=== PATIENT | male | born 1950 | race Caucasian/White ===

== ENCOUNTER → 2019-03-02 | Outpatient (CLI) | payer MEDICARE ==
--- NOTE | 2019-03-03 09:24 | P.ARTDOP ---
Arterial Doppler LOWER EXTREMITY ARTERIAL DOPPLER: DATE OF SERVICE: 03/02/2019 Reason for study: Bilateral foot pain. Doppler waveforms: Multiphasic bilaterally throughout. Pulse volume recording: []. Pressure gradients: No significant gradients. Ankle-brachial indices: 0.97 on the right and 0.99 on the left. Toe pressures: [] on the right, [] on the left Impression: Normal study.
== END | disposition home or self-care (01) ==
LOC: RADUSWWP 12:45
PROVIDERS: ATTEND Family Medicine
DX: I70.213 Atherosclerosis of native arteries of extremities with intermittent claudication, bilateral legs (principal)
CPT/HCPCS: 93923

== ENCOUNTER 2019-07-26 10:15 | Observation (INO) | payer MEDICARE ==
[2019-07-26 11:12] LABS: Basophils % (A) 1 %; Eosinophils # (A) 0.1 k/uL (0-0.7); Eosinophils % (A) 4 %; HGB 12.1 gm/dL (13.0-17.5); Lymphocytes # (A) 0.6 k/uL (1.0-4.8); Lymphocytes % (A) 18 %; MCHC 31.8 g/dL (31.0-37.0); MCV 97.3 fL (80.0-100.0); Mean Platelet Volume 7.4; Monocytes # (A) 0.2 k/uL (0-1.0); Monocytes % (A) 7 %; Neutrophils # (A) 2.4 k/uL (1.3-7.7); Neutrophils % (A) 68 %; Platelet Count 151 k/uL (150-450); RDW 12.8 % (11.5-15.5); WBC 3.5 k/uL (3.8-10.6)
[2019-07-26 11:25] LABS: ALT 22 U/L (4-49); AST 29 U/L (17-59); African American GFR (CKD) >90 (>60 ml/min/1.73 sqM); Albumin 3.7 g/dL (3.5-5.0); Alkaline Phosphatase 91 U/L (38-126); Anion Gap 4 mmol/L; Blood Urea Nitrogen 25 mg/dL (9-20); Carbon Dioxide 28 mmol/L (22-30); Chloride 107 mmol/L (98-107); Glucose 108 mg/dL (74-99); Magnesium 1.9 mg/dL (1.6-2.3); Non-African American GFR(CKD) 81 (>60 ml/min/1.73 sqM); Partial Thromboplastin Time 24.7 sec (22.0-30.0); Potassium 4.2 mmol/L (3.5-5.1); Prothrombin Time 10.2 sec (9.0-12.0); Sodium 139 mmol/L (137-145); Total Bilirubin 0.5 mg/dL (0.2-1.3); Total Protein 6.1 g/dL (6.3-8.2)
[2019-07-26 11:35] LABS: Appearance,Urine Clear (Clear); Bilirubin,Urine Negative (Negative); Blood,Urine Negative (Negative); Color,Urine Yellow; Glucose,Urine (UA) Negative (Negative); Ketones,Urine Negative (Negative); Leukocyte Esterase,Urine Negative (Negative); Nitrite,Urine Negative (Negative); PH, Urine 5.5 (5.0-8.0); Protein,Urine Negative (Negative); Specific Gravity,Urine 1.019 (1.001-1.035); Urobilinogen,Urine <2.0 mg/dL (<2.0)
--- NOTE | 2019-07-26 11:36 | XR ---
EXAMINATION TYPE: XR chest 2V DATE OF EXAM: 07/26/2019 COMPARISON: 03/20/2016 HISTORY: Shortness of breath TECHNIQUE: Frontal and lateral views of the chest are obtained. FINDINGS: Scattered senescent parenchymal changes noted. No evidence for infiltrate. No evidence for atelectasis. Heart size is stable. Mediastinal structures are stable and grossly unremarkable. No evidence for hilar prominence. Degenerative changes dorsal spine. IMPRESSION: 1. No evidence for acute pulmonary disease.
--- NOTE | 2019-07-26 12:34 | ED ---
Chest Pain HPI - General Chief Complaint: Chest Pain Stated Complaint: Chest pain Time Seen by Provider: 07/26/19 10:15 Source: patient Mode of arrival: ambulatory Limitations: no limitations - History of Present Illness Initial Comments: The patient is a 69-year-old male with past history of hypertension who presents to emergency room with reported chest pain. States the symptoms started earlier this morning around 8:00. It is described as a right-sided chest pain which radiates to the left side of his chest. He describes it as a pressure sensation without radiation. No ripping or tearing sensation to his back. Denies any numbness and tingling in his upper extremity. Denies a previous cardiac history. No history of cardiac arrhythmia. Denies a history of DVT or PE. Denies any shortness of breath. No cough or hemoptysis. No back or flank pain. No recent upper respiratory infection. He did take Pepto which states it did help his symptoms. He did have associated nausea without vomiting. He went to a clinic prior to coming to the hospital. They performed an EKG and then transfer the patient to the hospital for further evaluation. Denies a previous history of stress testing. His pain is graded as a 4 out of 10. Did have improvement in his pain with Pepto. He denies any fevers or chills. No cough or hemoptysis. Denies abdominal pain. Ripping or tearing sensation to his back. Denies any back or flank pain. There are no other alleviating, precipitating or modifying factors - Related Data Home Medications Medication Instructions Recorded Confirmed Acetaminophen [Tylenol] 500 mg PO BID PRN 08/07/15 07/26/19 Aspirin EC [Ecotrin Low Dose] 81 mg PO DAILY 08/07/15 07/26/19 Atorvastatin [Lipitor] 20 mg PO DAILY 08/07/15 07/26/19 Benazepril HCl 20 mg PO DAILY 08/07/15 07/26/19 Cholecalciferol [Vitamin D3 (25 2,000 unit PO DAILY 08/07/15 07/26/19 Mcg = 1000 Iu)] Cyanocobalamin [Vitamin B-12] 500 mcg PO DAILY 08/07/15 07/26/19 Doxazosin [Cardura] 4 mg PO BID 08/07/15 07/26/19 Multivitamins, Thera [Multivitamin 1 tab PO DAILY 08/07/15 07/26/19 (formulary)] Omeprazole [PriLOSEC] 20 mg PO BID 08/07/15 07/26/19 Sertraline [Zoloft] 50 mg PO DAILY 08/07/15 07/26/19 Diltiazem Cd [Cardizem CD] 240 mg PO DAILY 03/08/16 07/26/19 Calcium Polycarbophil [Fibercon] 625 mg PO BID 07/26/19 07/26/19 Fluticasone Propionate [Flonase 2 spray EA NOSTRIL DAILY 07/26/19 07/26/19 Allergy Relief] Furosemide [Lasix] 20 mg PO BID@0900,1600 07/26/19 07/26/19 Allergies Allergy/AdvReac Type Severity Reaction Status Date / Time cyclobenzaprine HCl Allergy Unknown Unknown Verified 07/26/19 13:26 [From Flexeril] memantine HCl [From Namenda] Allergy Unknown Unknown Verified 07/26/19 13:26 promethazine HCl Allergy Unknown Unknown Verified 07/26/19 13:26 [From Phenergan] quetiapine fumarate Allergy Unknown Unknown Verified 07/26/19 13:26 [From Seroquel] alprazolam [From Xanax] Allergy Unknown Verified 07/26/19 13:26 Review of Systems ROS Statement: Those systems with pertinent positive or pertinent negative responses have been documented in the HPI. ROS Other: All systems not noted in ROS Statement are negative. EKG Findings - EKG Comments: EKG Findings:: EKG demonstrates a sinus rhythm with a first-degree AV block. Rate of 87. NV interval 236. QRS 102. QTC of 423. There is an incomplete right bundle-branch block. No acute ST segment elevations or depressions concerning for ischemic changes Past Medical History Past Medical History: Deep Vein Thrombosis (DVT), Hyperlipidemia, Hypertension Additional Past Medical History / Comment(s): ? SEIZURE 2015. using a cane History of Any Multi-Drug Resistant Organisms: None Reported Past Surgical History: Joint Replacement, Orthopedic Surgery Additional Past Surgical History / Comment(s): 03/19/16 total R knee arthroplasty. R FOOT SURGERY, R carpal tunnel repair Past Anesthesia/Blood Transfusion Reactions: No Reported Reaction Past Psychological History: No Psychological Hx Reported Smoking Status: Never smoker Past Alcohol Use History: None Reported Past Drug Use History: None Reported - Past Family History Father Family Medical History: Cancer Mother Family Medical History: Cancer General Exam Limitations: no limitations General appearance: alert, in no apparent distress Head exam: Present: atraumatic, normocephalic, normal inspection Eye exam: Present: normal appearance, PERRL, EOMI. Absent: scleral icterus, conjunctival injection, periorbital swelling ENT exam: Present: normal exam, mucous membranes moist Neck exam: Present: normal inspection. Absent: tenderness, meningismus, lymphadenopathy Respiratory exam: Present: normal lung sounds bilaterally. Absent: respiratory distress, wheezes, rales, rhonchi, stridor Cardiovascular Exam: Present: regular rate, normal rhythm, normal heart sounds. Absent: systolic murmur, diastolic murmur, rubs, gallop, clicks GI/Abdominal exam: Present: soft, normal bowel sounds. Absent: distended, tenderness, guarding, rebound, rigid Extremities exam: Present: full ROM, normal capillary refill, pedal edema. Absent: tenderness, joint swelling, calf tenderness Back exam: Present: normal inspection Neurological exam: Present: alert, oriented X3, CN II-XII intact Psychiatric exam: Present: normal affect, normal mood Skin exam: Present: warm, dry, intact, normal color. Absent: rash Course Vital Signs 07/26/19 07/26/19 07/26/19 10:16 11:30 12:00 Temperature 98.8 F Pulse Rate 95 80 Respiratory 18 14 Rate Blood Pressure 153/80 139/74 133/79 O2 Sat by Pulse 98 97 Oximetry 07/26/19 07/26/19 07/26/19 12:30 13:00 13:30 Temperature Pulse Rate 76 81 75 Respiratory 16 13 18 Rate Blood Pressure 140/76 145/79 135/73 O2 Sat by Pulse 98 98 98 Oximetry 07/26/19 14:00 Temperature Pulse Rate 69 Respiratory 17 Rate Blood Pressure 132/71 O2 Sat by Pulse 99 Oximetry Chest Pain MDM - MDM Upon arrival the patient placed into room 20. A thorough history and physical exam was performed. A 12-lead EKG was performed. Patient states that his pain is controlled at this time and so he is not accepting of any pain medications at this time. Peripheral IV was placed. Laboratory studies were conducted. White blood count is 3.5. D-dimer elevated at 1.48. Patient denies having a history of DVT or PE however this is listed in his history. He states that he is not ever remember being on a blood thinner. Troponin is negative. Urinalysis is also negative. Patient is sent for a chest x-ray which demonstrates no acute cardial primary process. Because of the elevated d-dimer the patient is then sent for a CT of his chest which demonstrates a suboptimal study but there is no acute evidence for acute pulmonary embolism. No suspicious acute focal infiltrate. I discussed the results with the patient. As he has not had any recent cardiac evaluation and does not remember ever having a stress test I did recommend hospital admission for which the patient did agree. Called and discussed the case with Dr. Sterling who accepted admission for the patient. Patient was transferred to floor in stable condition Disposition Clinical Impression: Chest pain Disposition: ADMITTED IP TO THIS HOSP Condition: Stable Is patient prescribed a controlled substance at d/c from ED?: No Decision to Admit Reason: Admit from EC Decision Date: 07/26/19 Decision Time: 13:28
[2019-07-26] MEDS ORDERED: NALOXONE 0.4 MG/ML 1 ML VIAL IV PRN (13:28)
--- NOTE | 2019-07-26 14:44 | CT ---
EXAMINATION TYPE: CT chest angio for PE DATE OF EXAM: 07/26/2019 COMPARISON: Chest x-ray earlier today. HISTORY: Elevated d dimer, chest pain CT DLP: 569.4 mGycm. Automated Exposure Control for Dose Reduction was Utilized. CONTRAST: CTA scan of the thorax is performed with IV Contrast, patient injected with 100 mL of Isovue 370, pul monary embolism protocol. MIP Images are created on CT scanner and reviewed. FINDINGS: There is respiratory motion artifact degradation making evaluation suboptimal particularly for subcentimeter nodules. LUNGS: Trace bilateral pleural effusions. No pneumothorax bilaterally. No suspicious focal groundglas s opacity or consolidation. No suspicious masses. MEDIASTINUM: Suboptimal study with near equal contrast in right and left heart systems but no CT evid ence for acute pulmonary embolism. There are no greater than 1 cm hilar or mediastinal lymph nodes. Prominent but subcentimeter AP window and paratracheal lymph nodes. Prominent calcified subcarinal l ymph nodes. No cardiomegaly or pericardial effusion is seen. OTHER: Bilateral subareolar gynecomastia. Few small calcifications scattered throughout the spleen. M oderate multilevel spurring and disc space narrowing in the thoracic spine. IMPRESSION: 1. Suboptimal study without CT evidence for acute pulmonary embolism. 2. No suspicious acute focal infiltrate.
[2019-07-26] MEDS ORDERED: ACETAMINOPHEN TAB 500 MG TAB PO PRN (17:27)
[2019-07-26] MEDS: DOXAZOSIN 4 MG TAB PO SCH (18:14)
[2019-07-26] MEDS: CALCIUM POLYCARBOPHIL 625 MG TAB PO SCH (21:40)
[2019-07-27] MEDS: PANTOPRAZOLE 40 MG TABLET PO SCH (06:27)
[2019-07-27] MEDS: LISINOPRIL 20 MG TAB PO SCH (08:12)
[2019-07-27] MEDS: FUROSEMIDE 20 MG TAB PO SCH ×2 (08:12→15:36)
[2019-07-27] MEDS: CHOLECALCIFEROL 1,000 UNIT TAB PO SCH (08:12)
[2019-07-27] MEDS: FLUTICASONE 50MCG/SPRAY NASAL 16GM EA NOSTRIL SCH (08:12)
[2019-07-27] MEDS: MULTIVITAMINS, THERA 1 EACH TAB PO SCH (08:12)
[2019-07-27] MEDS: ATORVASTATIN 20 MG TAB PO SCH (08:12)
[2019-07-27] MEDS: DOXAZOSIN 4 MG TAB PO SCH ×2 (08:12→20:51)
[2019-07-27] MEDS: DILTIAZEM CD 240 MG CAP.ER.24H PO SCH (08:12)
[2019-07-27] MEDS: CYANOCOBALAMIN 500 MCG TAB PO SCH (08:12)
[2019-07-27] MEDS: CALCIUM POLYCARBOPHIL 625 MG TAB PO SCH ×2 (08:12→20:51)
[2019-07-27] MEDS: ASPIRIN 81 MG PO SCH (08:12)
[2019-07-27] MEDS: SERTRALINE 50 MG TAB PO SCH (08:13)
[2019-07-27] MEDS: ENOXAPARIN 40 MG/0.4 ML SYRINGE SQ SCH (11:48)
--- NOTE | 2019-07-27 12:12 | P.CRDCN ---
History of Present Illness Consult date: 07/27/19 Requesting physician: Calvin Sterling Consult reason: chest pain Chief complaint: Chest pain History of present illness: This is a 69-year-old gentleman with documented history of hyperten rodrick, hyperlipidemia, prior DVT, questionable prior seizure in the past, he is a nonsmoker, nondiabetic, presents to the hospital on this occasion with symptoms of chest tightness and heaviness. Patient also states that he had a sharp chest discomfort. Symptoms started around 8:00 in the morning, he went to the local clinic, that was around 9:00 he states the pain was still there at that time al though much less severe, he was recommended to come to the hospital for further evaluation and treatment. On arrival here the patient states he was still experiencing chest pain. He had no associated symptoms of shortness of breath, no nausea, no diaphoresis. Chest x-ray did not have any evidence for acute pulmonary disease. EKG shows a normal sinus rhythm with first-degree AV block and incomplete right bundle branch block, no acute changes noted. CTA of the chest, suboptimal study but no evidence for pulmonary embolism. Blood pressure 136/60 with a heart rate in the 60s to 80s, 95% on room air. White blood cell count 3.5, hemoglobin 12.1, platelet count 151. D-dimer 1.48. Sodium 139, potassium 4.2, BUN 25, creatinine 0.9. Magnesium 1.9. Troponins negative 3. At the time of my examination this morning, patient is currently chest pain- free. Past Medical History Past Medical History: Deep Vein Thrombosis (DVT), Hyperlipidemia, Hypertension Additional Past Medical History / Comment(s): ? SEIZURE 2014. using a cane History of Any Multi-Drug Resistant Organisms: None Reported Past Surgical History: Joint Replacement, Orthopedic Surgery Additional Past Surgical History / Comment(s): 03/19/16 total R knee arthroplasty. R FOOT SURGERY, R carpal tunnel repair Past Anesthesia/Blood Transfusion Reactions: No Reported Reaction Past Psychological History: No Psychological Hx Reported Smoking Status: Never smoker Past Alcohol Use History: None Reported Past Drug Use History: None Reported - Past Family History Father Family Medical History: Cancer Mother Family Medical History: Cancer Medications and Allergies Home Medications Medication Instructions Recorded Confirmed Type Acetaminophen [Tylenol] 500 mg PO BID PRN 08/07/15 07/26/19 History Aspirin EC [Ecotrin] 81 mg PO DAILY 08/07/15 07/26/19 History Atorvastatin [Lipitor] 20 mg PO DAILY 08/07/15 07/26/19 History Benazepril HCl 20 mg PO DAILY 08/07/15 07/26/19 History Cholecalciferol [Vitamin D3] 2,000 unit PO DAILY 08/07/15 07/26/19 History Cyanocobalamin [Vitamin B-12] 500 mcg PO DAILY 08/07/15 07/26/19 History Doxazosin [Cardura] 4 mg PO BID 08/07/15 07/26/19 History Multivitamins, Thera [Multivitamin] 1 tab PO DAILY 08/07/15 07/26/19 History Omeprazole [PriLOSEC] 20 mg PO BID 08/07/15 07/26/19 History Sertraline [Zoloft] 50 mg PO DAILY 08/07/15 07/26/19 History Diltiazem Cd [Cardizem Cd] 240 mg PO DAILY 03/08/16 07/26/19 History Calcium Polycarbophil [Fibercon] 625 mg PO BID 07/26/19 07/26/19 History Fluticasone Propionate [Flonase 2 spray EA NOSTRIL DAILY 07/26/19 07/26/19 History Allergy Relief] Furosemide [Lasix] 20 mg PO BID@0900,1600 07/26/19 07/26/19 History Allergies Allergy/AdvReac Type Severity Reaction Status Date / Time cyclobenzaprine HCl Allergy Unknown Unknown Verified 07/26/19 13:26 [From Flexeril] memantine HCl [From Namenda] Allergy Unknown Unknown Verified 07/26/19 13:26 promethazine HCl Allergy Unknown Unknown Verified 07/26/19 13:26 [From Phenergan] quetiapine fumarate Allergy Unknown Unknown Verified 07/26/19 13:26 [From Seroquel] alprazolam [From Xanax] Allergy Unknown Verified 07/26/19 13:26 Physical Exam Vitals: Vital Signs Temp Pulse Pulse Resp BP BP Pulse Ox 07/27/19 08:00 97.8 F 59 L 21 137/67 95 07/27/19 04:00 98.2 F 80 20 157/79 97 07/27/19 00:00 98 F 75 18 135/72 97 07/26/19 20:00 98.2 F 76 18 149/71 99 07/26/19 16:45 84 16 07/26/19 15:05 98.5 F 72 18 131/73 97 07/26/19 14:00 69 17 132/71 99 07/26/19 13:30 75 18 135/73 98 07/26/19 13:00 81 13 145/79 98 07/26/19 12:30 76 16 140/76 98 Intake and Output 07/26/19 07/27/19 07/27/19 22:59 06:59 14:59 Intake Total 240 120 Balance 240 120 Intake: Oral 240 120 Other: Voiding Method Toilet # Voids 1 1 # Bowel Movements 1 Weight 109.769 kg 111 kg PHYSICAL EXAMINATION: GENERAL: 69-year-old gentleman in no acute distress at the time of my examination HEENT: Head is atraumatic, normocephalic. Pupils equal, round. Sclera anicteric. Conjunctiva are clear. Mucous membranes of the mouth are moist. Neck is supple. There is no elevated jugular venous pressure. No carotid bruit is heard. HEART EXAMINATION: Heart S1 and S2 systolic murmur is heard in the aortic area CHEST EXAMINATION: Lungs are clear to auscultation and precussion. No chest wall tenderness is noted on palpation or with deep breathing. ABDOMEN: Soft, nontender. Bowel sounds are heard. No organomegaly noted. EXTREMITIES: 2+ peripheral pulses with trace to 1+ evidence of peripheral edema and no calf tenderness noted. NEUROLOGIC patient is awake, alert and oriented 3 . . Results 07/26/19 10:38 07/26/19 10:38 Cardiac Enzymes 07/26/19 07/27/19 Range/Units 16:15 08:40 Troponin I <0.012 <0.012 (0.000-0.034) ng/mL Current Medications Generic Name Dose Route Start Last Admin Trade Name Freq PRN Reason Stop Dose Admin Acetaminophen 500 mg 07/26/19 17:27 Tylenol Tab PO BID PRN Pain Aspirin 81 mg 07/27/19 09:00 07/27/19 08:12 Aspirin PO 81 mg DAILY DISHA Administration Atorvastatin Calcium 20 mg 07/27/19 09:00 07/27/19 08:12 Lipitor PO 20 mg DAILY DISHA Administration Calcium Polycarbophil 625 mg 07/26/19 21:00 07/27/19 08:12 Fibercon PO 625 mg BID DISHA Administration Cholecalciferol 2,000 unit 07/27/19 09:00 07/27/19 08:12 Vitamin D3 (25 Mcg = 1000 Iu) PO 2,000 unit DAILY DISHA Administration Cyanocobalamin 500 mcg 07/27/19 09:00 07/27/19 08:12 Vitamin B-12 PO 500 mcg DAILY DISHA Administration Diltiazem HCl 240 mg 07/27/19 09:00 07/27/19 08:12 Cardizem Cd PO 240 mg DAILY DISHA Administration Doxazosin Mesylate 4 mg 07/26/19 21:00 07/27/19 08:12 Cardura PO 4 mg BID DISHA Administration Enoxaparin Sodium 40 mg 07/27/19 10:15 07/27/19 11:48 Lovenox SQ 40 mg DAILY DISHA Administration Fluticasone Propionate 2 spray 07/27/19 09:00 07/27/19 08:12 Flonase Nasal Renner EA NOSTRIL 2 spray DAILY DISHA Administration Furosemide 20 mg 07/27/19 09:00 07/27/19 08:12 Lasix PO 20 mg BID@0900,1600 DISHA Administration Lisinopril 20 mg 07/27/19 09:00 07/27/19 08:12 Zestril PO 20 mg DAILY DISHA Administration Multivitamins 1 each 07/27/19 09:00 07/27/19 08:12 Theragran PO 1 each DAILY DISHA Administration Naloxone HCl 0.2 mg 07/26/19 13:28 Narcan IV Q2M PRN Opioid Reversal Pantoprazole Sodium 40 mg 07/27/19 07:30 07/27/19 06:27 Protonix PO 40 mg [id number] DISHA Administration Sertraline HCl 50 mg 07/27/19 09:00 07/27/19 08:13 Zoloft PO 50 mg DAILY DISHA Administration Intake and Output 07/26/19 07/27/19 07/27/19 22:59 06:59 14:59 Intake Total 240 120 Balance 240 120 Intake: Oral 240 120 Other: Voiding Method Toilet # Voids 1 1 # Bowel Movements 1 Weight 109.769 kg 111 kg 07/26/19 10:38 07/26/19 10:38 EKG Interpretations (text) EKG shows normal sinus rhythm with first-degree AV block and incomplete right bundle branch block pattern with no acute changes noted. Assessment and Plan Plan: Assessment and plan #1 chest pain, with atypical features for acute coronary syndrome. Troponins negative 3. EKG shows a normal sinus rhythm with incomplete right bundle branch block pattern, no acute changes noted #2 hypertension #3 hyperlipidemia #4 history of prior DVT #5 questionable seizures in the past #6 d-dimer 1.4, CTA of the chest negative for pulmonary embolism. #7 systolic murmur suggestive of possible aortic stenosis Plan We will obtain an echocardiogram with Doppler study. Patient is also been advised to undergo stress testing today. Based on these findings further recommendations will be made. DNP note has been reviewed, I agree with a documented findings and plan of care. Patient was seen and examined.
[2019-07-27] MEDS ORDERED: DOBUTamine DRIP for NUC MED 500 MG in DEXTROSE/WATER 1 250ML.BAG IV ONE (12:19)
[2019-07-27] MEDS ORDERED: ATROPINE SULFATE 0.1 MG/ML 10ML SYRINGE ONE (13:20)
--- NOTE | 2019-07-28 00:32 | P.HPIM ---
History of Present Illness H&P Date: 07/27/19 Chief Complaint: Chest pressure Hospital course: Admitted with right lower extremity venous stasis ulcers and wound, elevated potassium and abnormal renal function. Also felt to have CHF exacerbation. Given IV Lasix. Creatinine did come down from 1.7 down to 1.2. Diuretics were held. A structural given.Patient has right leg weakness from polio. Had a baseline does use a cane. . Has chronic left hip arthritis. Acute renal failure was felt to be from Bactrim Feeling much improved. Tolerating a diet. Became warm. Breathing is stable. Cleared by cardiology. Discussed with the patient [employer]ET [employer] from cardiology. Discussion and discharge planning more than 35 minutes Consultation: Dr. valero from [facility] On examination: VITAL SIGNS: 97, 72, 16, 134/65, 96% room air GENERAL APPEARANCE: Sitting up comfortable HEENT: Normal external appearance of nose and ear. Oral cavity normal EYES: Pupils equal. Conjunctiva normal. NECK: JVD not raised. Mass not palpable. RESPIRATORY: Respiratory effort normal. Lungs decreased breath sound CARDIOVASCULAR: First and second sounds normal. Some edema. ABDOMEN: Soft. Liver and spleen not palpable. No tenderness. No mass palpable. PSYCHIATRY: Alert and oriented x3. Mood and affect normal. Right lower extremity venous stasis ulcer INVESTIGATIONS, reviewed in the clinical context: White count 7.5 hemoglobin 10.6 creatinine 1.27 Previous testing: Potassium 6.1 bun 41 crit 1.70 UA negative Troponin I 0.048 ProBNP 1860 2-D echo-EF 40-45% Venous Doppler-negative for DVT Assessment: -Acute on chronic congestive heart failure from systolic dysfunction EF 40-45% -Acute kidney injury possibly ATN secondary to Bactrim, improving -Acute blood lower extremity wound from ruptured blister from venous insufficiency -Diabetes mellitus type 2 -Essential hypertension -Hypothyroid -Polio affecting the right leg -Chronic gait dysfunction uses a cane -Primary osteoarthritis especially of the hips Past Medical History Past Medical History: Deep Vein Thrombosis (DVT), Hyperlipidemia, Hypertension Additional Past Medical History / Comment(s): ? SEIZURE 2015. using a cane History of Any Multi-Drug Resistant Organisms: None Reported Past Surgical History: Joint Replacement, Orthopedic Surgery Additional Past Surgical History / Comment(s): 03/19/16 total R knee a rthroplasty. R FOOT SURGERY, R carpal tunnel repair Past Anesthesia/Blood Transfusion Reactions: No Reported Reaction Past Psychological History: No Psychological Hx Reported Smoking Status: Never smoker Past Alcohol Use History: None Reported Past Drug Use History: None Reported - Past Family History Father Family Medical History: Cancer Mother Family Medical History: Cancer Medications and Allergies Home Medications Medication Instructions Recorded Confirmed Type Acetaminophen [Tylenol] 500 mg PO BID PRN 08/07/15 07/26/19 History Aspirin EC [Ecotrin] 81 mg PO DAILY 08/07/15 07/26/19 History Atorvastatin [Lipitor] 20 mg PO DAILY 08/07/15 07/26/19 History Benazepril HCl 20 mg PO DAILY 08/07/15 07/26/19 History Cholecalciferol [Vitamin D3] 2,000 unit PO DAILY 08/07/15 07/26/19 History Cyanocobalamin [Vitamin B-12] 500 mcg PO DAILY 08/07/15 07/26/19 History Doxazosin [Cardura] 4 mg PO BID 08/07/15 07/26/19 History Multivitamins, Thera [Multivitamin] 1 tab PO DAILY 08/07/15 07/26/19 History Omeprazole [PriLOSEC] 20 mg PO BID 08/07/15 07/26/19 History Sertraline [Zoloft] 50 mg PO DAILY 08/07/15 07/26/19 History Diltiazem Cd [Cardizem Cd] 240 mg PO DAILY 03/08/16 07/26/19 History Calcium Polycarbophil [Fibercon] 625 mg PO BID 07/26/19 07/26/19 History Fluticasone Propionate [Flonase 2 spray EA NOSTRIL DAILY 07/26/19 07/26/19 History Allergy Relief] Furosemide [Lasix] 20 mg PO BID@0900,1600 07/26/19 07/26/19 History Allergies Allergy/AdvReac Type Severity Reaction Status Date / Time cyclobenzaprine HCl Allergy Unknown Unknown Verified 07/26/19 13:26 [From Flexeril] memantine HCl [From Namenda] Allergy Unknown Unknown Verified 07/26/19 13:26 promethazine HCl Allergy Unknown Unknown Verified 07/26/19 13:26 [From Phenergan] quetiapine fumarate Allergy Unknown Unknown Verified 07/26/19 13:26 [From Seroquel] alprazolam [From Xanax] Allergy Unknown Verified 07/26/19 13:26 Physical Exam Vitals: Vital Signs Temp Pulse Pulse Resp BP BP Pulse Ox 07/27/19 08:00 97.8 F 59 L 21 137/67 95 07/27/19 04:00 98.2 F 80 20 157/79 97 07/27/19 00:00 98 F 75 18 135/72 97 07/26/19 20:00 98.2 F 76 18 149/71 99 07/26/19 16:45 84 16 07/26/19 15:05 98.5 F 72 18 131/73 97 07/26/19 14:00 69 17 132/71 99 07/26/19 13:30 75 18 135/73 98 07/26/19 13:00 81 13 145/79 98 07/26/19 12:30 76 16 140/76 98 07/26/19 12:00 80 14 133/79 97 07/26/19 11:30 139/74 07/26/19 10:16 98.8 F 95 18 153/80 98 Intake and Output 07/26/19 07/27/19 07/27/19 22:59 06:59 14:59 Intake Total 240 120 Balance 240 120 Intake: Oral 240 120 Other: Voiding Method Toilet # Voids 1 1 # Bowel Movements 1 Weight 109.769 kg 111 kg Results CBC & Chem 7: 07/26/19 10:38 07/26/19 10:38 Labs: Abnormal Lab Results - Last 24 Hours (Table) 07/26/19 07/26/19 07/26/19 Range/Units 10:30 10:38 10:38 WBC 3.5 L (3.8-10.6) k/uL RBC 3.90 L (4.30-5.90) m/uL Hgb 12.1 L (13.0-17.5) gm/dL Hct 38.0 L (39.0-53.0) % Lymphocytes # 0.6 L (1.0-4.8) k/uL D-Dimer 1.48 H (<0.60) mg/L FEU BUN 25 H (9-20) mg/dL Glucose 108 H (74-99) mg/dL Total Protein 6.1 L (6.3-8.2) g/dL Thrombosis Risk Factor Assmnt - Choose All That Apply Any of the Below Risk Factors Present?: Yes Each Factor Represents 1 point: Obesity (BMI >25), Swollen legs (current) Other Risk Factors: Yes Each Risk Factor Represents 2 Points: Age 61-74 years Thrombosis Risk Factor Assessment Total Risk Factor Score: 4 Thrombosis Risk Factor Assessment Level: Moderate Risk
[2019-07-28] MEDS: PANTOPRAZOLE 40 MG TABLET PO SCH (06:37)
[2019-07-28] MEDS: ATORVASTATIN 20 MG TAB PO SCH (10:20)
[2019-07-28] MEDS: ASPIRIN 81 MG PO SCH (10:20)
[2019-07-28] MEDS: CALCIUM POLYCARBOPHIL 625 MG TAB PO SCH (10:21)
[2019-07-28] MEDS: DILTIAZEM CD 240 MG CAP.ER.24H PO SCH (10:22)
[2019-07-28] MEDS: DOXAZOSIN 4 MG TAB PO SCH (10:22)
[2019-07-28] MEDS: CYANOCOBALAMIN 500 MCG TAB PO SCH (10:22)
[2019-07-28] MEDS: ENOXAPARIN 40 MG/0.4 ML SYRINGE SQ SCH (10:23)
[2019-07-28] MEDS: CHOLECALCIFEROL 1,000 UNIT TAB PO SCH (10:25)
[2019-07-28] MEDS: FLUTICASONE 50MCG/SPRAY NASAL 16GM EA NOSTRIL SCH (10:25)
[2019-07-28] MEDS: FUROSEMIDE 20 MG TAB PO SCH (10:26)
[2019-07-28] MEDS: LISINOPRIL 20 MG TAB PO SCH (10:27)
[2019-07-28] MEDS: MULTIVITAMINS, THERA 1 EACH TAB PO SCH (10:27)
[2019-07-28] MEDS: SERTRALINE 50 MG TAB PO SCH (10:27)
--- NOTE | 2019-07-28 11:00 | ECHOF ---
Referral Reason:chest pain MEASUREMENTS -------- HEIGHT: 167.6 cm WEIGHT: 110.7 kg BP: 141/48 IVSd: 1.1 cm (0.6 - 1.1) LVIDd: 4.8 cm (3.9 - 5.3) LVPWd: 1.1 cm (0.6 - 1.1) IVSs: 1.2 cm LVIDs: 2.7 cm LVPWs: 1.3 cm LAESV Index (A-L): 37.56 ml/m Ao Diam: 2.9 cm (2.0 - 3.7) AV Cusp: 2.1 cm (1.5 - 2.6) MV EXCURSION: 19.027 mm (> 18.000) MV EF SLOPE: 89 mm/s (70 - 150) EPSS: 0.5 cm MV E James: 1.06 m/s MV DecT: 246 ms MV A James: 1.36 m/s MV E/A Ratio: 0.78 AV maxP.71 mmHg AV meanP.33 mmHg AR PHT: 342 ms RAP: 5.00 mmHg RVSP: 43.09 mmHg FINDINGS -------- Sinus rhythm. This was a technically adequate study. The left ventricular size is normal. There is mild concentric left ventricular hypertrophy. Overa ll left ventricular systolic function is normal with, an EF between 55 - 60 %. The diastolic fillin g pattern is normal for the age of the patient 8.73. The RV was not well visualized. LA is moderately dilated 34-39 ml/m2 The right atrium was not well visualized. Interatrial and interventricular septum intact. The aortic valve was not well visualized. There is mild aortic regurgitation. There is mild aorti c stenosis present. Peak/mean gradient across the Aortic Valve is 34.71mmHg / 16.33mmHg. Mild mitral regurgitation is present. [id number] tricuspid regurgitation present. There is mild to moderate pulmonary hypertension. The right ventricular systolic pressure, as measured by Doppler, is 43.09mmHg. There is no pulmonic regurgitation present. The aortic root size is normal. IVC Not well visulized. There is no pericardial effusion. CONCLUSIONS -------- 1. Sinus rhythm. 2. This was a technically adequate study. 3. The left ventricular size is normal. 4. There is mild concentric left ventricular hypertrophy. 5. Overall left ventricular systolic function is normal with, an EF between 55 - 60 %. 6. The diastolic filling pattern is normal for the age of the patient 8.73 7. The RV was not well visualized. 8. LA is moderately dilated 34-39 ml/m2 9. The right atrium was not well visualized. 10. Interatrial and interventricular septum intact. 11. The aortic valve was not well visualized. 12. There is mild aortic regurgitation. 13. There is mild aortic stenosis present. 14. Peak/mean gradient across the Aortic Valve is 34.71mmHg / 16.33mmHg. 15. Mild mitral regurgitation is present. 16. Pudx-[id number] tricuspid regurgitation present. 17. There is mild to moderate pulmonary hypertension. 18. The right ventricular systolic pressure, as measured by Doppler, is 43.09mmHg. 19. There is no pulmonic regurgitation present. 20. The aortic root size is normal. 21. IVC Not well visulized. 22. There is no pericardial effusion. [employer]ARM[employer]: Marisela Lee RDCS
--- NOTE | 2019-07-28 12:26 | P.PN ---
Subjective Progress Note Date: 07/28/19 This is a 69-year-old gentleman with documented history of hypertension, hyperlipidemia, prior DVT, questionable prior seizure in the past, he is a nonsmoker, nondiabetic, presents to the hospital on this occasion with symptoms of chest tightness and heaviness. Patient also states that he had a sharp chest discomfort. Symptoms started around 8:00 in the morning, he went to the local clinic, that was around 9:00 he states the pain was still there at that time although much less severe, he was recommended to come to the hospital for further evaluation and treatment. On arrival here the patient states he was still experiencing chest pain. He had no associated symptoms of shortness of br eath, no nausea, no diaphoresis. Chest x-ray did not have any evidence for acute pulmonary disease. EKG shows a normal sinus rhythm with first-degree AV block and incomplete right bundle branch block, no acute changes noted. CTA of the chest, suboptimal study but no evidence for pulmonary embolism. Blood pressure 136/60 with a heart rate in the 60s to 80s, 95% on room air. White blood cell count 3.5, hemoglobin 12.1, platelet count 151. D-dimer 1.48. Sodium 139, potassium 4.2, BUN 25, creatinine 0.9. Magnesium 1.9. Troponins negative 3. At the time of my examination this morning, patient is currently chest pain-free. 07/28/2019 Patient seen and examined this morning, denies any further episodes of chest discomfort. He underwent a dobutamine echocardiographic study yesterday which was negative for any reversible ischemia. Echocardiogram with Doppler study revealed a normal left ventricular systolic function with mild to moderate tricuspid regurg and mild to moderate pulmonary hypertension. Blood pressure 126/60 with a heart rate in the 70s, 97% on room air. Objective - Vital Signs Vital signs: Vital Signs Temp 98.8 F 07/28/19 08:00 Pulse 71 07/28/19 08:00 Resp 16 07/28/19 08:00 BP 126/67 07/28/19 08:00 Pulse Ox 97 07/28/19 08:00 Intake & Output 07/27/19 07/28/19 07/28/19 18:59 06:59 18:59 Intake Total 480 240 240 Output Total 221 700 Balance 480 19 -460 Weight 111 kg 111.5 kg Intake: Oral 480 240 240 Output: Urine 221 700 Other: # Voids 2 1 # Bowel Movements 1 - Exam PHYSICAL EXAMINATION: GENERAL: 69-year-old gentleman in no acute distress at the time of my examination HEENT: Head is atraumatic, normocephalic. Pupils equal, round. Sclera anicteric. Conjunctiva are clear. Mucous membranes of the mouth are moist. Neck is supple. There is no elevated jugular venous pressure. No carotid bruit is heard. HEART EXAMINATION: Heart S1, S2 normal. No murmur or gallop heard. CHEST EXAMINATION: Lungs are clear to auscultation and precussion. No chest wall tenderness is noted on palpation or with deep breathing. ABDOMEN: Soft, nontender. Bowel sounds are heard. No organomegaly noted. EXTREMITIES: 2+ peripheral pulses with no evidence of peripheral edema and no calf tenderness noted. NEUROLOGIC patient is awake, alert and oriented 3 . . - Labs CBC & Chem 7: 07/26/19 10:38 07/26/19 10:38 Assessment and Plan Plan: Assessment and plan #1 chest pain, with atypical features for acute coronary syndrome. Troponins negative 3. EKG shows a normal sinus rhythm with incomplete right bundle branch block pattern, no acute changes noted #2 hypertension #3 hyperlipidemia #4 history of prior DVT #5 questionable seizures in the past #6 d-dimer 1.4, CTA of the chest negative for pulmonary embolism. #7 systolic murmur suggestive of possible aortic stenosis Plan Stress test performed yesterday did not reveal any evidence of reversible ischemia, echo revealed normal left ventricular systolic function. From cardiology's perspective, patient may be able to be discharged home today, we will make a follow-up appointment for him to see Dr. Felton in the office post discharge. DNP note has been reviewed, I agree with a documented findings and plan of care. Patient was seen and examined.
--- NOTE | 2019-07-28 12:43 | P.HPIM ---
History of Present Illness H&P Date: 07/27/19 Chief Complaint: Chest pressure History of presenting complaint: (History and physical was done on this patient yesterday that is 07/27/2019. The one that was dictated cannot be located. Hence a repeat one is being done.) This is a pleasant 69-year-old patient of . Chronic stable medical conditions include hypertension, hyperlipidemia, questionable seizure disorder and no prior history of DVT. Patient was sitting down when he developed pressure gradient across the chest. Last was about 2 hours. 2 separate in the morning time. The pain subsided on its own. There was no radiation no dizziness no lightheadedness no perspiration or shortness of breath. No prior cardiac history. Admitted for the same. Review of systems: GEN.: None EYES: None HEENT: None NECK: None RESPIRATORY: None CARDIOVASCULAR: As above GASTROINTESTINAL: None GENITOURINARY: None MUSCULOSKELETAL: None LYMPHATICS: None HEMATOLOGICAL: None PSYCHIATRY: None NEUROLOGICAL: None Past medical history to include: EGD, hypertension, hyperlipidemia, questionable seizure disorder Social history: Does not smoke or drink alcohol. Lives alone. Physical examination: VITAL SIGNS: 98.8, 95, 18, 153/80, 98% room air GENERAL: Average built, sitting up, comfortable. EYES: Pupils equal. Conjunctiva normal. HEENT: External appearance of nose and ears normal, oral cavity grossly normal. NECK: JVD not raised; masses not palpable. HEART: First and second heart sounds are normal; no edema. LUNGS: Respiratory rate normal; clear to auscultation. ABDOMEN: Soft, nontender, liver spleen not palpable, no masses palpable. PSYCH: Alert and oriented x3; mood and affect normal. NEUROLOGICAL: Cranial nerves grossly intact; no facial asymmetry, power and sensation grossly intact. LYMPHATICS: No lymph nodes palpable in the axilla and neck INVESTIGATIONS, reviewed in the clinical context: White count 3.5 hemoglobin 12.1 pressure 4.2 bun 25 creatinine 0.96 Troponin 3 negative EKG tracing personally reviewed by me-normal sinus rhythm, first-degree AV block Chest CTA-negative for PE Assessment: -Anterior chest wall pain rule out underlying cardiac disease run-essential hyp ertension -Hyperlipidemia -Essential hypertension -Obesity BMI 39.7 Plan: Serial cardiac enzymes negative. Cardiology was consulted. Dobutamine echocardiogram is being ordered. Home medications resumed. Past Medical History Past Medical History: Deep Vein Thrombosis (DVT), Hyperlipidemia, Hypertension Additional Past Medical History / Comment(s): ? SEIZURE 2015. using a cane History of Any Multi-Drug Resistant Organisms: None Reported Past Surgical History: Joint Replacement, Orthopedic Surgery Additional Past Surgical History / Comment(s): 03/19/16 total R knee arthroplasty. R FOOT SURGERY, R carpal tunnel repair Past Anesthesia/Blood Transfusion Reactions: No Reported Reaction Past Psychological History: No Psychological Hx Reported Smoking Status: Never smoker Past Alcohol Use History: None Reported Past Drug Use History: None Reported - Past Family History Father Family Medical History: Cancer Mother Family Medical History: Cancer Medications and Allergies Home Medications Medication Instructions Recorded Confirmed Type Acetaminophen [Tylenol] 500 mg PO BID PRN 08/07/15 07/26/19 History Aspirin EC [Ecotrin] 81 mg PO DAILY 08/07/15 07/26/19 History Atorvastatin [Lipitor] 20 mg PO DAILY 08/07/15 07/26/19 History Benazepril HCl 20 mg PO DAILY 08/07/15 07/26/19 History Cholecalciferol [Vitamin D3] 2,000 unit PO DAILY 08/07/15 07/26/19 History Cyanocobalamin [Vitamin B-12] 500 mcg PO DAILY 08/07/15 07/26/19 History Doxazosin [Cardura] 4 mg PO BID 08/07/15 07/26/19 History Multivitamins, Thera [Multivitamin] 1 tab PO DAILY 08/07/15 07/26/19 History Omeprazole [PriLOSEC] 20 mg PO BID 08/07/15 07/26/19 History Sertraline [Zoloft] 50 mg PO DAILY 08/07/15 07/26/19 History Diltiazem Cd [Cardizem Cd] 240 mg PO DAILY 03/08/16 07/26/19 History Calcium Polycarbophil [Fibercon] 625 mg PO BID 07/26/19 07/26/19 History Fluticasone Propionate [Flonase 2 spray EA NOSTRIL DAILY 07/26/19 07/26/19 History Allergy Relief] Furosemide [Lasix] 20 mg PO BID@0900,1600 07/26/19 07/26/19 History Allergies Allergy/AdvReac Type Severity Reaction Status Date / Time cyclobenzaprine HCl Allergy Unknown Unknown Verified 07/26/19 13:26 [From Flexeril] memantine HCl [From Namenda] Allergy Unknown Unknown Verified 07/26/19 13:26 promethazine HCl Allergy Unknown Unknown Verified 07/26/19 13:26 [From Phenergan] quetiapine fumarate Allergy Unknown Unknown Verified 07/26/19 13:26 [From Seroquel] alprazolam [From Xanax] Allergy Unknown Verified 07/26/19 13:26 Physical Exam Vitals: Vital Signs Temp Pulse Resp BP Pulse Ox 07/28/19 08:00 98.8 F 71 16 126/67 97 07/28/19 04:00 98.1 F 65 20 102/66 97 07/28/19 00:00 98.4 F 65 18 103/63 96 07/27/19 20:00 98.4 F 68 20 128/69 97 07/27/19 15:42 98.0 F 75 20 131/67 94 L Intake and Output 07/27/19 07/28/19 07/28/19 22:59 06:59 14:59 Intake Total 240 240 240 Output Total 221 700 Balance 240 19 -460 Intake: Oral 240 240 240 Output: Urine 221 700 Other: # Voids 2 1 Weight 111.5 kg Results CBC & Chem 7: 07/26/19 10:38 07/26/19 10:38 Thrombosis Risk Factor Assmnt - Choose All That Apply Any of the Below Risk Factors Present?: Yes Each Factor Represents 1 point: Obesity (BMI >25), Swollen legs (current) Other Risk Factors: Yes Each Risk Factor Represents 2 Points: Age 61-74 years Thrombosis Risk Factor Assessment Total Risk Factor Score: 4 Thrombosis Risk Factor Assessment Level: Moderate Risk
--- NOTE | 2019-07-28 13:34 | ECHOS ---
STRESS ECHOCARDIOGRAM INDICATIONS: Chest pain. MEDICATIONS: BASELINE HEART RATE: 68 BASELINE BLOOD PRESSURE: 141/48 MAXIMUM HEART RATE: 133 MAXIMUM BLOOD PRESSURE: 128/42 85% MPHR: 128 100% MPHR: 151 METS: MAXIMUM STAGE REACHED: TOTAL EXERCISE TIME: CLINICAL INFORMATION: Patient was given dobutamine infusion according to the standard protocol. Peak heart rate of 133 was achieved. Maximum blood pressure of 128/42 mmHg was noted. Resting EKG shows normal sinus rhythm with normal AL interval and QRS duration and normal ST-T waves. No ST-segment depression suggestive of ischemia was noted. Intermittent PVCs and occasional ventricular couplets were noted. The baseline echocardiographic images reveal normal left ventricular chamber size with normal left ventricular systolic function. At the peak dose of dobutamine infusion, normal increase in the wall thickness and contractility was noted. FINAL IMPRESSION: 1. This dobutamine stress echocardiographic study is not suggestive of ischemia. 2. Occasional PVCs were noted. MMODL / IJN: [id number] /
[2019-07-28 14:49] VITALS: BP 147/73; PULSE 81; RESP 19; TEMP 98
--- NOTE | 2019-07-30 18:07 | P.DS ---
Providers Date of admission: 07/26/19 13:28 Expected date of discharge: 07/28/19 Attending physician: Calvin Sterling Consults: 07/26/19 13:29 Consult Physician Urgent Consulting Provider: [facility] Consult Reason/Comments: acute chest pain Do you want consulting provider notified?: Yes Primary care physician: Adrian Cortez [facility] Course: Chief Complaint: Chest pressure Hospital course: (History and physical was done on this patient yesterday that is 07/27/2019. The one that was dictated cannot be located. Hence a repeat one is being done.) This is a pleasant 69-year-old patient of . Chronic stable medical conditions include hypertension, hyperlipidemia, questionable seizure disorder and prior history of DVT. Patient was sitting down when he developed pressure gradient across the chest. Lasted about 2 hours. in the morning time. The pain subsided on its own. There was no radiation no dizziness no lightheadedness no perspiration or shortness of breath. No prior cardiac history. Admitted for the same. Cardiac enzymes are negative. Dobutamine stress echocardiogram was negative. Troponins were negative. Consultation: Dr. Sohan Felton Physical examination: VITAL SIGNS: 98, 81, 19, [id number], para 7% on room air GENERAL: Average built, sitting up, comfortable. EYES: Pupils equal. Conjunctiva normal. HEENT: External appearance of nose and ears normal, oral cavity grossly normal. NECK: JVD not raised; masses not palpable. HEART: First and second heart sounds are normal; no edema. LUNGS: Respiratory rate normal; clear to auscultation. ABDOMEN: Soft, nontender, liver spleen not palpable, no masses palpable. PSYCH: Alert and oriented x3; mood and affect normal. NEUROLOGICAL: Cranial nerves grossly intact; no facial asymmetry, power and sensation grossly intact. LYMPHATICS: No lymph nodes palpable in the axilla and neck INVESTIGATIONS, reviewed in the clinical context: White count 3.5 hemoglobin 12.1 pressure 4.2 bun 25 creatinine 0.96 Troponin 3 negative EKG tracing personally reviewed by me-normal sinus rhythm, first-degree AV block Chest CTA-negative for PE 2-D echo-EF 60-55% Assessment: -Anterior chest wall pain , possibly musculoskeletal pain. -essential hypertension -Hyperlipidemia -Essential hypertension -Obesity BMI 39.7 Disposition: Home Plan - Discharge Summary Discharge Rx Participant: No New Discharge Prescriptions: Continue Sertraline [Zoloft] 50 mg PO DAILY Cholecalciferol [Vitamin D3 (25 Mcg = 1000 Iu)] 2,000 unit PO DAILY Aspirin EC [Ecotrin Low Dose] 81 mg PO DAILY Omeprazole [PriLOSEC] 20 mg PO BID Doxazosin [Cardura] 4 mg PO BID Benazepril HCl 20 mg PO DAILY Atorvastatin [Lipitor] 20 mg PO DAILY Multivitamins, Thera [Multivitamin (formulary)] 1 tab PO DAILY Acetaminophen [Tylenol] 500 mg PO BID PRN PRN Reason: Pain Cyanocobalamin [Vitamin B-12] 500 mcg PO DAILY Diltiazem Cd [Cardizem CD] 240 mg PO DAILY Fluticasone Propionate [Flonase Allergy Relief] 2 spray EA NOSTRIL DAILY Calcium Polycarbophil [Fibercon] 625 mg PO BID Furosemide [Lasix] 20 mg PO BID@0900,1600 Discharge Medication List Acetaminophen [Tylenol] 500 mg PO BID PRN 08/07/15 [History] Aspirin EC [Ecotrin Low Dose] 81 mg PO DAILY 08/07/15 [History] Atorvastatin [Lipitor] 20 mg PO DAILY 08/07/15 [History] Benazepril HCl 20 mg PO DAILY 08/07/15 [History] Cholecalciferol [Vitamin D3 (25 Mcg = 1000 Iu)] 2,000 unit PO DAILY 08/07/15 [History] Cyanocobalamin [Vitamin B-12] 500 mcg PO DAILY 08/07/15 [History] Doxazosin [Cardura] 4 mg PO BID 08/07/15 [History] Multivitamins, Thera [Multivitamin (formulary)] 1 tab PO DAILY 08/07/15 [Histor y] Omeprazole [PriLOSEC] 20 mg PO BID 08/07/15 [History] Sertraline [Zoloft] 50 mg PO DAILY 08/07/15 [History] Diltiazem Cd [Cardizem CD] 240 mg PO DAILY 03/08/16 [History] Calcium Polycarbophil [Fibercon] 625 mg PO BID 07/26/19 [History] Fluticasone Propionate [Flonase Allergy Relief] 2 spray EA NOSTRIL DAILY 07/26/19 [History] Furosemide [Lasix] 20 mg PO BID@0900,1600 07/26/19 [History] Follow up Appointment(s)/Referral(s): Bi Felton MD [STAFF PHYSICIAN] - 08/11/19 2:15 pm (Friday) Adrian Cortez MD [Primary Care Provider] - 07/30/19 11:15 am (Friday -previously scheduled appointment) Patient Instructions/Handouts: Chest Pain (DC) Discharge Disposition: HOME SELF-CARE
== END 2019-07-28 15:40 | disposition home or self-care (01) ==
LOC: EC 10:15 → 3SCARD 13:28
PROVIDERS: ADMIT Hospitalist; ATTEND Hospitalist
DX: R07.89 Other chest pain (principal); R11.0 Nausea; I10 Essential (primary) hypertension; I27.20 Pulmonary hypertension, unspecified; I45.10 Unspecified right bundle-branch block; I44.0 Atrioventricular block, first degree; I07.1 Rheumatic tricuspid insufficiency; R79.89 Other specified abnormal findings of blood chemistry; M79.89 Other specified soft tissue disorders; E78.5 Hyperlipidemia, unspecified; E66.9 Obesity, unspecified; Z68.39 Body mass index [BMI] 39.0-39.9, adult; Z86.718 Personal history of other venous thrombosis and embolism; Z79.82 Long term (current) use of aspirin; Z79.899 Other long term (current) drug therapy; Z88.8 Allergy status to other drugs, medicaments and biological substances; Z96.651 Presence of right artificial knee joint
CPT/HCPCS: 99285; 96372 ×2; 93005 ×2; 36415; 93351; 85379; 83880; 80053; 83690; 83735; 84484 ×2; 85025; 85610; 85730; 81003; 71046; 71275; G0378 ×3; J1250; J1650 ×2; J0461; Q9967; 93306

== ENCOUNTER → 2019-12-18 | Outpatient (CLI) | payer MEDICARE ==
--- NOTE | 2019-12-19 23:11 | MR ---
EXAMINATION TYPE: MR knee LT wo con DATE OF EXAM: 12/18/2019 COMPARISON: None available HISTORY: 69-year-old male Left knee pain TECHNIQUE: Multiplanar, multisequence imaging of the left knee is performed without IV contrast. FINDINGS: Exam limitations due to motion on all sequences. The technologist reports that the patient was in noa n and had trouble holding still. There is marked generalized soft tissue swelling throughout. ACL and PCL appear intact. There appears to be edema on either side of the intact MCL fibers. Increased signal at the femoral insertion of the LCL proper. Otherwise, LCL complex appears intact. There is edema along the peripheral lip of the medial tibial plateau with an oblique tear involving t he posterior horn and body of the medial meniscus. No definite tear of the lateral meniscus allowing for the motion. Assessment of articular cartilage is limited due to motion. Suspect at least mild superficial cartila ge irregularity throughout all 3 compartments. There is a moderate knee joint effusion. No sizable Christensen's cyst. There seems to be mild edematous change within the upper calf musculature. Extensor mechanism is intact. Mild generalized muscle atrophy. No suspicious bone marrow placement. IMPRESSION: 1. Motion limited exam. The technologist reports that the patient was in pain and had trouble holding still. 2. Marked generalized soft tissue swelling. Moderate knee joint effusion. 3. Oblique tear of the posterior horn and body of the medial meniscus with some reactive edema along the peripheral lip of the medial tibial plateau. 4. Grade 1 MCL sprain. Grade 1 sprain femoral attachment of the LCL proper. 5. Mild cartilage thinning throughout all 3 compartments of the knee.
== END | disposition home or self-care (01) ==
LOC: RADMRIMAIN 12:16
PROVIDERS: ATTEND Orthopaedic Surgery
DX: S83.242A Other tear of medial meniscus, current injury, left knee, initial encounter (principal)

== ENCOUNTER 2020-01-21 07:25 | Day surgery (SDC) | payer MEDICARE ==
[2020-01-19 11:42] VITALS: BMI 38.7
--- NOTE | 2020-01-20 10:18 | HP ---
HISTORY AND PHYSICAL CHIEF COMPLAINT: Left knee pain. HISTORY OF PRESENT ILLNESS: The patient is a 70-year-old retired gentleman who presents with progressive left knee pain for the past several months. He is having giving way, along with swelling and stiffness. He has been using a cane. It is bothering him at night. He has tried medications without much relief. PAST MEDICAL HISTORY: Significant for depression, reflux disease, hypercholesterolemia, hypertension, and arthritis. PAST SURGICAL HISTORY: Significant for right knee arthroscopy with subsequent right total knee arthroplasty. CURRENT MEDICATIONS: Lasix, aspirin, Lotensin, Prilosec, Cardura, Lipitor, diltiazem, atorvastatin. ALLERGIES: He denies drug allergies. FAMILY HISTORY: Significant for cancer. SOCIAL HISTORY: Negative for current tobacco or alcohol use. REVIEW OF SYSTEMS: Sixteen point review of systems otherwise reviewed and is noncontributory. PHYSICAL EXAMINATION: On examination, the patient is approximately 5 foot 6, 240 pounds, of endomorphic habitus. HEENT: Exam is nonfocal. NECK: Supple. EXTREMITIES: He has painless passive motion of the left hip. Straight leg raise is negative. Active motion of the left knee -10 to 100 degrees of flexion. He has a large effusion. He is tender about the medial joint line. Collaterals are stable, Demetris is negative, Huma's elicits medial pain. His distal neurovascular exam appears intact in the left lower extremity. IMAGING: MRI report 12/18/2019 shows a posterior medial meniscal tear. IMPRESSION: Left knee internal derangement with symptomatic medial meniscal tear. RECOMMENDATIONS: I talked to the patient at length regarding his condition, along with treatment options. At this point, he is quite symptomatic, having pain and mechanical symptoms that limit him. After thorough discussion, he opts to proceed with surgery. We will plan to proceed with arthroscopic evaluation of the left knee with probable partial medial meniscectomy. Risks and benefits were discussed at length in layman's terms. We will likely perform that as an outpatient procedure. MMODL / IJN: [id number] /
[~2020-01-21 07:25] MED LIST: DEXAMETHASONE SOD PHOSPHATE 10 MG/ML 1 ML VIAL IV ONE; LACTATED RINGERS 1,000 ML IV SCH; LIDOCAINE 1% (10MG/ML) FOR IV START INTRADERMA PRN; ONDANSETRON 4 MG/2 ML VIAL IVP ONE; ONDANSETRON 4 MG/2 ML VIAL IVP PRN
[2020-01-21 08:09] VITALS: RESP 16
[2020-01-21] MEDS ORDERED: ONDANSETRON 4 MG/2 ML VIAL ONE (08:10)
[2020-01-21] MEDS ORDERED: MIDAZOLAM 2 MG/2 ML VIAL ONE (08:27)
[2020-01-21] MEDS ORDERED: fentaNYL (PF) 50 MCG/ML 2 ML AMP ONE (08:27)
[2020-01-21] MEDS ORDERED: LIDOCAINE 1% INJ 10MG/ML (20 ML MDV) ONE (08:27)
[2020-01-21] MEDS ORDERED: PROPOFOL 10 MG/ML 20 ML VIAL IV ONE (08:27)
[2020-01-21] MEDS ORDERED: SUCCINYLCHOLINE CHLORIDE VIAL 200 MG/10 ML VIAL IV ONE (08:27)
[2020-01-21 08:41] LABS: Basophils % (A) 1 %; Eosinophils # (A) 0.4 k/uL (0-0.7); Eosinophils % (A) 8 %; HCT 37.9 % (39.0-53.0); HGB 12.3 gm/dL (13.0-17.5); Lymphocytes # (A) 0.8 k/uL (1.0-4.8); Lymphocytes % (A) 17 %; MCH 31.3 pg (25.0-35.0); MCHC 32.4 g/dL (31.0-37.0); MCV 96.7 fL (80.0-100.0); Mean Platelet Volume 7.3; Monocytes # (A) 0.4 k/uL (0-1.0); Monocytes % (A) 7 %; Neutrophils % (A) 65 %; Platelet Count 137 k/uL (150-450); RBC 3.92 m/uL (4.30-5.90); RDW 13.2 % (11.5-15.5); WBC 4.7 k/uL (3.8-10.6)
[2020-01-21] MEDS ORDERED: SODIUM CHLORIDE 0.9% 50 ML with ceFAZolin 2,000 MG IV ONE ×2 (08:45)
--- NOTE | 2020-01-21 09:39 | P.OP ---
Date of Procedure: 01/21/20 Preoperative Diagnosis: Left knee internal derangement Postoperative Diagnosis: Left knee posterior medial meniscal tear/grade 3 chondral injury distal medial femoral condyle Procedure(s) Performed: Left knee arthroscopic partial medial meniscectomy/medial femoral chondrectomy/microfracture medial femoral condyle Anesthesia: DINORA Surgeon: Haim Gibson Estimated Blood Loss (ml): 10 Pathology: none sent Condition: stable Disposition: PACU Indications for Procedure: The patient's a 70-year-old male who presents with progressive left knee pain and mechanical symptoms despite conservative measures. A discussion of the risks and benefits of operative intervention versus continued conservative measures was made with the patient. He opted to proceed with surgery. Operative risks to include infection, neurovascular injury, development of blood clots, possible incomplete resolution of symptoms, possible worsening symptoms and need for subsequent procedures was discussed. Informed consent was obtained. Operative Findings: As below Description of Procedure: The patient was brought to the operating room, and after induction of general anesthesia examined the left knee. Collaterals were stable, Demetris was nega tive, and posterior drawer was negative. The left lower extremity was prepped and draped in a normal fashion. A superior lateral portal was made through a 3 mm skin incision superior and lateral to the patella. This was used for outflow. A lateral portal was made through a 5 mm vertical skin incision lateral to the patella tendon above the joint line. Diagnostic arthroscopy was performed. On inspection of the medial compartment, a complex tear involving the posterior horn of the medial meniscus was noted in the white-red junction. This was debrided back to stable base with straight baskets and a motorized shaver. A grade 3 chondral injury was noted involving the central distal medial femoral condyle. There was a loose chondral fragment debrided back to stable base with a motorized shaver. Microfracture was performed with a power pik reaching the subchondral surface down to the bone marrow elements. On inspection of the notch, the anterior cruciate ligament appeared to be intact. On inspection of the lateral compartment, no significant meniscal or cartilage pathology was noted. On inspection of the patellofemoral articulation there was chondral fibrillation however no loose chondral fragments. The gutters were clear of debris. The knee was then thoroughly irrigated. The portals were closed with Steri-Strips. A sterile dressing was applied in addition to a compression stocking. The patient was awoken from general anesthesia and transferred to recovery room in good condition. Blood loss was estimated at 10 mL. No complications were incurred.
[2020-01-21 09:44] VITALS: TEMP 97.8
[2020-01-21] MEDS: HYDROmorphone 0.5 MG/0.5 ML SYRINGE IVP PRN ×2 (09:57→10:07)
[2020-01-21] MEDS ORDERED: LACTATED RINGERS 1,000 ML IV ONE (10:18)
[2020-01-21] MEDS ORDERED: HYDROcodone/APAP 7.5-325MG 1 EACH TAB ONE (10:43)
[2020-01-21] MEDS ORDERED: HYDROcodone/APAP 7.5-325MG 1 EACH TAB PO ONE (10:44)
[2020-01-21 11:18] VITALS: BP 159/79; PULSE 74
== END 2020-01-21 12:02 | disposition home or self-care (01) ==
LOC: OR 07:25
PROVIDERS: ATTEND Orthopaedic Surgery
DX: M23.222 Derangement of posterior horn of medial meniscus due to old tear or injury, left knee (principal); M23.8X2 Other internal derangements of left knee; I87.2 Venous insufficiency (chronic) (peripheral); R60.0 Localized edema; R53.83 Other fatigue; Z88.8 Allergy status to other drugs, medicaments and biological substances; Z79.82 Long term (current) use of aspirin; Z79.899 Other long term (current) drug therapy; G89.29 Other chronic pain; M54.2 Cervicalgia; G31.84 Mild cognitive impairment of uncertain or unknown etiology; I10 Essential (primary) hypertension; L91.8 Other hypertrophic disorders of the skin; K21.9 Gastro-esophageal reflux disease without esophagitis; M17.10 Unilateral primary osteoarthritis, unspecified knee; E55.9 Vitamin D deficiency, unspecified; F32.9 Major depressive disorder, single episode, unspecified; L30.9 Dermatitis, unspecified; E78.5 Hyperlipidemia, unspecified; I87.399 Chronic venous hypertension (idiopathic) with other complications of unspecified lower extremity; Z80.42 Family history of malignant neoplasm of prostate; Z98.890 Other specified postprocedural states; Z86.69 Personal history of other diseases of the nervous system and sense organs; Z86.718 Personal history of other venous thrombosis and embolism; Z97.4 Presence of external hearing-aid; E78.00 Pure hypercholesterolemia, unspecified; Z96.651 Presence of right artificial knee joint
CPT/HCPCS: 85025; 29881; 29879; 29999; J2250; J0330; J1100; J2405; J0690; J2001; J3010; J2704; J1170

== ENCOUNTER → 2020-05-24 | Outpatient (CLI) | payer MEDICARE ==
--- NOTE | 2020-05-24 12:41 | CONS ---
CONSULTATION DATE OF SERVICE: 05/24/2020 A 70-year-old gentleman who has been evaluated in the Sleep Center for possible obstructive sleep apnea-hypopnea syndrome. HISTORY OF PRESENT ILLNESS/SLEEP=WAKE EVALUATION: Patient sleep schedule from different time, he goes to bed at a different time around 11 until 7:30 a.m. No problems with falling asleep. No TV in bedroom. He usually sleeps on the back position. He sleeps by himself. He snores and grinds his teeth. No information about his breathing again because patient sleeps by himself. He wakes up from sleep 4 times with nocturia and episodes of dreaming. No history of hypnagogic hallucinations or sleep paralysis. In the morning, patient wakes up tired, has difficulties paying attention, falling asleep during the day, has problems with the memory concentration and anxiety. [place] Sleepiness Scale is 6. The patient may take 3 naps during the day, usually does not feel refreshed after naps, does not see dreams during naps. PAST MEDICAL HISTORY: Positive for hypertension, arthritis, acid reflux. PAST SURGICAL HISTORY: Right knee replacement, left knee surgery, surgery for bilateral carpal tunnel syndrome. MEDICATIONS: Doxazosin 4 mg twice a day, omeprazole 20 mg twice a day, and Triamterene 325/25 mg once a day, Atorvastatin 20 mg once a day, benazepril 20 mg once a day, diltiazem CD 120 mg once a day, sertraline 50 mg once a day, aspirin 81 mg once a day, fluticasone 15 mcg spray daily x2, vitamin D3, vitamin B12. SOCIAL HISTORY: Negative for smoking or using alcohol. REVIEW OF SYSTEMS: Multiple awakenings from sleep, significant sleepiness during the day. Takes up to 3 naps in the day. FAMILY HISTORY: Hypertension, diabetes, thyroid problems. During physical exam, gentleman without distress, BP 149/60, HR 78, RR 15, height 5 feet 5-1/2 inches, weight 237 pounds. Body mass index 38.8, temperature 98.6, oxygen saturation at room air 97%. OROPHARYNX: extremely low position of soft palate. Mallampati 4. Wide neck 18 inches in circumference. PHYSICAL EXAMINATION: GENERAL: A pleasant patient without any distress. VITAL SIGNS: BP@@ , HR@@ , RR@@, height @@ , weight @@ , BMI @@, temperature @@ , oxygen saturation at room air @@%. HEENT: PERRLA, EOMI, evaluation of oropharynx showed tongue protrudes midline. NECK: Supple, no JVD. Thyroid is not palpable. LUNGS: Clear to percussion and to auscultation. Good air exchange. No wheezing or rhonchi. HEART: S1, S2 regular. No murmurs, gallops, or rubs. ABDOMEN: Soft and nontender. Bowel sounds are present. No organomegaly appreciated. EXTREMITIES: No clubbing or cyanosis. COIL TIER: Awake, alert, and oriented X3. Cranial nerves 2 to 7 intact. There is no fasciculation or atrophy. noted. No focal deficits observed. HEENT: PERRLA, EOMI, evaluation of oropharynx showed tongue protrudes midline. NECK: Supple, no JVD. Thyroid is not palpable. LUNGS: Clear to percussion and to auscultation. Good air exchange. No wheezing or rhonchi. HEART: S1, S2 regular. No murmurs, gallops, or rubs. ABDOMEN: Soft and nontender. Bowel sounds are present. No organomegaly appreciated. EXTREMITIES: No clubbing or cyanosis. COIL TIER: Awake, alert, and oriented X3. Cranial nerves 2 to 7 intact. There is no fasciculation or atrophy. noted. No focal deficits observed. IMPRESSION: 1. Snoring, multiple awakenings from sleep 4 times with nocturia, extremely low position of soft palate, wide neck, sleepiness up to 3 naps a day. 2. Obstructive sleep apnea-hypopnea syndrome. BMI 38.83. 3. Hypertension for history of depression. 4. Arthritis. 5. Status post right knee replacement. 6. Status post left knee surgery. 7. BPH. 8. Status post bilateral carpal tunnel syndrome surgery. PLAN: 1. Polysomnography for evaluation of patient's breathing during sleep. 2. CPAP/BiPAP titration if sleep study confirms obstructive sleep apnea-hypopnea syndrome. 3. Preferable position during sleep on the side. 4. No driving if patient feels any sleepiness. 5. I will see patient for follow up visit to explain results of testing and following plan. Thank you very much for referring this patient for consultation. Sincerely, Emiliano Moraes MD, PhD, FAASM Diplomat of [place] Board of Medical Specialties [place] Board of Internal Medicine [facility] [place] MMODL / SANDRAN: [id number] /
== END | disposition home or self-care (01) ==
LOC: SLEEP 11:04
PROVIDERS: ATTEND Internal Medicine
DX: G47.33 Obstructive sleep apnea (adult) (pediatric) (principal); N40.0 Benign prostatic hyperplasia without lower urinary tract symptoms; M19.90 Unspecified osteoarthritis, unspecified site; I10 Essential (primary) hypertension; K21.9 Gastro-esophageal reflux disease without esophagitis; R35.1 Nocturia; Z86.79 Personal history of other diseases of the circulatory system; Z96.651 Presence of right artificial knee joint; Z98.890 Other specified postprocedural states; Z79.899 Other long term (current) drug therapy; Z79.82 Long term (current) use of aspirin; Z99.89 Dependence on other enabling machines and devices
CPT/HCPCS: 99211

== ENCOUNTER → 2020-09-28 | Outpatient (CLI) | payer MEDICARE ==
--- NOTE | 2020-09-28 12:42 | SFUN ---
SLEEP CENTER FOLLOW UP NOTE DATE OF SERVICE: 09/28/2020 This 70-year-old gentleman had been followed in Sleep Center for treatment of obstructive sleep apnea-hypopnea syndrome. Recently patient had diagnostic polysomnogram which showed severe sleep apnea and then he had CPAP titration. After that, patient received his CPAP unit. Today is his first visit after he started to use CPAP equipment. The patient is able to use CPAP equipment every night, sometimes feel a little bit discomfort with the mask related to some leak. He continues to feel sleepiness during the day. [place] Sleepiness Scale today is 17 and he still continued to take 3 naps during the day after he started to use CPAP unit and that is what he did before. I checked his CPAP unit. Range of the pressure 5-15, average pressure 14.2, usage 29 out of 30 nights and 18 out of 30 nights more than 4 hours. Leak is 42 L/minute, which is quite high. Apnea-hypopnea index is 6.6, which is very minimally above normal range. MEDICATIONS: Doxazosin 4 mg twice a day, omeprazole 20 mg twice a day, triamterene 325/25 mg once a day, atorvastatin 20 mg once a day, benazepril 20 mg once a day, diltiazem CD 120 mg once a day, sertraline 50 mg once a day, aspirin 81 mg once a day, fluticasone spray, vitamin D3, vitamin B12. PHYSICAL EXAMINATION: GENERAL: Patient in no distress. VITAL SIGNS: BP 143/74, HR 76, RR 16, weight 238 pounds, temperature 98.5, oxygen saturation at room air 96%. HEENT: PERRLA, EOMI. Oropharynx low position of soft palate. NECK: Supple, no JVD. Thyroid is not palpable. LUNGS: Clear to percussion and to auscultation. Good air exchange. No wheezing or rhonchi. HEART: S1, S2. ABDOMEN: Obese. EXTREMITIES: No clubbing or cyanosis. DISPLAY DIRECTOR: Awake, alert, and oriented X3. Cranial nerves 2 to 7 intact. There is no fasciculation or atrophy. noted. No focal deficits observed. IMPRESSION: 1. Severe obstructive sleep apnea-hypopnea syndrome. The patient demonstrated borderline compliance with treatment. Respiration improved on CPAP. 2. The patient continued to feel symptoms of excessive daytime sleepiness, takes naps several times during the day. [place] Sleepiness Scale of 17. Differential diagnosis includes possibility of additional diagnosis of hypersomnia and narcolepsy. 3. History of atrial fibrillation. 4. Some periodic limb movements have been observed during titration. 5. Hypertension. 6. Acid reflux. 7. Status post right knee replacement. 8. Benign prostatic hypertrophy. 9. Status post bilateral carpal tunnel syndrome surgery. PLAN: 1. CPAP if necessary BiPAP titration for full normalization of patient's respiration including REM sleep with following multiple sleep latency test for objective evaluation of patient's symptoms of excessive daytime sleepiness for possibility of additional diagnosis of narcolepsy. 2. Losing weight. 3. Patient should continue to use CPAP equipment every night for the whole night. 4. During titration, we will re-evaluate mask fitting to be sure that there is no significant leak. 5. No driving if feeling sleepiness. Thank you very much for allowing me to participate in management of your patient. Sincerely, Emiliano Moraes MD, PhD, FAASM Diplomat of [place] [employer] of Medical Specialties [place] Board of Internal Medicine Basketball Scout of [facility] [place] MMODL / SANDRAN: [id number] /
== END ==
LOC: SLEEP 11:25
PROVIDERS: ATTEND Internal Medicine
DX: G47.33 Obstructive sleep apnea (adult) (pediatric) (principal); Z99.89 Dependence on other enabling machines and devices; G47.10 Hypersomnia, unspecified; I10 Essential (primary) hypertension; K21.9 Gastro-esophageal reflux disease without esophagitis; Z96.651 Presence of right artificial knee joint; N40.1 Benign prostatic hyperplasia with lower urinary tract symptoms; Z98.890 Other specified postprocedural states; G47.61 Periodic limb movement disorder; I48.91 Unspecified atrial fibrillation

== ENCOUNTER → 2020-12-13 | Outpatient (CLI) | payer MEDICARE ==
--- NOTE | 2020-12-14 06:49 | SFUN ---
SLEEP CENTER FOLLOW UP NOTE DATE OF SERVICE: 12/13/2020 70 -year-old gentleman who has been followed in Sleep Center for treatment of obstructive sleep apnea-hypopnea syndrome and significant excessive daytime sleepiness. Recently the patient had night on CPAP, which showed normal latter-day on treatment with CPAP with total apnea-hypopnea index 3.0. On the following day, patient had multiple sleep latency test which indeed confirmed his sleepiness during the day. Mean sleep latency was short at 2.6 minutes. Today, patient came for follow-up visit to discuss results of the sleep study and following plan. He continued to use his CPAP equipment every night. [place] Sleepiness Scale today is an 11. I checked his CPAP unit. Pressure in the range of 5-15 with average pressure 7 cm of water. Totally amount of nights of usage of . The patient using it quite short time. Apnea-hypopnea index is 2.7, which is normal. Leak is 8 L/minute which is in normal range. MEDICATIONS: Doxazosin 4 mg twice a day, omeprazole 20 mg twice a day, Triamterene 325/25 mg once a day, atorvastatin 20 mg once a day, benazepril 20 mg once a day, diltiazem CD 120 mg once a day, sertraline 50 mg once a day. Aspirin 81 mg once a day. Fluticasone spray. Vitamin D3. Vitamin B12. PHYSICAL EXAMINATION: GENERAL: Patient in no distress. BP 123/58, HR 80, RR 15, height 5 feet 5 inches, weight 237, temperature 98.1. Oxygen saturation on room air 97%. HEENT: PERRLA, EOMI, evaluation of oropharynx showed tongue protrudes midline. NECK: Supple, no JVD. Thyroid is not palpable. LUNGS: Clear to percussion and to auscultation. Good air exchange. No wheezing or rhonchi. HEART: S1, S2 regular. No murmurs, gallops, or rubs. ABDOMEN: Obese. Soft and nontender. Bowel sounds are present. No organomegaly appreciated. EXTREMITIES: No clubbing or cyanosis. SOLAR PV INSTALLER: Awake, alert, and oriented X3. Cranial nerves 2 to 7 intact. There is no fasciculation or atrophy. noted. No focal deficits observed. IMPRESSION: 1. Severe obstructive sleep apnea-hypopnea syndrome on normal respiration on CPAP. Patient using CPAP but a short amount of hours. 2. Multiple sleep latency test confirmed excessive daytime sleepiness, short sleep latency. The differential diagnosis include hypersomnia and narcolepsy. 3. History of atrial fibrillation. 4. Mild periodic limb movements. 5. Hypertension. 6. Acid reflux. 7. Status post right knee replacement. 8. Benign prostatic hypertrophy. 9. Status post bilateral carpal tunnel syndrome surgery. PLAN: 1. I will start the patient on treatment with modafinil 200 mg once a day in the morning for symptoms of excessive daytime sleepiness. 2. Patient will continue to use PAP equipment every night for the whole night. 3. Sleep hygiene with regular time in bed for at least 7-1/2 to 8 hours. 4. Precautions related to driving. No driving if feeling sleepiness. 5. I will maintain all necessary prescription for PAP supplies including mask, tube, filters. 6. Watching weight. 7. Follow-up visit in 6 months or earlier if patient has any problems. Thank you very much for allowing me to participate in management of your patient. Sincerely, Emiliano Moraes MD, PhD, FAASM Diplomat of [place] [employer] of Medical Specialties [place] Board of Internal Medicine Drive In Waiter/Waitress of [facility] [place] MMODL / SANDRAN: [id number] /
== END | disposition home or self-care (01) ==
LOC: SLEEP 13:16
PROVIDERS: ATTEND Internal Medicine
DX: G47.33 Obstructive sleep apnea (adult) (pediatric) (principal); G47.10 Hypersomnia, unspecified; I10 Essential (primary) hypertension; I48.91 Unspecified atrial fibrillation; K21.9 Gastro-esophageal reflux disease without esophagitis; N40.0 Benign prostatic hyperplasia without lower urinary tract symptoms; G47.61 Periodic limb movement disorder; Z79.899 Other long term (current) drug therapy; Z96.651 Presence of right artificial knee joint; Z98.890 Other specified postprocedural states

== ENCOUNTER → 2021-02-01 | Outpatient (CLI) | payer MEDICARE | END | disposition home or self-care (01) | LOC: LABWHC1 11:06 | PROVIDERS: ATTEND Physician Assistant Medical | DX: R61 Generalized hyperhidrosis (principal) | CPT/HCPCS: 36415; 86480 ==

== ENCOUNTER → 2021-04-19 | Outpatient (CLI) | payer MEDICARE ==
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
== END | disposition home or self-care (01) ==
LOC: SLEEP 13:32
PROVIDERS: ATTEND Internal Medicine
DX: G47.33 Obstructive sleep apnea (adult) (pediatric) (principal); G47.10 Hypersomnia, unspecified; I10 Essential (primary) hypertension; K21.9 Gastro-esophageal reflux disease without esophagitis; N40.0 Benign prostatic hyperplasia without lower urinary tract symptoms; Z96.651 Presence of right artificial knee joint

== ENCOUNTER → 2021-10-18 | Outpatient (CLI) | payer MEDICARE ==
--- NOTE | 2021-10-18 19:03 | SFUN ---
SLEEP CENTER FOLLOW UP NOTE DATE OF SERVICE: 10/18/2021 This 71-year-old gentleman has been followed in Sleep Center for treatment of obstructive sleep apnea-hypopnea syndrome. The patient continues to use his CPAP equipment every night. No snoring with the machine. He is getting his supplies on time. The patient is complaining that the machine is noisy. Sometimes there are some sounds coming from the tube. Position of the machine, according to him, was at the level of his head. I checked his CPAP unit. Range of the pressure is 5 to 15, average pressure 9.5 cm of water. Usage is 29/30 nights, but only 3/30 nights for more than 4 hours, average usage 2.1 hours per night. Leak is 13 L/minute. Apnea-hypopnea index is normal at 1.6. [place] Sleepiness Scale is 8, which is normal. MEDICATIONS: 1. Doxazosin 2 mg once a day. 2. Omeprazole 20 mg once a day. 3. Triamterene/hydrochlorothiazide 325/25 mg once a day. 4. Modafinil 200 mg once a day. 5. Sertraline mg once a day. 6. Atorvastatin 20 mg once a day. 7. Aspirin 81 mg once a day. 8. Fluticasone spray. PHYSICAL EXAMINATION: GENERAL: Pleasant patient in no distress. VITAL SIGNS: BP 156/52, HR 89, RR 16, weight 158.0. The patient's weight increased by 23 pounds. Temperature 98.0, oxygen saturation at room air 95%. HEENT: PERRLA, EOMI, evaluation of oropharynx showed tongue protrudes midline. NECK: Supple, no JVD. Thyroid is not palpable. LUNGS: Clear to percussion and to auscultation. Good air exchange. No wheezing or rhonchi. HEART: S1, S2 regular. No murmurs, gallops, or rubs. ABDOMEN: Soft and nontender. Bowel sounds are present. No organomegaly appreciated. EXTREMITIES: No clubbing or cyanosis. CYBERATHLETE: Awake, alert, and oriented X3. Cranial nerves 2 to 7 intact. There is no fasciculation or atrophy. noted. No focal deficits observed. IMPRESSION: 1. Severe obstructive sleep apnea-hypopnea syndrome. Patient demonstrated borderline compliance. He is using equipment every night but for a short amount of hours. Sometimes there is noise from the tube, most probably related to condensation of water in the tube and wrong position of the machine. 2. Hypersomnia confirmed by multiple sleep latency test, on treatment with modafinil. 3. History of atrial fibrillation. 4. Hypertension. 5. Mild periodic limb movements. 6. Acid reflux. 7. Status post right knee replacement. 8. Benign prostatic hypertrophy. 9. Status post bilateral carpal tunnel syndrome surgery. PLAN: 1. I discussed with the patient the proper position of the CPAP unit. Machine should stay lower than his head; the tube has to go directly from the machine up to the mask. 2. I explained that adjustments of temperature in the humidifier may be slightly down and to increase temperature in the tube slightly up to prevent any condensation of water in the tube, thus preventing any additional sounds which the patient is hearing. 3. Patient will continue to use PAP equipment every night for the whole night. 4. Sleep hygiene with regular time in bed for at least 7-1/2 to 8 hours. 5. Precautions related to driving. No driving if feeling sleepiness. 6. I will maintain all necessary prescription for PAP supplies including mask, tube, filters. 7. Watching weight. 8. Follow-up visit in 6 months or earlier if patient has any problems. Thank you very much for allowing me to participate in the management of your patient. Sincerely, Emiliano Moraes MD, PhD, FAASM Diplomat of [place] [employer] Medical Specialties Sleep Medicine Board of [place] Board of Internal Medicine Game Master of [facility] [place] MMODL / SANDRAN: [id number] /
== END | disposition home or self-care (01) ==
LOC: SLEEP 14:35
PROVIDERS: ATTEND Internal Medicine
DX: G47.33 Obstructive sleep apnea (adult) (pediatric) (principal); G47.10 Hypersomnia, unspecified; I10 Essential (primary) hypertension; K21.9 Gastro-esophageal reflux disease without esophagitis; Z96.651 Presence of right artificial knee joint; N40.0 Benign prostatic hyperplasia without lower urinary tract symptoms; G56.03 Carpal tunnel syndrome, bilateral upper limbs

== ENCOUNTER 2022-05-01 11:11 | Observation (INO) | payer MEDICARE ==
[2022-05-01] MEDS ORDERED: ASPIRIN 81 MG PO STA (11:44)
[2022-05-01 11:49] LABS: Basophils % (A) 1 %; Eosinophils # (A) 0.3 k/uL (0-0.7); Eosinophils % (A) 5 %; HGB 12.7 gm/dL (13.0-17.5); Lymphocytes # (A) 0.8 k/uL (1.0-4.8); Lymphocytes % (A) 16 %; MCH 33.1 pg (25.0-35.0); MCHC 33.5 g/dL (31.0-37.0); Mean Platelet Volume 7.6; Monocytes # (A) 0.3 k/uL (0-1.0); Monocytes % (A) 6 %; Neutrophils # (A) 3.5 k/uL (1.3-7.7); Neutrophils % (A) 71 %; Platelet Count 137 k/uL (150-450); RBC 3.84 m/uL (4.30-5.90); RDW 12.8 % (11.5-15.5)
[2022-05-01 11:58] LABS: Calcium 8.7 mg/dL (8.4-10.2); Magnesium 2.1 mg/dL (1.6-2.3); Potassium 4.2 mmol/L (3.5-5.1); Total Bilirubin 0.6 mg/dL (0.2-1.3); Total Protein 6.2 g/dL (6.3-8.2)
--- NOTE | 2022-05-01 11:59 | XR ---
EXAMINATION TYPE: XR chest 2V DATE OF EXAM: 05/01/2022 COMPARISON: 07/26/2019 INDICATION: Chest pain, pressure TECHNIQUE: Frontal and lateral views of the chest are obtained. FINDINGS: The heart size is normal. The pulmonary vasculature is prominent. This appears increased centrally bilaterally in the perihilar regions. Correlate for early volume overload. No suspicious focal consolidation.. IMPRESSION: 1. Increased central lung markings in the perihilar regions, correlate for volume overload. Follow-up can be performed as clinically indicated.
[2022-05-01 12:07] LABS: INR 1.3 (<1.2); Partial Thromboplastin Time 33.8 sec (22.0-30.0); Prothrombin Time 13.3 sec (9.0-12.0)
[2022-05-01] MEDS ORDERED: NALOXONE 0.4 MG/ML 1 ML VIAL IV PRN (13:20)
--- NOTE | 2022-05-01 13:22 | ED ---
General Adult HPI - General Chief complaint: Chest Pain Stated complaint: chest tightness Time Seen by Provider: 05/01/22 11:34 Source: patient, RN notes reviewed, old records reviewed Mode of arrival: ambulatory Limitations: no limitations - History of Present Illness Initial comments: Patient is a 72-year-old male with past medical history remarkable for hypertension, recently diagnosed atrial flutter on Xeralto who presents emergency Department complaining of sudden onset of chest pain earlier today. Occurred approximately one hour ago. Patient was sitting in the chair. Denies any other associated symptoms. Describes the chest pain as substernal with radiation to bilateral sides. Discusses tightness sensation that radiated down both arms. Symptoms lasted until arrival but currently patient is asymptomatic on my evaluation. States he has had chest pain previously but was not this intense. Denies nausea or vomiting. Denies abdominal pain. No shortness of breath. Denies headaches. His no other acute complaints at this time. Pr esents for further evaluation at this time. - Related Data Home Medications Medication Instructions Recorded Confirmed Aspirin EC [Ecotrin Low Dose] 81 mg PO DAILY 08/07/15 05/01/22 Atorvastatin [Lipitor] 20 mg PO HS 08/07/15 05/01/22 Doxazosin [Cardura] 4 mg PO DAILY 08/07/15 05/01/22 Multivitamins, Thera [Multivitamin 1 tab PO DAILY 08/07/15 05/01/22 (formulary)] Omeprazole [PriLOSEC] 20 mg PO HS 08/07/15 05/01/22 Sertraline [Zoloft] 50 mg PO DAILY 08/07/15 05/01/22 Fluticasone Propionate [Flonase 2 spray EA NOSTRIL DAILY PRN 07/26/19 05/01/22 Allergy Relief] calcium polycarbophiL [Fibercon] 625 mg PO HS 01/19/20 05/01/22 Cholecalciferol [Vitamin D3 (25 50 mcg PO DAILY 05/01/22 05/01/22 Mcg = 1000 Iu)] Cyanocobalamin (Vitamin B-12) 1,000 mcg PO DAILY 05/01/22 05/01/22 [Vitamin B-12] Doxazosin [Cardura] 2 mg PO HS 05/01/22 05/01/22 Ferrous Sulfate [Feosol] 325 mg PO MOFR 05/01/22 05/01/22 Losartan Potassium [Cozaar] 25 mg PO DAILY 05/01/22 05/01/22 Metoprolol Succinate [Toprol XL] 50 mg PO DAILY 05/01/22 05/01/22 Rivaroxaban [Xarelto] 20 mg PO DAILY 05/01/22 05/01/22 Triamterene/Hydrochlorothiazid 1 cap PO DAILY 05/01/22 05/01/22 [Triamterene-Hctz 37.5-25 mg Cp] modafiniL [Provigil] 200 mg PO DAILY 05/01/22 05/01/22 Allergies Allergy/AdvReac Type Severity Reaction Status Date / Time alprazolam [From Xanax] Allergy Unknown Unknown Verified 05/01/22 12:50 cyclobenzaprine HCl Allergy Unknown Unknown Verified 05/01/22 12:50 [From Flexeril] memantine HCl [From Namenda] Allergy Unknown Unknown Verified 05/01/22 12:50 promethazine HCl Allergy Unknown Unknown Verified 05/01/22 12:50 [From Phenergan] quetiapine fumarate Allergy Unknown Unknown Verified 05/01/22 12:50 [From Seroquel] Review of Systems ROS Statement: Those systems with pertinent positive or pertinent negative responses have been documented in the HPI. Review of Systems: CONST: Denies fever EYES: Denies blurry vision ENT: Denies nasal congestion C/V: Denies Chest pain RESP: Denies shortness of breath GI: Denies abdominal pain : Denies dysuria SKIN: Denies rash. MSK: Denies joint pain. NEURO: Denies headache ROS Other: All systems not noted in ROS Statement are negative. Past Medical History Past Medical History: Deep Vein Thrombosis (DVT), GERD/Reflux, Hyperlipidemia, Hypertension, Osteoarthritis (OA) Additional Past Medical History / Comment(s): ? SEIZURE 2015. using a cane History of Any Multi-Drug Resistant Organisms: None Reported Past Surgical History: Joint Replacement, Orthopedic Surgery Additional Past Surgical History / Comment(s): total R knee arthroplasty. Rt FOOT SURGERY, Rt carpal tunnel repair Past Anesthesia/Blood Transfusion Reactions: No Reported Reaction Past Psychological History: No Psychological Hx Reported Smoking Status: Never smoker - Past Family History Father Family Medical History: Cancer Mother Family Medical History: Cancer, Deep Vein Thrombosis (DVT) Additional Family Medical History / Comment(s): bone General Exam - General Exam Comments Initial Comments: General: Appears in no acute distress. HEAD: Normal with no signs of head trauma. EYES: PERRLA, EOMI, conjunctiva normal, no discharge. ENT: Hearing grossly intact, normal oropharynx. RESPIRATORY: Clear breath sounds bilaterally. No wheezes, rales, or rhonchi. C/V: Regular rate and rhythm. S1 and S2 auscultated, no edema, peripheral pulses 2+ and intact throughout ABD: Abd is soft, nontender, nondistended EXT: Normal range of motion, no obvious deformity SKIN: No rashes or lesions observed on exposed skin. NEURO: Alert and oriented 4. No focal sensory strength deficits. Neurovascularly intact throughout. Limitations: no limitations Course Vital Signs 05/01/22 11:13 Temperature 98 F Pulse Rate 125 H Respiratory 16 Rate Blood Pressure 153/99 O2 Sat by Pulse 99 Oximetry Medical Decision Making - Medical Decision Making Based on the patient's presentation and physical exam, I am concerned for acute cardiopulmonary etiology for his current symptoms. We will obtain cardiac workup including EKG, chest x-ray. Patient is asymptomatic at this time. He will receive 324 mg of aspirin. Vital signs within acceptable limits. Initially patient's pulse was 125 bpm in triage but is currently 100 bpm at bedside. Patient was in agreement this plan. EKG showed no signs of acute ischemia. Chest x-ray reveals no acute cardiopulmonary process. I did discuss clinical correlation for possible mild CHF, however patient has no orthopnea, PND, worsening lower extremity edema. Lavatory studies are remarkable for an undetectable troponin. On reevaluation, patient remains asymptomatic. We discussed his workup. Patient's heart score is moderate at 4. He was in agreement with this plan for admission to observation telemetry. We'll check a troponin. Cardiology is consulted. I spoke with the admitting physician, Dr. Trujillo who accepted the admission. Patient was admitted in stable condition. - Lab Data Result diagrams: 05/01/22 11:37 05/01/22 11:37 Lab Results 05/01/22 05/01/22 05/01/22 Range/Units 11:37 11:37 11:37 WBC 5.0 (3.8-10.6) k/uL RBC 3.84 L (4.30-5.90) m/uL Hgb 12.7 L (13.0-17.5) gm/dL Hct 38.0 L (39.0-53.0) % MCV 99.0 (80.0-100.0) fL MCH 33.1 (25.0-35.0) pg MCHC 33.5 (31.0-37.0) g/dL RDW 12.8 (11.5-15.5) % Plt Count 137 L (150-450) k/uL MPV 7.6 Neutrophils % 71 % Lymphocytes % 16 % Monocytes % 6 % Eosinophils % 5 % Basophils % 1 % Neutrophils # 3.5 (1.3-7.7) k/uL Lymphocytes # 0.8 L (1.0-4.8) k/uL Monocytes # 0.3 (0-1.0) k/uL Eosinophils # 0.3 (0-0.7) k/uL Basophils # 0.0 (0-0.2) k/uL PT 13.3 H (9.0-12.0) sec INR 1.3 H (<1.2) APTT 33.8 H (22.0-30.0) sec Sodium 140 (137-145) mmol/L Potassium 4.2 (3.5-5.1) mmol/L Chloride 102 (98-107) mmol/L Carbon Dioxide 28 (22-30) mmol/L Anion Gap 10 mmol/L BUN 25 H (9-20) mg/dL Creatinine 1.11 (0.66-1.25) mg/dL Est GFR (CKD-EPI)AfAm 77 (>60 ml/min/1.73 sqM) Est GFR (CKD-EPI)NonAf 66 (>60 ml/min/1.73 sqM) Glucose 124 H (74-99) mg/dL Calcium 8.7 (8.4-10.2) mg/dL Magnesium 2.1 (1.6-2.3) mg/dL Total Bilirubin 0.6 (0.2-1.3) mg/dL AST 25 (17-59) U/L ALT 25 (4-49) U/L Alkaline Phosphatase 105 (38-126) U/L Troponin I (0.000-0.034) ng/mL Total Protein 6.2 L (6.3-8.2) g/dL Albumin 4.0 (3.5-5.0) g/dL 05/01/22 Range/Units 11:37 WBC (3.8-10.6) k/uL RBC (4.30-5.90) m/uL Hgb (13.0-17.5) gm/dL Hct (39.0-53.0) % MCV (80.0-100.0) fL MCH (25.0-35.0) pg MCHC (31.0-37.0) g/dL RDW (11.5-15.5) % Plt Count (150-450) k/uL MPV Neutrophils % % Lymphocytes % % Monocytes % % Eosinophils % % Basophils % % Neutrophils # (1.3-7.7) k/uL Lymphocytes # (1.0-4.8) k/uL Monocytes # (0-1.0) k/uL Eosinophils # (0-0.7) k/uL Basophils # (0-0.2) k/uL PT (9.0-12.0) sec INR (<1.2) APTT (22.0-30.0) sec Sodium (137-145) mmol/L Potassium (3.5-5.1) mmol/L Chloride (98-107) mmol/L Carbon Dioxide (22-30) mmol/L Anion Gap mmol/L BUN (9-20) mg/dL Creatinine (0.66-1.25) mg/dL Est GFR (CKD-EPI)AfAm (>60 ml/min/1.73 sqM) Est GFR (CKD-EPI)NonAf (>60 ml/min/1.73 sqM) Glucose (74-99) mg/dL Calcium (8.4-10.2) mg/dL Magnesium (1.6-2.3) mg/dL Total Bilirubin (0.2-1.3) mg/dL AST (17-59) U/L ALT (4-49) U/L Alkaline Phosphatase (38-126) U/L Troponin I <0.012 (0.000-0.034) ng/mL Total Protein (6.3-8.2) g/dL Albumin (3.5-5.0) g/dL - EKG Data -: EKG Interpreted by Me EKG Comments: 12-lead Electrocardiogram Interpretation Note EKG was reviewed and interpreted by myself. 12-lead ECG performed at 1119 is interpreted by me as revealing atrial flutter at a rate of 106 beats per minute. [place] is normal. QRS duration is 134 ms. A GC is 473 ms.. There were no ST or T wave abnormalities to suggest myocardial ischemia or injury. R wave progression across the precordium was satisfactory. By my interpretation this EKG is non-diagnostic for acute ischemia. Disposition Clinical Impression: Chest pain Disposition: ADMITTED IP TO THIS HOSP Condition: Stable Referrals: Tawnya Orlando MD [Primary Care Provider] - 1-2 days Time of Disposition: 13:00
[2022-05-01] MEDS ORDERED: FLUTICASONE 50MCG/SPRAY NASAL 16GM EA NOSTRIL PRN (14:34)
--- NOTE | 2022-05-01 14:38 | P.HPIM ---
History of Present Illness H&P Date: 05/01/22 Chief Complaint: chest pain Patient is a 72-year-old male with past medical history of atrial fibrillation on anticoagulation, dyslipidemia, hypertension presenting with chest pain. He claims that his chest pain started about 10 AM this morning, and resolved by the time he got to the hospital. Pain was substernal, pressure-like, radiated in a bandlike pattern down to both arms. He denied any palpitations, lightheadedness, nausea, vomiting, diarrhea, constipation, abdominal pain, urinary complaints. He denies any travel history, or sick contacts. He sees Dr. Felton for cardiology. He claims that he sometimes forgets to take his medication, twice a week. He claims that he had a recent echo this month. In the ED, he was tachycardic up to 125, rest of the vital signs were otherwise within normal limits. Troponin was negative. Rest of the laboratory workup was otherwise normal. Chest x-ray showed possible volume overload. EKG showed atri al flutter/fibrillation with RVR. Patient seen and examined at bedside. Pertinent positives and negatives as discussed in HPI, a complete review of systems was performed and all other systems are negative. Vital signs reviewed General: nontoxic, no distress, appears at stated age Derm: warm, dry Head: atraumatic, normocephalic, symmetric Eyes: EOMI, no lid lag, anicteric sclera, pupils equal round reactive to light ENT: Nose and ears atraumatic, no thrush, no pharyngeal erythema Neck: No thyromegaly, no cervical lymphadenopathy, trachea midline, supple Mouth: no lip lesion, mucus membranes moist Cardiovascular: S1S2 irreg, no murmur, positive posterior tibial pulse bilateral, no edema, capillary refill less than 2 seconds Lungs: clear to auscultation bilateral, no rhonchi, no rales, no wheeze, no accessory muscle use Abdominal: soft, nontender to palpation, no guarding, no appreciable organomegaly, normal bowel sounds Ext: no gross muscle atrophy, muscle strength muscle strength 5 out of 5 in all 4 extremities, no contractures Neuro: CN II-XII grossly intact, light touch intact all 4 extremities, finger to nose within normal limits, Psych: Alert, oriented, appropriate affect Assessment/Plan: Chest pain, rule out ACS -Chest pain resolved -First troponin negative, repeat pending -Telemetry -Cardiology consult -Patient had an echo this month as an outpatient Atrial flutter/fibrillation with RVR -Now rate controlled -Continue beta martha and anticoagulation Chronic medical problems: Hypertension Dyslipidemia BPH Depression -Continue home medications The patient is admitted with an anticipated less than 2 midnight stay for evaluation of chest pain. Surrogate decision-maker: [id number] CODE STATUS: Full code DVT prophylaxis: xarelto Anticipated discharge date: 05/[address]: Home A total of minutes was spent on the care of this complex patient more than 50% of the time was spent in counseling and care coordination. Past Medical History Past Medical History: Deep Vein Thrombosis (DVT), GERD/Reflux, Hyperlipidemia, Hypertension, Osteoarthritis (OA) Additional Past Medical History / Comment(s): ? SEIZURE 2014. using a cane History of Any Multi-Drug Resistant Organisms: None Reported Past Surgical History: Joint Replacement, Orthopedic Surgery Additional Past Surgical History / Comment(s): total R knee arthroplasty. Rt FOOT SURGERY, Rt carpal tunnel repair Past Anesthesia/Blood Transfusion Reactions: No Reported Reaction Past Psychological History: No Psychological Hx Reported Smoking Status: Never smoker - Past Family History Father Family Medical History: Cancer Mother Family Medical History: Cancer, Deep Vein Thrombosis (DVT) Additional Family Medical History / Comment(s): bone Medications and Allergies Home Medications Medication Instructions Recorded Confirmed Type Aspirin EC [Ecotrin Low Dose] 81 mg PO DAILY 08/07/15 05/01/22 History Atorvastatin [Lipitor] 20 mg PO HS 08/07/15 05/01/22 History Doxazosin [Cardura] 4 mg PO DAILY 08/07/15 05/01/22 History Multivitamins, Thera [Multivitamin 1 tab PO DAILY 08/07/15 05/01/22 History (formulary)] Omeprazole [PriLOSEC] 20 mg PO HS 08/07/15 05/01/22 History Sertraline [Zoloft] 50 mg PO DAILY 08/07/15 05/01/22 History Fluticasone Propionate [Flonase 2 spray EA NOSTRIL DAILY PRN 07/26/19 05/01/22 History Allergy Relief] calcium polycarbophiL [Fibercon] 625 mg PO HS 01/19/20 05/01/22 History Cholecalciferol [Vitamin D3 (25 50 mcg PO DAILY 05/01/22 05/01/22 History Mcg = 1000 Iu)] Cyanocobalamin (Vitamin B-12) 1,000 mcg PO DAILY 05/01/22 05/01/22 History [Vitamin B-12] Doxazosin [Cardura] 2 mg PO HS 05/01/22 05/01/22 History Ferrous Sulfate [Feosol] 325 mg PO MOFR 05/01/22 05/01/22 History Losartan Potassium [Cozaar] 25 mg PO DAILY 05/01/22 05/01/22 History Metoprolol Succinate [Toprol XL] 50 mg PO DAILY 05/01/22 05/01/22 History Rivaroxaban [Xarelto] 20 mg PO DAILY 05/01/22 05/01/22 History Triamterene/Hydrochlorothiazid 1 cap PO DAILY 05/01/22 05/01/22 History [Triamterene-Hctz 37.5-25 mg Cp] modafiniL [Provigil] 200 mg PO DAILY 05/01/22 05/01/22 History Allergies Allergy/AdvReac Type Severity Reaction Status Date / Time alprazolam [From Xanax] Allergy Unknown Unknown Verified 05/01/22 12:50 cyclobenzaprine HCl Allergy Unknown Unknown Verified 05/01/22 12:50 [From Flexeril] memantine HCl [From Namenda] Allergy Unknown Unknown Verified 05/01/22 12:50 promethazine HCl Allergy Unknown Unknown Verified 05/01/22 12:50 [From Phenergan] quetiapine fumarate Allergy Unknown Unknown Verified 05/01/22 12:50 [From Seroquel] Physical Exam Vitals: Vital Signs Temp Pulse Resp BP Pulse Ox 05/01/22 13:37 98 18 120/67 97 05/01/22 11:13 98 F 125 H 16 153/99 99 Intake and Output 04/30/22 05/01/22 05/01/22 22:59 06:59 14:59 Other: Weight 113.398 kg Results CBC & Chem 7: 05/01/22 11:37 05/01/22 11:37 Labs: Abnormal Lab Results - Last 24 Hours (Table) 05/01/22 05/01/22 05/01/22 Range/Units 11:37 11:37 11:37 RBC 3.84 L (4.30-5.90) m/uL Hgb 12.7 L (13.0-17.5) gm/dL Hct 38.0 L (39.0-53.0) % Plt Count 137 L (150-450) k/uL Lymphocytes # 0.8 L (1.0-4.8) k/uL PT 13.3 H (9.0-12.0) sec INR 1.3 H (<1.2) APTT 33.8 H (22.0-30.0) sec BUN 25 H (9-20) mg/dL Glucose 124 H (74-99) mg/dL Total Protein 6.2 L (6.3-8.2) g/dL
[2022-05-01] MEDS: ATORVASTATIN 20 MG TAB PO SCH (21:10)
[2022-05-01] MEDS: PANTOPRAZOLE 40 MG TABLET PO SCH (21:10)
[2022-05-01] MEDS: DOXAZOSIN 2 MG TAB PO SCH (23:17)
[2022-05-02] MEDS: MULTIVITAMINS, THERA 1 EACH TAB PO SCH (07:38)
[2022-05-02] MEDS: ASPIRIN 81 MG PO SCH (07:38)
[2022-05-02] MEDS: CYANOCOBALAMIN 500 MCG TAB PO SCH (07:38)
[2022-05-02] MEDS: SERTRALINE 50 MG TAB PO SCH (07:38)
[2022-05-02] MEDS: TRIAMTERENE-HCTZ 37.5-25MG 1 EACH CAP PO SCH (07:39)
[2022-05-02] MEDS: CHOLECALCIFEROL 25 MCG (1000 IU) TABLET PO SCH (07:39)
[2022-05-02 08:41] LABS: Basophils # (A) 0.06 X 10*3/uL (0.00-0.10); Basophils % (A) 1.2 %; Eosinophils # (A) 0.36 X 10*3/uL (0.04-0.35); Eosinophils % (A) 7.1 %; HCT 35.2 % (39.6-50.0); Immature Grans, Automated 0.2 %; Lymphocytes # (A) 1.12 X 10*3/uL (0.90-5.00); Lymphocytes % (A) 22.1 %; MCHC 31.3 g/dL (32.0-37.0); MCV 99.2 fL (80.0-97.0); Mean Platelet Volume 10.2 fL (9.5-12.2); Monocytes # (A) 0.57 X 10*3/uL (0.20-1.00); Monocytes % (A) 11.3 %; NRBC Per 100 WBC 0 /100 WBCS (0.0-0.0); Neutrophils # (A) 2.94 X 10*3/uL (1.80-7.70); Neutrophils % (A) 58.1 %; Platelet Count 147 X 10*3/uL (140-440); RBC 3.55 X 10*6/uL (4.40-5.60); RDW 13.5 % (11.5-14.5); WBC 5.06 X 10*3/uL (4.50-10.00)
[2022-05-02 08:47] LABS: African American GFR (CKD) 86.8 (60.0-200.0); Anion Gap 8.9 mmol/L (10.00-18.00); BUN/Creat Ratio 23.7 Ratio (12.00-20.00); Blood Urea Nitrogen 23.7 mg/dL (9.0-27.0); Calcium 8.9 mg/dL (8.7-10.3); Carbon Dioxide 27.1 mmol/L (20.0-27.5); Non-African American GFR(CKD) 74.9 (60.0-200.0); Potassium 4.2 mmol/L (3.5-5.5)
[2022-05-02] MEDS ORDERED: METOPROLOL SUCCINATE (ER) 50 MG TAB.ER.24H PO SCH (09:00)
[2022-05-02] MEDS ORDERED: DOXAZOSIN 4 MG TAB PO SCH ×2 (09:00)
[2022-05-02] MEDS ORDERED: LOSARTAN 25 MG TAB PO SCH (09:00)
[2022-05-02] MEDS: METOPROLOL SUCCINATE (ER) 50 MG TAB.ER.24H PO SCH (09:01)
[2022-05-02] MEDS: RIVAROXABAN 20 MG TAB PO SCH (09:02)
--- NOTE | 2022-05-02 10:06 | P.CRDCN ---
History of Present Illness History of present illness: HISTORY OF PRESENT ILLNESS: This is a 72-year-old male with a past medical history significant for persistent atrial flutter, hypertension, hyperlipidemia, previous DVT, and valvular heart disease. Patient follows in the office with Dr. Felton. We have been asked to see the patient in consultation for chest pain. Patient examined at the bedside. Patient states yesterday he was at home watching TV when he began to have chest pressure. He states that pain went down both of his arms. He denies feeling any palpitations. He came to the emergency room for further evaluation. Telemetry this morning reveals atrial flutter with RVR. Patient was seen in the office on 04/19/2022. He was started on Xarelto at that time. * EKG reveals atrial flutter with a heart rate of 106. * Chest xray increased central lung markings in the perihilar regions, correlate for volume overload. * Laboratory data: WBC 5.06. Hemoglobin 11.0. Platelet count 147. Sodium 142. Potassium 4.2. BUN 23. Creatinine 1.0. Troponin negative 3. * Current home cardiac medications include metoprolol succinate 50 mg daily, Lipitor 20 mg at night, losartan 25 mg daily, Cardura 4 mg in the morning and 2 mg at night, aspirin 81 mg daily, Triamterene/HCTZ 37.5-25mg daily, and Xarelto 20 mg daily * Most recent echocardiogram obtained in April 2022 revealed ejection fraction 50%, [id number] TR, mild LVH * Patient underwent Lexiscan stress test in September 2020 which was negative for ischemia REVIEW OF SYSTEMS: At the time of my exam: CONSTITUTIONAL: Denies fever or chills. HEENT: Denies blurred vision, vision changes, or eye pain. Denies hemoptysis CARDIOVASCULAR: Denies chest pain. Denies orthopnea. Denies PND. Denies palpitations RESPIRATORY: Denies shortness of breath. GASTROINTESTINAL: Denies abdominal pain. Denies nausea or vomiting. HEMATOLOGIC: Denies bleeding disorders. GENITOURINARY: Denies any blood in urine. SKIN: Denies pruitis. Denies rash. PHYSICAL EXAM: VITAL SIGNS: Reviewed. GENERAL: Well-developed in no acute distress. HEENT: Head is normocephalic. Pupils are equal, round. Sclerae anicteric. Mucous membranes of the mouth are moist. Neck supple. No JVD or thyromegaly LUNGS: Respirations even and unlabored. Lungs essentially clear to auscultation bilaterally. HEART: Tachycardic. Irregular rate and rhythm. S1 and S2 heard. Systolic murmur ABDOMEN: Soft. Nondistended. Nontender. EXTREMITIES: Normal range of motion. No clubbing or cyanosis. Peripheral pulses intact. No lower extremity edema NEUROLOGIC: Awake and alert. Oriented x 3. ASSESSMENT: Chest pain, troponins negative 3 Persistent typical atrial flutter with RVR Hypertension Hyperlipidemia History of DVT Valvular heart disease PLAN: Check TSH Discontinue losartan Change Cardura to 2 mg in the morning and 1 mg at night Increase metoprolol to 100 mg daily Continue telemetry monitoring Patient will require ablation in the future Further recommendations pending patient's course Nurse practitioner note has been reviewed by physician. Signing provider agrees with the documented findings, assessment, and plan of care. Past Medical History Past Medical History: Deep Vein Thrombosis (DVT), GERD/Reflux, Hyperlipidemia, Hypertension, Osteoarthritis (OA) Additional Past Medical History / Comment(s): ? SEIZURE 2014. using a cane History of Any Multi-Drug Resistant Organisms: None Reported Past Surgical History: Joint Replacement, Orthopedic Surgery Additional Past Surgical History / Comment(s): total R knee arthroplasty. Rt FOOT SURGERY, Rt carpal tunnel repair Past Anesthesia/Blood Transfusion Reactions: No Reported Reaction Past Psychological History: No Psychological Hx Reported Smoking Status: Never smoker Past Alcohol Use History: None Reported Past Drug Use History: None Reported - Past Family History Father Family Medical History: Cancer Mother Family Medical History: Cancer, Deep Vein Thrombosis (DVT) Additional Family Medical History / Comment(s): bone Medications and Allergies Home Medications Medication Instructions Recorded Confirmed Type Aspirin EC [Ecotrin Low Dose] 81 mg PO DAILY 08/07/15 05/01/22 History Atorvastatin [Lipitor] 20 mg PO HS 08/07/15 05/01/22 History Doxazosin [Cardura] 4 mg PO DAILY 08/07/15 05/01/22 History Multivitamins, Thera [Multivitamin 1 tab PO DAILY 08/07/15 05/01/22 History (formulary)] Omeprazole [PriLOSEC] 20 mg PO HS 08/07/15 05/01/22 History Sertraline [Zoloft] 50 mg PO DAILY 08/07/15 05/01/22 History Fluticasone Propionate [Flonase 2 spray EA NOSTRIL DAILY PRN 07/26/19 05/01/22 History Allergy Relief] calcium polycarbophiL [Fibercon] 625 mg PO HS 01/19/20 05/01/22 History Cholecalciferol [Vitamin D3 (25 50 mcg PO DAILY 05/01/22 05/01/22 History Mcg = 1000 Iu)] Cyanocobalamin (Vitamin B-12) 1,000 mcg PO DAILY 05/01/22 05/01/22 History [Vitamin B-12] Doxazosin [Cardura] 2 mg PO HS 05/01/22 05/01/22 History Ferrous Sulfate [Feosol] 325 mg PO MOFR 05/01/22 05/01/22 History Losartan Potassium [Cozaar] 25 mg PO DAILY 05/01/22 05/01/22 History Metoprolol Succinate [Toprol XL] 50 mg PO DAILY 05/01/22 05/01/22 History Rivaroxaban [Xarelto] 20 mg PO DAILY 05/01/22 05/01/22 History Triamterene/Hydrochlorothiazid 1 cap PO DAILY 05/01/22 05/01/22 History [Triamterene-Hctz 37.5-25 mg Cp] modafiniL [Provigil] 200 mg PO DAILY 05/01/22 05/01/22 History Allergies Allergy/AdvReac Type Severity Reaction Status Date / Time alprazolam [From Xanax] Allergy Unknown Unknown Verified 05/01/22 12:50 cyclobenzaprine HCl Allergy Unknown Unknown Verified 05/01/22 12:50 [From Flexeril] memantine HCl [From Namenda] Allergy Unknown Unknown Verified 05/01/22 12:50 promethazine HCl Allergy Unknown Unknown Verified 05/01/22 12:50 [From Phenergan] quetiapine fumarate Allergy Unknown Unknown Verified 05/01/22 12:50 [From Seroquel] Physical Exam Vitals: Vital Signs Temp Pulse Pulse Resp BP BP BP 05/02/22 08:00 107 H 16 05/02/22 07:00 98.4 F 107 H 16 134/75 05/02/22 03:03 97.9 F 72 19 145/80 05/02/22 02:00 75 05/01/22 22:00 98.6 F 64 16 05/01/22 21:27 05/01/22 20:48 90 16 125/66 05/01/22 17:48 76 20 133/77 05/01/22 13:37 98 18 120/67 05/01/22 11:13 98 F 125 H 16 153/99 Pulse Ox FiO2 05/02/22 08:00 05/02/22 07:00 98 05/02/22 03:03 96 05/02/22 02:00 05/01/22 22:00 98 05/01/22 21:27 97 21 05/01/22 20:48 05/01/22 17:48 98 05/01/22 13:37 97 05/01/22 11:13 99 Intake and Output 05/01/22 05/02/22 05/02/22 22:59 06:59 14:59 Other: # Voids 1 1 Weight 113.398 kg Results 05/02/22 05:06 05/02/22 05:06 Cardiac Enzymes 05/01/22 05/01/22 05/01/22 Range/Units 11:37 11:37 14:23 AST 25 (17-59) U/L Troponin I <0.012 <0.012 (0.000-0.034) ng/mL 05/01/22 Range/Units 17:53 AST (17-59) U/L Troponin I <0.012 (0.000-0.034) ng/mL Coagulation 05/01/22 Range/Units 11:37 PT 13.3 H (9.0-12.0) sec APTT 33.8 H (22.0-30.0) sec CBC 05/01/22 05/02/22 Range/Units 11:37 05:06 WBC 5.0 5.06 (3.8-10.6) k/uL RBC 3.84 L 3.55 L (4.30-5.90) m/uL Hgb 12.7 L 11.0 L (13.0-17.5) gm/dL Hct 38.0 L 35.2 L (39.0-53.0) % Plt Count 137 L 147 (150-450) k/uL Comprehensive Metabolic Panel 10/26/22 10/27/22 Range/Units 11:37 05:06 Sodium 140 142 (137-145) mmol/L Potassium 4.2 4.2 (3.5-5.1) mmol/L Chloride 102 106 (98-107) mmol/L Carbon Dioxide 28 27.1 (22-30) mmol/L BUN 25 H 23.7 (9-20) mg/dL Creatinine 1.11 1.0 (0.66-1.25) mg/dL Glucose 124 H 104 (74-99) mg/dL Calcium 8.7 8.9 (8.4-10.2) mg/dL AST 25 (17-59) U/L ALT 25 (4-49) U/L Alkaline Phosphatase 105 (38-126) U/L Total Protein 6.2 L (6.3-8.2) g/dL Albumin 4.0 (3.5-5.0) g/dL Current Medications Generic Name Dose Route Start Last Admin Trade Name Freq PRN Reason Stop Dose Admin Aspirin 81 mg 05/02/22 09:00 05/02/22 07:38 Aspirin 81 Mg PO 81 mg DAILY DISHA Administration Atorvastatin Calcium 20 mg 05/01/22 21:00 05/01/22 21:10 Atorvastatin 20 Mg Tab PO 20 mg HS DISHA Administration Calcium Polycarbophil 625 mg 05/01/22 21:00 05/01/22 23:18 Calcium Polycarbophil 625 Mg Tab PO 625 mg HS DISHA Administration Cholecalciferol 50 mcg 05/02/22 09:00 05/02/22 07:39 Cholecalciferol 25 Mcg (1000 Iu) Tablet PO 50 mcg DAILY DISHA Administration Cyanocobalamin 1,000 mcg 05/02/22 09:00 05/02/22 07:38 Cyanocobalamin 500 Mcg Tab PO 1,000 mcg DAILY DISHA Administration Doxazosin Mesylate 2 mg 05/02/22 21:00 Doxazosin 1 Mg Tab PO HS DISHA Ferrous Sulfate 325 mg 05/03/22 09:00 Ferrous Sulfate 325 Mg Tab PO MOFR DISHA Fluticasone Propionate 2 spray 05/01/22 14:34 Fluticasone 50mcg/[place] Nasal 16gm EA NOSTRIL DAILY PRN Allergy Symptoms Metoprolol Succinate 100 mg 05/02/22 09:00 05/02/22 09:01 Metoprolol Succinate (Er) 50 Mg Tab.Er.24h PO 100 mg DAILY DISHA Administration Modafinil 200 mg 05/02/22 09:00 05/02/22 09:01 Modafinil 200 Mg Tab PO 200 mg DAILY DISHA Administration Multivitamins 1 each 05/02/22 09:00 05/02/22 07:38 Multivitamins, Thera 1 Each Tab PO 1 each DAILY DISHA Administration Naloxone HCl 0.2 mg 05/01/22 13:20 Naloxone 0.4 Mg/Ml 1 Ml Vial IV Q2M PRN Opioid Reversal Pantoprazole Sodium 40 mg 05/01/22 21:00 05/01/22 21:10 Pantoprazole 40 Mg Tablet PO 40 mg HS DISHA Administration Rivaroxaban 20 mg 05/02/22 09:00 05/02/22 09:02 Rivaroxaban 20 Mg Tab PO 20 mg DAILY DISHA Administration Protocol Sertraline HCl 50 mg 05/02/22 09:00 05/02/22 07:38 Sertraline 50 Mg Tab PO 50 mg DAILY DISHA Administration Triamterene/Hydrochlorothiazide 1 each 05/02/22 09:00 05/02/22 07:39 Triamterene-Hctz 37.5-25mg 1 Each Cap PO 1 each DAILY DISHA Administration Intake and Output 05/01/22 05/02/22 05/02/22 22:59 06:59 14:59 Other: # Voids 1 1 Weight 113.398 kg 05/02/22 05:06 05/02/22 05:06
--- NOTE | 2022-05-02 12:59 | P.PN ---
Subjective Progress Note Date: 05/02/22 Principal diagnosis: chest pain Hospital Course: Patient is a 72-year-old male with past medical history of atrial fibrillation on anticoagulation, dyslipidemia, hypertension presenting with chest pain. Patient was found to be in A. fib with RVR. Chest pain resolved. Troponin negative. Cardiology consulted. Subjective: Patient seen and examined at bedside. No acute events overnight. He denies any further chest pain, palpitation, lightheadedness, abdominal pain, urinary or bowel complaints. Pertinent positives and negatives as discussed above, a complete review of systems was performed and all other systems are negative. Vitals Signs Reviewed. General: nontoxic, no distress, appears at stated age Derm: warm, dry Head: atraumatic, normocephalic, symmetric Eyes: EOMI, no lid lag, anicteric sclera Mouth: no lip lesion, mucus membranes moist Cardiovascular: S1S2 irregular, no murmur Lungs: CTA bilateral, no rhonchi, no rales , no accessory muscle use Abdominal: soft, nontender to palpation, no guarding, no appreciable organomegaly Ext: no gross muscle atrophy, trace edema, no contractures Neuro: CN II-XI grossly intact, no focal neuro deficits Psych: Alert, oriented, appropriate affect Assessment and Plan: Chest pain, unlikely to be ACS -Chest pain resolved -Troponin negative -Telemetry -Cardiology consult -Patient had an echo this month as an outpatient - LVEF 50%, mild to moderate TR, mild LVH -September 2020 Lexiscan stress test negative for ischemia Atrial flutter/fibrillation with RVR -Now rate controlled -Increase metoprolol -Continue anticoagulation -Patient will likely require ablation in the future Hypertension -Discontinued losartan per cardiology -Decreased doxazosin Chronic medical problems: Hypertension Dyslipidemia BPH Depression -Continue home medications DVT ppx: xarelto Code status: Full code Anticipated discharge place: Home Anticipated discharge time: 05/03 Objective - Vital Signs Vital signs: Vital Signs Temp 98.4 F 05/02/22 07:00 Pulse 107 H 05/02/22 08:00 Resp 16 05/02/22 08:00 BP 134/75 05/02/22 07:00 Pulse Ox 98 05/02/22 07:00 FiO2 21 05/01/22 21:27 Intake & Output 05/01/22 05/02/22 05/02/22 18:59 06:59 18:59 Weight 113.398 kg 113.398 kg Other: # Voids 1 - Labs CBC & Chem 7: 05/02/22 05:06 05/02/22 05:06 Labs: Abnormal Lab Results - Last 24 Hours (Table) 05/02/22 05/02/22 Range/Units 05:06 05:06 RBC 3.55 L (4.40-5.60) X 10*6/uL Hgb 11.0 L (13.0-17.0) g/dL Hct 35.2 L (39.6-50.0) % MCV 99.2 H (80.0-97.0) fL MCHC 31.3 L (32.0-37.0) g/dL Eosinophils # 0.36 H (0.04-0.35) X 10*3/uL Anion Gap 8.90 L (10.00-18.00) mmol/L BUN/Creatinine Ratio 23.70 H (12.00-20.00) Ratio
[2022-05-02] MEDS: PANTOPRAZOLE 40 MG TABLET PO SCH (20:40)
[2022-05-02] MEDS: DOXAZOSIN 2 MG TAB PO SCH (20:40)
[2022-05-02] MEDS: ATORVASTATIN 20 MG TAB PO SCH (20:41)
[2022-05-02] MEDS ORDERED: DOXAZOSIN 1 MG TAB PO SCH ×2 (21:00)
[2022-05-03 08:25] VITALS: BP 118/62; PULSE 61; RESP 16; TEMP 98.2
[2022-05-03] MEDS ORDERED: FERROUS SULFATE 325 MG TAB PO SCH (09:00)
[2022-05-03] MEDS: CYANOCOBALAMIN 500 MCG TAB PO SCH (09:15)
[2022-05-03] MEDS: CHOLECALCIFEROL 25 MCG (1000 IU) TABLET PO SCH (09:15)
[2022-05-03] MEDS: MULTIVITAMINS, THERA 1 EACH TAB PO SCH (09:15)
[2022-05-03] MEDS: ASPIRIN 81 MG PO SCH (09:15)
[2022-05-03] MEDS: METOPROLOL SUCCINATE (ER) 50 MG TAB.ER.24H PO SCH (09:15)
[2022-05-03] MEDS: SERTRALINE 50 MG TAB PO SCH (09:15)
[2022-05-03] MEDS: TRIAMTERENE-HCTZ 37.5-25MG 1 EACH CAP PO SCH (09:16)
[2022-05-03] MEDS: RIVAROXABAN 20 MG TAB PO SCH (10:05)
--- NOTE | 2022-05-03 10:12 | P.PN ---
Subjective Progress Note Date: 05/03/22 HISTORY OF PRESENT ILLNESS: This is a 72-year-old male with a past medical history significant for persistent atrial flutter, hypertension, hyperlipidemia, previous DVT, and valvular heart disease. Patient follows in the office with Dr. Felton. We have been asked to see the patient in consultation for chest pain. Patient examined at the bedside. Patient states yesterday he was at home watching TV when he began to have chest pressure. He states that pain went down both of his arms. He denies feeling any palpitations. He came to the emergency room for further evaluation. Telemetry this morning reveals atrial flutter with RVR. Patient was seen in the office on 04/19/2022. He was started on Xarelto at that time. * EKG reveals atrial flutter with a heart rate of 106. * Chest xray increased central lung markings in the perihilar regions, correlate for volume overload. * Laboratory data: WBC 5.06. Hemoglobin 11.0. Platelet count 147. Sodium 142. Potassium 4.2. BUN 23. Creatinine 1.0. Troponin negative 3. * Current home cardiac medications include metoprolol succinate 50 mg daily, Lipitor 20 mg at night, losartan 25 mg daily, Cardura 4 mg in the morning and 2 mg at night, aspirin 81 mg daily, Triamterene/HCTZ 37.5-25mg daily, and Xarelto 20 mg daily * Most recent echocardiogram obtained in April 2022 revealed ejection fraction 50%, [id number] TR, mild LVH * Patient underwent Lexiscan stress test in September 2020 which was negative for ischemia 05/03/2022 Patient examined this morning at the bedside. Patient denies chest pain or pressure. He reports mild shortness of breath. He remains in atrial flutter with a heart rate in the 90s. Blood pressure is stable PHYSICAL EXAM: VITAL SIGNS: Reviewed. GENERAL: Well-developed in no acute distress. HEENT: Head is normocephalic. Pupils are equal, round. Sclerae anicteric. Mucous membranes of the mouth are moist. Neck supple. No JVD or thyromegaly LUNGS: Respirations even and unlabored. Lungs essentially clear to auscultation bilaterally. HEART: Tachycardic. Irregular rate and rhythm. S1 and S2 heard. Systolic murmur ABDOMEN: Soft. Nondistended. Nontender. EXTREMITIES: Normal range of motion. No clubbing or cyanosis. Peripheral pulses intact. No lower extremity edema NEUROLOGIC: Awake and alert. Oriented x 3. ASSESSMENT: Chest pain, troponins negative 3 Persistent typical atrial flutter with RVR Hypertension Hyperlipidemia History of DVT Valvular heart disease PLAN: Continue current cardiac medications Add metoprolol succinate 50 mg at night in addition to his 100 mg dose in the morning Continue anticoagulation with Xarelto Patient will be scheduled for an outpatient ablation. In the meantime, continue rate control Patient may be discharged home today from a cardiac standpoint and follow up on an outpatient basis We will sign off. Please consult if needed. Nurse practitioner note has been reviewed by physician. Signing provider agrees with the documented findings, assessment, and plan of care. Objective - Vital Signs Vital signs: Vital Signs Temp 98.2 F 05/03/22 07:00 Pulse 61 05/03/22 07:00 Resp 16 05/03/22 07:00 BP 118/62 05/03/22 07:00 Pulse Ox 98 05/03/22 07:00 FiO2 21 05/01/22 21:27 Intake & Output 05/02/22 05/03/22 05/03/22 18:59 06:59 18:59 Intake Total 118 Balance 118 Intake: Oral 118 Other: Voiding Method Toilet # Voids 3 1 - Labs CBC & Chem 7: 05/02/22 05:06 05/02/22 05:06
--- NOTE | 2022-05-03 11:41 | P.DS ---
Providers Date of admission: 05/01/22 13:20 Expected date of discharge: 05/03/22 Attending physician: Sandee Trujillo MD [facility] [place] [facility] Course: Discharge Diagnosis: Chest pain Atrial flutter with RVR Hypertension BPH Hypertension Dyslipidemia Depression Hospital Course: Patient is a 72-year-old male with past medical history of atrial fibrillation on anticoagulation, dyslipidemia, hypertension presenting with chest pain. Patient was found to be in A. fib with RVR. Chest pain resolved. Troponin negative. Cardiology consulted. Patient had a recent echocardiogram in April 27 which revealed LVEF 50%, mild to moderate TR, mild LVH. He also had a Lexiscan stress test in September 24 which was negative for ischemia. Cardiology increased his metoprolol to a total of 150 mg daily. Doxazosin was decreased to 2 mg daily. Patient will follow-up outpatient cardiology for ablation. Patient seen and examined at bedside. Vital signs reviewed and stable. General: nontoxic, no distress, appears at stated age Derm: warm, dry Head: atraumatic, normocephalic, symmetric Eyes: EOMI, no lid lag, anicteric sclera Mouth: no lip lesion, mucus membranes moist Cardiovascular: S1S2 irregular, systolic murmur Lungs: CTA bilateral, no rhonchi, no rales , no accessory muscle use Abdominal: soft, nontender to palpation, no guarding, no appreciable organomegaly Ext: no gross muscle atrophy, no edema, no contractures Neuro: CN II-XI grossly intact, no focal neuro deficits Psych: Alert, oriented, appropriate affect A total of 37 minutes of time were spent preparing this complex discharge summary. Patient was discharged on 05/03/22 at 10:15. Patient Condition at Discharge: Stable Plan - Discharge Summary Discharge Rx Participant: Yes New Discharge Prescriptions: New Metoprolol Succinate (ER) [Toprol XL] 50 mg PO DAILY@2100 #90 tab Metoprolol Succinate (ER) [Toprol XL] 100 mg PO DAILY #90 tab Continue Sertraline [Zoloft] 50 mg PO DAILY Aspirin EC [Ecotrin Low Dose] 81 mg PO DAILY Omeprazole [PriLOSEC] 20 mg PO HS Atorvastatin [Lipitor] 20 mg PO HS Multivitamins, Thera [Multivitamin (formulary)] 1 tab PO DAILY Fluticasone Propionate [Flonase Allergy Relief] 2 spray EA NOSTRIL DAILY PRN PRN Reason: Allergy Symptoms calcium polycarbophiL [Fibercon] 625 mg PO HS Rivaroxaban [Xarelto] 20 mg PO DAILY Cholecalciferol [Vitamin D3 (25 Mcg = 1000 Iu)] 50 mcg PO DAILY Doxazosin [Cardura] 2 mg PO HS Triamterene/Hydrochlorothiazid [Triamterene-Hctz 37.5-25 mg Cp] 1 cap PO DAILY Ferrous Sulfate [Iron (65 MG Elemental)] 325 mg PO MOFR modafiniL [Provigil] 200 mg PO DAILY Cyanocobalamin (Vitamin B-12) [Vitamin B-12] 1,000 mcg PO DAILY Discontinued Doxazosin [Cardura] 4 mg PO DAILY Metoprolol Succinate [Toprol XL] 50 mg PO DAILY Losartan Potassium [Cozaar] 25 mg PO DAILY Discharge Medication List Aspirin EC [Ecotrin Low Dose] 81 mg PO DAILY 08/07/15 [History] Atorvastatin [Lipitor] 20 mg PO HS 08/07/15 [History] Multivitamins, Thera [Multivitamin (formulary)] 1 tab PO DAILY 08/07/15 [History] Omeprazole [PriLOSEC] 20 mg PO HS 08/07/15 [History] Sertraline [Zoloft] 50 mg PO DAILY 08/07/15 [History] Fluticasone Propionate [Flonase Allergy Relief] 2 spray EA NOSTRIL DAILY PRN 07/26/19 [History] calcium polycarbophiL [Fibercon] 625 mg PO HS 01/19/20 [History] Cholecalciferol [Vitamin D3 (25 Mcg = 1000 Iu)] 50 mcg PO DAILY 05/01/22 [His tory] Cyanocobalamin (Vitamin B-12) [Vitamin B-12] 1,000 mcg PO DAILY 05/01/22 [History] Doxazosin [Cardura] 2 mg PO HS 05/01/22 [History] Ferrous Sulfate [Iron (65 MG Elemental)] 325 mg PO MOFR 05/01/22 [History] Rivaroxaban [Xarelto] 20 mg PO DAILY 05/01/22 [History] Triamterene/Hydrochlorothiazid [Triamterene-Hctz 37.5-25 mg Cp] 1 cap PO DAILY 05/01/22 [History] modafiniL [Provigil] 200 mg PO DAILY 05/01/22 [History] Metoprolol Succinate (ER) [Toprol XL] 50 mg PO DAILY@2100 #90 tab 05/03/22 [Rx] Metoprolol Succinate (ER) [Toprol XL] 100 mg PO DAILY #90 tab 05/03/22 [Rx] Follow up Appointment(s)/Referral(s): Bi Felton MD [STAFF PHYSICIAN] - 05/14/22 9:45 am Tawnya Orlando MD [Primary Care Provider] - 1-2 days Patient Instructions/Handouts: A-fib (Atrial Fibrillation) (GEN) Activity/Diet/Wound Care/Special Instructions: please see your PCP in 1-2 days. Please see your tool keeper in 1 week. Discharge Disposition: HOME SELF-CARE
[2022-05-03] MEDS ORDERED: METOPROLOL SUCCINATE (ER) 50 MG TAB.ER.24H PO SCH (21:00)
== END 2022-05-03 11:20 | disposition home or self-care (01) ==
LOC: EC 11:11 → 6NMEDSUR 13:20
PROVIDERS: ADMIT Family Medicine; ATTEND Family Medicine
DX: R07.89 Other chest pain (principal); I10 Essential (primary) hypertension; K21.9 Gastro-esophageal reflux disease without esophagitis; E78.5 Hyperlipidemia, unspecified; N40.0 Benign prostatic hyperplasia without lower urinary tract symptoms; I48.3 Typical atrial flutter; F32.A Depression, unspecified; Z79.01 Long term (current) use of anticoagulants; Z79.82 Long term (current) use of aspirin; Z79.899 Other long term (current) drug therapy; Z88.8 Allergy status to other drugs, medicaments and biological substances; Z86.718 Personal history of other venous thrombosis and embolism; Z96.651 Presence of right artificial knee joint; Z80.8 Family history of malignant neoplasm of other organs or systems
CPT/HCPCS: 99285; 36415; 94760; 93005; 80053; 80048; 84443; 83735; 84484; 85025 ×2; 85610; 85730; 71046; G0378 ×3

== ENCOUNTER 2022-06-05 11:29 | Inpatient (IN) | payer MEDICARE ==
[2022-06-05] MEDS ORDERED: IPRATROPIUM-ALBUTEROL 3 ML NEB INHALATION STA (11:58)
[2022-06-05] MEDS ORDERED: ORPHENADRINE 30 MG/ML 2 ML VIAL IVP STA (12:29)
[2022-06-05] MEDS ORDERED: MORPHINE SULFATE 4 MG/ML SYRINGE IVP STA (12:42)
[2022-06-05 12:48] LABS: Basophils # (A) 0.1 k/uL (0-0.2); Basophils % (A) 2 %; Eosinophils # (A) 0.2 k/uL (0-0.7); Eosinophils % (A) 4 %; HCT 34.6 % (39.0-53.0); HGB 11.2 gm/dL (13.0-17.5); Hypochromasia Slight; Lymphocytes # (A) 0.8 k/uL (1.0-4.8); Lymphocytes % (A) 17 %; MCH 32.4 pg (25.0-35.0); MCHC 32.5 g/dL (31.0-37.0); MCV 99.9 fL (80.0-100.0); Monocytes # (A) 0.3 k/uL (0-1.0); Monocytes % (A) 7 %; Neutrophils % (A) 68 %; Platelet Count 130 k/uL (150-450); RBC 3.47 m/uL (4.30-5.90); RDW 13.1 % (11.5-15.5); WBC 4.4 k/uL (3.8-10.6)
--- NOTE | 2022-06-05 12:56 | ED ---
General Adult HPI - General Chief complaint: Shortness of Breath Stated complaint: cough, SOB Time Seen by Provider: 06/05/22 11:50 Source: patient, RN notes reviewed Mode of arrival: wheelchair Limitations: no limitations - History of Present Illness Initial comments: 72-year-old male presents emergency from for evaluation of chest pain shortness of breath leg swelling. Patient states he started having some arm discomfort though today but developed in the neck pain. Patient states that he now has chest tightness, tachycardia, shortness of breath extreme leg swelling. Patient did have hospitalization in April for atrial flutter new-onset. Patient is currently on Xarelto. Patient states never had a splenic this in the past states severe leg cramping, pain from this. Patient denies fevers or chills he has a slight cough. Patient states is not way himself daily he does not believe is having weight gain. Patient does not that is not followed his diet as he was instructed. - Related Data Home Medications Medication Instructions Recorded Confirmed Aspirin EC [Ecotrin Low Dose] 81 mg PO DAILY 08/07/15 05/01/22 Atorvastatin [Lipitor] 20 mg PO HS 08/07/15 05/01/22 Multivitamins, Thera [Multivitamin 1 tab PO DAILY 08/07/15 05/01/22 (formulary)] Omeprazole [PriLOSEC] 20 mg PO HS 08/07/15 05/01/22 Sertraline [Zoloft] 50 mg PO DAILY 08/07/15 05/01/22 Fluticasone Propionate [Flonase 2 spray EA NOSTRIL DAILY PRN 07/26/19 05/01/22 Allergy Relief] calcium polycarbophiL [Fibercon] 625 mg PO HS 01/19/20 05/01/22 Cholecalciferol [Vitamin D3 (25 50 mcg PO DAILY 05/01/22 05/01/22 Mcg = 1000 Iu)] Cyanocobalamin (Vitamin B-12) 1,000 mcg PO DAILY 05/01/22 05/01/22 [Vitamin B-12] Doxazosin [Cardura] 2 mg PO HS 05/01/22 05/01/22 Ferrous Sulfate [Iron (65 MG 325 mg PO MOFR 05/01/22 05/01/22 Elemental)] Rivaroxaban [Xarelto] 20 mg PO DAILY 05/01/22 05/01/22 Triamterene/Hydrochlorothiazid 1 cap PO DAILY 05/01/22 05/01/22 [Triamterene-Hctz 37.5-25 mg Cp] modafiniL [Provigil] 200 mg PO DAILY 05/01/22 05/01/22 Previous Rx's Medication Instructions Recorded Metoprolol Succinate (ER) [Toprol 50 mg PO DAILY@2100 #90 tab 05/03/22 XL] Metoprolol Succinate (ER) [Toprol 100 mg PO DAILY #90 tab 05/03/22 XL] Allergies Allergy/AdvReac Type Severity Reaction Status Date / Time alprazolam [From Xanax] Allergy Unknown Unknown Verified 06/05/22 11:49 cyclobenzaprine HCl Allergy Unknown Unknown Verified 06/05/22 11:49 [From Flexeril] memantine HCl [From Namenda] Allergy Unknown Unknown Verified 06/05/22 11:49 promethazine HCl Allergy Unknown Unknown Verified 06/05/22 11:49 [From Phenergan] quetiapine fumarate Allergy Unknown Unknown Verified 06/05/22 11:49 [From Seroquel] Review of Systems ROS Statement: Those systems with pertinent positive or pertinent negative responses have been documented in the HPI. ROS Other: All systems not noted in ROS Statement are negative. Past Medical History Past Medical History: Atrial Fibrillation, Atrial Flutter, Deep Vein Thrombosis (DVT), GERD/Reflux, Hyperlipidemia, Hypertension, Osteoarthritis (OA) Additional Past Medical History / Comment(s): ? SEIZURE 2014. using a cane History of Any Multi-Drug Resistant Organisms: None Reported Past Surgical History: Joint Replacement, Orthopedic Surgery Additional Past Surgical History / Comment(s): total R knee arthroplasty. Rt FOOT SURGERY, Rt carpal tunnel repair Past Anesthesia/Blood Transfusion Reactions: No Reported Reaction Past Psychological History: No Psychological Hx Reported Smoking Status: Never smoker Past Alcohol Use History: None Reported Past Drug Use History: None Reported - Past Family History Father Family Medical History: Cancer Mother Family Medical History: Cancer, Deep Vein Thrombosis (DVT) Additional Family Medical History / Comment(s): bone General Exam Limitations: no limitations General appearance: alert, in no apparent distress Head exam: Present: atraumatic, normocephalic, normal inspection Eye exam: Present: normal appearance, PERRL, EOMI. Absent: scleral icterus, conjunctival injection, periorbital swelling ENT exam: Present: normal exam, normal oropharynx, mucous membranes moist Neck exam: Present: normal inspection, full ROM. Absent: tenderness, meningismus, lymphadenopathy Respiratory exam: Present: respiratory distress, wheezes, decreased breath sounds. Absent: normal lung sounds bilaterally, rales, rhonchi, stridor Cardiovascular Exam: Present: tachycardia, irregular rhythm, normal heart sounds. Absent: regular rate, normal rhythm, systolic murmur, diastolic murmur, rubs, gallop, clicks GI/Abdominal exam: Present: soft, normal bowel sounds. Absent: distended, tenderness, guarding, rebound, rigid Extremities exam: Present: pedal edema Neurological exam: Present: alert Skin exam: Present: warm, dry, intact, normal color. Absent: rash Course Vital Signs 06/05/22 06/05/22 06/05/22 11:45 12:16 12:23 Temperature 98.2 F Pulse Rate 114 H 97 86 Respiratory 22 21 20 Rate Blood Pressure 136/79 O2 Sat by Pulse 97 Oximetry 06/05/22 12:32 Temperature Pulse Rate 86 Respiratory 21 Rate Blood Pressure O2 Sat by Pulse Oximetry Medical Decision Making - Medical Decision Making 32-year-old male presented from for shortness breath. Patient therefore concluded labs EKG and chest x-ray chest x-ray interpreted shows evidence of pulmonary congestion, pulmonary edema, BMP is mildly elevated at 2310, patient does have significant leg edema. Patient's was given Lasix, patient did have severe discomfort in his legs from swelling morphine was provided patient is improved this time dyspnea has improved. Patient will be admitted for diuresis, echocardiogram, cardiology evaluation. - Lab Data Result diagrams: 06/05/22 12:42 06/05/22 12:42 Lab Results 06/05/22 06/05/22 06/05/22 Range/Units 12:42 12:42 12:42 WBC 4.4 (3.8-10.6) k/uL RBC 3.47 L (4.30-5.90) m/uL Hgb 11.2 L (13.0-17.5) gm/dL Hct 34.6 L (39.0-53.0) % MCV 99.9 (80.0-100.0) fL MCH 32.4 (25.0-35.0) pg MCHC 32.5 (31.0-37.0) g/dL RDW 13.1 (11.5-15.5) % Plt Count 130 L (150-450) k/uL MPV 8.0 Neutrophils % 68 % Lymphocytes % 17 % Monocytes % 7 % Eosinophils % 4 % Basophils % 2 % Neutrophils # 3.0 (1.3-7.7) k/uL Lymphocytes # 0.8 L (1.0-4.8) k/uL Monocytes # 0.3 (0-1.0) k/uL Eosinophils # 0.2 (0-0.7) k/uL Basophils # 0.1 (0-0.2) k/uL Hypochromasia Slight PT 11.6 (9.0-12.0) sec INR 1.1 (<1.2) APTT 27.8 (22.0-30.0) sec Sodium 139 (137-145) mmol/L Potassium 4.1 (3.5-5.1) mmol/L Chloride 105 (98-107) mmol/L Carbon Dioxide 27 (22-30) mmol/L Anion Gap 7 mmol/L BUN 34 H (9-20) mg/dL Creatinine 0.98 (0.66-1.25) mg/dL Est GFR (CKD-EPI)AfAm 90 (>60 ml/min/1.73 sqM) Est GFR (CKD-EPI)NonAf 77 (>60 ml/min/1.73 sqM) Glucose 105 H (74-99) mg/dL Calcium 8.6 (8.4-10.2) mg/dL Magnesium 2.0 (1.6-2.3) mg/dL Total Bilirubin 0.8 (0.2-1.3) mg/dL AST 32 (17-59) U/L ALT 30 (4-49) U/L Alkaline Phosphatase 104 (38-126) U/L Troponin I (0.000-0.034) ng/mL NT-Pro-B Natriuret Pep pg/mL Total Protein 6.1 L (6.3-8.2) g/dL Albumin 3.9 (3.5-5.0) g/dL 06/05/22 06/05/22 Range/Units 12:42 12:42 WBC (3.8-10.6) k/uL RBC (4.30-5.90) m/uL Hgb (13.0-17.5) gm/dL Hct (39.0-53.0) % MCV (80.0-100.0) fL MCH (25.0-35.0) pg MCHC (31.0-37.0) g/dL RDW (11.5-15.5) % Plt Count (150-450) k/uL MPV Neutrophils % % Lymphocytes % % Monocytes % % Eosinophils % % Basophils % % Neutrophils # (1.3-7.7) k/uL Lymphocytes # (1.0-4.8) k/uL Monocytes # (0-1.0) k/uL Eosinophils # (0-0.7) k/uL Basophils # (0-0.2) k/uL Hypochromasia PT (9.0-12.0) sec INR (<1.2) APTT (22.0-30.0) sec Sodium (137-145) mmol/L Potassium (3.5-5.1) mmol/L Chloride (98-107) mmol/L Carbon Dioxide (22-30) mmol/L Anion Gap mmol/L BUN (9-20) mg/dL Creatinine (0.66-1.25) mg/dL Est GFR (CKD-EPI)AfAm (>60 ml/min/1.73 sqM) Est GFR (CKD-EPI)NonAf (>60 ml/min/1.73 sqM) Glucose (74-99) mg/dL Calcium (8.4-10.2) mg/dL Magnesium (1.6-2.3) mg/dL Total Bilirubin (0.2-1.3) mg/dL AST (17-59) U/L ALT (4-49) U/L Alkaline Phosphatase (38-126) U/L Troponin I <0.012 (0.000-0.034) ng/mL NT-Pro-B Natriuret Pep 2310 pg/mL Total Protein (6.3-8.2) g/dL Albumin (3.5-5.0) g/dL Disposition Clinical Impression: CHF exacerbation, Pulmonary edema, Chest pain Disposition: ADMITTED IP TO THIS HOSP Condition: Poor Referrals: Tawnya Orlando MD [Primary Care Provider] - 1-2 days Time of Disposition: 14:01
[2022-06-05 13:04] LABS: Albumin 3.9 g/dL (3.5-5.0); Calcium 8.6 mg/dL (8.4-10.2); Potassium 4.1 mmol/L (3.5-5.1); Total Bilirubin 0.8 mg/dL (0.2-1.3); Total Protein 6.1 g/dL (6.3-8.2)
[2022-06-05 13:13] LABS: INR 1.1 (<1.2); Partial Thromboplastin Time 27.8 sec (22.0-30.0); Prothrombin Time 11.6 sec (9.0-12.0)
[2022-06-05] MEDS ORDERED: FUROSEMIDE 10 MG/ML 4 ML VIAL IV STA (14:06)
--- NOTE | 2022-06-05 14:06 | XR ---
EXAMINATION TYPE: XR chest 2V DATE OF EXAM: 06/05/2022 COMPARISON: 05/01/2022 HISTORY: Shortness of breath TECHNIQUE: Frontal and lateral views of the chest are obtained. FINDINGS: Scattered senescent parenchymal changes noted. Hyperinflation compatible with COPD. No evidence for infiltrate. No evidence for atelectasis. There is pulmonary venous congestion cardiomegaly. Mild interstitial prominence. Correlate for mild i nterstitial edema. Mediastinal structures are stable and grossly unremarkable. No evidence for hilar prominence. Degenerative changes dorsal spine. IMPRESSION: 1. There is pulmonary venous congestion cardiomegaly. Mild interstitial prominence. Correlate for mil d interstitial edema.
[2022-06-05] MEDS ORDERED: FLUTICASONE 50MCG/SPRAY NASAL 16GM EA NOSTRIL PRN (14:15)
[2022-06-05] MEDS ORDERED: FUROSEMIDE 10 MG/ML 4 ML VIAL IV SCH (14:15)
--- NOTE | 2022-06-05 15:38 | P.HPIM ---
History of Present Illness H&P Date: 06/05/22 History of Presenting Illness: Patient is a very pleasant 72-year-old male with a past medical history of atrial fibrillation and atrial flutter on anticoagulation with Xarelto, chronic diastolic heart failure with previously known EF of 50%, hypertension, hyperlipidemia, DVT, GERD, BPH and obstructive sleep apnea CPAP dependent nightly. He presented to the emergency department with a chief complaint of chest pain/tightness, palpitations and shortness of breath. Patient reports this has been intermittently going on over the past 2-3 weeks and has pr ogressively worsened over the past 5 days. Patient reports in addition to the chest pain and shortness of breath has also experienced increased swelling in his legs. Patient was diagnosed with new onset atrial flutter on 05/01/22 and started on anticoagulation with Eliquis, Patient reports he is scheduled to undergo an outpatient cardiac ablation. Patient reports in addition his home CPAP machine was also broken and sent out for repairs which is likely contributing to his shortness of breath. He denies having any fevers, chills, diaphoresis, abdominal pain, nausea, vomiting, or experiencing any numbness/tingling/weakness in his extremities. Patient underwent full evaluation in the emergency department. Vital signs upon arrival were stable. Patient was afebrile with temp of 98.2F, he was slightly tachycardic and was found to be in A. flutter with RVR at 114 bpm, BP 136/79, respiratory rate 22, and SpO2 of 97% on room air. EKG was completed revealing atrial flutter at 95 bpm. Chest x-ray positive for pulmonary venous congestion, mild interstitial edema and cardiomegaly. CBC revealing stable normocytic anemia with hemoglobin at baseline and 11.2 as well as stable thrombocytopenia with platelet count of 130. Coags normal findings. BMP revealing mild prerenal azotemia with BUN of 34. Liver profile unremarkable. Troponin negative at less than 0.012 and proBNP elevated at 2310. Patient was given a dose of IV Lasix in the emergency department. He was also found to have a reported post void residual of greater than 800 mL and a Avelar catheter was placed. Patient admitted under our services with consultation to cardiology. Review of systems: Pertinent positives and negatives as discussed in HPI, a complete review of sys tems was performed and all other systems are negative. Physical exam: Vital signs reviewed and stable. General: Nontoxic, no distress and appears stated age. Obese male. Derm: Skin warm and dry, normal coloration for ethnicity. Head: Atraumatic, normocephalic and symmetric. Eyes: EOMs intact, no lid lag, and anicteric sclera Mouth: no lip lesions, mucus membranes moist Cardiovascular: Irregularly irregular with normal S1S2, no murmur, positive p osterior tibial pulses bilaterally, and cap refill < 2 seconds. 3+ pitting bilateral lower extremity edema. Lungs: Respirations even, regular, and unlabored on room air. Lungs diminished with diffuse expiratory wheezes bilaterally. No rhonchi, rales, or crackles and no accessory muscle usage. Abdominal: soft, nontender to palpation, no guarding, no appreciable organomegaly Ext: ROM intact. No gross muscle atrophy, no contractures Neuro: Speech clear, face symmetrical and CN II-XII grossly intact with no noted focal neuro deficits Psych: Alert and oriented to person, place, time, and situation. Appropriate and pleasant affect. Assessment and Plan of Care: Acute exacerbation of chronic diastolic heart failure Chest pain Persistent atrial flutter Hypertension Hyperlipidemia -Cardiology consult -Telemetry monitoring -Trend troponins -ProBNP 2310 -Daily weights -Close monitoring of I's and O's -Cardiac diet -Lasix 40 mg IVP twice daily -Continuation of cardiac medication regimen consisting of: Aspirin, atorvastatin, metoprolol and Xarelto. -Continued close monitoring of electrolytes while diuresing. -Provigil held at this time. Urinary retention History of BPH -Avelar catheter was placed. -Increased dose of doxazosin to 4 mg nightly and will attempt voiding trial tomorrow. History of DVT -Continue anticoagulation with Xarelto. GERD -Continue PPI with Protonix 40 mg nightly. Obstructive sleep apnea CPAP dependent nightly -Patient reports home CPAP has been sent out for repairs and he has since been having difficulty sleeping due to difficulties breathing. -CPAP ordered nightly The patient is admitted with an anticipated greater than 2 midnight stay for evaluation of congestive heart failure exacerbation. CODE STATUS: Full code DVT prophylaxis: Xarelto Discussed with: Patient and RN Anticipated discharge date: clinical course to determine Anticipated discharge place: home A total of 47 minutes was spent on the care of this complex patient more than 50% of the time was spent in counseling and care coordination. I reviewed the documentation as provided by the ARISTIDES above, who is the original author of this note. I agree with the documented assessment and plan, with the following changes: none Past Medical History Past Medical History: Atrial Fibrillation, Atrial Flutter, Deep Vein Thrombosis (DVT), GERD/Reflux, Hyperlipidemia, Hypertension, Osteoarthritis (OA) Additional Past Medical History / Comment(s): ? SEIZURE 2015. using a cane History of Any Multi-Drug Resistant Organisms: None Reported Past Surgical History: Joint Replacement, Orthopedic Surgery Additional Past Surgical History / Comment(s): total R knee arthroplasty. Rt FOOT SURGERY, Rt carpal tunnel repair Past Anesthesia/Blood Transfusion Reactions: No Reported Reaction Past Psychological History: No Psychological Hx Reported Smoking Status: Never smoker Past Alcohol Use History: None Reported Past Drug Use History: None Reported - Past Family History Father Family Medical History: Cancer Mother Family Medical History: Cancer, Deep Vein Thrombosis (DVT) Additional Family Medical History / Comment(s): bone Medications and Allergies Home Medications Medication Instructions Recorded Confirmed Type Aspirin EC [Ecotrin Low Dose] 81 mg PO DAILY 08/07/15 06/05/22 History Atorvastatin [Lipitor] 20 mg PO HS 08/07/15 06/05/22 History Multivitamins, Thera [Multivitamin 1 tab PO DAILY 08/07/15 06/05/22 History (formulary)] Omeprazole [PriLOSEC] 20 mg PO HS 08/07/15 06/05/22 History Sertraline [Zoloft] 50 mg PO DAILY 08/07/15 06/05/22 History Fluticasone Propionate [Flonase 2 spray EA NOSTRIL DAILY PRN 07/26/19 06/05/22 History Allergy Relief] calcium polycarbophiL [Fibercon] 625 mg PO HS 01/19/20 06/05/22 History Cholecalciferol [Vitamin D3 (25 50 mcg PO DAILY 05/01/22 06/05/22 History Mcg = 1000 Iu)] Cyanocobalamin (Vitamin B-12) 1,000 mcg PO DAILY 05/01/22 06/05/22 History [Vitamin B-12] Ferrous Sulfate [Iron (65 MG 325 mg PO MOFR 05/01/22 06/05/22 History Elemental)] Rivaroxaban [Xarelto] 20 mg PO DAILY 05/01/22 06/05/22 History Metoprolol Succinate (ER) [Toprol 50 mg PO DAILY@2100 #90 tab 05/03/22 06/05/22 Rx XL] Metoprolol Succinate (ER) [Toprol 100 mg PO DAILY #90 tab 05/03/22 06/05/22 Rx XL] Doxazosin [Cardura] 4 mg PO DAILY 06/05/22 06/05/22 History hydrOXYzine HCL [Atarax] 25 mg PO HS PRN 06/05/22 06/05/22 History Acetaminophen Tab [Tylenol] 650 mg PO Q6HR PRN tab 06/09/22 Rx Doxazosin [Cardura] 4 mg PO HS #0 06/09/22 06/05/22 Rx Furosemide [Lasix] 40 mg PO DAILY tab 06/09/22 Rx HYDROcodone/APAP 7.5-325MG [[place] 1 each PO Q4H PRN #18 tab 06/09/22 Rx 7.5-325] methocarbamoL [Robaxin] 1,000 mg PO TID PRN tab 06/09/22 Rx Allergies Allergy/AdvReac Type Severity Reaction Status Date / Time alprazolam [From Xanax] Allergy Unknown Unknown Verified 06/05/22 14:52 cyclobenzaprine HCl Allergy Unknown Unknown Verified 06/05/22 14:52 [From Flexeril] memantine HCl [From Namenda] Allergy Unknown Unknown Verified 06/05/22 14:52 promethazine HCl Allergy Unknown Unknown Verified 06/05/22 14:52 [From Phenergan] quetiapine fumarate Allergy Unknown Unknown Verified 06/05/22 14:52 [From Seroquel] Physical Exam Vitals: Vital Signs Temp Pulse Resp BP Pulse Ox 06/05/22 14:15 107 H 20 115/72 98 06/05/22 12:32 86 21 06/05/22 12:23 86 20 06/05/22 12:16 97 21 06/05/22 11:45 98.2 F 114 H 22 136/79 97 Intake and Output 06/05/22 06/05/22 06/05/22 06:59 14:59 22:59 Other: Weight 113.398 kg Results CBC & Chem 7: 06/06/22 06:17 06/09/22 13:27 Labs: Abnormal Lab Results - Last 24 Hours (Table) 06/05/22 06/05/22 Range/Units 12:42 12:42 RBC 3.47 L (4.30-5.90) m/uL Hgb 11.2 L (13.0-17.5) gm/dL Hct 34.6 L (39.0-53.0) % Plt Count 130 L (150-450) k/uL Lymphocytes # 0.8 L (1.0-4.8) k/uL BUN 34 H (9-20) mg/dL Glucose 105 H (74-99) mg/dL Total Protein 6.1 L (6.3-8.2) g/dL
[2022-06-05] MEDS ORDERED: ACETAMINOPHEN TAB 325 MG TAB PO PRN (16:39)
[2022-06-05] MEDS: METOPROLOL SUCCINATE (ER) 50 MG TAB.ER.24H PO SCH (20:35)
[2022-06-05] MEDS: DOXAZOSIN 4 MG TAB PO SCH (20:35)
[2022-06-05] MEDS: ATORVASTATIN 20 MG TAB PO SCH (20:35)
[2022-06-05] MEDS: PANTOPRAZOLE 40 MG TABLET PO SCH (20:35)
[2022-06-05] MEDS ORDERED: DOXAZOSIN 2 MG TAB PO SCH (21:00)
[2022-06-06] MEDS: FUROSEMIDE 10 MG/ML 4 ML VIAL IV SCH ×2 (03:39→18:17)
[2022-06-06 07:08] LABS: Calcium 8.5 mg/dL (8.4-10.2); Magnesium 1.9 mg/dL (1.6-2.3); Potassium 3.7 mmol/L (3.5-5.1)
[2022-06-06 07:25] LABS: Basophils % (A) 1 %; Eosinophils # (A) 0.3 k/uL (0-0.7); Eosinophils % (A) 6 %; HCT 36.8 % (39.0-53.0); HGB 11.5 gm/dL (13.0-17.5); Hypochromasia Slight; Lymphocytes % (A) 19 %; MCH 31.1 pg (25.0-35.0); MCHC 31.3 g/dL (31.0-37.0); MCV 99.3 fL (80.0-100.0); Mean Platelet Volume 8.2; Monocytes # (A) 0.4 k/uL (0-1.0); Monocytes % (A) 8 %; Neutrophils # (A) 3.2 k/uL (1.3-7.7); Neutrophils % (A) 64 %; Platelet Count 126 k/uL (150-450); RDW 13.4 % (11.5-15.5); WBC 5.1 k/uL (3.8-10.6)
[2022-06-06] MEDS ORDERED: NON FORMULARY DRUG (Aspirin Ec 81 MG Tablet.Dr) PO SCH (09:00)
[2022-06-06] MEDS: RIVAROXABAN 20 MG TAB PO SCH (09:11)
[2022-06-06] MEDS: CHOLECALCIFEROL 25 MCG (1000 IU) TABLET PO SCH (09:11)
[2022-06-06] MEDS: SERTRALINE 50 MG TAB PO SCH (09:12)
[2022-06-06] MEDS: ASPIRIN 325 MG TAB PO SCH (09:12)
[2022-06-06] MEDS: METOPROLOL SUCCINATE (ER) 100 MG TAB.ER.24H PO SCH (09:12)
--- NOTE | 2022-06-06 09:51 | CA ---
Transthoracic Echo Report Name: Preston Lima Age: 72 Gender: M : 1950 Exam Date: 06/06/2022 07:54 Exam Location: [facility] Ht (in): 65 Wt (lb): 250 Ordering Physician: Malik Broussard Attending/Referring Phys: [id number], Aarti Volunteer Manager Nasrin Davey, TORY Procedure CPT: Indications: Heart failure Cardiac Hx: Technical Quality: Technically difficult study Contrast 1: [place] Total Dose (mL): 4 Contrast 2: Total Dose (mL): MEASUREMENTS (Male / Female) Normal Values M-MODE Aortic Root Diameter MM 3.2 cm LA Systolic Diameter MM 3.4 cm LA Ao Ratio MM 1.1 MV E Point Septal Separation 1.1 cm AV Cusp Separation MM 1.7 cm DOPPLER AV Peak Velocity 199.9 cm/s AV Peak Gradient 16.0 mmHg MV Area PHT 4.6 cm??? Mitral E Point Velocity 78.8 cm/s Mitral A Point Velocity 47.3 cm/s Mitral E to A Ratio 1.7 MV Deceleration Time 165.7 ms TR Peak Velocity 248.1 cm/s TR Peak Gradient 24.6 mmHg Right Ventricular Systolic Press 29.6 mmHg FINDINGS Left Ventricle Left ventricular ejection fraction is estimated at 55 %. Left ventricular cavity size normal. Right Ventricle Normal right ventricular size and function. Right Atrium Normal right atrial size. Left Atrium Normal left atrial size. Mitral Valve Mitral valve not well visualized. Aortic Valve Aortic valve not well visualized. Tricuspid Valve Tricuspid valve not well visualized. Pulmonic Valve Pulmonic valve not well visualized. Pericardium Echo free space anterior to the right ventricle likely represents a fat pad. Aorta Normal size aortic root and proximal ascending aorta. CONCLUSIONS Normal LV size and systolic function. Poor visualization of valve structures. No clearcut pericardial effusion. Possible fat pad Previewed by: Dr. Juliet Pearson MD (Electronically Signed) Final Date: 06 June 2022 09:51
--- NOTE | 2022-06-06 13:08 | CONS ---
CONSULTATION CHIEF COMPLAINT: Shortness of breath, palpitations, and leg edema. HISTORY OF PRESENT ILLNESS: This is a 72-year-old gentleman with history of hypertension, newly diagnosed atrial flutter, dyslipidemia, leg edema, who presented to hospital with symptoms of shortness of breath for the last 2-3 weeks that has worsened over the last several days. He also has leg edema, which he has had chronically when this has become elevated. His BNP is elevated at 2310, and EKG on admission revealed atrial flutter with fairly controlled ventricular rate. At the time of my evaluation, he is feeling better. Cardiac enzymes have been negative. He has received IV Lasix with good urine output. PAST MEDICAL HISTORY: Significant for hypertension, new-onset atrial flutter, prostatic hypertrophy, and dyslipidemia. CURRENT MEDICATIONS: 1. Dyazide. 2. Zoloft. 3. Xarelto 20 mg daily. 4. Prilosec. 5. Toprol-XL. 6. Flonase. 7. Cardura. 8. Aspirin. 9. Atorvastatin. ALLERGIES: Multiple drug allergies, they are charted. FAMILY HISTORY: Negative for premature coronary artery disease. SOCIAL HISTORY: Negative for smoking, EtOH abuse or drug abuse. REVIEW OF SYSTEMS: HEENT: Unremarkable. CARDIAC: As described above. RESPIRATORY: Negative. GI: Negative. GENITOURINARY: Negative. ALLERGY/IMMUNOLOGY: Negative. SKIN: Negative. MUSCULOSKELETAL: Significant for arthritis. PSYCHOSOCIAL: Negative. DERM: Negative. CONSTITUTIONAL: Negative. ONCOLOGICAL: Negative. CHEMISTRY INTERN: Negative. PHYSICAL EXAMINATION: GENERAL: Comfortable at rest. VITAL SIGNS: Heart rate is between 80 and 100, blood pressure is 112/70, respiratory rate is 18, afebrile, and O2 saturation is 98% on room air. NECK: There is no jugular venous distention. Carotid upstroke is diminished. There is no bruit. CHEST: Reveals good air entry bilaterally. HEART: Reveals first and second heart sounds, irregular rhythm, and a systolic murmur at the left lower sternal border. ABDOMEN: Soft. EXTREMITIES: Reveal bilateral pitting edema. LABORATORY DATA: Labs showed hemoglobin of 11.5, platelet count is 126, potassium is 3.7, creatinine is 1. Trops are negative. BNP is elevated. ASSESSMENT: 1. Acute exacerbation of chronic congestive heart failure. 2. Atrial flutter with controlled ventricular rate. PLAN: Will treat the patient with intravenous Lasix. Continue the beta blockers and Xarelto that he is currently on. Obtain a 2D echo. Hopefully home over the next 48 hours. SUJATA / SANDRAN: [id number] /
[2022-06-06] MEDS: methocarbamoL 500 MG TAB PO PRN (13:44)
--- NOTE | 2022-06-06 14:37 | P.PN ---
Subjective Progress Note Date: 06/06/22 Hospital Course: Patient is a very pleasant 72-year-old male with a past medical history of atrial fibrillation and atrial flutter on anticoagulation with Xarelto, chronic diastolic heart failure with previously known EF of 50%, hypertension, hyperlipidemia, DVT, GERD, BPH and obstructive sleep apnea CPAP dependent nightly. He presented to the emergency department with a chief complaint of chest pain/tightness, palpitations and shortness of breath. Patient reports this has been intermittently going on over the past 2-3 weeks and has progressively worsened over the past 5 days. Patient reports in addition to the chest pain and shortness of breath has also experienced increased swelling in his legs. Patient was diagnosed with new onset atrial flutter on 05/01/22 and started on anticoagulation with Eliquis, Patient reports he is scheduled to undergo an outpatient cardiac ablation. Patient reports in addition his home CPAP machine was also broken and sent out for repairs which is likely contributing to his shortness of breath. He denies having any fevers, chills, diaphoresis, abdominal pain, nausea, vomiting, or experiencing any numbness/tingling/weakness in his extremities. Patient underwent full evaluation in the emergency department. Vital signs upon arrival were stable. Patient was afebrile with temp of 98.2F, he was slightly tachycardic and was found to be in A. flutter with RVR at 114 bpm, BP 136/79, respiratory rate 22, and SpO2 of 97% on room air. EKG was completed revealing atrial flutter at 95 bpm. Chest x-ray positive for pulmonary venous congestion, mild interstitial edema and cardiomegaly. CBC revealing stable normocytic anemia with hemoglobin at baseline and 11.2 as well as stable thrombocytopenia with platelet count of 130. Coags normal findings. BMP revealing mild prerenal azotemia with BUN of 34. Liver profile unremarkable. Troponin negative at less than 0.012 and proBNP elevated at 2310. Patient was given a dose of IV Lasix in the emergency department. He was also found to have a reported post void residual of greater than 800 mL and a Avelar catheter was placed. Patient admitted under our services with consultation to cardiology. Troponins trended overnight all negative at less than 0.0123 draws. Physical exam: Patient seen and fully evaluated at the bedside. He continues to have mild shortness of breath but reports improvement since arrival to our facility. Urinary output over the past 24 hours has been 3500 mL's. Patient denies having any headache, lightheadedness, dizziness, chest pain, palpitations, or experiencing any numbness/tingling/weakness. Patient does report having muscle spasms in his legs and requesting muscle relaxant at this time. Order to be placed for Robaxin 500 mg twice a day. Labs reviewed, no electrolyte ab normalities. Carbon dioxide was elevated at 32 however patient did not sleep with CPAP last night. Vital signs reviewed and stable. General: Nontoxic, no distress and appears stated age. Obese male. Derm: Skin warm and dry, normal coloration for ethnicity. Head: Atraumatic, normocephalic and symmetric. Eyes: EOMs intact, no lid lag, and anicteric sclera Mouth: no lip lesions, mucus membranes moist Cardiovascular: Irregularly irregular with normal S1S2, systolic murmur, positive posterior tibial pulses bilaterally, and cap refill < 2 seconds. 2+ pitting bilateral lower extremity edema. Lungs: Respirations even, regular, and unlabored on room air. Lungs diminished with diffuse expiratory wheezes bilaterally. No rhonchi, rales, or crackles and no accessory muscle usage. Abdominal: soft, nontender to palpation, no guarding, no appreciable organomegaly Ext: ROM intact. No gross muscle atrophy, no contractures Neuro: Speech clear, face symmetrical and CN II-XII grossly intact with no noted focal neuro deficits Psych: Alert and oriented to person, place, time, and situation. Appropriate and pleasant affect. Assessment and Plan of Care: Acute exacerbation of chronic diastolic heart failure Chest pain Persistent atrial flutter Hypertension Hyperlipidemia -Cardiology consult -Telemetry monitoring -Troponins negative -ProBNP 2310 -Daily weights -Close monitoring of I's and O's -Cardiac diet -Lasix 40 mg IVP twice daily -Continuation of cardiac medication regimen consisting of: Aspirin, atorvastatin, metoprolol and Xarelto. -Continued close monitoring of electrolytes while diuresing. -Provigil held at this time secondary to recently diagnosed atrial flutter and reports of chest pain. Recommend discontinuation of this medication. Urinary retention History of BPH -Avelar catheter was placed. -Increased dose of doxazosin to 4 mg nightly and will attempt voiding trial tomorrow. History of DVT -Continue anticoagulation with Xarelto. GERD -Continue PPI with Protonix 40 mg nightly. Obstructive sleep apnea CPAP dependent nightly -Patient reports home CPAP has been sent out for repairs and he has since been having difficulty sleeping due to difficulties breathing. -CPAP ordered nightly CODE STATUS: Full code DVT prophylaxis: Xarelto Discussed with: Patient and RN Anticipated discharge date: clinical course to determine, likely 2-[address]: home versus longterm facility, family requesting rehab upon discharge. discussed with case management. A total of 38 minutes was spent on the care of this complex patient more than 50% of the time was spent in counseling and care coordination. I reviewed the documentation as provided by the ARISTIDES above, who is the original author of this note. I agree with the documented assessment and plan, with the following changes: none Objective - Vital Signs Vital signs: Vital Signs Temp 98.2 F 06/05/22 11:45 Pulse 86 06/06/22 04:00 Resp 16 06/06/22 04:00 BP 112/71 06/06/22 04:00 Pulse Ox 95 06/06/22 04:00 FiO2 Intake & Output 06/05/22 06/06/22 06/06/22 18:59 06:59 18:59 Intake Total 500 Output Total 2000 1500 Balance -2000 -1000 Weight 113.398 kg Intake: Oral 500 Output: Urine 2000 1500 - Labs CBC & Chem 7: 06/06/22 06:17 06/09/22 13:27 Labs: Abnormal Lab Results - Last 24 Hours (Table) 06/05/22 06/05/22 06/06/22 Range/Units 12:42 12:42 06:17 RBC 3.47 L 3.70 L (4.30-5.90) m/uL Hgb 11.2 L 11.5 L (13.0-17.5) gm/dL Hct 34.6 L 36.8 L (39.0-53.0) % Plt Count 130 L 126 L (150-450) k/uL Lymphocytes # 0.8 L (1.0-4.8) k/uL Carbon Dioxide (22-30) mmol/L BUN 34 H (9-20) mg/dL Glucose 105 H (74-99) mg/dL Total Protein 6.1 L (6.3-8.2) g/dL 06/06/22 Range/Units 06:17 RBC (4.30-5.90) m/uL Hgb (13.0-17.5) gm/dL Hct (39.0-53.0) % Plt Count (150-450) k/uL Lymphocytes # (1.0-4.8) k/uL Carbon Dioxide 32 H (22-30) mmol/L BUN 32 H (9-20) mg/dL Glucose (74-99) mg/dL Total Protein (6.3-8.2) g/dL
[2022-06-06] MEDS: DOXAZOSIN 4 MG TAB PO SCH (20:27)
[2022-06-06] MEDS: ATORVASTATIN 20 MG TAB PO SCH (20:27)
[2022-06-06] MEDS: METOPROLOL SUCCINATE (ER) 50 MG TAB.ER.24H PO SCH (20:27)
[2022-06-06] MEDS: PANTOPRAZOLE 40 MG TABLET PO SCH (20:27)
[2022-06-07] MEDS: FUROSEMIDE 10 MG/ML 4 ML VIAL IV SCH ×2 (03:05→15:57)
[2022-06-07] MEDS: HYDROcodone/APAP 5-325MG 1 EACH TAB PO PRN ×2 (08:08→12:51)
--- NOTE | 2022-06-07 11:29 | P.PN ---
Subjective Progress Note Date: 06/07/22 Hospital Course: Patient is a very pleasant 72-year-old male with a past medical history of atrial fibrillation and atrial flutter on anticoagulation with Xarelto, chronic diastolic heart failure with previously known EF of 50%, hypertension, hyperlipidemia, DVT, GERD, BPH and obstructive sleep apnea CPAP dependent nightly. He presented to the emergency department with a chief complaint of chest pain/tightness, palpitations and shortness of breath. Patient reports this has been intermittently going on over the past 2-3 weeks and has progressively worsened over the past 5 days. Patient reports in addition to the chest pain and shortness of breath has also experienced increased swelling in his legs. Patient was diagnosed with new onset atrial flutter on 05/01/22 and started on anticoagulation with Eliquis, Patient reports he is scheduled to undergo an outpatient cardiac ablation. Patient reports in addition his home CPAP machine was also broken and sent out for repairs which is likely contributing to his shortness of breath. He denies having any fevers, chills, diaphoresis, abdominal pain, nausea, vomiting, or experiencing any numbness/tingling/weakness in his extremities. Patient underwent full evaluation in the emergency department. Vital signs upon arrival were stable. Patient was afebrile with temp of 98.2F, he was slightly tachycardic and was found to be in A. flutter with RVR at 114 bpm, BP 136/79, respiratory rate 22, and SpO2 of 97% on room air. EKG was completed revealing atrial flutter at 95 bpm. Chest x-ray positive for pulmonary venous congestion, mild interstitial edema and cardiomegaly. CBC revealing stable normocytic anemia with hemoglobin at baseline and 11.2 as well as stable thrombocytopenia with platelet count of 130. Coags normal findings. BMP revealing mild prerenal azotemia with BUN of 34. Liver profile unremarkable. Troponin negative at less than 0.012 and proBNP elevated at 2310. Patient was given a dose of IV Lasix in the emergency department. He was also found to have a reported post void residual of greater than 800 mL and a Avelar catheter was placed. Patient admitted under our services with consultation to cardiology. Troponins trended overnight all negative at less than 0.0123 draws. Echocardiogram completed revealing an EF of 55%. Physical exam: Patient seen and fully evaluated at the bedside. He reports continued improvement in previously felt shortness of breath. He remains on IV diuresis with Lasix 40 mg IVP every 12 hours and this appears to be successful as patient has had 3175 mL of urinary output over the past 24 hours and significant improvement in bilateral lower extremity edema. Awaiting morning labs to resu lt. Patient denies having any headache, lightheadedness, dizziness, chest pain, palpitations, or any other complaints at this time. He does report having "soreness" to his left ankle after working with physical therapy this morning. Vital signs reviewed and stable. General: Nontoxic, no distress and appears stated age. Obese male. Derm: Skin warm and dry, normal coloration for ethnicity. Head: Atraumatic, normocephalic and symmetric. Eyes: EOMs intact, no lid lag, and anicteric sclera Mouth: no lip lesions, mucus membranes moist Cardiovascular: Irregularly irregular with normal S1S2, systolic murmur, positive posterior tibial pulses bilaterally, and cap refill < 2 seconds. 2+ pitting bilateral lower extremity edema. Lungs: Respirations even, regular, and unlabored on room air. Lungs diminished with diffuse expiratory wheezes bilaterally. No rhonchi, rales, or crackles and no accessory muscle usage. Abdominal: soft, nontender to palpation, no guarding, no appreciable organo megaly Ext: ROM intact. No gross muscle atrophy, no contractures Neuro: Speech clear, face symmetrical and CN II-XII grossly intact with no noted focal neuro deficits Psych: Alert and oriented to person, place, time, and situation. Appropriate and pleasant affect. Assessment and Plan of Care: Acute exacerbation of chronic diastolic heart failure Chest pain Persistent atrial flutter Hypertension Hyperlipidemia -Cardiology consult -Telemetry monitoring -Troponins negative -ProBNP 2310 -Daily weights -Close monitoring of I's and O's -Cardiac diet -Lasix 40 mg IVP twice daily -Continuation of cardiac medication regimen consisting of: Aspirin, atorvastatin, metoprolol and Xarelto. -Continued close monitoring of electrolytes while diuresing. -Provigil held at this time secondary to recently diagnosed atrial flutter and reports of chest pain. Recommend discontinuation of this medication. Urinary retention History of BPH -Avelar catheter was placed. -Increased dose of doxazosin to 4 mg nightly and will attempt voiding trial tomorrow. History of DVT -Continue anticoagulation with Xarelto. GERD -Continue PPI with Protonix 40 mg nightly. Obstructive sleep apnea CPAP dependent nightly -Patient reports home CPAP has been sent out for repairs and he has since been having difficulty sleeping due to difficulties breathing. -CPAP ordered nightly CODE STATUS: Full code DVT prophylaxis: Xarelto Discussed with: Patient and RN Anticipated discharge date: clinical course to determine, likely 1-[address]: home versus nursing home facility, family requesting rehab upon discharge. discussed with case management. A total of 35 minutes was spent on the care of this complex patient more than 50% of the time was spent in counseling and care coordination. I reviewed the documentation as provided by the ARISTIDES above, who is the original author of this note. I agree with the documented assessment and plan, with the following changes: none Objective - Vital Signs Vital signs: Vital Signs Temp 98.5 F 06/07/22 03:12 Pulse 104 H 06/07/22 03:12 Resp 14 06/07/22 03:12 BP 127/71 06/07/22 03:12 Pulse Ox 92 L 06/07/22 03:12 FiO2 21 06/06/22 21:25 Intake & Output 06/06/22 06/07/22 06/07/22 18:59 06:59 18:59 Intake Total 1016 Output Total 475 2700 Balance 541 -2700 Weight 118 kg Intake: Oral 1016 Output: Urine 475 2700 Other: Voiding Method Indwelling Catheter Indwelling Catheter # Bowel Movements 1 - Labs CBC & Chem 7: 06/06/22 06:17 06/09/22 13:27
[2022-06-07] MEDS: CHOLECALCIFEROL 25 MCG (1000 IU) TABLET PO SCH (11:31)
[2022-06-07] MEDS: RIVAROXABAN 20 MG TAB PO SCH (11:31)
[2022-06-07] MEDS: METOPROLOL SUCCINATE (ER) 100 MG TAB.ER.24H PO SCH (11:31)
[2022-06-07] MEDS: ASPIRIN 325 MG TAB PO SCH (11:31)
[2022-06-07] MEDS: SERTRALINE 50 MG TAB PO SCH (11:31)
[2022-06-07] MEDS: FERROUS SULFATE 325 MG TAB PO SCH (11:31)
[2022-06-07] MEDS: methocarbamoL 500 MG TAB PO PRN (13:46)
[2022-06-07] MEDS ORDERED: MORPHINE SULFATE 4 MG/ML SYRINGE IV PRN (13:49)
[2022-06-07] MEDS: HYDROcodone/APAP 7.5-325MG 1 EACH TAB PO PRN (15:57)
[2022-06-07 16:14] LABS: Calcium 8.3 mg/dL (8.4-10.2); Magnesium 1.9 mg/dL (1.6-2.3); Potassium 3.3 mmol/L (3.5-5.1)
[2022-06-07] MEDS ORDERED: POTASSIUM CHLORIDE ER 20 MEQ TAB.ER PO STA (17:12)
[2022-06-07] MEDS: DOXAZOSIN 4 MG TAB PO SCH (19:58)
[2022-06-07] MEDS: ATORVASTATIN 20 MG TAB PO SCH (19:58)
[2022-06-07] MEDS: METOPROLOL SUCCINATE (ER) 50 MG TAB.ER.24H PO SCH (19:59)
[2022-06-07] MEDS: PANTOPRAZOLE 40 MG TABLET PO SCH (19:59)
--- NOTE | 2022-06-07 22:03 | PN ---
PROGRESS NOTE SUBJECTIVE: Mason is a 72-year-old gentleman who is admitted to hospital with acute exacerbation of chronic congestive heart failure and atrial flutter with controlled ventricular rate. This morning, his predominant symptom is in the form of left leg discomfort, shortness of breath has improved. Leg edema has improved. An echocardiogram shows normal LV systolic function. OBJECTIVE: VITAL SIGNS: The patient is afebrile. Heart rate is 90 to 100 beats per minute. Blood pressure is 127/72, respiratory rate is 18. NECK: There is no jugular venous distention. CHEST: Reveals good air entry bilaterally. HEART: Reveals first and second heart sounds, irregular rhythm. ABDOMEN: Soft. EXTREMITIES: Reveals bilateral 1+ edema. This has improved compared to where we were. ASSESSMENT: 1. Atrial flutter with poorly controlled ventricular rate. 2. Acute exacerbation of chronic diastolic heart failure. PLAN: I will switch the patient to p.o. Lasix and increase the dose of Toprol to 100 b.i.d. [id number] / IJN: [id number] /
[2022-06-08] MEDS: FUROSEMIDE 10 MG/ML 4 ML VIAL IV SCH (04:00)
[2022-06-08] MEDS: ASPIRIN 325 MG TAB PO SCH (09:17)
[2022-06-08] MEDS: RIVAROXABAN 20 MG TAB PO SCH (09:17)
[2022-06-08] MEDS: METOPROLOL SUCCINATE (ER) 100 MG TAB.ER.24H PO SCH (09:17)
[2022-06-08] MEDS: CHOLECALCIFEROL 25 MCG (1000 IU) TABLET PO SCH (09:17)
[2022-06-08] MEDS: SERTRALINE 50 MG TAB PO SCH (09:17)
[2022-06-08 11:25] LABS: Calcium 8.1 mg/dL (8.4-10.2); Magnesium 1.8 mg/dL (1.6-2.3); Potassium 3.3 mmol/L (3.5-5.1)
--- NOTE | 2022-06-08 13:43 | P.PN ---
Subjective Progress Note Date: 06/08/22 Patient is seen today resting comfortably in the bedside chair in no signs of acute distress. He denies chest pain or increased shortness of breath. Patient still hasn't noted lower extremity edema. Patient's sister is at the bedside. Patient's IV Lasix was to be transitioned to oral Lasix yesterday. He is still on IV Lasix. Will transition patient to Lasix by mouth 40 mg daily. Patient is awaiting discharge to rehab. His Sister is concerned about him being discharged today. Patient Denies complaints of increased shortness of breath and that is breathing has improved. Anticipated discharge in the next 24-48 hours Objective - Vital Signs Vital signs: Vital Signs Temp 98.5 F 06/08/22 12:00 Pulse 73 06/08/22 12:00 Resp 16 06/08/22 12:00 BP 107/57 06/08/22 12:00 Pulse Ox 92 L 06/08/22 08:00 FiO2 21 06/06/22 21:25 Intake & Output 06/07/22 06/08/22 06/08/22 18:59 06:59 18:59 Intake Total 354 118 Output Total 1425 1000 950 Balance -1071 -1000 -832 Weight 109 kg Intake: Oral 354 118 Output: Urine 1425 1000 950 Other: Voiding Method Indwelling Catheter Indwelling Catheter Indwelling Catheter # Bowel Movements 1 - Exam PHYSICAL EXAM: VITAL SIGNS: Reviewed. GENERAL: Well-developed in no acute distress. HEENT: Head is normocephalic. Pupils are equal, round. Sclerae anicteric. Mucous membranes of the mouth are moist. NECK: Supple. No JVD or thyromegaly RESPIRATORY: Respirations even and unlabored. Lungs diminished to auscultation bilaterally. CARDIO: Regular rate and rhythm. S1 and S2 heard. No murmur or gallops. EXTREMITIES: Normal range of motion. No clubbing or cyanosis. Peripheral pulses intact. Mild for bilateral lower extremity edema NEURO: Orientated to person, time, mood is appropriate - Labs CBC & Chem 7: 06/06/22 06:17 06/08/22 10:30 Labs: Abnormal Lab Results - Last 24 Hours (Table) 06/07/22 06/08/22 Range/Units 14:40 10:30 Sodium 134 L (137-145) mmol/L Potassium 3.3 L 3.3 L (3.5-5.1) mmol/L Chloride 96 L 97 L (98-107) mmol/L Carbon Dioxide 33 H 37 H (22-30) mmol/L BUN 31 H 28 H (9-20) mg/dL Glucose 144 H 136 H (74-99) mg/dL Calcium 8.3 L 8.1 L (8.4-10.2) mg/dL Assessment and Plan Assessment: Atrial flutter with a controlled ventricle rate Acute exacerbation of chronic diastolic heart failure Plan: Discontinue IV Lasix Start Lasix 40 mg by mouth daily Continue with all other current cardiac medications Further recommendations based on clinical course The above impression and plan of care have been discussed and directed by the signing physician. Ree Washington, nurse practitioner, acting as scribe for signing physician.
--- NOTE | 2022-06-08 14:05 | P.PN ---
Subjective Progress Note Date: 06/08/22 Hospital Course: Patient is a very pleasant 72-year-old male with a past medical history of atrial fibrillation and atrial flutter on anticoagulation with Xarelto, chronic diastolic heart failure with previously known EF of 50%, hypertension, hyperlipidemia, DVT, GERD, BPH and obstructive sleep apnea CPAP dependent nightly. He presented to the emergency department with a chief complaint of chest pain/tightness, palpitations and shortness of breath. Patient reports this has been intermittently going on over the past 2-3 weeks and has progressively worsened over the past 5 days. Patient reports in addition to the chest pain and shortness of breath has also experienced increased swelling in his legs. Patient was diagnosed with new onset atrial flutter on 05/01/22 and started on anticoagulation with Eliquis, Patient reports he is scheduled to undergo an outpatient cardiac ablation. Patient reports in addition his home CPAP machine was also broken and sent out for repairs which is likely contributing to his shortness of breath. He denies having any fevers, chills, diaphoresis, abdominal pain, nausea, vomiting, or experiencing any numbness/tingling/weakness in his extremities. Patient underwent full evaluation in the emergency department. Vital signs upon arrival were stable. Patient was afebrile with temp of 98.2F, he was slightly tachycardic and was found to be in A. flutter with RVR at 114 bpm, BP 136/79, respiratory rate 22, and SpO2 of 97% on room air. EKG was completed revealing atrial flutter at 95 bpm. Chest x-ray positive for pulmonary venous congestion, mild interstitial edema and cardiomegaly. CBC revealing stable normocytic anemia with hemoglobin at baseline and 11.2 as well as stable thrombocytopenia with platelet count of 130. Coags normal findings. BMP revealing mild prerenal azotemia with BUN of 34. Liver profile unremarkable. Troponin negative at less than 0.012 and proBNP elevated at 2310. Patient was given a dose of IV Lasix in the emergency department. He was also found to have a reported post void residual of greater than 800 mL and a Avelar catheter was placed. Patient admitted under our services with consultation to cardiology. Troponins trended overnight all negative at less than 0.0123 draws. Echocardiogram completed revealing an EF of 55%. Physical exam: Patient seen and fully evaluated at the bedside. He was sitting up in the chair and appeared to be doing well today. He has had 2425 mL of urinary output over the past 24 hours. Patient has a bed at [facility] and currently pending discharge while awaiting insurance authorization. Patient denies having any dizziness, lightheadedness, headache, chest pain, palpitations, shortness of breath, or any other complaints. Bilateral lower extremity edema has improved significantly. Patient still has slight discomfort in left ankle and left knee and reports he has been doing the exercises that physical therapy instructed him on. Patient is medically stable for discharge to alf facility. We will change IV Lasix over to oral Lasix and plan for discharge once insurance authorization has been obtained for alf facility. Avelar catheter being removed and bleeding challenged to be performed. Vital signs reviewed and stable. General: Nontoxic, no distress and appears stated age. Obese male. Derm: Skin warm and dry, normal coloration for ethnicity. Head: Atraumatic, normocephalic and symmetric. Eyes: EOMs intact, no lid lag, and anicteric sclera Mouth: no lip lesions, mucus membranes moist Cardiovascular: Irregularly irregular with normal S1S2, systolic murmur, positive posterior tibial pulses bilaterally, and cap refill < 2 seconds. 1+ pit ting bilateral lower extremity edema. Lungs: Respirations even, regular, and unlabored on room air. Lungs diminished. No wheezes, rhonchi, rales, or crackles and no accessory muscle usage. Patient speaking in full sentences without difficulties. Abdominal: soft, nontender to palpation, no guarding, no appreciable organomegaly Ext: ROM intact. No gross muscle atrophy, no contractures Neuro: Speech clear, face symmetrical and CN II-XII grossly intact with no noted focal neuro deficits Psych: Alert and oriented to person, place, time, and situation. Appropriate and pleasant affect. Assessment and Plan of Care: Acute exacerbation of chronic diastolic heart failure Chest pain Persistent atrial flutter Hypertension Hyperlipidemia -Cardiology consult -Telemetry monitoring -Troponins negative -ProBNP 2310 -Daily weights -Close monitoring of I's and O's -Cardiac diet -Lasix 40 mg IVP twice daily -Continuation of cardiac medication regimen consisting of: Aspirin, atorvastatin, metoprolol and Xarelto. -Continued close monitoring of electrolytes while diuresing. -Provigil held at this time secondary to recently diagnosed atrial flutter and reports of chest pain. Recommend discontinuation of this medication. Urinary retention History of BPH -Avelar catheter was placed. -Increased dose of doxazosin to 4 mg nightly and will attempt voiding trial today. Hypokalemia Hypomagnesemia -Replaced, History of DVT -Continue anticoagulation with Xarelto. GERD -Continue PPI with Protonix 40 mg nightly. Obstructive sleep apnea CPAP dependent nightly -Patient reports home CPAP has been sent out for repairs and he has since been having difficulty sleeping due to difficulties breathing. -CPAP ordered nightly CODE STATUS: Full code DVT prophylaxis: Xarelto Discussed with: Patient and RN Anticipated discharge date: Within the next [address]: [facility] A total of 33 minutes was spent on the care of this complex patient more than 50% of the time was spent in counseling and care coordination. I reviewed the documentation as provided by the ARISTIDES above, who is the original author of this note. I agree with the documented assessment and plan, with the following changes: none Objective - Vital Signs Vital signs: Vital Signs Temp 98.5 F 06/08/22 03:10 Pulse 99 06/08/22 03:10 Resp 20 06/08/22 03:10 BP 118/69 06/08/22 03:10 Pulse Ox 96 06/08/22 03:10 FiO2 21 06/06/22 21:25 Intake & Output 06/07/22 06/08/22 06/08/22 18:59 06:59 18:59 Intake Total 354 118 Output Total 1425 1000 950 Balance -1071 -1000 -832 Weight 109 kg Intake: Oral 354 118 Output: Urine 1425 1000 950 Other: Voiding Method Indwelling Catheter Indwelling Catheter # Bowel Movements 1 - Labs CBC & Chem 7: 06/06/22 06:17 06/09/22 13:27 Labs: Abnormal Lab Results - Last 24 Hours (Table) 06/07/22 Range/Units 14:40 Sodium 134 L (137-145) mmol/L Potassium 3.3 L (3.5-5.1) mmol/L Chloride 96 L (98-107) mmol/L Carbon Dioxide 33 H (22-30) mmol/L BUN 31 H (9-20) mg/dL Glucose 144 H (74-99) mg/dL Calcium 8.3 L (8.4-10.2) mg/dL
[2022-06-08] MEDS ORDERED: MAGNESIUM OXIDE 400 MG TAB PO STA (14:42)
[2022-06-08] MEDS ORDERED: POTASSIUM CHLORIDE ER 20 MEQ TAB.ER PO STA (14:42)
[2022-06-08] MEDS: DOXAZOSIN 4 MG TAB PO SCH (19:55)
[2022-06-08] MEDS: PANTOPRAZOLE 40 MG TABLET PO SCH (19:55)
[2022-06-08] MEDS: METOPROLOL SUCCINATE (ER) 50 MG TAB.ER.24H PO SCH (19:55)
[2022-06-08] MEDS: ATORVASTATIN 20 MG TAB PO SCH (19:55)
[2022-06-09] MEDS: HYDROcodone/APAP 7.5-325MG 1 EACH TAB PO PRN ×3 (02:55→14:11)
[2022-06-09] MEDS: SERTRALINE 50 MG TAB PO SCH (08:41)
[2022-06-09] MEDS: ASPIRIN 325 MG TAB PO SCH (08:41)
[2022-06-09] MEDS: RIVAROXABAN 20 MG TAB PO SCH (08:41)
[2022-06-09] MEDS: METOPROLOL SUCCINATE (ER) 100 MG TAB.ER.24H PO SCH (08:41)
[2022-06-09] MEDS: CHOLECALCIFEROL 25 MCG (1000 IU) TABLET PO SCH (08:41)
[2022-06-09] MEDS: FUROSEMIDE 40 MG TAB PO SCH (08:42)
[2022-06-09] MEDS: methocarbamoL 500 MG TAB PO PRN (10:30)
--- NOTE | 2022-06-09 12:36 | P.PN ---
Subjective Progress Note Date: 06/09/22 Patient is doing well today resting comfortably in bed. He continues to deny increased shortness of breath or chest pain. He is on no signs of acute distress. His lower extremity edema continues to improve. He is tolerating oral Lasix. Will continue with current dose. Patient is awaiting discharge to rehab. Anticipated discharge in the next 24 hours. Objective - Vital Signs Vital signs: Vital Signs Temp 98.5 F 06/09/22 08:50 Pulse 73 06/09/22 11:51 Resp 16 06/09/22 11:51 BP 155/97 06/09/22 11:51 Pulse Ox 95 06/09/22 11:51 FiO2 21 06/06/22 21:25 Intake & Output 06/08/22 06/09/22 06/09/22 18:59 06:59 18:59 Intake Total 354 358 Output Total 1250 300 250 Balance -896 -300 108 Weight 111.5 kg Intake: Oral 354 358 Output: Urine 1250 300 250 Uretheral (Avelar) 300 Other: Voiding Method Indwelling Catheter Indwelling Catheter Indwelling Catheter # Voids 1 # Bowel Movements 1 - Exam PHYSICAL EXAM: VITAL SIGNS: Reviewed. GENERAL: Well-developed in no acute distress. HEENT: Head is normocephalic. Pupils are equal, round. Sclerae anicteric. Mucous membranes of the mouth are moist. NECK: Supple. No JVD or thyromegaly RESPIRATORY: Respirations even and unlabored. Lungs diminished to auscultation bilaterally. CARDIO: Regular rate and rhythm. S1 and S2 heard. No murmur or gallops. EXTREMITIES: Normal range of motion. No clubbing or cyanosis. Peripheral pulses intact. Mild for bilateral lower extremity edema NEURO: Orientated to person, time, mood is appropriateheart - Labs CBC & Chem 7: 06/06/22 06:17 06/08/22 10:30 Assessment and Plan Assessment: Atrial flutter with a controlled ventricle rate Acute exacerbation of chronic diastolic heart failure Plan: Continue Lasix 40 mg by mouth daily Continue with all other current cardiac medications Anticipate discharge in the next 24 hours to rehab Further recommendations based on clinical course The above impression and plan of care have been discussed and directed by the signing physician. Ree Washington, nurse practitioner, acting as scribe for signing physician.
--- NOTE | 2022-06-09 12:59 | P.PN ---
Subjective Progress Note Date: 06/09/22 Hospital Course: Patient is a very pleasant 72-year-old male with a past medical history of atrial fibrillation and atrial flutter on anticoagulation with Xarelto, chronic diastolic heart failure with previously known EF of 50%, hypertension, hyperlipidemia, DVT, GERD, BPH and obstructive sleep apnea CPAP dependent nightly. He presented to the emergency department with a chief complaint of chest pain/tightness, palpitations and shortness of breath. Patient reports this has been intermittently going on over the past 2-3 weeks and has progressively worsened over the past 5 days. Patient reports in addition to the chest pain and shortness of breath has also experienced increased swelling in his legs. Patient was diagnosed with new onset atrial flutter on 05/01/22 and started on anticoagulation with Eliquis, Patient reports he is scheduled to undergo an outpatient cardiac ablation. Patient reports in addition his home CPAP machine was also broken and sent out for repairs which is likely contributing to his shortness of breath. He denies having any fevers, chills, diaphoresis, abdominal pain, nausea, vomiting, or experiencing any numbness/tingling/weakness in his extremities. Patient underwent full evaluation in the emergency department. Vital signs upon arrival were stable. Patient was afebrile with temp of 98.2F, he was slightly tachycardic and was found to be in A. flutter with RVR at 114 bpm, BP 136/79, respiratory rate 22, and SpO2 of 97% on room air. EKG was completed revealing atrial flutter at 95 bpm. Chest x-ray positive for pulmonary venous congestion, mild interstitial edema and cardiomegaly. CBC revealing stable normocytic anemia with hemoglobin at baseline and 11.2 as well as stable thrombocytopenia with platelet count of 130. Coags normal findings. BMP revealing mild prerenal azotemia with BUN of 34. Liver profile unremarkable. Troponin negative at less than 0.012 and proBNP elevated at 2310. Patient was given a dose of IV Lasix in the emergency department. He was also found to have a reported post void residual of greater than 800 mL and a Avelar catheter was placed. Patient admitted under our services with consultation to cardiology. Troponins trended overnight all negative at less than 0.0123 draws. Echocardiogram completed revealing an EF of 55%. Physical exam: Patient seen and fully evaluated at the bedside. He was sitting up in the chair and continues to appear to be doing well. He was switched to oral Lasix yesterday and continues to have good urinary output with a reported 1550 mL of urinary output over the past 24 hours. Patient has a bed at [facility] and currently pending discharge while awaiting insurance authorization, initial plan was for discharge to [facility] today, however detention reports that insurance authorization is not valid until 06/10/22. Patient medically stable for discharge at this time and currently denies having any questions, complaints, or concerns. He reports having mild lower back pain overnight, but currently controlled. Patient is medically stable for discharge to intermediate facility. We will plan for discharge to intermediate facility tomorrow morning. Vital signs reviewed and stable. General: Nontoxic, no distress and appears stated age. Obese male. Derm: Skin warm and dry, normal coloration for ethnicity. Head: Atraumatic, normocephalic and symmetric. Eyes: EOMs intact, no lid lag, and anicteric sclera Mouth: no lip lesions, mucus membranes moist Cardiovascular: Irregularly irregular with normal S1S2, systolic murmur, positive posterior tibial pulses bilaterally, and cap refill < 2 seconds. 1+ pitting bilateral lower extremity edema. Lungs: Respirations even, regular, and unlabored on room air. Lungs diminished. No wheezes, rhonchi, rales, or crackles and no accessory muscle usage. Patient speaking in full sentences without difficulties. Abdominal: soft, nontender to palpation, no guarding, no appreciable organomegaly Ext: ROM intact. No gross muscle atrophy, no contractures Neuro: Speech clear, face symmetrical and CN II-XII grossly intact with no noted focal neuro deficits Psych: Alert and oriented to person, place, time, and situation. Appropriate and pleasant affect. Assessment and Plan of Care: Acute exacerbation of chronic diastolic heart failure Chest pain Persistent atrial flutter Hypertension Hyperlipidemia -Cardiology consult -Telemetry monitoring -Troponins negative -ProBNP 2310 -Daily weights -Close monitoring of I's and O's -Cardiac diet -Lasix 40 mg by mouth daily -Continuation of cardiac medication regimen consisting of: Aspirin, atorvas tatin, metoprolol and Xarelto. -Continued close monitoring of electrolytes while diuresing. -Provigil discontinued at this time secondary to recently diagnosed atrial flutter and reports of chest pain. Urinary retention, resolved History of BPH -Avelar catheter was removed yesterday and patient has been urinating without any reported difficulties and RN denies patient having any significant postvoid residuals. -Continue doxazosin Hypokalemia Hypomagnesemia -Replaced, we will continue to monitor with repeat a.m. labs. History of DVT -Continue anticoagulation with Xarelto. GERD -Continue PPI with Protonix 40 mg nightly. Obstructive sleep apnea CPAP dependent nightly -Patient reports home CPAP has been sent out for repairs and he has since been having difficulty sleeping due to difficulties breathing. -CPAP ordered nightly CODE STATUS: Full code DVT prophylaxis: Xarelto Discussed with: Patient and RN Anticipated discharge date: Tomorrow morning Anticipated discharge place: [facility] A total of 33 minutes was spent on the care of this complex patient more than 50% of the time was spent in counseling and care coordination. I reviewed the documentation as provided by the ARISTIDES above, who is the original author of this note. I agree with the documented assessment and plan, with the following changes: none Objective - Vital Signs Vital signs: Vital Signs Temp 98.5 F 06/09/22 08:50 Pulse 73 06/09/22 11:51 Resp 16 06/09/22 11:51 BP 155/97 06/09/22 11:51 Pulse Ox 95 06/09/22 11:51 FiO2 21 06/06/22 21:25 Intake & Output 06/08/22 06/09/22 06/09/22 18:59 06:59 18:59 Intake Total 354 358 Output Total 1250 300 250 Balance -896 -300 108 Weight 111.5 kg Intake: Oral 354 358 Output: Urine 1250 300 250 Uretheral (Avelar) 300 Other: Voiding Method Indwelling Catheter Indwelling Catheter Indwelling Catheter # Voids 1 # Bowel Movements 1 - Labs CBC & Chem 7: 06/06/22 06:17 06/09/22 13:27
[2022-06-09] MEDS: LIDOCAINE 5% PATCH TOPICAL SCH (14:10)
[2022-06-09 14:14] LABS: Calcium 8.6 mg/dL (8.4-10.2); Magnesium 2.1 mg/dL (1.6-2.3); Potassium 3.8 mmol/L (3.5-5.1)
[2022-06-09] MEDS: PANTOPRAZOLE 40 MG TABLET PO SCH (20:31)
[2022-06-09] MEDS: METOPROLOL SUCCINATE (ER) 50 MG TAB.ER.24H PO SCH (20:31)
[2022-06-09] MEDS: ATORVASTATIN 20 MG TAB PO SCH (20:31)
[2022-06-09] MEDS: DOXAZOSIN 4 MG TAB PO SCH (20:31)
[2022-06-10] MEDS: HYDROcodone/APAP 7.5-325MG 1 EACH TAB PO PRN (06:11)
[2022-06-10] MEDS: ASPIRIN 325 MG TAB PO SCH (08:28)
[2022-06-10] MEDS: RIVAROXABAN 20 MG TAB PO SCH (08:28)
[2022-06-10] MEDS: LIDOCAINE 5% PATCH TOPICAL SCH (08:29)
[2022-06-10] MEDS: methocarbamoL 500 MG TAB PO PRN (08:29)
[2022-06-10] MEDS: SERTRALINE 50 MG TAB PO SCH (08:29)
[2022-06-10] MEDS: METOPROLOL SUCCINATE (ER) 100 MG TAB.ER.24H PO SCH (08:29)
[2022-06-10] MEDS: CHOLECALCIFEROL 25 MCG (1000 IU) TABLET PO SCH (08:29)
[2022-06-10] MEDS: FUROSEMIDE 40 MG TAB PO SCH (08:29)
[2022-06-10] MEDS: FERROUS SULFATE 325 MG TAB PO SCH (08:30)
--- NOTE | 2022-06-10 09:56 | P.DS ---
Providers Date of admission: 06/05/22 14:49 Expected date of discharge: 06/10/22 Attending physician: Maurilio Burden MD Consults: 06/05/22 14:14 Consult Physician Routine Consulting Provider: Bony Fragoso Consult Reason/Comments: CHF/afib Do you want consulting provider notified?: Yes Primary care physician: [facility] Course: Discharge Diagnosis: Acute exacerbation of chronic diastolic heart failure Chest pain Persistent atrial flutter Hypertension Hyperlipidemia Urinary retention, resolved after increasing doxazosin dose History of BPH. Continue doxazosin Hypokalemia, resolved Hypomagnesemia, resolved History of DVT. Continue anticoagulation with Xarelto. GERD. Continue PPI with Protonix 40 mg nightly. Obstructive sleep apnea CPAP dependent nightly. Continue use of home CPAP Nightly Hospital Course: Patient is a very pleasant 72-year-old male with a past medical history of atrial fibrillation and atrial flutter on anticoagulation with Xarelto, chronic diastolic heart failure with previously known EF of 50%, hypertension, hyperlipidemia, DVT, GERD, BPH and obstructive sleep apnea CPAP dependent nightly. He presented to the emergency department with a chief complaint of chest pain/tightness, palpitations and shortness of breath. Patient reports this has been intermittently going on over the past 2-3 weeks and has progressively worsened over the past 5 days. Patient reports in addition to the chest pain and shortness of breath has also experienced increased swelling in his legs. Patient was diagnosed with new onset atrial flutter on 05/01/22 and started on anticoagulation with Eliquis, Patient reports he is scheduled to und ergo an outpatient cardiac ablation. Patient reports in addition his home CPAP machine was also broken and sent out for repairs which is likely contributing to his shortness of breath. He denies having any fevers, chills, diaphoresis, abdominal pain, nausea, vomiting, or experiencing any numbness/tingling/weakness in his extremities. Patient underwent full evaluation in the emergency department. Vital signs upon arrival were stable. Patient was afebrile with temp of 98.2F, he was slightly tachycardic and was found to be in A. flutter with RVR at 114 bpm, BP 136/79, respiratory rate 22, and SpO2 of 97% on room air. EKG was completed revealing atrial flutter at 95 bpm. Chest x-ray positive for pulmonary venous congestion, mild interstitial edema and cardiomegaly. CBC revealing stable normocytic anemia with hemoglobin at baseline and 11.2 as well as stable thrombocytopenia with platelet count of 130. Coags normal findings. BMP revealing mild prerenal azotemia with BUN of 34. L iver profile unremarkable. Troponin negative at less than 0.012 and proBNP elevated at 2310. Patient was given a dose of IV Lasix in the emergency department. He was also found to have a reported post void residual of greater than 800 mL and a Avelar catheter was placed. Patient admitted under our services with consultation to cardiology. Troponins trended overnight all negative at less than 0.0123 draws. Echocardiogram completed revealing an EF of 55%. Patient underwent IV diuresis and close monitoring of renal function and electrolytes. Electrolyte abnormalities were replaced throughout hospitalization. Patient successfully diuresed and diuretic transferred to oral Lasix. Patient is medically stable at this time and being discharged to [facility] for rehab. Patient to follow up outpatient with PCP in 1-2 days and cardiology in 1 week. Physical exam: Vital signs reviewed and stable. General: Nontoxic, no distress and appears stated age. Obese male. Derm: Skin warm and dry, normal coloration for ethnicity. Head: Atraumatic, normocephalic and symmetric. Eyes: EOMs intact, no lid lag, and anicteric sclera Mouth: no lip lesions, mucus membranes moist Cardiovascular: Irregularly irregular with normal S1S2, systolic murmur, positive posterior tibial pulses bilaterally, and cap refill < 2 seconds. 1+ pitting bilateral lower extremity edema. Lungs: Respirations even, regular, and unlabored on room air. Lungs diminished. No wheezes, rhonchi, rales, or crackles and no accessory muscle usage. Patient speaking in full sentences without difficulties. Abdominal: soft, nontender to palpation, no guarding, no appreciable organomegaly Ext: ROM intact. No gross muscle atrophy, no contractures Neuro: Speech clear, face symmetrical and CN II-XII grossly intact with no noted focal neuro deficits Psych: Alert and oriented to person, place, time, and situation. Appropriate and pleasant affect. A total of 35 minutes of time were spent preparing this complex discharge summary. Pt was discharged on 06/10/22 at 9:51 AM Carlos Leann, SOUND ASSISTANT rendered care for this patient independently, reviewed the findings and plan as documented in the note above. I did not physically speak with or examine the patient on this date. Patient Condition at Discharge: Stable Plan - Discharge Summary Discharge Rx Participant: No New Discharge Prescriptions: New Furosemide [Lasix] 40 mg PO DAILY tab HYDROcodone/APAP 7.5-325MG [[place] 7.5-325] 1 each PO Q4H PRN #18 tab PRN Reason: Pain methocarbamoL [Robaxin] 1,000 mg PO TID PRN tab PRN Reason: Muscle Spasm Acetaminophen Tab [Tylenol] 650 mg PO Q6HR PRN tab PRN Reason: Mild Pain Or Fever > 100.5 Potassium Chloride [Potassium Chloride ER] 10 meq PO DAILY #30 tab modafiniL [Provigil] 200 mg PO DAILY 3 Days #3 tablet Lidocaine 5% Patch [Lidoderm 5% Patch] 1 patch TOPICAL Q24HR patch Continue Sertraline [Zoloft] 50 mg PO DAILY Aspirin EC [Ecotrin Low Dose] 81 mg PO DAILY Omeprazole [PriLOSEC] 20 mg PO HS Atorvastatin [Lipitor] 20 mg PO HS Multivitamins, Thera [Multivitamin (formulary)] 1 tab PO DAILY Fluticasone Propionate [Flonase Allergy Relief] 2 spray EA NOSTRIL DAILY PRN PRN Reason: Allergy Symptoms calcium polycarbophiL [Fibercon] 625 mg PO HS Rivaroxaban [Xarelto] 20 mg PO DAILY Cholecalciferol [Vitamin D3 (25 Mcg = 1000 Iu)] 50 mcg PO DAILY hydrOXYzine HCL [Atarax] 25 mg PO HS PRN PRN Reason: Itching Ferrous Sulfate [Iron (65 MG Elemental)] 325 mg PO MOFR Cyanocobalamin (Vitamin B-12) [Vitamin B-12] 1,000 mcg PO DAILY Doxazosin [Cardura] 4 mg PO DAILY Changed Doxazosin [Cardura] 4 mg PO HS #0 Discontinued Triamterene/Hydrochlorothiazid [Triamterene-Hctz 37.5-25 mg Cp] 1 cap PO DAILY modafiniL [Provigil] 200 mg PO DAILY Metoprolol Succinate (ER) [Toprol XL] 50 mg PO DAILY@2100 #90 tab Metoprolol Succinate (ER) [Toprol XL] 100 mg PO DAILY #90 tab Discharge Medication List Aspirin EC [Ecotrin Low Dose] 81 mg PO DAILY 08/07/15 [History] Atorvastatin [Lipitor] 20 mg PO HS 08/07/15 [History] Multivitamins, Thera [Multivitamin (formulary)] 1 tab PO DAILY 08/07/15 [History] Omeprazole [PriLOSEC] 20 mg PO HS 08/07/15 [History] Sertraline [Zoloft] 50 mg PO DAILY 08/07/15 [History] Fluticasone Propionate [Flonase Allergy Relief] 2 spray EA NOSTRIL DAILY PRN 07/26/19 [History] calcium polycarbophiL [Fibercon] 625 mg PO HS 01/19/20 [History] Cholecalciferol [Vitamin D3 (25 Mcg = 1000 Iu)] 50 mcg PO DAILY 05/01/22 [History] Cyanocobalamin (Vitamin B-12) [Vitamin B-12] 1,000 mcg PO DAILY 05/01/22 [History] Ferrous Sulfate [Iron (65 MG Elemental)] 325 mg PO MOFR 05/01/22 [History] Rivaroxaban [Xarelto] 20 mg PO DAILY 05/01/22 [History] Doxazosin [Cardura] 4 mg PO DAILY 06/05/22 [History] hydrOXYzine HCL [Atarax] 25 mg PO HS PRN 06/05/22 [History] Acetaminophen Tab [Tylenol] 650 mg PO Q6HR PRN tab 06/09/22 [Rx] Doxazosin [Cardura] 4 mg PO HS #0 06/09/22 [Rx] Furosemide [Lasix] 40 mg PO DAILY tab 06/09/22 [Rx] HYDROcodone/APAP 7.5-325MG [[place] 7.5-325] 1 each PO Q4H PRN #18 tab 06/09/22 [Rx] methocarbamoL [Robaxin] 1,000 mg PO TID PRN tab 06/09/22 [Rx] Lidocaine 5% Patch [Lidoderm 5% Patch] 1 patch TOPICAL Q24HR patch 06/12/22 [Rx] Potassium Chloride [Potassium Chloride ER] 10 meq PO DAILY #30 tab 06/12/22 [Rx] modafiniL [Provigil] 200 mg PO DAILY 3 Days #3 tablet 06/12/22 [Rx] Follow up Appointment(s)/Referral(s): Bi Felton MD [STAFF PHYSICIAN] - 1 Week Tawnya Orlando MD [Primary Care Provider] - 1-2 days Activity/Diet/Wound Care/Special Instructions: Post EP study - Ablation instructions 1. Keep access sites dry for 2 days. 2. No heavy lifting or straining for 2 days. 3. Avoid bending the hips repeatedly for 2 days. 4. You may go up and down stairs slowly Call if the following is noted 1. Bleeding, increasing swelling or pain at the access sites. 2. Increasing chest discomfort, especially upon taking a deep breath. 3. Increasing shortness of breath, at rest or with exertion. 4. Undue cough / phlegm 5. Difficulty or pain while swallowing. 6. Pain or change in color in the extremities. 7. Fever, chills, rigors. 8. Increasing headache or neurologic symptoms. 9. Dizziness, fainting, palpitations Stop metoprolol completely Continue Rivaroxaban Activity: as tolerated, fall precautions Diet: heart healthy Special Instructions: Strict I and O, daily weights BMP in 1 week DX: Hypokalemia Discharge Disposition: TRANSFER TO SNF/ECF
--- NOTE | 2022-06-10 10:56 | CDI ---
Documentation Clarification Form Date: 06/10/2022 10:44:00 AM From: Aundrea Mi CCS, CCDS Admit Date: 06/05/2022 02:49:00 PM Patient Name: Preston Lima Visit Number: [id number] Discharge Date: ATTENTION: The Clinical Documentation Specialists (CDI) and [facility] Coding Staff appreciate your assistance in clarifying documentation. Please respond to the clarification below the line at the bottom and electronically sign. The CDI & [facility] Coding staff will review the response and follow-up if needed. Please note: Queries are made part of the Legal Health Record. If you have any questions, please contact the author of this message via ITS. Dr. Sandee Trujillo: Normocytic Anemia with hemoglobin at baseline is documented in the attending notes beginning in the 06/05 History & Physical without further specificity. Additional specificity regarding the Type & Acuity of Anemia is requested. History/Risk Factors per the 06/05 H/P: Atrial Fibrillation and Atrial Flutter on Xarelto, Chronic Diastolic Heart Failure w/previously known EF 50%, Hypertension, Hyperlipidemia, DVT, GERD, BPH & JUDI CPAP dependent. Clinical indicators: Presented to the ED on 06/05 with SOB, Chest pain and leg swelling. Admit with CHF exacerbation, Pulmonary edema and Chest pain. Hemoglobin 06/05: 11.2. 06/06: 11.5. Hematocrit 06/05: 34.6. 06/06 36.8. Treatment 06/05: Telemetry, Fall precautions, CHF protocol, I&Os, Avelar catheter inserted, O2 2Lnc, INH Duoneb 6 mls x1, IV Norflex 30 mg x1, IV Morphine 4 mg x1, IV Lasix 40 mg x1. 06/07: po Feosol 325 mg (patient's home meds include Ferrous Sulfate 65 mg 325 mg) Please clarify the Type & Acuity of Anemia: [ ] Chronic blood loss anemia [ ] Iron deficiency anemia [ ] Hemolytic anemia [ ] Drug induced anemia [ ] Anemia of chronic disease [ ] Unable to determine [ ] Other, please specify (Template Last Revised: August 2020) Anemia of chronic disease MTDD
--- NOTE | 2022-06-10 11:19 | CDI ---
Documentation Clarification Form Date: 06/10/2022 10:57:40 AM From: Aundrea Mi CCS, CCDS Admit Date: 06/05/2022 02:49:00 PM Patient Name: Preston Lima Visit Number: [id number] Discharge Date: ATTENTION: The Clinical Documentation Specialists (CDI) and [facility] Coding Staff appreciate your assistance in clarifying documentation. Please respond to the clarification below the line at the bottom and electronically sign. The CDI & [facility] Coding staff will review the response and follow-up if needed. Please note: Queries are made part of the Legal Health Record. If you have any questions, please contact the author of this message via ITS. Dr. Ketan Ferrell: Atrial Fibrillation is documented throughout the record without further specificity. Additional clarification regarding the type of Atrial Fibrillation is requested. History/Risk factors per the 06/05 H/P: Atrial Fibrillation and Atrial Flutter on Xarelto, Chronic Systolic Heart Failure w/EF 50%, Hypertension, Hyperlipidemia, DVT, GERD, BPH & JUDI. Clinical Indicators: Presented to the ED on 06/05 with SOB, cough, chest pain and leg swelling, some discomfort and neck pain. Admit with CHF Exacerbation, Pulmonary Edema and Chest pain. Per the 06/05 H/P: the patient was diagnosed with new onset atrial flutter on 05/01/2022 and started on Eliquis, he is scheduled for an outpatient cardiac ablation. 06/11 IP EP Ablation: Typical Atrial Flutter 06/05 HR: 114, 97, 86, 107, 73, 89. 06/06: 113, 80, 108, 104. 06/07: 104, 98, 94, 98, 68, 93 06/05 EKG: R 95, Atrial flutter/tachycardia, Incomplete RBBB, Possible anterior [place] probably old. Treatment 06/05: Telemetry, CHF protocol, I&Os, Avelar catheter insertion, O2 2Lnc, INH Duoneb 6 ml x1, IV Norflex 30 mg x1, IV Morphine 4 mg x1, IV Lasix 40 mg x1, po: Lipitor, Cardura, Toprol 50 mg aily, Protonix. 06/06: po Aspirin 325 mg daily, Vit D3 daily, Toprol 100 mg Daily, Xarelto 20 mg Daily. Please clarify the type of Atrial Fibrillation, if known: Atrial Fibrillation: [ ] Chronic Atrial Fibrillation [ ] Paroxysmal Atrial Fibrillation [ x ] Persistent Atrial Fibrillation [ ] Permanent Atrial Fibrillation [ ] Atrial Fibrillation ruled out [ ] Other, please specify: [ ] Unable to determine (Template Last Revised: September 2020) MTDD
[2022-06-10 11:52] LABS: African American GFR (CKD) >90 (>60 ml/min/1.73 sqM); Anion Gap 4 mmol/L; Blood Urea Nitrogen 30 mg/dL (9-20); Calcium 8.2 mg/dL (8.4-10.2); Carbon Dioxide 33 mmol/L (22-30); Chloride 99 mmol/L (98-107); Glucose 134 mg/dL (74-99); Non-African American GFR(CKD) 86 (>60 ml/min/1.73 sqM); Potassium 3.5 mmol/L (3.5-5.1); Sodium 136 mmol/L (137-145)
[2022-06-10 12:04] LABS: HCT 32.9 % (39.0-53.0); HGB 10.5 gm/dL (13.0-17.5); Hypochromasia Slight; MCH 31.7 pg (25.0-35.0); MCHC 31.8 g/dL (31.0-37.0); MCV 99.6 fL (80.0-100.0); Mean Platelet Volume 8.6; Platelet Count 124 k/uL (150-450); RDW 13.1 % (11.5-15.5); WBC 5.3 k/uL (3.8-10.6)
[2022-06-10 13:59] VITALS: BMI 39.6
[2022-06-10] MEDS: DOXAZOSIN 4 MG TAB PO SCH (21:24)
[2022-06-10] MEDS: PANTOPRAZOLE 40 MG TABLET PO SCH (21:24)
[2022-06-10] MEDS: ATORVASTATIN 20 MG TAB PO SCH (21:24)
[2022-06-10] MEDS: METOPROLOL SUCCINATE (ER) 50 MG TAB.ER.24H PO SCH (21:24)
[2022-06-11] MEDS: HYDROcodone/APAP 7.5-325MG 1 EACH TAB PO PRN ×2 (00:10→09:40)
[2022-06-11] MEDS: SODIUM CHLORIDE 0.9% 1,000 ML IV SCH ×2 (06:36→16:10)
[2022-06-11] MEDS: FUROSEMIDE 40 MG TAB PO SCH (06:42)
[2022-06-11] MEDS: RIVAROXABAN 20 MG TAB PO SCH (06:42)
[2022-06-11] MEDS: ASPIRIN 325 MG TAB PO SCH (06:42)
[2022-06-11] MEDS: METOPROLOL SUCCINATE (ER) 100 MG TAB.ER.24H PO SCH (06:42)
[2022-06-11] MEDS: CHOLECALCIFEROL 25 MCG (1000 IU) TABLET PO SCH (06:42)
[2022-06-11] MEDS: SERTRALINE 50 MG TAB PO SCH (06:43)
[2022-06-11] MEDS: LIDOCAINE 5% PATCH TOPICAL SCH (06:45)
[2022-06-11] MEDS ORDERED: ISOPROTERENOL 250 MCG/1.25 ML SYR IV ONE ×2 (08:00→16:10)
[2022-06-11 08:19] LABS: HGB 10.8 gm/dL (13.0-17.5); MCH 32.2 pg (25.0-35.0); MCHC 32.6 g/dL (31.0-37.0); MCV 98.9 fL (80.0-100.0); Mean Platelet Volume 8.4; Platelet Count 133 k/uL (150-450); RBC 3.34 m/uL (4.30-5.90); RDW 13.2 % (11.5-15.5); WBC 4.3 k/uL (3.8-10.6)
[2022-06-11 08:33] LABS: African American GFR (CKD) >90 (>60 ml/min/1.73 sqM); Anion Gap 5 mmol/L; Blood Urea Nitrogen 23 mg/dL (9-20); Calcium 8.3 mg/dL (8.4-10.2); Carbon Dioxide 33 mmol/L (22-30); Chloride 99 mmol/L (98-107); Glucose 99 mg/dL (74-99); Non-African American GFR(CKD) 86 (>60 ml/min/1.73 sqM); Potassium 3.5 mmol/L (3.5-5.1); Sodium 137 mmol/L (137-145)
--- NOTE | 2022-06-11 14:52 | P.PN ---
Subjective Progress Note Date: 06/11/22 (delayed charting seen at 0915) Patient is a 72-year-old male with atrial fibrillation and atrial flutter on anticoagulation with Xarelto, chronic diastolic heart failure with previously known EF of 50%, hypertension, hyperlipidemia, DVT, GERD, BPH and obstructive sleep apnea CPAP dependent nightly who presented to the emergency department with a chief complaint of chest pain/tightness, palpitations and shortness of breath. In the emergency department he underwent an extensive evaluation. V ital signs upon arrival were stable. Patient was afebrile with temp of 98.2F, he was slightly tachycardic and was found to be in A. flutter with RVR at 114 bpm, BP 136/79, respiratory rate 22, and SpO2 of 97% on room air. Chest x-ray demonstrated pulmonary venous congestion, mild interstitial edema and cardiomegaly. CBC revealing stable normocytic anemia with hemoglobin at baseline and 11.2 as well as stable thrombocytopenia with platelet count of 130. Coags normal findings. BMP revealing mild prerenal azotemia with BUN of 34. Liver profile unremarkable. Troponin negative at less than 0.012 and proBNP elevated at 2310. Patient was given a dose of IV Lasix in the emergency department. He was also found to have a reported post void residual of greater than 800 mL and a Avelar catheter was placed. Patient was admitted for acute exacerbation of CHF and cardiology was consulted. Troponins remained negtative. Echocardiogram completed revealing an EF of 55%. Patient underwent IV diuresis and close monitoring of renal function and electrolytes. Patient successfully diuresed and diuretic transferred to oral Lasix. Patient is medically stable at this time and being discharged to [facility] for rehab once a fib ablation completed. Patient to follow up outpatient with PCP in 1-2 days and cardiology in 1 week. Patient seen and examined at bedside. He is feeling very tired today, no chest pain, no shortness of breath, no nausea, no vomiting. General: non toxic, no distress, appears at stated age Derm: warm, dry Head: atraumatic, normocephalic, symmetric Eyes: EOMI, no lid lag, anicteric sclera Mouth: no lip lesion, mucus membranes moist Cardiovascular: S1S2 irreg, no murmur, positive posterior tibial pulse bilateral, Lungs: CTA bilateral, no rhonchi, no rales , no accessory muscle use Abdominal: soft, nontender to palpation, no guarding, no appreciable organomegaly Ext: no gross muscle atrophy, no edema, no contractures Neuro: CN II-XI grossly intact, no focal neuro deficits Psych: Alert, oriented, appropriate affect Assessment/plan: Acute exacerbation of chronic diastolic heart failure Chest pain Persistent atrial flutter Hypertension Hyperlipidemia Urinary retention, resolved after increasing doxazosin dose History of BPH. Continue doxazosin Hypokalemia, resolved Hypomagnesemia, resolved History of DVT. Continue anticoagulation with Xarelto. GERD. Continue PPI with Protonix 40 mg nightly. Obstructive sleep apnea CPAP dependent nightly. Continue use of home CPAP Nightly -Plan is for cardiac ablation today. Will be discharged to [facility] tomorrow. Medications reviewed. Objective - Vital Signs Vital signs: Vital Signs Temp 98.3 F 06/11/22 08:00 Pulse 62 06/11/22 08:00 Resp 19 06/11/22 08:00 BP 124/72 06/11/22 08:00 Pulse Ox 98 06/11/22 08:00 FiO2 21 06/06/22 21:25 Intake & Output 06/10/22 06/11/22 06/11/22 18:59 06:59 18:59 Intake Total 1448 20 10 Output Total 650 300 200 Balance 798 -280 -190 Weight 111.5 kg 111.8 kg Intake: IV 10 20 10 Invasive Line 2 10 20 10 Oral 1438 Output: Urine 650 300 200 Other: Voiding Method Toilet Toilet Urinal Urinal # Bowel Movements 2 - Labs CBC & Chem 7: 06/11/22 07:47 06/11/22 07:47 Labs: Abnormal Lab Results - Last 24 Hours (Table) 06/11/22 06/11/22 Range/Units 07:47 07:47 RBC 3.34 L (4.30-5.90) m/uL Hgb 10.8 L (13.0-17.5) gm/dL Hct 33.0 L (39.0-53.0) % Plt Count 133 L (150-450) k/uL Carbon Dioxide 33 H (22-30) mmol/L BUN 23 H (9-20) mg/dL Calcium 8.3 L (8.4-10.2) mg/dL
[2022-06-11] MEDS ORDERED: HEPARIN SODIUM,PORCINE 10,000 UNIT/ML 1 ML VIAL ONE (16:10)
[2022-06-11] MEDS ORDERED: PROPOFOL 10 MG/ML 20 ML VIAL IV ONE (16:10)
[2022-06-11] MEDS ORDERED: SUCCINYLCHOLINE CHLORIDE 200 MG/10 ML VIAL IV ONE (16:10)
[2022-06-11] MEDS ORDERED: ROCURONIUM 10 MG/ML (5 ML VIAL) IV ONE (16:10)
[2022-06-11] MEDS ORDERED: fentaNYL (PF) 50 MCG/ML 2 ML AMP ONE (16:10)
[2022-06-11] MEDS ORDERED: SODIUM CHLORIDE 0.9% 100 ML BAG ONE (16:10)
[2022-06-11] MEDS ORDERED: NEOSTIGMINE 1 MG/ML 10 ML VIAL ONE (16:10)
[2022-06-11] MEDS ORDERED: ePHEDrine 50 MG/ML 1 ML VIAL ONE (16:10)
[2022-06-11] MEDS ORDERED: GLYCOPYRROLATE 0.2 MG/ML 2 ML VIAL ONE (16:10)
[2022-06-11] MEDS ORDERED: PHENYLEPHRINE-0.9% NACL SYG 1,000 MCG/10 ML SYRINGE ONE (16:10)
[2022-06-11] MEDS ORDERED: MIDAZOLAM 2 MG/2 ML VIAL ONE (16:10)
[2022-06-11] MEDS ORDERED: ceFAZolin 1,000 MG VIAL ONE (16:10)
[2022-06-11] MEDS ORDERED: LIDOCAINE 1% INJ 10MG/ML (30 ML VIAL-PF) SQ ONE (16:50)
[2022-06-11] MEDS ORDERED: HEPARIN SODIUM (1,000 UNIT/ML) 1,000 UNIT in SODIUM CHLORIDE 0.9% 1,000 ML IRRIGATION ONE (17:10)
[2022-06-11] MEDS ORDERED: ISOPROTERENOL 200 MCG/ML 5 ML AMP IV ONE (17:53)
[2022-06-11] MEDS ORDERED: ACETAMINOPHEN TAB 325 MG TAB PO PRN (18:17)
--- NOTE | 2022-06-11 18:28 | P.EPPROC ---
- EP Procedure Note Electrophysiology Procedure Note: Diagnosis Congestive heart failure, diastolic secondary to typical atrial flutter with RVR, persistent Patient admitted for management of atrial flutter and fluid overload secondary to her heart failure Treated with rate control and diuretics, now without any orthopnea Final diagnoses Typical atrial flutter ablation, successful with bidirectional block with differential pacing Prolonged DC interval Right bundle branch No left atrial appendage thrombus Plan Continue Rivaroxaban Continue sleep apnea management Stop metoprolol completely Details Patient was brought to the EP lab in a fasting state. Written informed consent was obtained prior to the procedure Procedures performed under general anesthesia Venous sheaths were placed in the right left femoral veins Diagnostic catheter placed in the high right atrium and His bundle area coronary sinus Intracardiac echo cath was placed Mapping and ablation catheter was placed LV and RV size and function were normal No left atrial appendage thrombus on intracardiac echo Cavo tricuspid isthmus shaped like a pouch Patient wasn't typical atrial flutter at the start of the study with a cycle length of about 250 ms Intermittent mapping was performed from the cavo tricuspid isthmus to confirm cavo tricuspid dependency 3-D electro-anatomic mapping was performed The cavo tricuspid isthmus is defined RF ablation was performed Atrial flutter was terminated In sinus rhythm with DC interval was prolonged to greater than 300 ms Later on this improved with Isuprel The RF line was completed anatomically Differential pacing was performed Bidirectional block was proven Sinus node recovery times at 600 and 500ms were 07/08/2000 and 1261 ms Corresponding carotid sinus recovery times are normal AV node Wenckebach block 510 ms Sinus cycle length 978 ms, DC interval 304 ms before Isuprel, QRS width 180 ms and QT interval 420 ms AV node Wenckebach block 510 ms No other arrhythmias induced with Isuprel high-dose Patient tolerated the procedure without acute complications
[2022-06-11] MEDS ORDERED: ACETAMINOPHEN IV (For NPO) 1,000 MG in EMPTY BAG 1 BAG IVPB ONE (18:30)
[2022-06-11] MEDS: DOXAZOSIN 4 MG TAB PO SCH (23:19)
[2022-06-11] MEDS: ATORVASTATIN 20 MG TAB PO SCH (23:19)
[2022-06-11] MEDS: PANTOPRAZOLE 40 MG TABLET PO SCH (23:19)
[2022-06-12 05:49] VITALS: TEMP 97.8
[2022-06-12] MEDS: SODIUM CHLORIDE 0.9% 1,000 ML IV SCH (07:00)
[2022-06-12] MEDS: LIDOCAINE 5% PATCH TOPICAL SCH (07:48)
[2022-06-12] MEDS: CHOLECALCIFEROL 25 MCG (1000 IU) TABLET PO SCH (07:48)
[2022-06-12] MEDS: SERTRALINE 50 MG TAB PO SCH (07:48)
[2022-06-12] MEDS: ASPIRIN 325 MG TAB PO SCH (07:48)
[2022-06-12] MEDS: FUROSEMIDE 40 MG TAB PO SCH (07:48)
[2022-06-12] MEDS: RIVAROXABAN 20 MG TAB PO SCH (07:49)
--- NOTE | 2022-06-12 11:11 | P.DS ---
Providers Date of admission: 06/05/22 14:49 Expected date of discharge: 06/12/22 Attending physician: Maurilio Burden MD Consults: 06/05/22 14:14 Consult Physician Routine Consulting Provider: Bony Fragoso Consult Reason/Comments: CHF/afib Do you want consulting provider notified?: Yes Primary care physician: [facility] Course: Discharge Diagnosis: Acute exacerbation of chronic diastolic heart failure Chest pain Persistent atrial flutter Hypertension Hyperlipidemia Urinary retention, resolved after increasing doxazosin dose History of BPH. Continue doxazosin Hypokalemia, resolved Hypomagnesemia, resolved History of DVT. Continue anticoagulation with Xarelto. GERD. Continue PPI with Protonix 40 mg nightly. Obstructive sleep apnea CPAP dependent nightly. Continue use of home CPAP Nightly Hospital Course: Patient is a 72-year-old male with atrial fibrillation and atrial flutter on ant icoagulation with Xarelto, chronic diastolic heart failure with previously known EF of 50%, hypertension, hyperlipidemia, DVT, GERD, BPH and obstructive sleep apnea CPAP dependent nightly who presented to the emergency department with a chief complaint of chest pain/tightness, palpitations and shortness of breath. In the emergency department he underwent an extensive evaluation. Vital signs upon arrival were stable. Patient was afebrile with temp of 98.2F, he was slightly tachycardic and was found to be in A. flutter with RVR at 114 bpm, BP 136/79, respiratory rate 22, and SpO2 of 97% on room air. Chest x-ray demonstrated pulmonary venous congestion, mild interstitial edema and cardiomegaly. CBC revealing stable normocytic anemia with hemoglobin at baseline and 11.2 as well as stable thrombocytopenia with platelet count of 130. Coags normal findings. BMP revealing mild prerenal azotemia with BUN of 34. Liver profile unremarkable. Troponin negative at less than 0.012 and proBNP elevated at 2310. Patient was given a dose of IV Lasix in the emergency department. He was also found to have a reported post void residual of greater than 800 mL and a Avelar catheter was placed. Patient was admitted for acute exacerbation of CHF and cardiology was consulted. Troponins remained negtative. Echocardiogram completed revealing an EF of 55%. Patient underwent IV diuresis and close monitoring of renal function and electrolytes. Patient successfully diuresed and diuretic transferred to oral Lasix. He underwent cardiac ablation on 05/12 without any immediate complications. He maintained normal sinus rhythm overnight. Patient is medically stable at this time and being discharged to [facility] facility. Follow-up: Dr. Felton in 1 week. Patient was started on Lasix, and potassium. He was taken off of metoprolol secondary to his successful A. fib ablation, he was taken off of triamterene hydrochlorothiazide Repeat BMP in 1 week Patient seen and examined at bedside. Feeling well after his ablation. No chest pain or shortness of breath. Lower extremity edema but has been improving daily. No other complaints currently. Wants to go to rehab to start working on getting stronger and get back home. Vital signs reviewed and stable. General: nontoxic, no distress, appears at stated age Derm: warm, dry Head: atraumatic, normocephalic, symmetric Eyes: EOMI, no lid lag, anicteric sclera Mouth: no lip lesion, mucus membranes moist Cardiovascular: S1S2 reg, no murmur, positive posterior tibial pulse bilateral, Lungs: CTA bilateral, no rhonchi, no rales , no accessory muscle use Abdominal: soft, nontender to palpation, no guarding, no appreciable organomegaly Ext: no gross muscle atrophy, 2+ edema, no contractures Neuro: CN II-XI grossly intact, no focal neuro deficits Psych: Alert, oriented, appropriate affect A total of 37 minutes of time were spent preparing this complex discharge summary. Patient was discharged on 06/12/22. Patient Condition at Discharge: Stable Plan - Discharge Summary Discharge Rx Participant: No New Discharge Prescriptions: New Furosemide [Lasix] 40 mg PO DAILY tab HYDROcodone/APAP 7.5-325MG [Dale 7.5-325] 1 each PO Q4H PRN #18 tab PRN Reason: Pain methocarbamoL [Robaxin] 1,000 mg PO TID PRN tab PRN Reason: Muscle Spasm Acetaminophen Tab [Tylenol] 650 mg PO Q6HR PRN tab PRN Reason: Mild Pain Or Fever > 100.5 Potassium Chloride [Potassium Chloride ER] 10 meq PO DAILY #30 tab modafiniL [Provigil] 200 mg PO DAILY 3 Days #3 tablet Lidocaine 5% Patch [Lidoderm 5% Patch] 1 patch TOPICAL Q24HR patch Continue Sertraline [Zoloft] 50 mg PO DAILY Aspirin EC [Ecotrin Low Dose] 81 mg PO DAILY Omeprazole [PriLOSEC] 20 mg PO HS Atorvastatin [Lipitor] 20 mg PO HS Multivitamins, Thera [Multivitamin (formulary)] 1 tab PO DAILY Fluticasone Propionate [Flonase Allergy Relief] 2 spray EA NOSTRIL DAILY PRN PRN Reason: Allergy Symptoms calcium polycarbophiL [Fibercon] 625 mg PO HS Rivaroxaban [Xarelto] 20 mg PO DAILY Cholecalciferol [Vitamin D3 (25 Mcg = 1000 Iu)] 50 mcg PO DAILY hydrOXYzine HCL [Atarax] 25 mg PO HS PRN PRN Reason: Itching Ferrous Sulfate [Iron (65 MG Elemental)] 325 mg PO MOFR Cyanocobalamin (Vitamin B-12) [Vitamin B-12] 1,000 mcg PO DAILY Doxazosin [Cardura] 4 mg PO DAILY Changed Doxazosin [Cardura] 4 mg PO HS #0 Discontinued Triamterene/Hydrochlorothiazid [Triamterene-Hctz 37.5-25 mg Cp] 1 cap PO DAILY modafiniL [Provigil] 200 mg PO DAILY Metoprolol Succinate (ER) [Toprol XL] 50 mg PO DAILY@2100 #90 tab Metoprolol Succinate (ER) [Toprol XL] 100 mg PO DAILY #90 tab Discharge Medication List Aspirin EC [Ecotrin Low Dose] 81 mg PO DAILY 08/07/15 [History] Atorvastatin [Lipitor] 20 mg PO HS 08/07/15 [History] Multivitamins, Thera [Multivitamin (formulary)] 1 tab PO DAILY 08/07/15 [History] Omeprazole [PriLOSEC] 20 mg PO HS 08/07/15 [History] Sertraline [Zoloft] 50 mg PO DAILY 08/07/15 [History] Fluticasone Propionate [Flonase Allergy Relief] 2 spray EA NOSTRIL DAILY PRN 07/26/19 [History] calcium polycarbophiL [Fibercon] 625 mg PO HS 01/19/20 [History] Cholecalciferol [Vitamin D3 (25 Mcg = 1000 Iu)] 50 mcg PO DAILY 05/01/22 [History] Cyanocobalamin (Vitamin B-12) [Vitamin B-12] 1,000 mcg PO DAILY 05/01/22 [History] Ferrous Sulfate [Iron (65 MG Elemental)] 325 mg PO MOFR 05/01/22 [History] Rivaroxaban [Xarelto] 20 mg PO DAILY 05/01/22 [History] Doxazosin [Cardura] 4 mg PO DAILY 06/05/22 [History] hydrOXYzine HCL [Atarax] 25 mg PO HS PRN 06/05/22 [History] Acetaminophen Tab [Tylenol] 650 mg PO Q6HR PRN tab 06/09/22 [Rx] Doxazosin [Cardura] 4 mg PO HS #0 06/09/22 [Rx] Furosemide [Lasix] 40 mg PO DAILY tab 06/09/22 [Rx] HYDROcodone/APAP 7.5-325MG [Dale 7.5-325] 1 each PO Q4H PRN #18 tab 06/09/22 [Rx] methocarbamoL [Robaxin] 1,000 mg PO TID PRN tab 06/09/22 [Rx] Lidocaine 5% Patch [Lidoderm 5% Patch] 1 patch TOPICAL Q24HR patch 06/12/22 [Rx] Potassium Chloride [Potassium Chloride ER] 10 meq PO DAILY #30 tab 06/12/22 [Rx] modafiniL [Provigil] 200 mg PO DAILY 3 Days #3 tablet 06/12/22 [Rx] Follow up Appointment(s)/Referral(s): Bi Felton MD [STAFF PHYSICIAN] - 1 Week Tawnya Orlando MD [Primary Care Provider] - 1-2 days Activity/Diet/Wound Care/Special Instructions: Post EP study - Ablation instructions 1. Keep access sites dry for 2 days. 2. No heavy lifting or straining for 2 days. 3. Avoid bending the hips repeatedly for 2 days. 4. You may go up and down stairs slowly Call if the following is noted 1. Bleeding, increasing swelling or pain at the access sites. 2. Increasing chest discomfort, especially upon taking a deep breath. 3. Increasing shortness of breath, at rest or with exertion. 4. Undue cough / phlegm 5. Difficulty or pain while swallowing. 6. Pain or change in color in the extremities. 7. Fever, chills, rigors. 8. Increasing headache or neurologic symptoms. 9. Dizziness, fainting, palpitations Stop metoprolol completely Continue Rivaroxaban Activity: as tolerated, fall precautions Diet: heart healthy Special Instructions: Strict I and O, daily weights BMP in 1 week DX: Hypokalemia Discharge Disposition: TRANSFER TO SNF/ECF
[2022-06-12 12:39] VITALS: BP 139/82; PULSE 77; RESP 15
--- NOTE | 2022-06-12 14:18 | P.PN ---
Progress Note - Text This is a 72-year-old male with a past medical history of persistent typical atrial flutter, hypertension, dyslipidemia, previous DVT, valvular heart disease, heart failure with preserved ejection fraction. He follows in the office with Dr. Felton. Patient underwent typical atrial flutter ablation with Dr. Felton on 06/11/2022. His beta martha has been discontinued. He is on anticoagulation with Xarelto. His vital signs are stable. Telemetry reviewed patient is in sinus rhythm with first-degree AV block. EKG this morning with sinus rhythm, first degree AV block, incomplete right bundle branch block, QTc 404 ms. This information was reviewed with Dr. Felton. He is to be discharged to rehab today and follow up with Dr. Felton in 1 week.
== END 2022-06-12 15:07 | DRG 273 ==
LOC: EC 11:29 → 3SCARD 14:49
PROVIDERS: ADMIT Internal Medicine; ATTEND Internal Medicine
PROC: 02583ZZ Destruction of Conduction Mechanism, Percutaneous Approach (ICD-10-PCS; principal; 2022-06-11 15:00)
PROC: 02K83ZZ Map Conduction Mechanism, Percutaneous Approach (ICD-10-PCS; 2022-06-11 15:00)
DX: I48.3 Typical atrial flutter (principal); I50.33 Acute on chronic diastolic (congestive) heart failure; I38 Endocarditis, valve unspecified; D69.6 Thrombocytopenia, unspecified; D63.8 Anemia in other chronic diseases classified elsewhere; I11.0 Hypertensive heart disease with heart failure; E66.9 Obesity, unspecified; Z68.39 Body mass index [BMI] 39.0-39.9, adult; E78.5 Hyperlipidemia, unspecified; G47.33 Obstructive sleep apnea (adult) (pediatric); N40.1 Benign prostatic hyperplasia with lower urinary tract symptoms; I48.19 Other persistent atrial fibrillation; K21.9 Gastro-esophageal reflux disease without esophagitis; R33.8 Other retention of urine; M79.89 Other specified soft tissue disorders; I44.0 Atrioventricular block, first degree; I45.10 Unspecified right bundle-branch block; E83.42 Hypomagnesemia; E87.6 Hypokalemia; Z96.651 Presence of right artificial knee joint; Z86.718 Personal history of other venous thrombosis and embolism; Z86.69 Personal history of other diseases of the nervous system and sense organs; Z79.82 Long term (current) use of aspirin; Z79.899 Other long term (current) drug therapy; Z79.01 Long term (current) use of anticoagulants; Z88.8 Allergy status to other drugs, medicaments and biological substances
CPT/HCPCS: 36415; 71046; 80048; 80053; 83735; 83880; 84484; 85025; 85027; 85610; 85730; 93005; 93306; 93623; 93653; 93662; 94640; 94660; 94760; 96374; 96375; 96376; 99285

== ENCOUNTER → 2022-06-26 | Outpatient (CLI) | payer MEDICARE ==
--- NOTE | 2022-06-26 12:06 | P.PN ---
Subjective DATE: 06/26/2022 FOLLOW UP VISIT. Patient with obstructive sleep apnea hypopnea syndrome and hypersomnia return to sleep center for follow-up visit. Information from previous visit have been reviewed. Patient did not use his CPAP equipment for several months, recently received fixed CPAP unit and wanted to be sure that all parameters in this machine are correct for him. Recently patient was discharged from the hospital, he was in the hospital for ablation procedure for atrial flutter. [place] sleepiness scale is 8, which is normal. Patient is on treatment with modafinil, which controls his alertness. I checked information from PAP unit. PAP unit pressure 5-16 cm H2O. I adjusted pressure to the previous limits 5-15 cm of water. Level of heated humidity was at 8, which is maximal. I teach patient and family how to adjust humidity and reduced level of humidity to level of 4. EPR was 0, I changed it to the level of 3 cm of water. I changed ramp time to automode. MEDICATIONS:1. Atorvastatin 20 mg once a day 2. Doxazosin 4 mg once a day 3. Fluticasone 4. Furosemide 40 mg once a day 5. Hydroxyzine 25 mg once a day 6. Methocarbamol 500 mg once a day 7. Sertraline 50 mg once a day 8. Xarelto 20 mg once a day During physical exam: GENERAL: A pleasant patient without any distress. VITAL SIGNS: BP 145/71, HR 94, RR 16, weight 244, body mass index 41.2, temperature 97.9, oxygen saturation at room air 100 % . HEENT: PERRLA, EOMI . NECK: Supple. No JVD. LUNGS: Clear to percussion and to auscultation. Good air exchange. No wheezing or rhonchi. HEART: S1, S2 regular. ABDOMEN: Soft and nontender.[] EXTREMITIES: No clubbing or cyanosis. TELECOMMUNICATION OPERATOR: Awake, alert, and oriented x3. No focal deficit. Impressions: 1. Obstructive sleep apnea-hypopnea syndrome. Patient received fixed CPAP unit yesterday. 2. History of atrial flutter. Status post recent ablation procedure 3. Hypersomnia, confirmed by multiple sleep latency test. 4. Hypertension. 5. History of mild periodic limb movements. 6. Acid reflux. 7. Status post right knee replacement. 8. BPH. 9. Status post surgical treatment for bilateral carpal tunnel syndrome. 10. Obesity body mass index 41.2 Plan: 1. To restart using PAP equipment every night for the whole night. 2. To change air filter at least 1-2 times per month. 3. PAP unit should stay lower then position of the head. 4. Advised patient to remove all remaining water from humidifier canister daily and make it dry after each usage. Refill canister with fresh distilled water before each usage. 5. Sleep hygiene with regular time in bed for at least 8 hours. 6. Precautions related to driving. No driving if feel any sleepiness. 7. I will maintain prescription for PAP supplies including mask, tube, filters. 8. Follow up visit in 4 months or earlier if patient has any problems. 9. Watching and losing weight. Thank you very much for allowing me to participate in the management of your patient. Emiliano Moraes MD, PhD, FAASM. Diplomat of [place] [employer], Sleep Medicine Board by [place] [employer] Early Childhood Specialist of [facility] [place]
== END ==
LOC: SLEEP 11:12
PROVIDERS: ATTEND Internal Medicine
DX: G47.33 Obstructive sleep apnea (adult) (pediatric) (principal); Z99.89 Dependence on other enabling machines and devices; I10 Essential (primary) hypertension; K21.9 Gastro-esophageal reflux disease without esophagitis; E66.9 Obesity, unspecified; Z68.41 Body mass index [BMI] 40.0-44.9, adult; Z98.890 Other specified postprocedural states; N40.0 Benign prostatic hyperplasia without lower urinary tract symptoms; Z96.651 Presence of right artificial knee joint; G47.61 Periodic limb movement disorder; Z86.79 Personal history of other diseases of the circulatory system
CPT/HCPCS: 99212

== ENCOUNTER 2022-07-27 22:02 | Observation (INO) | payer MEDICARE ==
[2022-07-27] MEDS ORDERED: MORPHINE SULFATE 2 MG/ML SYRINGE IVP STA (22:35)
[2022-07-27 22:50] LABS: Basophils % (A) 1 %; Eosinophils # (A) 0.2 k/uL (0-0.7); Eosinophils % (A) 5 %; HCT 34.3 % (39.0-53.0); HGB 11.4 gm/dL (13.0-17.5); Lymphocytes # (A) 0.8 k/uL (1.0-4.8); Lymphocytes % (A) 16 %; MCH 31.9 pg (25.0-35.0); MCHC 33.2 g/dL (31.0-37.0); MCV 96.1 fL (80.0-100.0); Mean Platelet Volume 7.4; Monocytes # (A) 0.4 k/uL (0-1.0); Monocytes % (A) 8 %; Neutrophils # (A) 3.3 k/uL (1.3-7.7); Neutrophils % (A) 67 %; Platelet Count 133 k/uL (150-450); RBC 3.57 m/uL (4.30-5.90); RDW 13.7 % (11.5-15.5)
--- NOTE | 2022-07-27 22:55 | ED ---
Altered Mental Status HPI - General Chief Complaint: Altered Mental Status Stated Complaint: Confusion Time Seen by Provider: 07/27/22 22:17 Source: patient, family, EMS, RN notes reviewed Mode of arrival: EMS Limitations: altered mental status - History of Present Illness Initial Comments: This is a 72-year-old male who presents to the emergency department for altered mental status. Over the last day, he has had visual hallucinations with seeing shadows around his house and his car. His does not believe anything like this has ever happened before, however she cannot be certain. The police department was called, who was concerned about the patient's safety. Additionally, approximately 2 hours prior to arrival, he suffered a fall. His states that he rolled out of bed and landed on his left side. Currently complaining of pain to the left ankle and hip. Denies any fevers, chills, sore throat, cough, dyspnea, chest pain, palpitations, abdominal pain, nausea, vomiting, diarrhea, back pain, or headaches. MD Complaint: altered mental status - Related Data Home Medications Medication Instructions Recorded Confirmed Aspirin EC [Ecotrin Low Dose] 81 mg PO DAILY 08/07/15 06/05/22 Atorvastatin [Lipitor] 20 mg PO HS 08/07/15 06/05/22 Multivitamins, Thera [Multivitamin 1 tab PO DAILY 08/07/15 06/05/22 (formulary)] Omeprazole [PriLOSEC] 20 mg PO HS 08/07/15 06/05/22 Sertraline [Zoloft] 50 mg PO DAILY 08/07/15 06/05/22 Fluticasone Propionate [Flonase 2 spray EA NOSTRIL DAILY PRN 07/26/19 06/05/22 Allergy Relief] calcium polycarbophiL [Fibercon] 625 mg PO HS 01/19/20 06/05/22 Cholecalciferol [Vitamin D3 (25 50 mcg PO DAILY 05/01/22 06/05/22 Mcg = 1000 Iu)] Cyanocobalamin (Vitamin B-12) 1,000 mcg PO DAILY 05/01/22 06/05/22 [Vitamin B-12] Ferrous Sulfate [Iron (65 MG 325 mg PO MOFR 05/01/22 06/05/22 Elemental)] Rivaroxaban [Xarelto] 20 mg PO DAILY 05/01/22 06/05/22 Doxazosin [Cardura] 4 mg PO DAILY 06/05/22 06/05/22 hydrOXYzine HCL [Atarax] 25 mg PO HS PRN 06/05/22 06/05/22 Previous Rx's Medication Instructions Recorded Acetaminophen Tab [Tylenol] 650 mg PO Q6HR PRN tab 06/09/22 Doxazosin [Cardura] 4 mg PO HS #0 06/09/22 Furosemide [Lasix] 40 mg PO DAILY tab 06/09/22 HYDROcodone/APAP 7.5-325MG [[place] 1 each PO Q4H PRN #18 tab 06/09/22 7.5-325] methocarbamoL [Robaxin] 1,000 mg PO TID PRN tab 06/09/22 Lidocaine 5% Patch [Lidoderm 5% 1 patch TOPICAL Q24HR patch 06/12/22 Patch] Potassium Chloride [Potassium 10 meq PO DAILY #30 tab 06/12/22 Chloride ER] modafiniL [Provigil] 200 mg PO DAILY 3 Days #3 tablet 06/12/22 Allergies Allergy/AdvReac Type Severity Reaction Status Date / Time alprazolam [From Xanax] Allergy Unknown Unknown Verified 06/05/22 14:52 cyclobenzaprine HCl Allergy Unknown Unknown Verified 06/05/22 14:52 [From Flexeril] memantine HCl [From Namenda] Allergy Unknown Unknown Verified 06/05/22 14:52 promethazine HCl Allergy Unknown Unknown Verified 06/05/22 14:52 [From Phenergan] quetiapine fumarate Allergy Unknown Unknown Verified 06/05/22 14:52 [From Seroquel] Review of Systems ROS Statement: Those systems with pertinent positive or pertinent negative responses have been documented in the HPI. ROS Other: All systems not noted in ROS Statement are negative. Past Medical History Past Medical History: Atrial Fibrillation, Atrial Flutter, Deep Vein Thrombosis (DVT), GERD/Reflux, Hyperlipidemia, Hypertension, Osteoarthritis (OA) Additional Past Medical History / Comment(s): ? SEIZURE 2014. using a cane History of Any Multi-Drug Resistant Organisms: None Reported Past Surgical History: Joint Replacement, Orthopedic Surgery Additional Past Surgical History / Comment(s): total R knee arthroplasty. Rt FOOT SURGERY, Rt carpal tunnel repair Past Anesthesia/Blood Transfusion Reactions: No Reported Reaction Past Psychological History: No Psychological Hx Reported Smoking Status: Never smoker Past Alcohol Use History: None Reported Past Drug Use History: None Reported - Past Family History Father Family Medical History: Cancer Mother Family Medical History: Cancer, Deep Vein Thrombosis (DVT) Additional Family Medical History / Comment(s): bone General Exam Limitations: altered mental status General appearance: alert, in distress Head exam: Present: atraumatic, normocephalic, normal inspection Respiratory exam: Present: normal lung sounds bilaterally. Absent: respiratory distress, wheezes, rales, rhonchi, stridor Cardiovascular Exam: Present: regular rate, normal rhythm, normal heart sounds. Absent: systolic murmur, diastolic murmur, rubs, gallop, clicks Extremities exam: Present: other (Tenderness to palpation over the left lateral and medial malleoli. Limited passive range of motion secondary to pain. 2+ derrick salis pedis and tibialis posterior pulses bilaterally.) Neurological exam: Present: alert, oriented X3, CN II-XII intact Psychiatric exam: Present: normal affect, normal mood Course Vital Signs 07/27/22 07/28/22 22:07 01:00 Temperature 98.6 F Pulse Rate 104 H 84 Respiratory 18 15 Rate Blood Pressure 145/103 137/88 O2 Sat by Pulse 99 97 Oximetry Medical Decision Making - Medical Decision Making This is a 72-year-old male who presents to the emergency department for a fall and altered mental status. Was pt. sent in by a medical professional or institution? @ -No Did you speak to anyone other than the patient for history? @ -His Did you review nursing and triage notes? @ -Yes, and I agree, it is accurate with regards to the patient's symptoms. Were old charts reviewed? @ -No Differential Diagnosis? @ -Differential Altered Mental Status: Hypoglycemia, DKA, hypercapnia, ETOH, overdose, CO poisoning, trauma, myxedema c shahana, HTN encephalopathy, infection, encephalitis, psychosis, intercranial hemorrhage, hepatic encephalopathy, meningitis, CVA, this is not meant to be an all-inclusive list X-rays interpreted by me (1pt min.)? @ -Chest x-ray obtained, my interpretation identifies no localized consolidations or infiltrates. X-ray of the left foot, ankle, and femur obtained. My interpretation identifies no acute fractures or dislocations. CT interpreted by me (1pt min.)? @ -Computed tomography scan of the brain obtained. My interpretation identifies no evidence of an acute intracranial hemorrhage or mass. What testing was considered but not performed? (CT, X-rays, U/S, labs)? Why? @ -None What meds were considered but not given? Why? @ -None Did you discuss the management of the patient with other professionals? @ -No Did you reconcile home meds? @ -No Was smoking cessation discussed for >3mins.? @ -No Was critical care preformed (if so, how long)? @ -No Were there social determinants of health that impacted care today? How? (Homelessness, low income, unemployed, alcoholism, drug addiction, transportation, low edu. Level, literacy, decrease access to med. care, [facility], rehab)? @ -No Was there de-escalation of care discussed even if they declined? (Discuss DNR or withdrawal of care, Hospice)? @ -No What co-morbidities impacted this encounter? (DM, HTN, Smoking, COPD, CAD, Cancer, CVA, Hep., AIDS, mental health diagnosis, sleep apnea, morbid obesity)? @ -HTN, HLD, morbid obesity, a-fib. Was patient admitted / discharged? @ -Lab work obtained and found to be nonactionable. When compared with prior values, there were no significant changes in any of the numbers. Urinalysis was negative for any signs of infection. CT scan of the brain identifies no evidence of ischemic changes or an acute intracranial hemorrhage. Imaging of the left lower extremity and chest was obtained, also revealing no acute findings. He did require multiple doses of pain medication to control the pain in his left ankle and hip, including morphine, Dilaudid, and Toradol. This was discussed with his family, who state that they're concerned about his safety with the acute onset hallucinations and they are not comfortable bringing him home. Additionally, because of the fall he is struggling to walk, making his family even more concerned about bringing him home. Patient will be admitted to medicine for acute onset hallucinations with neurology consult. Undiagnosed new problem with uncertain prognosis? @ -Hallucinations Drug Therapy requiring intensive monitoring for toxicity (Heparin, Nitro, Insulin, Cardizem)? @ -None Were any procedures done? @ -None Diagnosis/symptom? @ -Hallucinations Acute, or Chronic, or Acute on Chronic? @ -Acute Uncomplicated (without systemic symptoms) or Complicated (systemic symptoms)? @ -Complicated Side effects of treatment? @ -None Exacerbation, Progression, or Severe Exacerbation] @ -Not applicable Poses a threat to life or bodily function? @ -Yes This case was discussed in detail with the attending ED physician, Dr. Snyder. Presentation, findings, and treatment plan discussed in detail as well. - Lab Data Result diagrams: 07/27/22 22:40 07/27/22 22:40 Lab Results 07/27/22 07/27/22 07/27/22 Range/Units 22:40 22:40 22:40 WBC 5.0 (3.8-10.6) k/uL RBC 3.57 L (4.30-5.90) m/uL Hgb 11.4 L (13.0-17.5) gm/dL Hct 34.3 L (39.0-53.0) % MCV 96.1 (80.0-100.0) fL MCH 31.9 (25.0-35.0) pg MCHC 33.2 (31.0-37.0) g/dL RDW 13.7 (11.5-15.5) % Plt Count 133 L (150-450) k/uL MPV 7.4 Neutrophils % 67 % Lymphocytes % 16 % Monocytes % 8 % Eosinophils % 5 % Basophils % 1 % Neutrophils # 3.3 (1.3-7.7) k/uL Lymphocytes # 0.8 L (1.0-4.8) k/uL Monocytes # 0.4 (0-1.0) k/uL Eosinophils # 0.2 (0-0.7) k/uL Basophils # 0.0 (0-0.2) k/uL PT 11.6 (9.0-12.0) sec INR 1.1 (<1.2) APTT 27.2 (22.0-30.0) sec Sodium 140 (137-145) mmol/L Potassium 4.3 (3.5-5.1) mmol/L Chloride 107 (98-107) mmol/L Carbon Dioxide 32 H (22-30) mmol/L Anion Gap 1 mmol/L BUN 32 H (9-20) mg/dL Creatinine 0.90 (0.66-1.25) mg/dL Est GFR (CKD-EPI)AfAm >90 (>60 ml/min/1.73 sqM) Est GFR (CKD-EPI)NonAf 85 (>60 ml/min/1.73 sqM) Glucose 140 H (74-99) mg/dL Calcium 9.1 (8.4-10.2) mg/dL Total Bilirubin 0.7 (0.2-1.3) mg/dL AST 46 (17-59) U/L ALT 28 (4-49) U/L Alkaline Phosphatase 104 (38-126) U/L Troponin I (0.000-0.034) ng/mL Total Protein 6.2 L (6.3-8.2) g/dL Albumin 3.7 (3.5-5.0) g/dL Urine Color Urine Appearance (Clear) Urine pH (5.0-8.0) Ur Specific [place] (1.001-1.035) Urine Protein (Negative) Urine Glucose (UA) (Negative) Urine Ketones (Negative) Urine Blood (Negative) Urine Nitrite (Negative) Urine Bilirubin (Negative) Urine Urobilinogen (<2.0) mg/dL Ur Leukocyte Esterase (Negative) Urine RBC (0-5) /hpf Urine WBC (0-5) /hpf Hyaline Casts (0-2) /lpf Urine Mucus (None) /hpf Influenza Type A (PCR) (Not Detectd) Influenza Type B (PCR) (Not Detectd) RSV (PCR) (Not Detectd) SARS-CoV-2 (PCR) (Not Detectd) 07/27/22 07/27/22 07/28/22 Range/Units 22:40 22:43 00:38 WBC (3.8-10.6) k/uL RBC (4.30-5.90) m/uL Hgb (13.0-17.5) gm/dL Hct (39.0-53.0) % MCV (80.0-100.0) fL MCH (25.0-35.0) pg MCHC (31.0-37.0) g/dL RDW (11.5-15.5) % Plt Count (150-450) k/uL MPV Neutrophils % % Lymphocytes % % Monocytes % % Eosinophils % % Basophils % % Neutrophils # (1.3-7.7) k/uL Lymphocytes # (1.0-4.8) k/uL Monocytes # (0-1.0) k/uL Eosinophils # (0-0.7) k/uL Basophils # (0-0.2) k/uL PT (9.0-12.0) sec INR (<1.2) APTT (22.0-30.0) sec Sodium (137-145) mmol/L Potassium (3.5-5.1) mmol/L Chloride (98-107) mmol/L Carbon Dioxide (22-30) mmol/L Anion Gap mmol/L BUN (9-20) mg/dL Creatinine (0.66-1.25) mg/dL Est GFR (CKD-EPI)AfAm (>60 ml/min/1.73 sqM) Est GFR (CKD-EPI)NonAf (>60 ml/min/1.73 sqM) Glucose (74-99) mg/dL Calcium (8.4-10.2) mg/dL Total Bilirubin (0.2-1.3) mg/dL AST (17-59) U/L ALT (4-49) U/L Alkaline Phosphatase (38-126) U/L Troponin I <0.012 (0.000-0.034) ng/mL Total Protein (6.3-8.2) g/dL Albumin (3.5-5.0) g/dL Urine Color Yellow Urine Appearance Clear (Clear) Urine pH 6.5 (5.0-8.0) Ur Specific [place] 1.021 (1.001-1.035) Urine Protein Negative (Negative) Urine Glucose (UA) Negative (Negative) Urine Ketones Negative (Negative) Urine Blood Trace H (Negative) Urine Nitrite Negative (Negative) Urine Bilirubin Negative (Negative) Urine Urobilinogen <2.0 (<2.0) mg/dL Ur Leukocyte Esterase Negative (Negative) Urine RBC 7 H (0-5) /hpf Urine WBC 1 (0-5) /hpf Hyaline Casts 3 H (0-2) /lpf Urine Mucus Rare H (None) /hpf Influenza Type A (PCR) Not Detected (Not Detectd) Influenza Type B (PCR) Not Detected (Not Detectd) RSV (PCR) Not Detected (Not Detectd) SARS-CoV-2 (PCR) Not Detected (Not Detectd) - Radiology Data Radiology results: report reviewed, image reviewed Disposition Clinical Impression: Hallucinations, AMS (altered mental status) Disposition: ADMITTED IP TO THIS HOSP
[2022-07-27 22:56] LABS: ALT 28 U/L (4-49); AST 46 U/L (17-59); African American GFR (CKD) >90 (>60 ml/min/1.73 sqM); Albumin 3.7 g/dL (3.5-5.0); Alkaline Phosphatase 104 U/L (38-126); Anion Gap 1 mmol/L; Blood Urea Nitrogen 32 mg/dL (9-20); Calcium 9.1 mg/dL (8.4-10.2); Carbon Dioxide 32 mmol/L (22-30); Chloride 107 mmol/L (98-107); Glucose 140 mg/dL (74-99); Non-African American GFR(CKD) 85 (>60 ml/min/1.73 sqM); Sodium 140 mmol/L (137-145); Total Bilirubin 0.7 mg/dL (0.2-1.3); Total Protein 6.2 g/dL (6.3-8.2)
--- NOTE | 2022-07-27 23:03 | XR ---
EXAMINATION TYPE: XR foot limited LT DATE OF EXAM: 07/27/2022 COMPARISON: NONE HISTORY: Fall. Pain TECHNIQUE: 2 views FINDINGS: There is plantar calcaneal spurring. There is multiple hammertoe deformity no fracture seen . IMPRESSION: Hammertoe deformities. No fracture.
--- NOTE | 2022-07-27 23:06 | XR ---
EXAMINATION TYPE: XR ankle complete LT DATE OF EXAM: 07/27/2022 COMPARISON: NONE HISTORY: Fall. Pain TECHNIQUE: 3 views FINDINGS: Ankle mortise is anatomic. There is plantar and Achilles calcaneal spurring. No fracture se en. IMPRESSION: Mild soft tissue swelling around the ankle. No fracture seen.
[2022-07-27 23:07] LABS: INR 1.1 (<1.2); Partial Thromboplastin Time 27.2 sec (22.0-30.0); Prothrombin Time 11.6 sec (9.0-12.0)
--- NOTE | 2022-07-27 23:08 | XR ---
EXAMINATION TYPE: XR chest 1V DATE OF EXAM: 07/27/2022 COMPARISON: 06/05/2022 HISTORY: Short of breath TECHNIQUE: Single view FINDINGS: There is no heart failure nor confluent pneumonic infiltrate. Costophrenic angles are clear . There are chest leads. IMPRESSION: No active cardiopulmonary disease. No change.
[2022-07-27 23:10] LABS: Potassium 4.3 mmol/L (3.5-5.1)
--- NOTE | 2022-07-27 23:10 | XR ---
EXAMINATION TYPE: XR femur LT DATE OF EXAM: 07/27/2022 COMPARISON: NONE HISTORY: Fall. Altered mental status TECHNIQUE: 4 views FINDINGS: There is no evidence of fracture nor dislocation. Hip joint appears intact. There is some d epression of the medial tibial plateau at the knee joint. IMPRESSION: No evidence of femoral fracture. Deformity of the medial tibial plateau that could be due to depression fracture of uncertain age.
[2022-07-27] MEDS ORDERED: HYDROmorphone 0.5 MG/0.5 ML SYRINGE IVP STA (23:47)
[2022-07-27] MEDS ORDERED: KETOROLAC 15 MG/ML 1 ML VIAL IVP STA (23:47)
[2022-07-28 01:15] LABS: Appearance,Urine Clear (Clear); Bilirubin,Urine Negative (Negative); Blood,Urine Trace (Negative); Color,Urine Yellow; Glucose,Urine (UA) Negative (Negative); Hyaline Casts,Urine 3 /lpf (0-2); Ketones,Urine Negative (Negative); Leukocyte Esterase,Urine Negative (Negative); Mucus,Urine Rare /hpf; Nitrite,Urine Negative (Negative); PH, Urine 6.5 (5.0-8.0); Protein,Urine Negative (Negative); RBC,Urine 7 /hpf (0-5); Specific Gravity,Urine 1.021 (1.001-1.035); Urobilinogen,Urine <2.0 mg/dL (<2.0); WBC,Urine 1 /hpf (0-5)
[2022-07-28] MEDS ORDERED: HYDROmorphone 0.5 MG/0.5 ML SYRINGE IVP STA (02:16)
--- NOTE | 2022-07-28 02:16 | CT ---
EXAMINATION TYPE: CT brain wo con DATE OF EXAM: 07/28/2022 COMPARISON: None HISTORY: hallucinations CT DLP: 1232.2 mGycm Automated exposure control for dose reduction was used. There is mild enlargement of the ventricles. There is cerebral atrophy. There is no mass effect or mi dline shift. No sign of intracranial hemorrhage. Calvarium is intact. There is some left side occipit al scalp soft tissue swelling. IMPRESSION: Cerebral atrophy. Mild hydrocephalus. No acute intracranial abnormality. Small left occipital scalp s welling or hematoma.
[2022-07-28] MEDS ORDERED: ACETAMINOPHEN TAB 325 MG TAB PO PRN (02:26)
[2022-07-28] MEDS ORDERED: ONDANSETRON 4 MG/2 ML VIAL IVP PRN (02:26)
[2022-07-28] MEDS ORDERED: NALOXONE 0.4 MG/ML 1 ML VIAL IV PRN (02:26)
[2022-07-28] MEDS ORDERED: MORPHINE SULFATE 4 MG/ML SYRINGE IVP PRN (02:28)
[2022-07-28] MEDS ORDERED: MORPHINE SULFATE 2 MG/ML SYRINGE IVP PRN (02:28)
--- NOTE | 2022-07-28 04:03 | P.HPIM ---
History of Present Illness H&P Date: 07/28/22 Chief Complaint: DELERIUM 72 year old male with afib on xarelto , JUDI , hypertension , diastolic chf patient was brought in by family for confusion and hallucinations. it is reported that patient is seeing shadows and hearing voices around the house . patient is pleasant and cooperative at time of my interview , he seems to be alert and oriented, and answers questions appropriately . he claims that he has been having episodes of confusion for the past 2.5 weeks. usually short lived, denies any changes in his meds, denies any falls, except today when he lost his balance and fell to his side. denies passing out or head injury , denies any focal neuro deficits, denies any changes in vision or hearing . patient denies any illicit drugs, or heavy alcohol patient denies any fever, chills, URI symptoms , changes in urinary or bowel habits. denies any abd pain , or chest pain . patient was having discomfort over his knees and hip due to fall earlier today . imaging in the ED of his ankle, knee and femur no acute fractures CXR no acute pathology CT brain no acute pathology EKG no acute ST changes acute respiratory viral panel negative urinalysis no acute infection blood work, chronic anemia , and mild thrombocytopenia Review of Systems Pertinent positives as noted in HPI. All other systems were reviewed and are negative Past Medical History Past Medical History: Atrial Fibrillation, Atrial Flutter, Deep Vein Thrombosis (DVT), GERD/Reflux, Hyperlipidemia, Hypertension, Osteoarthritis (OA) Additional Past Medical History / Comment(s): ? SEIZURE 2015. using a walker History of Any Multi-Drug Resistant Organisms: None Reported Past Surgical History: Joint Replacement, Orthopedic Surgery Additional Past Surgical History / Comment(s): total R knee arthroplasty. Rt FOOT SURGERY, Rt carpal tunnel repair Past Anesthesia/Blood Transfusion Reactions: No Reported Reaction Past Psychological History: No Psychological Hx Reported Smoking Status: Never smoker Past Alcohol Use History: None Reported Past Drug Use History: None Reported - Past Family History Father Family Medical History: Cancer Mother Family Medical History: Cancer, Deep Vein Thrombosis (DVT) Additional Family Medical History / Comment(s): bone Medications and Allergies Home Medications Medication Instructions Recorded Confirmed Type Aspirin EC [Ecotrin Low Dose] 81 mg PO DAILY 08/07/15 06/05/22 History Atorvastatin [Lipitor] 20 mg PO HS 08/07/15 06/05/22 History Multivitamins, Thera [Multivitamin 1 tab PO DAILY 08/07/15 06/05/22 History (formulary)] Omeprazole [PriLOSEC] 20 mg PO HS 08/07/15 06/05/22 History Sertraline [Zoloft] 50 mg PO DAILY 08/07/15 06/05/22 History Fluticasone Propionate [Flonase 2 spray EA NOSTRIL DAILY PRN 07/26/19 06/05/22 History Allergy Relief] calcium polycarbophiL [Fibercon] 625 mg PO HS 01/19/20 06/05/22 History Cholecalciferol [Vitamin D3 (25 50 mcg PO DAILY 05/01/22 06/05/22 History Mcg = 1000 Iu)] Cyanocobalamin (Vitamin B-12) 1,000 mcg PO DAILY 05/01/22 06/05/22 History [Vitamin B-12] Ferrous Sulfate [Iron (65 MG 325 mg PO MOFR 05/01/22 06/05/22 History Elemental)] Rivaroxaban [Xarelto] 20 mg PO DAILY 05/01/22 06/05/22 History Doxazosin [Cardura] 4 mg PO DAILY 06/05/22 06/05/22 History hydrOXYzine HCL [Atarax] 25 mg PO HS PRN 06/05/22 06/05/22 History Acetaminophen Tab [Tylenol] 650 mg PO Q6HR PRN tab 06/09/22 Rx Doxazosin [Cardura] 4 mg PO HS #0 06/09/22 06/05/22 Rx Furosemide [Lasix] 40 mg PO DAILY tab 06/09/22 Rx HYDROcodone/APAP 7.5-325MG [[place] 1 each PO Q4H PRN #18 tab 06/09/22 Rx 7.5-325] methocarbamoL [Robaxin] 1,000 mg PO TID PRN tab 06/09/22 Rx Lidocaine 5% Patch [Lidoderm 5% 1 patch TOPICAL Q24HR patch 06/12/22 Rx Patch] Potassium Chloride [Potassium 10 meq PO DAILY #30 tab 06/12/22 Rx Chloride ER] modafiniL [Provigil] 200 mg PO DAILY 3 Days #3 tablet 06/12/22 Rx Allergies Allergy/AdvReac Type Severity Reaction Status Date / Time alprazolam [From Xanax] Allergy Unknown Unknown Verified 06/05/22 14:52 cyclobenzaprine HCl Allergy Unknown Unknown Verified 06/05/22 14:52 [From Flexeril] memantine HCl [From Namenda] Allergy Unknown Unknown Verified 06/05/22 14:52 promethazine HCl Allergy Unknown Unknown Verified 06/05/22 14:52 [From Phenergan] quetiapine fumarate Allergy Unknown Unknown Verified 06/05/22 14:52 [From Seroquel] Physical Exam Vitals: Vital Signs Temp Pulse Resp BP Pulse Ox 07/27/22 22:07 98.6 F 104 H 18 145/103 99 Intake and Output 07/27/22 07/27/22 07/28/22 14:59 22:59 06:59 Other: Weight 108.862 kg Constitutional: No acute distress, conversant, pleasant Eyes: Anicteric sclerae, moist conjunctiva, Pupils equal round reactive to light ENMT: NC/AT, no open wounds, cuts or bruising or swelling Oropharynx clear, no erythema, or exudates Neck: Supple, no masses, or JVD No carotid bruits No thyromegaly Lungs: Clear to auscultation Clear to percussion Normal respiratory effort, no accessory muscle use Cardiovascular: Heart regular in rate and rhythm, No murmurs, gallops, or rubs trace bilateral peripheral edema Abdominal: Soft Nontender, no guarding, rebound or rigidity Abdomen moving with respiration Normoactive bowel sounds No hepatomegaly, No splenomegaly No palpable mass No abdominal wall hernia noted Skin: chronic skin changes over bilateral lower extremities , otherwise Normal temperature, tone, texture, turgor Extremities: No digital cyanosis No clubbing post tibial pulses intact and symmetrical Radial pulses intact and symmetrical No calf tenderness Psychiatric: Alert and oriented to person, place and time Appropriate affect fair judgment Neuro Muscles Strength 5/5 in bilateral upper extremities , and 4/5 bilateral lower extremities Sensation to light touch grossly present throughout Cranial nerves II-XII grossly intact Lymphatics: no palpable cervical or supraclavicular lymph nodes Results CBC & Chem 7: 07/27/22 22:40 07/27/22 22:40 Labs: Abnormal Lab Results - Last 24 Hours (Table) 07/27/22 07/27/22 07/28/22 Range/Units 22:40 22:40 00:38 RBC 3.57 L (4.30-5.90) m/uL Hgb 11.4 L (13.0-17.5) gm/dL Hct 34.3 L (39.0-53.0) % Plt Count 133 L (150-450) k/uL Lymphocytes # 0.8 L (1.0-4.8) k/uL Carbon Dioxide 32 H (22-30) mmol/L BUN 32 H (9-20) mg/dL Glucose 140 H (74-99) mg/dL Total Protein 6.2 L (6.3-8.2) g/dL Urine Blood Trace H (Negative) Urine RBC 7 H (0-5) /hpf Hyaline Casts 3 H (0-2) /lpf Urine Mucus Rare H (None) /hpf Assessment and Plan Assessment: episodes of delerium and confusion , resolved now fall at home check ABG in AM, I suspect a component of chronic hypercapnic respiratory failure, follow by episodes of acute hypercapnia especially after sleeping neuro checks CT brain no acute intracranial pathology neuro consult UA , does not show acute infection elevated bicarb (CO2) on renal panel , otherwise no other electrolyte abnormalities fall precautions chronic conditions chronic mild anemia , stable , denies GI bleeding afib on xarelto , recent fall , and episodes of confusion , await neuro eval , await PT eval , resume xarelto at home if patient deemed to be safe hypertension , blood pressure controlled JUDI , encourage to use CPAP diastolic chf , compensated. full code DVT PPX on xarelto for afib
[2022-07-28 05:16] LABS: ABG Base Excess 5.4 mmol/L; ABG HCO3 30 mmol/L (21-25); ABG Oxygen Saturation 96.6 % (94-97); ABG PCO2 47 mmHg (35-45); ABG PH 7.42 (7.35-7.45); ABG PO2 79 mmHg (83-108); ABG TCO2 31 mmol/L (19-24); Allen Test Performed? Yes
[2022-07-28] MEDS: SODIUM CHLORIDE 0.9% 1,000 ML IV SCH ×2 (05:37→20:25)
[2022-07-28] MEDS ORDERED: PANTOPRAZOLE 40 MG/10 ML VIAL IV SCH (09:00)
--- NOTE | 2022-07-28 11:08 | P.CNNES ---
History of Present Illness Consult date: 07/28/22 Requesting physician: Farnaz Virgen Reason for Consult: acute onset hallucination History of Present Illness: This is a 72-year-old gentleman with questionable seizure in 2015 who presented emergency department because of confusion and hallucination. Some of the history is obtained from medical record. According to the patient for the last two and half weeks he's been seeing animals and he stated that he seeing a r accoon and sometimes urine voices. According to him and the voices sound to take care better with his health. It seems he's been having confusion for the last 2 and half weeks. Per the ED note he seeing shadows and hearing voices around the house. He feels he had an episode of loss of balance yesterday and felt his side. It seems he has restless legs recently as well. Denies any past episode or head injury. Patient denies of any fever recently, headache, focal weakness, visual changes. Denies change in his medication. Denies any heavy alcohol use any illicit drug use. Upon reviewing his medical record seems the patient had a questionable seizure in 2014. She could not tell me regarding the incidence but he stated it was questionable. He has history of atrial fibrillation as well as DVT and is on Xarelto and ASA. Some other workup during his hospital visit consisted of: So far the patient has been afebrile in during this hospital visit. White blood cell is 5.0 thousand which is within normal limits. Initial serum glucose is 140, AST ALT is within normal limits, sodium at the end calcium is within normal limits. SARS-CoV-2 PCR was not detected. RSV/fluency A/B PCR was not detected CT of the head is reported as cerebral atrophy. Mild hydrocephalus. No acute cranial abnormality. Small left occipital scalp swelling or hematoma. I personally reviewed that a CT of the head and I do not appreciate any acute subacute ischemia, no mass effect, no temporal hemorrhage. I feel he has generalized atrophy appropriate for his age. I do not appreciate any hydrocephalus in my opinion in perspective to his atrophy. Review of Systems Review of system: The 12 point system was reviewed and apparent positive and negative per HPI. Past Medical History Past Medical History: Atrial Fibrillation, Atrial Flutter, Deep Vein Thrombosis (DVT), GERD/Reflux, Hyperlipidemia, Hypertension, Osteoarthritis (OA) Additional Past Medical History / Comment(s): ? SEIZURE 2014. using a cane History of Any Multi-Drug Resistant Organisms: None Reported Past Surgical History: Joint Replacement, Orthopedic Surgery Additional Past Surgical History / Comment(s): total R knee arthroplasty. Rt FOOT SURGERY, Rt carpal tunnel repair Past Anesthesia/Blood Transfusion Reactions: No Reported Reaction Past Psychological History: No Psychological Hx Reported Smoking Status: Never smoker Past Alcohol Use History: None Reported Past Drug Use History: None Reported - Past Family History Father Family Medical History: Cancer Mother Family Medical History: Cancer, Deep Vein Thrombosis (DVT) Additional Family Medical History / Comment(s): bone Medications and Allergies Home Medications Medication Instructions Recorded Confirmed Type Aspirin EC [Ecotrin Low Dose] 81 mg PO DAILY 08/07/15 06/05/22 History Atorvastatin [Lipitor] 20 mg PO HS 08/07/15 06/05/22 History Multivitamins, Thera [Multivitamin 1 tab PO DAILY 08/07/15 06/05/22 History (formulary)] Omeprazole [PriLOSEC] 20 mg PO HS 08/07/15 06/05/22 History Sertraline [Zoloft] 50 mg PO DAILY 08/07/15 06/05/22 History Fluticasone Propionate [Flonase 2 spray EA NOSTRIL DAILY PRN 07/26/19 06/05/22 History Allergy Relief] calcium polycarbophiL [Fibercon] 625 mg PO HS 01/19/20 06/05/22 History Cholecalciferol [Vitamin D3 (25 50 mcg PO DAILY 05/01/22 06/05/22 History Mcg = 1000 Iu)] Cyanocobalamin (Vitamin B-12) 1,000 mcg PO DAILY 05/01/22 06/05/22 History [Vitamin B-12] Ferrous Sulfate [Iron (65 MG 325 mg PO MOFR 05/01/22 06/05/22 History Elemental)] Rivaroxaban [Xarelto] 20 mg PO DAILY 05/01/22 06/05/22 History Doxazosin [Cardura] 4 mg PO DAILY 06/05/22 06/05/22 History hydrOXYzine HCL [Atarax] 25 mg PO HS PRN 06/05/22 06/05/22 History Acetaminophen Tab [Tylenol] 650 mg PO Q6HR PRN tab 06/09/22 Rx Doxazosin [Cardura] 4 mg PO HS #0 06/09/22 06/05/22 Rx Furosemide [Lasix] 40 mg PO DAILY tab 06/09/22 Rx HYDROcodone/APAP 7.5-325MG [[place] 1 each PO Q4H PRN #18 tab 06/09/22 Rx 7.5-325] methocarbamoL [Robaxin] 1,000 mg PO TID PRN tab 06/09/22 Rx Lidocaine 5% Patch [Lidoderm 5% 1 patch TOPICAL Q24HR patch 06/12/22 Rx Patch] Potassium Chloride [Potassium 10 meq PO DAILY #30 tab 06/12/22 Rx Chloride ER] modafiniL [Provigil] 200 mg PO DAILY 3 Days #3 tablet 06/12/22 Rx Allergies Allergy/AdvReac Type Severity Reaction Status Date / Time alprazolam [From Xanax] Allergy Unknown Unknown Verified 06/05/22 14:52 cyclobenzaprine HCl Allergy Unknown Unknown Verified 06/05/22 14:52 [From Flexeril] memantine HCl [From Namenda] Allergy Unknown Unknown Verified 06/05/22 14:52 promethazine HCl Allergy Unknown Unknown Verified 06/05/22 14:52 [From Phenergan] quetiapine fumarate Allergy Unknown Unknown Verified 06/05/22 14:52 [From Seroquel] Physical Examination - Vital Signs Vital Signs: Vital Signs Temp Pulse Pulse Resp BP BP Pulse Ox 07/28/22 07:00 98.7 F 96 16 142/80 95 07/28/22 03:37 98.0 F 100 20 142/77 98 07/28/22 01:00 84 15 137/88 97 07/27/22 22:07 98.6 F 104 H 18 145/103 99 Intake and Output 07/27/22 07/28/22 07/28/22 22:59 06:59 14:59 Output Total 200 Balance -200 Output: Urine 200 Other: Voiding Method Urinal Urinal Weight 108.862 kg 108.862 kg GENERAL: The patient is lying in bed and is not in acute distress. CHEST: The heart rate is regular rate rhythm. No murmurs to auscultation. LUNG: Clear to auscultation bilaterally no wheezing noted throughout. Not labored breathing. ABDOMEN/GI: Bowel sounds present in all 4 quadrants. No tenderness to palpation throughout. NEUROLOGICAL: Higher mental function: The patient is mildly drowsy but is awakeable to voice, oriented to self, place and time. He correctly stated the current state is [place]. Patient is following simple commands. No aphasia and no neglect. Cranial nerves: The pupils are round, equal and reactive to light and accommodation. Visual miller are full to confrontation throughout. Extraocular movement is intact no nystagmus is noted. Facial sensation is normal to touch throughout. The facial strength is normal throughout. Hearing is normal bilaterally to hand rub. Tongue is midline and moved [id number] without any difficulty. No dysarthria is noted. Shoulder shrug is normal bilaterally. Motor: Gait is deferred. The strength is 5 over 5 throughout. Normal tone and bulk. Has brief body jerks, appears, left arm/shoulder, right leg that is extremely brief and patient is responding to questions during the episode Cerebellum: Normal finger to nose bilaterally. Sensation: Sensation is normal to touch throughout. Reflexes (right/left): 1+ throughout. Plantars are mute bilaterally. Results - Laboratory Findings CBC and BMP: 07/27/22 22:40 07/27/22 22:40 Abnormal Lab Findings: Abnormal Labs 07/27/22 07/27/22 07/28/22 22:40 22:40 00:38 RBC 3.57 L Hgb 11.4 L Hct 34.3 L Plt Count 133 L Lymphocytes # 0.8 L ABG pCO2 ABG pO2 ABG HCO3 ABG Total CO2 Carbon Dioxide 32 H BUN 32 H Glucose 140 H Total Protein 6.2 L Urine Blood Trace H Urine RBC 7 H Hyaline Casts 3 H Urine Mucus Rare H 07/28/22 05:12 RBC Hgb Hct Plt Count Lymphocytes # ABG pCO2 47 H ABG pO2 79 L ABG HCO3 30 H ABG Total CO2 31 H Carbon Dioxide BUN Glucose Total Protein Urine Blood Urine RBC Hyaline Casts Urine Mucus Assessment and Plan Assessment: Acute visual and auditory hallucination with repeated brief body jerks/myoclonic jerks: Rule out seizures. One episode of loss of balance and a fall due to above Questionable seizure in 2014 History of atrial fibrillation/flutter on Xarelto History of DVT Hypertension Hyperlipidemia Plan: I ordered MRI the brain with and without STAT to rule out any enhancement not seen on the CAT scan. I ordered Urgent EEG. I have placed patient on Keppra 500mg every 12 hours with loading of 1000mg once because of concern of seizure. If work-up is negative for seizure and clinically it is felt no seizure down the line, recommend weaning him off antiepileptic drugs. I ordered TSH, vitamin B-12, folate, ammonia level Continue neuro checks On fall precaution Placed on seizure precaution and pads. Physical therapy is consulted We'll defer the rest of the medical management to the primary team The plan is discussed with patient, primary team and his nurse. Thank you for the consultation Dr. Lucas will start neurology service tomorrow a.m. Time with Patient: Greater than 30
[2022-07-28] MEDS ORDERED: levETIRAcetam IV 1,000 MG in SALINE 1 100ML.BAG IVPB STA (11:16)
[2022-07-28] MEDS: HYDROcodone/APAP 5-325MG 1 EACH TAB PO PRN ×2 (11:40→18:27)
--- NOTE | 2022-07-28 13:31 | P.PN ---
Progress Note - Text Progress Note Date: 07/28/22 Hospitalist Interval Note Patient seen and examined at bedside. Vital signs reviewed General: non toxic, no distress, appears at stated age Derm: warm, dry, chronic venous stasis dermatitis lower extremities Head: atraumatic, normocephalic, symmetric Eyes: EOMI, no lid lag, anicteric sclera Mouth: no lip lesion, mucus membranes moist Cardiovascular: S1S2 reg, no murmur, positive posterior tibial pulse bilateral, Lungs: CTA bilateral, no rhonchi, no rales , no accessory muscle use Abdominal: soft, nontender to palpation, no guarding, no appreciable organomegaly Ext: no gross muscle atrophy, no edema, no contractures Neuro: CN II-XI grossly intact, no focal neuro deficits Psych: Alert, oriented, appropriate affect Assessment/Plan: Acute metabolic encephalopathy Acute delirium Chronic hypercapnic respiratory failure Metabolic alkalosis - Neurology consulted - Possible seizure-like activity - MRI and EEG pending This is an update note for patient. There is no charge associated with this note.
[2022-07-28] MEDS ORDERED: hydrOXYzine HCL 25 MG TAB PO PRN (14:30)
[2022-07-28] MEDS: FUROSEMIDE 20 MG TAB PO SCH (14:44)
[2022-07-28] MEDS: ASPIRIN 81 MG PO SCH (14:44)
[2022-07-28] MEDS: METOPROLOL SUCCINATE (ER) 25 MG TAB.ER.24H PO SCH (14:44)
[2022-07-28] MEDS: RIVAROXABAN 20 MG TAB PO SCH (20:25)
[2022-07-28] MEDS: DOXAZOSIN 2 MG TAB PO SCH (20:25)
[2022-07-28] MEDS: ATORVASTATIN 20 MG TAB PO SCH (20:25)
[2022-07-28] MEDS: levETIRAcetam 500 MG TAB PO SCH (20:25)
[2022-07-28] MEDS: SERTRALINE 25 MG TAB PO SCH (20:25)
[2022-07-28] MEDS: PANTOPRAZOLE 40 MG TABLET PO SCH (20:25)
[2022-07-29] MEDS: MULTIVITAMINS, THERA 1 EACH TAB PO SCH (11:12)
[2022-07-29] MEDS: POTASSIUM CHLORIDE ER 10 MEQ TAB.ER.PRT PO SCH (11:12)
[2022-07-29] MEDS: ASPIRIN 81 MG PO SCH (11:12)
[2022-07-29] MEDS: FUROSEMIDE 40 MG TAB PO SCH (11:12)
[2022-07-29] MEDS: METOPROLOL SUCCINATE (ER) 25 MG TAB.ER.24H PO SCH (11:12)
[2022-07-29] MEDS: levETIRAcetam 500 MG TAB PO SCH ×2 (11:12→21:33)
--- NOTE | 2022-07-29 11:16 | MR ---
EXAMINATION TYPE: MR brain wo/w con DATE OF EXAM: 07/29/2022 COMPARISON: CT brain 1 day earlier HISTORY: Confusion, seizure protocol TECHNIQUE: Multiplanar, multisequence images of the brain and brainstem is performed without and with IV contras t, utilizing 11 mL intravenous Gadavist . Seizure protocol. FINDINGS: Exam suboptimal as there is motion artifact degradation. Diffusion weighted images demonstr ate no evidence of a recent infarct or other diffusion abnormality. There is mild to moderate ventric ular and sulcal prominence redemonstrated. Degree of ventricular dilatation appears slightly out of p roportion to degree of sulcal effacement. A underlying normal pressure hydrocephalus is not entirely excluded. Correlation with old outside CT and/or MRI would be beneficial. Scattered foci and areas of T2 hyperintensity in the deep and periventricular white matter are noted. T2 Star weighted images sh ow no definitive intraparenchymal blood product. T2 coronal weighted images significantly degraded by motion artifact. Midline structures demonstrate normal morphology. The craniocervical junction appears within normal limits. Post contrast images demonstrate no abnormal enhancement. The dural venous sinuses appear pa tent. The visualized sinuses are clear and the globes are intact. Patchy fluid signal bilateral masto id air cells favors retained secretions. IMPRESSION: There is mild to moderate diffuse cerebral atrophy and nonspecific white matter changes f avor chronic small vessel ischemic change in patient of this age. No abnormal enhancement is seen. No recent infarct. Suboptimal study with motion artifact degradation is noted.
--- NOTE | 2022-07-29 12:26 | EEG ---
ELECTROENCEPHALOGRAM REPORT PREAMBLE: This is a 72-year-old male with myoclonic jerks with confusion. This study is performed to evaluate for any epileptiform activity. CURRENT MEDICATIONS: 1. Lipitor. 2. Lasix. 3. Lynn. 4. Keppra. 5. Toprol. 6. Zofran. 7. Protonix. 8. Zoloft. EEG FINDINGS: This is a 21-channel digital EEG recorded with video component, utilizing 10/20 international system with referential and bipolar montages. Background consists of well developed, well regulated, mixed frequencies of 8 to 9 hertz alpha, with some theta activity seen in bihemispheric region. Background is posterior dominant and seems to be reactive to eye opening and closing. Photic driving response was not clearly seen. Drowsiness and stage 2 sleep was seen with presence of sleep spindles. No focal or generalized epileptiform activity was seen. IMPRESSION: This is a borderline abnormal EEG due to minimal background slowing. This is suggestive of generalized cerebral dysfunction, nonspecific etiology, may be related to mild encephalopathy. No epileptiform activity was seen. MMODL / IJN: [id number] /
--- NOTE | 2022-07-29 14:50 | P.PN ---
Subjective Progress Note Date: 07/29/[address] Patient initially seen by Dr[address] Lior Bajwa. Please refer to his note for details. Came to see patient at 9:15 AM, but he was down for EEG and MRI. Patient is a 72-year-old male with history of questionable seizure in 2014 who came because of visual/auditory hallucinations with myoclonic jerks. Patient w as started on Keppra 500 mg twice a day. Patient denies headache. Patient states that he has been falling at home. He called the police to see what was going on. Patient states that the police keny wed up early and he got up too fast. Patient's [id number] was present, who provided the history as well. He was hospitalized for atrial flutter on 07/12/2022. He was discharged to [facility]. He has been calling police thinking that someone is breaking into his car. He called the police twice. The second time police called the EMS. Prior to arrival of the police, he has fallen by the door. He was found to have atrial fibrillation. Patient's chinfp-[id number] admits to patient having dementia. She mentions that patients slip out of the edge of the bed and slipped on the floor. He has tremors for years, off-and-on, but has got worse. Patient denies any hallucinations at this time. He states once in a while he has a twitch in his leg/foot area. No history of alcoholism or tobacco use. Patient never been , no children. Initial serum glucose is 140, AST ALT is within normal limits, sodium at the end calcium is within normal limits. SARS-CoV-2 PCR was not detected. RSV/fluency A/B PCR was not detected CT of the head is reported as cerebral atrophy. Mild hydrocephalus. No acute cranial abnormality. Small left occipital scalp swelling or hematoma. I personally reviewed that a CT of the head and I do not appreciate any acute subacute ischemia, no mass effect, no temporal hemorrhage. I feel he has generalized atrophy appropriate for his age. I do not appreciate any hydrocephalus in my opinion in perspective to his atrophy. Objective - Vital Signs Vital signs: Vital Signs Temp 98.1 F 07/29/22 07:00 Pulse 85 07/29/22 07:00 Resp 16 07/29/22 07:00 BP 169/79 07/29/22 07:00 Pulse Ox 95 07/29/22 07:00 FiO2 Intake & Output 07/28/22 07/29/22 07/29/22 18:59 06:59 18:59 Intake Total 236 Output Total 950 700 Balance -714 -700 Intake: Oral 236 Output: Urine 950 700 Other: Voiding Method Urinal Urinal Diaper # Voids 4 - Exam Patient is an elderly male, in no acute distress. Patient is alert awake oriented to time place and person. Patient knows it is July and the year is . He says it is in [facility] in [facility]. He knows name of the current president Mr. Petty. He knows his name and date of , and his age. Speech and language functions are normal. Patient can name and repeat very well. No aphasia or dysarthria. Attention, concentration and fund of knowledge is adequate. Detailed testing deferred. On cranial nerve examination, pupils are equal, round and reacting to light, visual miller are full on confrontation, with no neglect on double simultaneous stimulation. Extraocular muscles are intact with no nystagmus. Face is symmetric, tongue protrudes to the midline. Palatal elevation and sensation normal, hearing is slightly decreased and shoulder shrug normal, facial sensation normal. On muscle strength testing, there is no pronator drift and the strength is normal in arms and legs distally and proximally. Sensory to touch is equal with no neglect on double simultaneous stimulation. Cerebellar function showed no ataxia for [id number] testing. No dysdiadochokinesia. Tone and bulk of muscles normal. Gait deferred.. On general examination, there is no carotid bruit or murmur, S1-S2 audible. Chest is clear on consultation. Abdomen is soft nontender. No organomegaly, bowel sounds present. Patient has positive peripheral edema. Some rash on the left. No definitive cellulitis. - Labs CBC & Chem 7: 07/27/22 22:40 07/27/22 22:40 Assessment and Plan Assessment: Acute visual and auditory hallucination with repeated brief body jerks/myoclonic jerks: Doubt seizures. Possible encephalopathy. One episode of loss of balance and a fall due to above Questionable seizure in 2014 History of atrial fibrillation/flutter on Xarelto History of DVT Hypertension Hyperlipidemia Plan: * MRI the brain with and without contrast revealed age-related atrophy and small vessel ischemic disease. No acute process. There is some prominence of the ventricles. Degree of ventricular dilation somewhat out of proportion to the amount of sulcal atrophy. Component of normal pressure hydrocephalus cannot be ruled out. I personally reviewed MRI, agree with the findings. * I will discuss with patient's sister about consideration for ventriculoperitoneal shunt. * EEG revealed mild background slowing suggestive of encephalopathy. No epileptiform activity was seen. * Patient has no definitive evidence of seizures. All workup negative as above. We will wean him off Keppra. * TSH 2.37, vitamin B-12 516, folate 25.8, ammonia level <9, all normal * Continue neuro checks * On fall precaution * Placed on seizure precaution and pads. * Physical therapy and occupational therapy. * We'll defer the rest of the medical management to the primary team
--- NOTE | 2022-07-29 15:42 | P.PN ---
Subjective Progress Note Date: 07/29/22 Hospital course: Patient is a very pleasant 72-year-old male with a past medical history of atrial fibrillation on anticoagulation with Xarelto, hypertension, hyperlipidemia, and possible seizure in 2015. He was brought into the emergency department by his family on 07/28/22 with a chief complaint of confusion and hallucinations. Patient had reportedly been seeing shadows and hearing voices in his home. Patient also reported pain/discomfort to bilateral knees and hip due to previous fall. He underwent full evaluation in the emergency department. CBC showing normocytic anemia with hemoglobin of 11.4. BMP revealing hypercarbia with CO2 of 32 and prerenal azotemia with BUN of 32. Urinalysis negative for infection. Influenza A, influenza B, RSV, and Covid PCR negative. Vitamin B12, folate, and TSH all normal findings. Ammonia negative at less than 9. X-ray left foot showing hammertoe deformity negative for any fracture or acute abnormality. X-ray left ankle showing mild tissue swelling around the ankle negative for acute fracture or abnormality. Chest x-ray negative for acute cardiopulmonary process. Femur fracture negative for femoral fracture revealing deformity of the medial tibial plateau that could be due to depression fracture of uncertain age. CT head negative for acute intercranial process. Patient admitted under our services with consultation to neurology, physical therapy, and occupational therapy. Physical exam: Patient seen and fully evaluated at bedside. Patient currently denies having any pain or complaints. He reports that he continues to have difficulties with ambulation and does not feel steady on his feet. Vital signs reviewed and stable. General: Nontoxic, no distress and appears stated age. Derm: Skin warm and dry, normal coloration for ethnicity. Head: Atraumatic, normocephalic and symmetric. Abrasion/scratch mid forehead. Eyes: EOMs intact, no lid lag, and anicteric sclera Mouth: no lip lesions, mucus membranes moist Cardiovascular: regular rate and rhythm with normal S1S2, no murmur, positive posterior tibial pulses bilaterally, and cap refill < 2 seconds. Lungs: Respirations even, regular, and unlabored on room air. Lungs CTA bilaterally, no rhonchi, no rales, no wheezing, and no accessory muscle usage. Abdominal: soft, nontender to palpation, no guarding, no appreciable organomegaly Ext: ROM intact. No gross muscle atrophy, no edema, no contractures Neuro: Speech clear, face symmetrical and CN II-XII grossly intact with no noted focal neuro deficits Psych: Alert and oriented to person, place, time, and situation. Appropriate and pleasant affect. Assessment and Plan of Care: Acute metabolic encephalopathy Acute delirium Chronic hypercapnic respiratory failure Metabolic alkalosis -Neurology consulted -Neuro checks -Fall precautions and seizure precautions -Possible seizure-like activity -MRI and EEG pending completion -PT/OT consult Left ankle pain/swelling, and difficulties with ambulation. Reports of fall at home prior to arrival -X-ray left foot showing hammertoe deformity negative for any fracture or acute abnormality. -X-ray left ankle showing mild tissue swelling around the ankle negative for acute fracture or abnormality. -Chest x-ray negative for acute cardiopulmonary process. -Femur fracture negative for femoral fracture revealing deformity of the medial tibial plateau that could be due to depression fracture of uncertain age. -PT/OT consulted -Orthopedic surgery consulted -Fall precautions CODE STATUS: Full code DVT prophylaxis: Xarelto Discussed with: Pt and RN Anticipated discharge date:: 1-[address]: Home A total of 38 minutes was spent on the care of this complex patient more than 50% of the time was spent in counseling and care coordination. Carlos Noriega NP rendered care for this patient independently, reviewed the findings and plan as documented in the note above. I did not physically speak with or examine the patient on this date. Objective - Vital Signs Vital signs: Vital Signs Temp 98.1 F 07/29/22 07:00 Pulse 85 07/29/22 07:00 Resp 16 07/29/22 07:00 BP 169/79 07/29/22 07:00 Pulse Ox 95 07/29/22 07:00 FiO2 Intake & Output 07/28/22 07/29/22 07/29/22 18:59 06:59 18:59 Intake Total 236 Output Total 950 700 Balance -714 700 Intake: Oral 236 Output: Urine 950 700 Other: Voiding Method Urinal Urinal Diaper # Voids 4 - Labs CBC & Chem 7: 07/27/22 22:40 07/27/22 22:40
[2022-07-29] MEDS ORDERED: bisacodyL 10 MG SUPP RECTAL STA (16:31)
[2022-07-29] MEDS: SODIUM CHLORIDE 0.9% 1,000 ML IV SCH (20:40)
[2022-07-29] MEDS: DOXAZOSIN 2 MG TAB PO SCH (21:33)
[2022-07-29] MEDS: ATORVASTATIN 20 MG TAB PO SCH (21:33)
[2022-07-29] MEDS: PANTOPRAZOLE 40 MG TABLET PO SCH (21:33)
[2022-07-29] MEDS: SERTRALINE 25 MG TAB PO SCH (21:34)
[2022-07-29] MEDS: polyethylene glycoL 3350 17 GM POWD.PACK PO SCH (21:34)
[2022-07-29] MEDS: RIVAROXABAN 20 MG TAB PO SCH (21:34)
[2022-07-29] MEDS: NYSTATIN 100,000 UNIT/GM POWD 15 GM TOPICAL SCH (21:34)
[2022-07-30] MEDS: NYSTATIN 100,000 UNIT/GM POWD 15 GM TOPICAL SCH ×2 (08:44→20:45)
[2022-07-30] MEDS: ASPIRIN 81 MG PO SCH (08:44)
[2022-07-30] MEDS: levETIRAcetam 500 MG TAB PO SCH (08:44)
[2022-07-30] MEDS: METOPROLOL SUCCINATE (ER) 25 MG TAB.ER.24H PO SCH (08:44)
[2022-07-30] MEDS: MULTIVITAMINS, THERA 1 EACH TAB PO SCH (08:44)
[2022-07-30] MEDS: POTASSIUM CHLORIDE ER 10 MEQ TAB.ER.PRT PO SCH (08:44)
[2022-07-30] MEDS: FUROSEMIDE 20 MG TAB PO SCH (08:44)
--- NOTE | 2022-07-30 08:53 | XR ---
EXAMINATION TYPE: XR knee complete LT DATE OF EXAM: 07/30/2022 COMPARISON: None HISTORY: 72-year-old male with pain, possible fracture TECHNIQUE: 3 views FINDINGS: Generalized soft tissue swelling. There is moderate degenerative change in the medial compartment wit h marginal spurring and joint space narrowing. A 1.0 cm subchondral geode noted in the medial tibial plateau. Minimal degenerative spurring in the patellofemoral compartment. There is a small knee joint effusion. Extensor mechanism appears intact. No displaced fracture seen. IMPRESSION: Moderate medial compartmental OA. There is some lucency in the medial tibial plateau that seems to co rrespond to a 1.0 cm subchondral geode relating to the degenerative change. A small knee joint effusi on may be reactive. If persistent concern for occult osseous injury, MRI can be considered.
--- NOTE | 2022-07-30 09:10 | P.CNOR ---
History of Present Illness - [facility] Consult date: 07/30/22 Requesting physician: Carlos Noriega Consult reason: other (xray revealing deformity of the medial tibial plateau, left ankle pain) History of present illness: patient is a 72-year-old male who presented the emergency department [facility] on 07/27/2022 for altered mental status. Orthopedics has been consulted for left ankle pain/deformity of the left medial tibial plateau. Patient says he is currently having some pain behind the left knee that does radiate down the left leg into the foot. patient says he normally does take Advil at home for pain. Patient cannot recall having any falls/traumas recently. Patient says normally he ambulates at home using a walker. Patient Patient says he did have a previous right total knee arthroplasty but cannot recall how long ago it was. Patient did have left knee arthroscopy performed in 01/[address] Gibson. Patient does seem to be somewhat confused and lethargic during encounter. Patient fell asleep multiple times during encounter. patient denies chest pain, fever, shortness of breath, nausea, vomiting, change in vision, loss of bowel/bladder control. Past Medical History Past Medical History: Atrial Fibrillation, Atrial Flutter, Deep Vein Thrombosis (DVT), GERD/Reflux, Hyperlipidemia, Hypertension, Osteoarthritis (OA) Additional Past Medical History / Comment(s): ? SEIZURE 2014. using a cane History of Any Multi-Drug Resistant Organisms: None Reported Past Surgical History: Joint Replacement, Orthopedic Surgery Additional Past Surgical History / Comment(s): total R knee arthroplasty. Rt FOOT SURGERY, Rt carpal tunnel repair Past Anesthesia/Blood Transfusion Reactions: No Reported Reaction Past Psychological History: No Psychological Hx Reported Smoking Status: Never smoker Past Alcohol Use History: None Reported Past Drug Use History: None Reported - Past Family History Father Family Medical History: Cancer Mother Family Medical History: Cancer, Deep Vein Thrombosis (DVT) Additional Family Medical History / Comment(s): bone Medications and Allergies Home Medications Medication Instructions Recorded Confirmed Type Aspirin EC [Ecotrin Low Dose] 81 mg PO DAILY 08/07/15 07/28/22 History Atorvastatin [Lipitor] 20 mg PO HS 08/07/15 07/28/22 History Multivitamins, Thera [Multivitamin 1 tab PO DAILY 08/07/15 07/28/22 History (formulary)] Omeprazole [PriLOSEC] 20 mg PO HS 08/07/15 07/28/22 History Rivaroxaban [Xarelto] 20 mg PO HS 05/01/22 07/28/22 History Doxazosin [Cardura] 2 mg PO HS 06/05/22 07/28/22 History hydrOXYzine HCL [Atarax] 25 mg PO HS PRN 06/05/22 07/28/22 History Potassium Chloride [Potassium 10 meq PO DAILY #30 tab 06/12/22 07/28/22 Rx Chloride ER] Furosemide [Lasix] 20 mg PO Q2D 07/28/22 07/28/22 History Furosemide [Lasix] 40 mg PO Q2D 07/28/22 07/28/22 History Metoprolol Succinate [Metoprolol 25 mg PO DAILY 07/28/22 07/28/22 History Succinate ER] Nystatin 100,000 Unit/gm Powd 1 applic TOPICAL BID 07/28/22 07/28/22 History [Mycostatin Powder] Sertraline [Zoloft] 25 mg PO HS 07/28/22 07/28/22 History Allergies Allergy/AdvReac Type Severity Reaction Status Date / Time alprazolam [From Xanax] Allergy Unknown Unknown Verified 07/28/22 14:06 cyclobenzaprine HCl Allergy Unknown Unknown Verified 07/28/22 14:06 [From Flexeril] memantine HCl [From Namenda] Allergy Unknown Unknown Verified 07/28/22 14:06 promethazine HCl Allergy Unknown Unknown Verified 07/28/22 14:06 [From Phenergan] quetiapine fumarate Allergy Unknown Unknown Verified 07/28/22 14:06 [From Seroquel] Physical Examination inspection: Negative for any fractures, significant ecchymosis/erythema/ulcers. very minimal knee effusion left knee Sensation: Sensation is equal, symmetric, bilaterally intact throughout the upper and lower extremities. Palpation: There is some mild tenderness to palpation over the left knee medial joint line and medial femoral epicondyle. There is also some TTP on posterior knee. NTTP throughout rest of exam. Minimal knee effusion ROM: Patient lacks 15 degrees full extension left knee. 105 degrees flexion left knee. patient does have some limited range of motion in the left ankle and dorsi/plantar flexion due to pain. Patient has limited range of motion in the left hip in flexion/extension due to weakness. patient has full range of motion in right upper extremity and right lower extremity on exam. There is some limited range of motion in the left shoulder and forward elevation due to pain. Patient has full range of motion in left elbow and left wrist in flexion/extension motor: 4/5 in resisted left hip flexion/extension, left knee flexion/extension, left ankle dorsi/plantar flexion. 5/5 in all other major motor groups Neurovascular status: Radial pulses intact, 2+ bilaterally. Cap refill under 3 seconds in digits upper extremities. Special tests: Negative Homans bilaterally. Results - Labs Labs: H & H 07/27/22 Range/Units 22:40 Hgb 11.4 L (13.0-17.5) gm/dL Hct 34.3 L (39.0-53.0) % Coagulation 07/27/22 Range/Units 22:40 INR 1.1 (<1.2) Result Diagrams: 07/27/22 22:40 07/27/22 22:40 - Diagnostic results Knee x-ray: report reviewed, image reviewed (x-rays of left knee demonstrate medial compartment osteoarthritis likely contributing to symptoms. Small lucency in medial tibial plateau likely related to degenerative changes.) Assessment and Plan Assessment: 1. Left knee pain 2. Left knee medial compartment OA Plan: 1. Left knee pain; Left knee medial compartment OA - x-rays of left knee demonstrate medial compartment osteoarthritis likely contributing to symptoms. Small lucency in medial tibial plateau likely related to degenerative changes. At this time we're not recommending any emergent/urgent orthopedic surgical intervention. Patient may benefit from anti-inflammatory medications and Tylenol for pain control. Patient may weight-bear as tolerated with walker and assistance. We recommend patient to follow-up in the outpatient setting with Dr. Gibson for further evaluation. Patient is stable from an orthopedic standpoint. We'll continue to be available as needed. 2. Appreciate medical management 3. Pain management - norco; tylenol 4. DVT prophylaxis - xarelto; aspirin 5. GI ppx - protonix; miralax 6. PT/OT - WBAT w/walker and assistance 7. Appreciate consult Time with Patient: Less than 30
--- NOTE | 2022-07-30 12:48 | P.PN ---
Subjective Progress Note Date: 07/30/22 07/30/2022: Patient was seen for a follow-up. Patient is laying comfortably in the bed. He denies any headache, any numbness or tingling, any chest pain or abdominal pain. I spoke to patient's sister on the phone in detail. She states that patient has history of mental health crisis, anxiety and he does not deal well with changes or stress. He does not comply with CPAP or lift chair. He has terrible imbalance partly related to his Charcot feet. He has fallen 3 times recently. He can't put shoes by himself. With the help comes, he does not want to do anything. She is questioning if he can live alone anymore. He is also scheduled for cardiac ablation surgery for arrhythmia on 08/12/2022. Patient is currently on Xarelto and aspirin for atrial fibrillation. He follows up with drum attendant. Patient's sister also mentioned that when he was really young, he had some brain surgery. Their mother would not disclose any more information even at the time she was in her deathbed. Patient's sister states that he has had recent progressive decline. He is terrible with driving. She mentions that patient has never been , has no children. 07/29/2022: Patient initially seen by Dr. Lior Bajwa. Please refer to his note for details. Came to see patient at 9:15 AM, but he was down for EEG and MRI. Patient is a 72-year-old male with history of questionable seizure in 2015 who came because of visual/auditory hallucinations with myoclonic jerks. Patient was started on Keppra 500 mg twice a day. Patient denies headache. Patient states that he has been falling at home. He called the police to see what was going on. Patient states that the police s howed up early and he got up too fast. Patient's xxloph-ex-ngy was present, who provided the history as well. He was hospitalized for atrial flutter on 07/12/2022. He was discharged to [facility]. He has been calling police thinking that someone is breaking into his car. He called the police twice. The second time police called the EMS. Prior to arrival of the police, he has fallen by the door. He was found to have atrial fibrillation. Patient's [id number]-zn-gli admits to patient having dementia. She mentions that patients slip out of the edge of the bed and slipped on the floor. He has tremors for years, off-and-on, but has got worse. Patient denies any hallucinations at this time. He states once in a while he has a twitch in his leg/foot area. No history of alcoholism or tobacco use. Patient never been , no children. Initial serum glucose is 140, AST ALT is within normal limits, sodium at the end calcium is within normal limits. SARS-CoV-2 PCR was not detected. RSV/fluency A/B PCR was not detected CT of the head is reported as cerebral atrophy. Mild hydrocephalus. No acute cranial abnormality. Small left occipital scalp swelling or hematoma. I personally reviewed that a CT of the head and I do not appreciate any acute subacute ischemia, no mass effect, no temporal hemorrhage. I feel he has generalized atrophy appropriate for his age. I do not appreciate any hydrocephalus in my opinion in perspective to his atrophy. Objective - Vital Signs Vital signs: Vital Signs Temp 98.9 F 07/30/22 07:00 Pulse 89 07/30/22 07:00 Resp 18 07/30/22 07:00 BP 151/70 07/30/22 07:00 Pulse Ox 97 07/30/22 07:00 FiO2 Intake & Output 07/29/22 07/30/22 07/30/22 18:59 06:59 18:59 Intake Total 118 236 Output Total 620 770 220 Balance -502 -770 16 Intake: Oral 118 236 Output: Urine 620 770 220 Other: Voiding Method Urinal Diaper # Bowel Movements 1 - Exam Patient is an elderly male, in no acute distress. Patient is alert awake oriented to time place and person. Patient knows it is July and the year is . He says it is in [facility] in [facility]. He knows name of the current president Mr. Petty. He knows his name and date of , and his age. Speech and language functions are normal. Patient can name and repeat very well. No aphasia or dysarthria. Attention, concentration and fund of knowledge is adequate. Detailed testing deferred. On cranial nerve examination, pupils are equal, round and reacting to light, visual miller are full on confrontation, with no neglect on double simultaneous stimulation. Extraocular muscles are intact with no nystagmus. Face is symmetric, tongue protrudes to the midline. Palatal elevation and sensation normal, hearing is slightly decreased and shoulder shrug normal, facial sensation normal. On muscle strength testing, there is no pronator drift and the strength is normal in arms and legs distally and proximally. Sensory to touch is equal with no neglect on double simultaneous stimulation. Cerebellar function showed no ataxia for [id number]-xi-hjbc testing. No dysdiadochokinesia. Tone and bulk of muscles normal. Gait deferred.. On general examination, there is no carotid bruit or murmur, S1-S2 audible. Chest is clear on consultation. Abdomen is soft nontender. No organomegaly, bowel sounds present. Patient has positive peripheral edema. Some rash on the left. No definitive cellulitis. - Labs CBC & Chem 7: 07/27/22 22:40 07/27/22 22:40 Assessment and Plan Assessment: Acute visual and auditory hallucination with repeated brief body jerks/myoclonic jerks: Doubt seizures. Possible encephalopathy. Possible normal pressure hydrocephalus Recurrent falls Questionable seizure in 2014 History of atrial fibrillation/flutter on Xarelto History of DVT Hypertension Hyperlipidemia Noncompliant with treatment. Plan: * MRI the brain with and without contrast revealed age-related atrophy and small vessel ischemic disease. No acute process. There is some prominence of the ventricles. Degree of ventricular dilation somewhat out of proportion to the amount of sulcal atrophy. Component of normal pressure hydrocephalus cannot be ruled out. I personally reviewed MRI, agree with the findings. * I discussed with patient's sister Jesus on the phone in detail. Informed her about the results of MRI of the brain and possibility of normal pressure hydrocephalus. Patient does have memory disturbance, gait impairment and bladder issues. Patient's sister declined neurosurgical consultation or ventriculoperitoneal shunting because of his previous psych issues, and patient has been noncompliant, he would not follow up with postop care. The stress of surgery/procedure would be too much on him. Also because of atrial flutter fibrillation, the anticoagulation has to be so stopped and would pose risk for CVA. Therefore due to all these reasons, she just wants him to be comfortable, and perhaps transfer to long-term care where he will be happy. * EEG revealed mild background slowing suggestive of encephalopathy. No epi leptiform activity was seen. * Patient has no definitive evidence of seizures. All workup negative as above. We will wean stop Keppra, as it can make behavioral problems worse. * TSH 2.37, vitamin B-12 516, folate 25.8, ammonia level <9, all normal * On fall precaution * Physical therapy and occupational therapy. * Continue his Xarelto, aspirin and statins. * Neurologically cleared for transfer to long-term care. Discussed with patient's sister on phone in detail.
[2022-07-30] MEDS: SODIUM CHLORIDE 0.9% 1,000 ML IV SCH (15:31)
--- NOTE | 2022-07-30 17:02 | P.PN ---
Subjective Progress Note Date: 07/30/22 Hospital course: Patient is a very pleasant 72-year-old male with a past medical history of atrial fibrillation on anticoagulation with Xarelto, hypertension, hyperlipidemia, and possible seizure in 2014. He was brought into the emergency department by his family on 07/28/22 with a chief complaint of confusion and hallucinations. Patient had reportedly been seeing shadows and hearing voices in his home. Patient also reported pain/discomfort to bilateral knees and hip due to previous fall. He underwent full evaluation in the emergency department. CBC showing normocytic anemia with hemoglobin of 11.4. BMP revealing hypercarbia with CO2 of 32 and prerenal azotemia with BUN of 32. Urinalysis negative for infection. Influenza A, influenza B, RSV, and Covid PCR negative. Vitamin B12, folate, and TSH all normal findings. Ammonia negative at less than 9. X-ray left foot showing hammertoe deformity negative for any fracture or acute abnormality. X-ray left ankle showing mild tissue swelling around the ankle negative for acute fracture or abnormality. Chest x-ray negative for acute cardiopulmonary process. Femur fracture negative for femoral fracture revealing deformity of the medial tibial plateau that could be due to depression fracture of uncertain age. CT head negative for acute intercranial process. Patient admitted under our services with consultation to neurology, physical therapy, and occupational therapy. Physical exam: Patient seen and fully evaluated at bedside. Patient currently denies having any pain or complaints. He reports that he continues to have difficulties with ambulation and does not feel steady on his feet. Vital signs reviewed and stable. General: Nontoxic, no distress and appears stated age. Derm: Skin warm and dry, normal coloration for ethnicity. Head: Atraumatic, normocephalic and symmetric. Abrasion/scratch mid forehead. Eyes: EOMs intact, no lid lag, and anicteric sclera Mouth: no lip lesions, mucus membranes moist Cardiovascular: regular rate and rhythm with normal S1S2, no murmur, positive posterior tibial pulses bilaterally, and cap refill < 2 seconds. Lungs: Respirations even, regular, and unlabored on room air. Lungs CTA bilaterally, no rhonchi, no rales, no wheezing, and no accessory muscle usage. Abdominal: soft, nontender to palpation, no guarding, no appreciable organomegaly Ext: ROM intact. No gross muscle atrophy, no edema, no contractures Neuro: Speech clear, face symmetrical and CN II-XII grossly intact with no noted focal neuro deficits Psych: Alert and oriented to person, place, time, and situation. Appropriate and pleasant affect. Assessment and Plan of Care: Acute metabolic encephalopathy Acute delirium Chronic hypercapnic respiratory failure Metabolic alkalosis -Neurology following, clearing patient from neurological standpoint for discharge to [facility] facility. -Neuro checks -Fall precautions and seizure precautions -Possible seizure-like activity -MRI completed, revealing mild to moderate diffuse cerebral atrophy and nonspecific white matter changes favoring chronic small vessel ischemic changes. Neurologist partially reviewed MRI states concerning of possible normal pressure hydrocephalus and spoke with patient and his sister about these concerns and recommending evaluation by neurosurgeon and patient and d his sister declined neurosurg consultation at this time. -EEG reported to be suggestive of generalized cerebral dysfunction -PT/OT consulted, recommended SNF placement Left ankle pain/swelling, and difficulties with ambulation. Reports of fall at home prior to arrival -X-ray left foot showing hammertoe deformity negative for any fracture or acute abnormality. -X-ray left ankle showing mild tissue swelling around the ankle negative for acute fracture or abnormality. -Chest x-ray negative for acute cardiopulmonary process. -Femur fracture negative for femoral fracture revealing deformity of the medial tibial plateau that could be due to depression fracture of uncertain age. -PT/OT consulted -Orthopedic surgery consulted to evaluate for possible brace states patient may weight-bear as needed. -Fall precautions CODE STATUS: Full code DVT prophylaxis: Xarelto Discussed with: Pt and RN Anticipated discharge date:: Patient is medically stable for discharge, awaiting insurance authorization for [facility] facility placement. Anticipated discharge place: [facility] A total of 35 minutes was spent on the care of this complex patient more than 50% of the time was spent in counseling and care coordination. I reviewed the documentation as provided by the ARISTIDES above, who is the original author of this note. I agree with the documented assessment and plan, with the following changes: none Objective - Vital Signs Vital signs: Vital Signs Temp 98.9 F 07/30/22 07:00 Pulse 89 07/30/22 07:00 Resp 18 07/30/22 07:00 BP 151/70 07/30/22 07:00 Pulse Ox 97 07/30/22 07:00 FiO2 Intake & Output 07/29/22 07/30/22 07/30/22 18:59 06:59 18:59 Intake Total 118 Output Total 620 770 Balance -502 770 Intake: Oral 118 Output: Urine 620 770 Other: Voiding Method Urinal Diaper # Bowel Movements 1 - Labs CBC & Chem 7: 07/27/22 22:40 07/27/22 22:40
[2022-07-30] MEDS: SERTRALINE 25 MG TAB PO SCH (20:16)
[2022-07-30] MEDS: PANTOPRAZOLE 40 MG TABLET PO SCH (20:16)
[2022-07-30] MEDS: RIVAROXABAN 20 MG TAB PO SCH (20:16)
[2022-07-30] MEDS: DOXAZOSIN 2 MG TAB PO SCH (20:16)
[2022-07-30] MEDS: polyethylene glycoL 3350 17 GM POWD.PACK PO SCH (20:16)
[2022-07-30] MEDS: ATORVASTATIN 20 MG TAB PO SCH (20:16)
[2022-07-30] MEDS: HYDROcodone/APAP 5-325MG 1 EACH TAB PO PRN (21:52)
[2022-07-31] MEDS: HYDROcodone/APAP 5-325MG 1 EACH TAB PO PRN ×3 (02:09→21:45)
[2022-07-31 03:30] VITALS: RESP 18
[2022-07-31] MEDS: FUROSEMIDE 40 MG TAB PO SCH (08:43)
[2022-07-31] MEDS: METOPROLOL SUCCINATE (ER) 25 MG TAB.ER.24H PO SCH (08:43)
[2022-07-31] MEDS: MULTIVITAMINS, THERA 1 EACH TAB PO SCH (08:43)
[2022-07-31] MEDS: ASPIRIN 81 MG PO SCH (08:43)
[2022-07-31] MEDS: POTASSIUM CHLORIDE ER 10 MEQ TAB.ER.PRT PO SCH (08:44)
[2022-07-31] MEDS: NYSTATIN 100,000 UNIT/GM POWD 15 GM TOPICAL SCH ×2 (08:44→21:45)
--- NOTE | 2022-07-31 10:01 | P.PN ---
Subjective Progress Note Date: 07/31/22 Principal diagnosis: Left knee pain; left knee osteoarthritis Patient was seen at bedside this morning eating breakfast in the semirecumbent position. Patient says his knee is doing much better today. Patient says he was able to take a few steps yesterday with physical therapy. Patient denies any new changes. Patient denies chest pain, fever, shortness breath, nausea, vomiting, change in vision, loss of bowel/bladder control. Objective - Vital Signs Vital signs: Vital Signs Temp 98.6 F 07/31/22 07:00 Pulse 81 07/31/22 07:00 Resp 18 07/31/22 07:00 BP 134/75 07/31/22 07:00 Pulse Ox 95 07/31/22 07:00 FiO2 Intake & Output 07/30/22 07/31/22 07/31/22 18:59 06:59 18:59 Intake Total 354 240 Output Total 2420 800 Balance -2066 -800 240 Intake: Oral 354 240 Output: Urine 2420 800 Other: Voiding Method Urinal Diaper - Exam inspection: Negative for any fractures, significant ecchymosis/erythema/ulcers. very minimal knee effusion left knee Sensation: Sensation is equal, symmetric, bilaterally intact throughout the upper and lower extremities. Palpation: There is some mild tenderness to palpation over the left knee medial joint line and medial femoral epicondyle. There is also some TTP on posterior knee. NTTP throughout rest of exam. Minimal knee effusion ROM: Patient lacks 15 degrees full extension left knee. 105 degrees flexion left knee. patient does have some limited range of motion in the left ankle and dorsi/plantar flexion due to pain. Patient has limited range of motion in the left hip in flexion/extension due to weakness. patient has full range of motion in right upper extremity and right lower extremity on exam. There is some limited range of motion in the left shoulder and forward elevation due to pain. Patient has full range of motion in left elbow and left wrist in flexion/extension motor: 4/5 in resisted left hip flexion/extension, left knee flexion/extension, left ankle dorsi/plantar flexion. 5/5 in all other major motor groups Neurovascular status: Radial pulses intact, 2+ bilaterally. Cap refill under 3 seconds in digits upper extremities. Special tests: Negative Homans bilaterally. - Labs CBC & Chem 7: 07/27/22 22:40 07/27/22 22:40 Assessment and Plan Assessment: 1. Left knee pain 2. Left knee medial compartment OA Plan: 1. Left knee pain; Left knee medial compartment OA - x-rays of left knee demonstrate medial compartment osteoarthritis likely contributing to symptoms. Small lucency in medial tibial plateau likely related to degenerative changes. At this time we're not recommending any emergent/urgent orthopedic surgical intervention. Patient may benefit from anti-inflammatory medications and Tylenol for pain control. Patient may weight-bear as tolerated with walker and assistance. We recommend patient to follow-up in the outpatient setting with Dr. Gibson for further evaluation. Patient is stable from an orthopedic standpoint for discharge home. At this time orthopedics is signing off. Please do not hesitate to contact us for any further questions. 2. Appreciate medical management 3. Pain management - norco; tylenol 4. DVT prophylaxis - xarelto; aspirin 5. GI ppx - protonix; miralax 6. PT/OT - WBAT w/walker and assistance 7. Appreciate consult Time with Patient: Less than 30
--- NOTE | 2022-07-31 13:11 | P.DS ---
Providers Date of admission: 07/28/22 02:28 Expected date of discharge: 07/31/22 Attending physician: Karuna Parsons MD Consults: 07/28/22 02:26 Consult Physician Urgent Consulting Provider: Lior Bajwa Consult Reason/Comments: acute onset hallucinations Do you want consulting provider notified?: Yes 07/29/22 15:36 Consult Physician Routine Consulting Provider: Kenneth Stanley Consult Reason/Comments: xray revealing deformity of the medial tibial plateau, left ankle pain Do you want consulting provider notified?: Yes Primary care physician: Tawn[facility] Course: Discharge Diagnosis: Acute metabolic encephalopathy with acute delirium. CT head negative for acute intercranial process. EEG reported to be suggestive of generalized cerebral dysfunction MRI completed, revealing mild to moderate diffuse cerebral atrophy and nonspecific white matter changes favoring chronic small vessel ischemic changes. Neurologist then personallly reviewed MRI and stating was concerning of possible normal pressure hydrocephalus and spoke with patient and his sister about these concerns and recommendations for evaluation by a neurosurgeon. Patient and his sister reportedly declined neurosurgery consultation at this time. Chronic hypercapnic respiratory failure Metabolic alkalosis. Left ankle pain/swelling, and difficulties with ambulation. Left knee pain and swelling, X-ray left knee demonstrating a medial compartment osteoarthritis with a small lucency in medial tibial plateau. Patient was evaluated by orthopedic surgery team and they are recommending symptomatic care and pain management with Tylenol and/or Motrin as needed for pain and weight- bear as tolerated to left leg with use of walker and assistance. Patient was evaluated by orthopedic surgery team and they are recommending symptomatic care and pain management with Tylenol and/or Motrin as needed for pain and weight- bear as tolerated to left leg with use of walker and assistance. Reports of fall at home prior to arrival. Hospital Course: Patient is a very pleasant 72-year-old male with a past medical history of atrial fibrillation on anticoagulation with Xarelto, hypertension, hyperlipidemia, and possible seizure in 2015. He was brought into the emergency department by his family on 07/28/22 with a chief complaint of confusion and hallucinations. Patient had reportedly been seeing shadows and hearing voices in his home. Patient also reported pain/discomfort to bilateral knees and hip due to previous fall. He underwent full evaluation in the emergency department. CBC showing normocytic anemia with hemoglobin of 11.4. BMP revealing hypercarbia with CO2 of 32 and prerenal azotemia with BUN of 32. Urinalysis negative for infection. Influenza A, influenza B, RSV, and Covid PCR negative. Vitamin B12, folate, and TSH all normal findings. Ammonia negative at less than 9. X-ray left foot showing hammertoe deformity negative for any fracture or acute abnormality. X-ray left ankle showing mild tissue swelling around the ankle negative for acute fracture or abnormality. Chest x-ray negative for acute cardiopulmonary process. Femur fracture negative for femoral fracture revealing deformity of the medial tibial plateau that could be due to depression fracture of uncertain age. CT head negative for acute intercranial process. Patient admitted under our services with consultation to neurology, orthopedic surgery, physical therapy, and occupational therapy. X-ray left knee demonstrating a medial compartment osteoarthritis with a small lucency in medial tibial plateau. EEG reported to be suggestive of generalized cerebral dysfunction MRI completed, revealing mild to moderate diffuse cerebral atrophy and nonspecific white matter changes favoring chronic small vessel ischemic changes. Neurologist then personallly reviewed MRI and stating was concerning of possible normal pressure hydrocephalus and spoke with patient and his sister about these concerns and recommendations for evaluation by a neurosurgeon. Patient and his sister reportedly declined neurosurgery consultation at this time. Patient was evaluated by orthopedic surgery team and they are recommending symptomatic care and pain management with Tylenol and/or Motrin as needed for pain and weight-bear as tolerated to left leg with use of walker and assistance. Medically, patient stable for transfer to rehab. No medication changes made this admission. Physical exam: Patient seen and fully evaluated at bedside. He was sitting up in the chair at bedside. Denies having any complaints with the exception of left knee pain in which he reports being unchanged. States he is just a little more sore right now because he got up with physical therapy. Vital signs reviewed and stable. General: Nontoxic, no distress and appears stated age. Derm: Skin warm and dry, normal coloration for ethnicity. Head: Atraumatic, normocephalic and symmetric. Abrasion/scratch mid forehead. Eyes: EOMs intact, no lid lag, and anicteric sclera Mouth: no lip lesions, mucus membranes moist Cardiovascular: regular rate and rhythm with normal S1S2, no murmur, positive posterior tibial pulses bilaterally, and cap refill < 2 seconds. Lungs: Respirations even, regular, and unlabored on room air. Lungs CTA bilaterally, no rhonchi, no rales, no wheezing, and no accessory muscle usage. Abdominal: soft, nontender to palpation, no guarding, no appreciable organomegaly Ext: ROM intact. No gross muscle atrophy, no edema, no contractures Neuro: Speech clear, face symmetrical and CN II-XII grossly intact with no noted focal neuro deficits Psych: Alert and oriented to person, place, time, and situation. Appropriate and pleasant affect. A total of 37 minutes of time were spent preparing this complex discharge summary. Pt was discharged on 07/31/22 at 11:52 AM I reviewed the documentation as provided by the ARISTIDES above, who is the original author of this note. I agree with the documented assessment and plan, with the following changes: none Patient Condition at Discharge: Stable Plan - Discharge Summary New Discharge Prescriptions: New Acetaminophen Tab [Tylenol] 650 mg PO Q6HR PRN tab PRN Reason: Mild Pain Or Fever > 100.5 Continue Aspirin EC [Ecotrin Low Dose] 81 mg PO DAILY Omeprazole [PriLOSEC] 20 mg PO HS Atorvastatin [Lipitor] 20 mg PO HS Multivitamins, Thera [Multivitamin (formulary)] 1 tab PO DAILY Rivaroxaban [Xarelto] 20 mg PO HS hydrOXYzine HCL [Atarax] 25 mg PO HS PRN PRN Reason: Itching Potassium Chloride [Potassium Chloride ER] 10 meq PO DAILY #30 tab Sertraline [Zoloft] 25 mg PO HS Nystatin 100,000 Unit/gm Powd [Mycostatin Powder] 1 applic TOPICAL BID Doxazosin [Cardura] 2 mg PO HS Metoprolol Succinate [Metoprolol Succinate ER] 25 mg PO DAILY Furosemide [Lasix] 40 mg PO Q2D Furosemide [Lasix] 20 mg PO Q2D Discharge Medication List Aspirin EC [Ecotrin Low Dose] 81 mg PO DAILY 08/07/15 [History] Atorvastatin [Lipitor] 20 mg PO HS 08/07/15 [History] Multivitamins, Thera [Multivitamin (formulary)] 1 tab PO DAILY 08/07/15 [History] Omeprazole [PriLOSEC] 20 mg PO HS 08/07/15 [History] Rivaroxaban [Xarelto] 20 mg PO HS 05/01/22 [History] Doxazosin [Cardura] 2 mg PO HS 06/05/22 [History] hydrOXYzine HCL [Atarax] 25 mg PO HS PRN 06/05/22 [History] Potassium Chloride [Potassium Chloride ER] 10 meq PO DAILY #30 tab 06/12/22 [Rx] Furosemide [Lasix] 20 mg PO Q2D 07/28/22 [History] Furosemide [Lasix] 40 mg PO Q2D 07/28/22 [History] Metoprolol Succinate [Metoprolol Succinate ER] 25 mg PO DAILY 07/28/22 [History] Nystatin 100,000 Unit/gm Powd [Mycostatin Powder] 1 applic TOPICAL BID 07/28/22 [History] Sertraline [Zoloft] 25 mg PO HS 07/28/22 [History] Acetaminophen Tab [Tylenol] 650 mg PO Q6HR PRN tab 07/31/22 [Rx] Follow up Appointment(s)/Referral(s): Tawnya Orlando MD [Primary Care Provider] - 1 Week Logan Zapata MD [Medical Doctor] - 1 Week Haim Gibson MD [STAFF PHYSICIAN] - 6 Weeks Activity/Diet/Wound Care/Special Instructions: Activity: Fall precautions. Weight-bear as tolerated left leg with use of walker and assistance. Diet: Heart healthy and carb consistent diet. Avoid salts, or foods with hidden salts such as canned or boxed foods and frozen dinners. Extra salt makes your heart work harder and traps the fluid in your body for longer. Special Instructions: Take all of your medications as directed and remember to keep all of your doctor's appointments and follow-up as needed. Thank you for allowing us to participate in your care, it was truly a pleasure having you for our patient!!! Discharge Disposition: TRANSFER TO SNF/ECF
[2022-07-31] MEDS: SODIUM CHLORIDE 0.9% 1,000 ML IV SCH (15:50)
[2022-07-31] MEDS: RIVAROXABAN 20 MG TAB PO SCH (21:44)
[2022-07-31] MEDS: DOXAZOSIN 2 MG TAB PO SCH (21:44)
[2022-07-31] MEDS: PANTOPRAZOLE 40 MG TABLET PO SCH (21:44)
[2022-07-31] MEDS: SERTRALINE 25 MG TAB PO SCH (21:44)
[2022-07-31] MEDS: ATORVASTATIN 20 MG TAB PO SCH (21:44)
[2022-07-31] MEDS: polyethylene glycoL 3350 17 GM POWD.PACK PO SCH (21:45)
[2022-07-31 22:45] VITALS: TEMP 98.2
[2022-08-01] MEDS: HYDROcodone/APAP 5-325MG 1 EACH TAB PO PRN (05:20)
[2022-08-01 07:55] VITALS: BP 113/57; PULSE 74
--- NOTE | 2022-08-01 08:01 | P.PN ---
Subjective Progress Note Date: 07/31/22 07/31/2022: Patient was seen for a follow-up. Patient laying comfortably in the bed. Patient denies any headache. Denies any numbness or tingling. Denies dizziness. 07/30/2022: Patient was seen for a follow-up. Patient is laying comfortably in the bed. He denies any headache, any numbness or tingling, any chest pain or abdominal pain. I spoke to patient's sister on the phone in detail. She states that patient has history of mental health crisis, anxiety and he does not deal well with changes or stress. He does not comply with CPAP or lift chair. He has terrible im balance partly related to his Charcot feet. He has fallen 3 times recently. He can't put shoes by himself. With the help comes, he does not want to do anything. She is questioning if he can live alone anymore. He is also scheduled for cardiac ablation surgery for arrhythmia on 08/12/2022. Patient is currently on Xarelto and aspirin for atrial fibrillation. He follows up with director presales. Patient's sister also mentioned that when he was really young, he had some brain surgery. Their mother would not disclose any more information even at the time she was in her deathbed. Patient's sister states that he has had recent progressive decline. He is terrible with driving. She mentions that patient has never been , has no children. 07/29/2022: Patient initially seen by Dr. Lior Bajwa. Please refer to his note for details. Came to see patient at 9:15 AM, but he was down for EEG and MRI. Patient is a 72-year-old male with history of questionable seizure in 2015 who came because of visual/auditory hallucinations with myoclonic jerks. Patient was started on Keppra 500 mg twice a day. Patient denies headache. Patient states that he has been falling at home. He called the police to see what was going on. Patient states that the police showed up early and he got up too fast. Patient's [id number] was present, who provided the history as well. He was hospitalized for atrial flutter on 07/12/2022. He was discharged to [facility]. He has been calling police thinking that someone is breaking into his car. He called the police twice. The second time police called the EMS. Prior to arrival of the police, he has fallen by the door. He was found to have atrial fibrillation. Patient's [id number] admits to patient having dementia. She mentions that patients slip out of the edge of the bed and slipped on the floor. He has tremors for years, off-and-on, but has got worse. Patient denies any hallucinations at this time. He states once in a while he has a twitch in his leg/foot area. No history of alcoholism or tobacco use. Patient never been , no children. Initial serum glucose is 140, AST ALT is within normal limits, sodium at the end calcium is within normal limits. SARS-CoV-2 PCR was not detected. RSV/fluency A/B PCR was not detected CT of the head is reported as cerebral atrophy. Mild hydrocephalus. No acute cranial abnormality. Small left occipital scalp swelling or hematoma. I personally reviewed that a CT of the head and I do not appreciate any acute subacute ischemia, no mass effect, no temporal hemorrhage. I feel he has generalized atrophy appropriate for his age. I do not appreciate any hydrocephalus in my opinion in perspective to his atrophy. Objective - Vital Signs Vital signs: Vital Signs Temp 98.2 F 08/01/22 07:00 Pulse 74 08/01/22 07:00 Resp 18 08/01/22 07:00 BP 113/57 08/01/22 07:00 Pulse Ox 100 08/01/22 07:00 FiO2 Intake & Output 07/31/22 08/01/22 08/01/22 18:59 06:59 18:59 Intake Total 480 Output Total 1100 Balance -620 Intake: Oral 480 Output: Urine 1100 Other: Voiding Method Diaper Diaper External Catheter External Catheter # Voids 1 # Bowel Movements 1 - Exam Patient is an elderly male, in no acute distress. Patient is alert awake oriented to time place and person. Patient knows it is July and the year is . He says it is in [facility]. He knows name of the current president Mr. Petty. He knows his name and date of , and his age. Speech and language functions are normal. Patient can name and repeat very well. No aphasia or dysarthria. Attention, concentration and fund of knowledge is adequate. Detailed testing deferred. On cranial nerve examination, pupils are equal, round and reacting to light, visual miller are full on confrontation, with no neglect on double simultaneous stimulation. Extraocular muscles are intact with no nystagmus. Face is symmetric, tongue protrudes to the midline. Palatal elevation and sensation normal, hearing is slightly decreased and shoulder shrug normal, facial sensation normal. On muscle strength testing, there is no pronator drift and the strength is normal in arms and legs distally and proximally. Sensory to touch is equal with no neglect on double simultaneous stimulation. Cerebellar function showed no ataxia for [id number] testing. No dysdiadochokinesia. Tone and bulk of muscles normal. Gait deferred.. On general examination, there is no carotid bruit or murmur, S1-S2 audible. Chest is clear on consultation. Abdomen is soft nontender. No organomegaly, bowel sounds present. Patient has positive peripheral edema. Some rash on the left. No definitive cellulitis. - Labs CBC & Chem 7: 07/27/22 22:40 07/27/22 22:40 Assessment and Plan Assessment: Acute visual and auditory hallucination with repeated brief body jerks/myoclonic jerks: Doubt seizures. Possible encephalopathy. Possible normal pressure hydrocephalus Recurrent falls Questionable seizure in 2014 History of atrial fibrillation/flutter on Xarelto History of DVT Hypertension Hyperlipidemia Noncompliant with treatment. Plan: * MRI the brain with and without contrast revealed age-related atrophy and small vessel ischemic disease. No acute process. There is some prominence of the ventricles. Degree of ventricular dilation somewhat out of proportion to the amount of sulcal atrophy. Component of normal pressure hydrocephalus cannot be ruled out. I personally reviewed MRI, agree with the findings. * I discussed with patient's sister Jesus on the phone in detail yesterday. Informed her about the results of MRI of the brain and possibility of normal pressure hydrocephalus. Patient does have memory disturbance, gait impairment and bladder issues. Patient's sister declined neurosurgical consultation or ventriculoperitoneal shunting because of his previous psych issues, and patient has been noncompliant, he would not follow up with postop care. The stress of surgery/procedure would be too much on him. Also because of atrial flutter fibrillation, the anticoagulation has to be so stopped and would pose risk for CVA. Therefore due to all these reasons, she just wants him to be comfortable, and perhaps transfer to long-term care where he will be happy. * EEG revealed mild background slowing suggestive of encephalopathy. No epileptiform activity was seen. * Patient has no definitive evidence of seizures. All workup negative as above. Patient is off Keppra. * TSH 2.37, vitamin B-12 516, folate 25.8, ammonia level <9, all normal * On fall precaution * Physical therapy and occupational therapy. * Continue his Xarelto, aspirin and statins. * Neurologically cleared for transfer to long-term care. Perhaps transfer in the morning.
[2022-08-01] MEDS: MULTIVITAMINS, THERA 1 EACH TAB PO SCH (08:52)
[2022-08-01] MEDS: POTASSIUM CHLORIDE ER 10 MEQ TAB.ER.PRT PO SCH (08:52)
[2022-08-01] MEDS: ASPIRIN 81 MG PO SCH (08:52)
[2022-08-01] MEDS: FUROSEMIDE 20 MG TAB PO SCH (08:52)
--- NOTE | 2022-08-01 10:42 | P.DS ---
Providers Date of admission: 07/28/22 02:28 Expected date of discharge: 08/01/22 Attending physician: Karuna Parsons MD Consults: 07/28/22 02:26 Consult Physician Urgent Consulting Provider: Lior Bajwa Consult Reason/Comments: acute onset hallucinations Do you want consulting provider notified?: Yes 07/29/22 15:36 Consult Physician Routine Consulting Provider: Kenneth Stanley Consult Reason/Comments: xray revealing deformity of the medial tibial plateau, left ankle pain Do you want consulting provider notified?: Yes Primary care physician: Tawnya [facility] Course: Discharge Diagnosis: Acute metabolic encephalopathy with acute delirium. CT head negative for acute intercranial process. EEG reported to be suggestive of generalized cerebral dysfunction MRI completed, revealing mild to moderate diffuse cerebral atrophy and nonspecific white matter changes favoring chronic small vessel ischemic changes. Neurologist then personallly reviewed MRI and stating was concerning of possible normal pressure hydrocephalus and spoke with patient and his sister about these concerns and recommendations for evaluation by a neurosurgeon. Patient and his sister reportedly declined neurosurgery consultation at this time. Chronic hypercapnic respiratory failure Metabolic alkalosis. Left ankle pain/swelling, and difficulties with ambulation. Left knee pain and swelling, X-ray left knee demonstrating a medial compartment osteoarthritis with a small lucency in medial tibial plateau. Patient was evaluated by orthopedic surgery team and they are recommending symptomatic care and pain management with Tylenol and/or Motrin as needed for pain and weight- bear as tolerated to left leg with use of walker and assistance. Patient was evaluated by orthopedic surgery team and they are recommending symptomatic care and pain management with Tylenol and/or Motrin as needed for pain and weight- bear as tolerated to left leg with use of walker and assistance. Reports of fall at home prior to arrival. Hospital Course: Patient is a very pleasant 72-year-old male with a past medical history of atrial fibrillation on anticoagulation with Xarelto, hypertension, hyperlipidemia, and possible seizure in 2015. He was brought into the emergency department by his family on 07/28/22 with a chief complaint of confusion and hallucinations. Patient had reportedly been seeing shadows and hearing voices in his home. Patient also reported pain/discomfort to bilateral knees and hip due to previous fall. He underwent full evaluation in the emergency department. CBC showing normocytic anemia with hemoglobin of 11.4. BMP revealing hypercarbia with CO2 of 32 and prerenal azotemia with BUN of 32. Urinalysis negative for infection. Influenza A, influenza B, RSV, and Covid PCR negative. Vitamin B12, folate, and TSH all normal findings. Ammonia negative at less than 9. X-ray left foot showing hammertoe deformity negative for any fracture or acute abnormality. X-ray left ankle showing mild tissue swelling around the ankle negative for acute fracture or abnormality. Chest x-ray negative for acute cardiopulmonary process. Femur fracture negative for femoral fracture revealing deformity of the medial tibial plateau that could be due to depression fracture of uncertain age. CT head negative for acute intercranial process. Patient admitted under our services with consultation to neurology, orthopedic surgery, physical therapy, and occupational therapy. X-ray left knee demonstrating a medial compartment osteoarthritis with a small lucency in medial tibial plateau. EEG reported to be suggestive of generalized cerebral dysfunction MRI completed, revealing mild to moderate diffuse cerebral atrophy and nonspecific white matter changes favoring chronic small vessel ischemic changes. Neurologist then personallly reviewed MRI and stating was concerning of possible normal pressure hydrocephalus and spoke with patient and his sister about these concerns and recommendations for evaluation by a neurosurgeon. Patient and his sister reportedly declined neurosurgery consultation at this time. Patient was evaluated by orthopedic surgery team and they are recommending symptomatic care and pain management with Tylenol and/or Motrin as needed for pain and weight-bear as tolerated to left leg with use of walker and assistance. Medically, patient stable for transfer to rehab. No medication changes made this admission. Physical exam: Patient seen and fully evaluated at bedside. He was sitting up in the chair at bedside and reports being ready to go. Patient denies any complaints at this time. He reports he is still shaky when he gets up and has a difficult time with ambulation. Patient was reassured that this is why he is being discharged to rehab to work on building strength and endurance and balance. Patient verbalized understanding. Patient reports that he feels good about going to rehab before going home because he feels that is what he needs. He denies having any further questions, needs or complaints at this time. Vital signs are unremarkable with blood pressure 113/57, heart rate 74, respiratory rate 18, and SpO2 of 100% on room air. Patient is medically stable for discharge to rehab at this time. viewed and stable. General: Nontoxic, no distress and appears stated age. Derm: Skin warm and dry, normal coloration for ethnicity. Head: Atraumatic, normocephalic and symmetric. Abrasion/scratch mid forehead. Eyes: EOMs intact, no lid lag, and anicteric sclera Mouth: no lip lesions, mucus membranes moist Cardiovascular: regular rate and rhythm with normal S1S2, no murmur, positive posterior tibial pulses bilaterally, and cap refill < 2 seconds. Lungs: Respirations even, regular, and unlabored on room air. Lungs CTA janneth aterally, no rhonchi, no rales, no wheezing, and no accessory muscle usage. Abdominal: soft, nontender to palpation, no guarding, no appreciable organomegaly Ext: ROM intact. No gross muscle atrophy, no edema, no contractures Neuro: Speech clear, face symmetrical and CN II-XII grossly intact with no noted focal neuro deficits Psych: Alert and oriented to person, place, time, and situation. Appropriate and pleasant affect. A total of 33 minutes of time were spent preparing this complex discharge summary. Pt was discharged on 08/01/22 at 10:41 AM I reviewed the documentation as provided by the ARISTIDES above, who is the original author of this note. I agree with the documented assessment and plan, with the following changes: none Patient Condition at Discharge: Stable Plan - Discharge Summary New Discharge Prescriptions: New Acetaminophen Tab [Tylenol] 650 mg PO Q6HR PRN tab PRN Reason: Mild Pain Or Fever > 100.5 HYDROcodone/APAP 5-325MG [[place] 5-325] 1 each PO Q4H PRN #18 tab PRN Reason: Pain Continue Aspirin EC [Ecotrin Low Dose] 81 mg PO DAILY Omeprazole [PriLOSEC] 20 mg PO HS Atorvastatin [Lipitor] 20 mg PO HS Multivitamins, Thera [Multivitamin (formulary)] 1 tab PO DAILY Rivaroxaban [Xarelto] 20 mg PO HS hydrOXYzine HCL [Atarax] 25 mg PO HS PRN PRN Reason: Itching Potassium Chloride [Potassium Chloride ER] 10 meq PO DAILY #30 tab Sertraline [Zoloft] 25 mg PO HS Nystatin 100,000 Unit/gm Powd [Mycostatin Powder] 1 applic TOPICAL BID Doxazosin [Cardura] 2 mg PO HS Metoprolol Succinate [Metoprolol Succinate ER] 25 mg PO DAILY Furosemide [Lasix] 40 mg PO Q2D Furosemide [Lasix] 20 mg PO Q2D Discharge Medication List Aspirin EC [Ecotrin Low Dose] 81 mg PO DAILY 08/07/15 [History] Atorvastatin [Lipitor] 20 mg PO HS 08/07/15 [History] Multivitamins, Thera [Multivitamin (formulary)] 1 tab PO DAILY 08/07/15 [History] Omeprazole [PriLOSEC] 20 mg PO HS 08/07/15 [History] Rivaroxaban [Xarelto] 20 mg PO HS 05/01/22 [History] Doxazosin [Cardura] 2 mg PO HS 06/05/22 [History] hydrOXYzine HCL [Atarax] 25 mg PO HS PRN 06/05/22 [History] Potassium Chloride [Potassium Chloride ER] 10 meq PO DAILY #30 tab 06/12/22 [Rx] Furosemide [Lasix] 20 mg PO Q2D 07/28/22 [History] Furosemide [Lasix] 40 mg PO Q2D 07/28/22 [History] Metoprolol Succinate [Metoprolol Succinate ER] 25 mg PO DAILY 07/28/22 [History] Nystatin 100,000 Unit/gm Powd [Mycostatin Powder] 1 applic TOPICAL BID 07/28/22 [History] Sertraline [Zoloft] 25 mg PO HS 07/28/22 [History] Acetaminophen Tab [Tylenol] 650 mg PO Q6HR PRN tab 07/31/22 [Rx] HYDROcodone/APAP 5-325MG [D[place] 5-325] 1 each PO Q4H PRN #18 tab 08/01/22 [Rx] Follow up Appointment(s)/Referral(s): Tawnya Orlando MD [Primary Care Provider] - 1 Week Logan Zapata MD [Medical Doctor] - 1 Week Haim Gibson MD [STAFF PHYSICIAN] - 6 Weeks Activity/Diet/Wound Care/Special Instructions: Activity: Fall precautions. Weight-bear as tolerated left leg with use of walker and assistance. Diet: Heart healthy and carb consistent diet. Avoid salts, or foods with hidden salts such as canned or boxed foods and frozen dinners. Extra salt makes your heart work harder and traps the fluid in your body for longer. Special Instructions: Take all of your medications as directed and remember to keep all of your doctor's appointments and follow-up as needed. Thank you for allowing us to participate in your care, it was truly a pleasure having you for our patient!!! Discharge Disposition: TRANSFER TO SNF/ECF
== END 2022-08-01 10:52 ==
LOC: EC 22:02 → 6NMEDSUR 07-28 02:28
PROVIDERS: ADMIT Internal Medicine; ATTEND Internal Medicine
DX: G93.41 Metabolic encephalopathy (principal); R41.0 Disorientation, unspecified; E87.3 Alkalosis; D64.9 Anemia, unspecified; D69.6 Thrombocytopenia, unspecified; G31.9 Degenerative disease of nervous system, unspecified; G47.33 Obstructive sleep apnea (adult) (pediatric); I11.0 Hypertensive heart disease with heart failure; I50.30 Unspecified diastolic (congestive) heart failure; J96.12 Chronic respiratory failure with hypercapnia; I48.91 Unspecified atrial fibrillation; Z20.822 Contact with and (suspected) exposure to COVID-19; E78.5 Hyperlipidemia, unspecified; M17.12 Unilateral primary osteoarthritis, left knee; M25.562 Pain in left knee; M25.561 Pain in right knee; M25.552 Pain in left hip; M25.551 Pain in right hip; W19.XXXA Unspecified fall, initial encounter; M25.472 Effusion, left ankle; R56.9 Unspecified convulsions; Z96.651 Presence of right artificial knee joint; Z98.890 Other specified postprocedural states; Z82.49 Family history of ischemic heart disease and other diseases of the circulatory system; Z80.8 Family history of malignant neoplasm of other organs or systems; Z79.01 Long term (current) use of anticoagulants; Z79.82 Long term (current) use of aspirin; Z79.899 Other long term (current) drug therapy; Z88.8 Allergy status to other drugs, medicaments and biological substances
CPT/HCPCS: 96376; 96365; 96375 ×2; 99285; 36415; 36600; 95816; 93005; 97110; 97530 ×2; 97162; 97166; 80053; 84443; 82607; 82140; 82746; 82805; 84484; 85025; 85610; 85730; 81001; 87636; 73552; 73562; 73610; 73620; 71045; 70450; 70553; G0378 ×5; J2270; J1885; J1953; C9113; J1170 ×2; A9585

== ENCOUNTER 2024-04-10 06:17 | Inpatient (IN) | payer MEDICARE, OTHER ==
[2024-04-10 06:29] LABS: Glucose,Whole Blood 158 mg/dL (70-110)
--- NOTE | 2024-04-10 06:44 | ED ---
Altered Mental Status HPI - General Chief Complaint: Altered Mental Status Stated Complaint: AMS Time Seen by Provider: 04/10/24 06:23 Source: patient, family, EMS, RN notes reviewed, Caregiver Mode of arrival: EMS Limitations: altered mental status - History of Present Illness Initial Comments: 74-year-old male presents emergency department via EMS from [facility] for evaluation of altered mental status. Patient fully woke up this morning sh aking, febrile, vomiting. Patient is acting his usual self patient had no complaints yesterday he does have some underlying dementia but normally converses easily with caregivers. EMS reports strong odor of urine but no recent UTI they reportedly did a chest x-ray yesterday which was negative per staff. Patient unable to provide any other significant information patient found to be hypoxic per EMS at [id number] and was placed on 4 L of oxygen. - Related Data Home Medications Medication Instructions Recorded Confirmed Aspirin EC [Ecotrin Low Dose] 81 mg PO DAILY 08/07/15 09/13/22 Atorvastatin [Lipitor] 20 mg PO HS 08/07/15 09/13/22 Multivitamins, Thera [Multivitamin 1 tab PO DAILY 08/07/15 09/13/22 (formulary)] Omeprazole [PriLOSEC] 20 mg PO HS 08/07/15 09/13/22 Rivaroxaban [Xarelto] 20 mg PO HS 05/01/22 09/13/22 Doxazosin [Cardura] 2 mg PO HS 06/05/22 09/13/22 hydrOXYzine HCL [Atarax] 25 mg PO HS PRN 06/05/22 09/13/22 Furosemide [Lasix] 40 mg PO Q2D 07/28/22 09/13/22 Furosemide [Lasix] 60 mg PO Q2D 07/28/22 09/13/22 Metoprolol Succinate [Metoprolol 25 mg PO DAILY 07/28/22 09/13/22 Succinate ER] Nystatin 100,000 Unit/gm Powd 1 applic TOPICAL BID 07/28/22 09/13/22 [Mycostatin Powder] Sertraline [Zoloft] 25 mg PO HS 07/28/22 09/13/22 Previous Rx's Medication Instructions Recorded Potassium Chloride [Klor-Con M10] 10 meq PO DAILY #30 tab 06/12/22 Acetaminophen Tab [Tylenol] 650 mg PO Q6HR PRN tab 07/31/22 HYDROcodone/APAP 5-325MG [[place] 1 each PO Q4H PRN #18 tab 08/01/22 5-325] Allergies Allergy/AdvReac Type Severity Reaction Status Date / Time alprazolam [From Xanax] Allergy Unknown Unknown Verified 09/13/22 08:57 cyclobenzaprine HCl Allergy Unknown Unknown Verified 09/13/22 08:57 [From Flexeril] memantine HCl [From Namenda] Allergy Unknown Unknown Verified 09/13/22 08:57 promethazine HCl Allergy Unknown Unknown Verified 09/13/22 08:57 [From Phenergan] quetiapine fumarate Allergy Unknown Unknown Verified 09/13/22 08:57 [From Seroquel] Review of Systems ROS Statement: Those systems with pertinent positive or pertinent negative responses have been documented in the HPI. ROS Other: All systems not noted in ROS Statement are negative. Past Medical History Past Medical History: Heart Failure, Dementia, Hyperlipidemia Additional Past Medical History / Comment(s): ? SEIZURE 2015. using a cane History of Any Multi-Drug Resistant Organisms: None Reported Past Surgical History: Joint Replacement, Orthopedic Surgery Additional Past Surgical History / Comment(s): total R knee arthroplasty. Rt FOOT SURGERY, Rt carpal tunnel repair Past Anesthesia/Blood Transfusion Reactions: No Reported Reaction Past Psychological History: No Psychological Hx Reported Smoking Status: Never smoker Past Alcohol Use History: None Reported Past Drug Use History: None Reported - Past Family History Father Family Medical History: Cancer Mother Family Medical History: Cancer, Deep Vein Thrombosis (DVT) Additional Family Medical History / Comment(s): bone General Exam Limitations: altered mental status General appearance: alert, in no apparent distress Head exam: Present: atraumatic, normocephalic, normal inspection Eye exam: Present: normal appearance, PERRL, EOMI. Absent: scleral icterus, conjunctival injection, periorbital swelling ENT exam: Present: normal exam, normal oropharynx, mucous membranes moist Neck exam: Present: normal inspection, full ROM. Absent: tenderness, meningismus, lymphadenopathy Respiratory exam: Present: normal lung sounds bilaterally. Absent: respiratory distress, wheezes, rales, rhonchi, stridor Cardiovascular Exam: Present: regular rate, normal rhythm, normal heart sounds. Absent: systolic murmur, diastolic murmur, rubs, gallop, clicks GI/Abdominal exam: Present: soft, tenderness, normal bowel sounds. Absent: distended, guarding, rebound, rigid Neurological exam: Present: alert. Absent: oriented X3 Skin exam: Present: warm, dry, intact, normal color. Absent: rash Course Vital Signs 04/10/24 04/10/24 04/10/24 06:21 09:03 10:12 Temperature 99.4 F Pulse Rate 79 83 52 L Respiratory 18 18 15 Rate Blood Pressure 156/77 146/58 O2 Sat by Pulse 95 97 95 Oximetry Medical Decision Making - Medical Decision Making Was pt. sent in by a medical professional or institution (, PA, A AUXILIARY, urgent care, hospital, or fdc...) When possible be specific @ -No Did you speak to anyone other than the patient for history (EMS, parent, family, police, friend...)? What history was obtained from this source @ -*e/power of attorney lawyer for providing past medical history and current complaint Did you review nursing and triage notes (agree or disagree)? Why? @ -I reviewed and agree with nursing and triage notes Were old charts reviewed (outside hosp., previous admission, EMS record, old EKG, old radiological studies, urgent care reports/EKG's, fdc records)? Report findings @ -No old charts were reviewed Differential Diagnosis (chest pain, altered mental status, abdominal pain women, abdominal pain men, vaginal bleeding, weakness, fever, dyspnea, syncope, headache, dizziness, GI bleed, back pain, seizure, CVA, palpatations, mental health, musculoskeletal)? @ -Differential Altered Mental Status: Hypoglycemia, DKA, hypercapnia, ETOH, overdose, CO poisoning, trauma, myxedema coma, HTN encephalopathy, infection, encephalitis, psychosis, intercranial hemorrhage, hepatic encephalopathy, meningitis, CVA, this is not meant to be an all-inclusive list EKG interpreted by me (3pts min.). @ -As above X-rays interpreted by me (1pt min.). @ -Chest x-ray shows no acute cardiopulmonary process CT interpreted by me (1pt min.). @ -CT brain shows no intracranial hemorrhage, mass effect or midline shift U/S interpreted by me (1pt. min.). @ -None done What testing was considered but not performed or refused? (CT, X-rays, U/S, labs)? Why? @ -None What meds were considered but not given or refused? Why? @ -None Did you discuss the management of the patient with other professionals (professionals i.e. , PA, A AUXILIARY, lab, RT, psych nurse, transition social worker, attorney lawyer, teacher, gift officer, comp field case manager)? Give summary @ -EMH for admission Was smoking cessation discussed for >3mins.? @ -No Was critical care preformed (if so, how long)? @ -No Were there social determinants of health that impacted care today? How? (Homelessness, low income, unemployed, alcoholism, drug addiction, transportation, low edu. Level, literacy, decrease access to med. care, residential, rehab)? @ -No Was there de-escalation of care discussed even if they declined (Discuss DNR or withdrawal of care, Hospice)? DNR status @ -No What co-morbidities impacted this encounter? (DM, HTN, Smoking, COPD, CAD, Cancer, CVA, ARF, Chemo, Hep., AIDS, mental health diagnosis, sleep apnea, morbid obesity)? @ -Dementia Was patient admitted / discharged? Hospital course, mention meds given and route, prescriptions, significant lab abnormalities, going to OR and other pertinent info. @ -Admitted patient presented for increasing cough congestion fever nausea and vomiting with altered mental status this morning. Patient will be admitted as he persists has Alterman status without clear source there is some concern about possible factious cause blood cultures were drawn, antibiotics were given patient will have neurology evaluation family is requesting psych eval. Undiagnosed new problem with uncertain prognosis? @ -Yes Drug Therapy requiring intensive monitoring for toxicity (Heparin, Nitro, Insulin, Cardizem)? @ -No Were any procedures done? @ -No Diagnosis/symptom? @Altered mental status, nausea vomiting, cough Acute, or Chronic, or Acute on Chronic? @ -Acute Uncomplicated (without systemic symptoms) or Complicated (systemic symptoms)? @ -Complicated Side effects of treatment? @ -No Exacerbation, Progression, or Severe Exacerbation? @ -No Poses a threat to life or bodily function? How? (Chest pain, [place], [place], pneumonia, PE, COPD, DKA, ARF, appy, cholecystitis, CVA, Diverticulitis, Homicidal, Suicidal, threat to staff... and all critical care pts) @ -No - Lab Data Result diagrams: 04/10/24 06:46 04/10/24 06:46 Lab Results 04/10/24 04/10/24 04/10/24 Range/Units 06:27 06:46 06:46 WBC 12.0 H (3.8-10.6) k/uL RBC 4.03 L (4.30-5.90) m/uL Hgb 13.5 (13.0-17.5) gm/dL Hct 39.9 (39.0-53.0) % MCV 99.0 (80.0-100.0) fL MCH 33.6 (25.0-35.0) pg MCHC 33.9 (31.0-37.0) g/dL RDW 13.5 (11.5-15.5) % Plt Count 144 L (150-450) k/uL MPV 8.3 Neutrophils % 75 % Lymphocytes % 16 % Monocytes % 5 % Eosinophils % 3 % Basophils % 0 % Neutrophils # 9.0 H (1.3-7.7) k/uL Lymphocytes # 1.9 (1.0-4.8) k/uL Monocytes # 0.6 (0-1.0) k/uL Eosinophils # 0.3 (0-0.7) k/uL Basophils # 0.0 (0-0.2) k/uL PT 13.2 H (10.0-12.5) sec INR 1.2 H (<1.2) APTT 29.1 (22.0-30.0) sec Sodium (137-145) mmol/L Potassium (3.5-5.1) mmol/L Chloride (98-107) mmol/L Carbon Dioxide (22-30) mmol/L Anion Gap mmol/L BUN (9-20) mg/dL Creatinine (0.66-1.25) mg/dL Est GFR (CKD-EPI)AfAm (>60 ml/min/1.73 sqM) Est GFR (CKD-EPI)NonAf (>60 ml/min/1.73 sqM) Glucose (74-99) mg/dL POC Glucose (mg/dL) 158 H (70-110) mg/dL POC Glu Tier And Detonator ID Joel Sherman Calcium (8.4-10.2) mg/dL Total Bilirubin (0.2-1.3) mg/dL AST (17-59) U/L ALT (4-49) U/L Alkaline Phosphatase (38-126) U/L Ammonia (<30) umol/L Troponin I (0.000-0.034) ng/mL Total Protein (6.3-8.2) g/dL Albumin (3.5-5.0) g/dL Urine Color Urine Appearance (Clear) Urine pH (5.0-8.0) Ur Specific Koppel (1.001-1.035) Urine Protein (Negative) Urine Glucose (UA) (Negative) Urine Ketones (Negative) Urine Blood (Negative) Urine Nitrite (Negative) Urine Bilirubin (Negative) Urine Urobilinogen (<2.0) mg/dL Ur Leukocyte Esterase (Negative) Urine RBC (0-5) /hpf Urine WBC (0-5) /hpf Ur Squamous Epith Cells (0-4) /hpf Calcium Oxalate Crystal (None) /hpf Urine Mucus (None) /hpf Urine Opiates Screen (NotDetected) Ur Oxycodone Screen (NotDetected) Urine Methadone Screen (NotDetected) Ur Barbiturates Screen (NotDetected) U Tricyclic Antidepress (NotDetected) Ur Phencyclidine Scrn (NotDetected) Ur Amphetamines Screen (NotDetected) U Methamphetamines Scrn (NotDetected) U Benzodiazepines Scrn (NotDetected) Urine Cocaine Screen (NotDetected) U Marijuana (THC) Screen (NotDetected) Influenza Type A (PCR) (Not Detectd) Influenza Type B (PCR) (Not Detectd) RSV (PCR) (Not Detectd) SARS-CoV-2 (PCR) (Not Detectd) 04/10/24 04/10/24 04/10/24 Range/Units 06:46 06:46 06:46 WBC (3.8-10.6) k/uL RBC (4.30-5.90) m/uL Hgb (13.0-17.5) gm/dL Hct (39.0-53.0) % MCV (80.0-100.0) fL MCH (25.0-35.0) pg MCHC (31.0-37.0) g/dL RDW (11.5-15.5) % Plt Count (150-450) k/uL MPV Neutrophils % % Lymphocytes % % Monocytes % % Eosinophils % % Basophils % % Neutrophils # (1.3-7.7) k/uL Lymphocytes # (1.0-4.8) k/uL Monocytes # (0-1.0) k/uL Eosinophils # (0-0.7) k/uL Basophils # (0-0.2) k/uL PT (10.0-12.5) sec INR (<1.2) APTT (22.0-30.0) sec Sodium 140 (137-145) mmol/L Potassium 3.2 L (3.5-5.1) mmol/L Chloride 107 (98-107) mmol/L Carbon Dioxide 26 (22-30) mmol/L Anion Gap 7 mmol/L BUN 24 H (9-20) mg/dL Creatinine 0.81 (0.66-1.25) mg/dL Est GFR (CKD-EPI)AfAm >90 (>60 ml/min/1.73 sqM) Est GFR (CKD-EPI)NonAf 88 (>60 ml/min/1.73 sqM) Glucose 177 H (74-99) mg/dL POC Glucose (mg/dL) (70-110) mg/dL POC Glu Tier And Detonator ID Calcium 8.8 (8.4-10.2) mg/dL Total Bilirubin 1.3 (0.2-1.3) mg/dL AST 26 (17-59) U/L ALT 16 (4-49) U/L Alkaline Phosphatase 123 (38-126) U/L Ammonia <9 (<30) umol/L Troponin I <0.012 (0.000-0.034) ng/mL Total Protein 6.1 L (6.3-8.2) g/dL Albumin 3.6 (3.5-5.0) g/dL Urine Color Urine Appearance (Clear) Urine pH (5.0-8.0) Ur Specific Koppel (1.001-1.035) Urine Protein (Negative) Urine Glucose (UA) (Negative) Urine Ketones (Negative) Urine Blood (Negative) Urine Nitrite (Negative) Urine Bilirubin (Negative) Urine Urobilinogen (<2.0) mg/dL Ur Leukocyte Esterase (Negative) Urine RBC (0-5) /hpf Urine WBC (0-5) /hpf Ur Squamous Epith Cells (0-4) /hpf Calcium Oxalate Crystal (None) /hpf Urine Mucus (None) /hpf Urine Opiates Screen (NotDetected) Ur Oxycodone Screen (NotDetected) Urine Methadone Screen (NotDetected) Ur Barbiturates Screen (NotDetected) U Tricyclic Antidepress (NotDetected) Ur Phencyclidine Scrn (NotDetected) Ur Amphetamines Screen (NotDetected) U Methamphetamines Scrn (NotDetected) U Benzodiazepines Scrn (NotDetected) Urine Cocaine Screen (NotDetected) U Marijuana (THC) Screen (NotDetected) Influenza Type A (PCR) (Not Detectd) Influenza Type B (PCR) (Not Detectd) RSV (PCR) (Not Detectd) SARS-CoV-2 (PCR) (Not Detectd) 04/10/24 04/10/24 Range/Units 06:59 09:01 WBC (3.8-10.6) k/uL RBC (4.30-5.90) m/uL Hgb (13.0-17.5) gm/dL Hct (39.0-53.0) % MCV (80.0-100.0) fL MCH (25.0-35.0) pg MCHC (31.0-37.0) g/dL RDW (11.5-15.5) % Plt Count (150-450) k/uL MPV Neutrophils % % Lymphocytes % % Monocytes % % Eosinophils % % Basophils % % Neutrophils # (1.3-7.7) k/uL Lymphocytes # (1.0-4.8) k/uL Monocytes # (0-1.0) k/uL Eosinophils # (0-0.7) k/uL Basophils # (0-0.2) k/uL PT (10.0-12.5) sec INR (<1.2) APTT (22.0-30.0) sec Sodium (137-145) mmol/L Potassium (3.5-5.1) mmol/L Chloride (98-107) mmol/L Carbon Dioxide (22-30) mmol/L Anion Gap mmol/L BUN (9-20) mg/dL Creatinine (0.66-1.25) mg/dL Est GFR (CKD-EPI)AfAm (>60 ml/min/1.73 sqM) Est GFR (CKD-EPI)NonAf (>60 ml/min/1.73 sqM) Glucose (74-99) mg/dL POC Glucose (mg/dL) (70-110) mg/dL POC Glu Tier And Detonator ID Calcium (8.4-10.2) mg/dL Total Bilirubin (0.2-1.3) mg/dL AST (17-59) U/L ALT (4-49) U/L Alkaline Phosphatase (38-126) U/L Ammonia (<30) umol/L Troponin I (0.000-0.034) ng/mL Total Protein (6.3-8.2) g/dL Albumin (3.5-5.0) g/dL Urine Color Yellow Urine Appearance Clear (Clear) Urine pH 6.0 (5.0-8.0) Ur Specific Koppel 1.024 (1.001-1.035) Urine Protein 2+ H (Negative) Urine Glucose (UA) Negative (Negative) Urine Ketones 1+ H (Negative) Urine Blood Large H (Negative) Urine Nitrite Negative (Negative) Urine Bilirubin Negative (Negative) Urine Urobilinogen <2.0 (<2.0) mg/dL Ur Leukocyte Esterase Negative (Negative) Urine RBC 106 H (0-5) /hpf Urine WBC 6 H (0-5) /hpf Ur Squamous Epith Cells <1 (0-4) /hpf Calcium Oxalate Crystal Rare H (None) /hpf Urine Mucus Many H (None) /hpf Urine Opiates Screen Not Detected (NotDetected) Ur Oxycodone Screen Not Detected (NotDetected) Urine Methadone Screen Not Detected (NotDetected) Ur Barbiturates Screen Not Detected (NotDetected) U Tricyclic Antidepress Not Detected (NotDetected) Ur Phencyclidine Scrn Not Detected (NotDetected) Ur Amphetamines Screen Not Detected (NotDetected) U Methamphetamines Scrn Not Detected (NotDetected) U Benzodiazepines Scrn Not Detected (NotDetected) Urine Cocaine Screen Not Detected (NotDetected) U Marijuana (THC) Screen Not Detected (NotDetected) Influenza Type A (PCR) Not Detected (Not Detectd) Influenza Type B (PCR) Not Detected (Not Detectd) RSV (PCR) Not Detected (Not Detectd) SARS-CoV-2 (PCR) Not Detected (Not Detectd) - EKG Data -: EKG Interpreted by Me EKG Comments: EKG performed at 6: 18 sinus rhythm with first-degree AV block rate of 86 [place] 07/09/2005 QRS 112 QT/QTc 304/348 Disposition Clinical Impression: AMS (altered mental status), Cough, Nausea & vomiting Disposition: ADMITTED IP TO THIS HOSP Condition: Fair Referrals: Tawnya Orlando MD [STAFF PHYSICIAN] - 1-2 days Time of Disposition: 10:53
[2024-04-10] MEDS: SODIUM CHLORIDE 0.9% 500 ML 500 ML IV ONE (06:49)
[2024-04-10] MEDS: ONDANSETRON 4 MG/2 ML VIAL IVP STA (06:54)
[2024-04-10 07:31] LABS: ALT 16 U/L (4-49); AST 26 U/L (17-59); African American GFR (CKD) >90 (>60 ml/min/1.73 sqM); Albumin 3.6 g/dL (3.5-5.0); Alkaline Phosphatase 123 U/L (38-126); Anion Gap 7 mmol/L; Basophils % (A) 0 %; Blood Urea Nitrogen 24 mg/dL (9-20); Calcium 8.8 mg/dL (8.4-10.2); Carbon Dioxide 26 mmol/L (22-30); Chloride 107 mmol/L (98-107); Eosinophils # (A) 0.3 k/uL (0-0.7); Eosinophils % (A) 3 %; Glucose 177 mg/dL (74-99); HCT 39.9 % (39.0-53.0); HGB 13.5 gm/dL (13.0-17.5); Lymphocytes # (A) 1.9 k/uL (1.0-4.8); Lymphocytes % (A) 16 %; MCH 33.6 pg (25.0-35.0); MCHC 33.9 g/dL (31.0-37.0); Mean Platelet Volume 8.3; Monocytes # (A) 0.6 k/uL (0-1.0); Monocytes % (A) 5 %; Neutrophils % (A) 75 %; Non-African American GFR(CKD) 88 (>60 ml/min/1.73 sqM); Platelet Count 144 k/uL (150-450); Potassium 3.2 mmol/L (3.5-5.1); RBC 4.03 m/uL (4.30-5.90); RDW 13.5 % (11.5-15.5); Sodium 140 mmol/L (137-145); Total Bilirubin 1.3 mg/dL (0.2-1.3); Total Protein 6.1 g/dL (6.3-8.2)
[2024-04-10 07:33] LABS: INR 1.2 (<1.2); Partial Thromboplastin Time 29.1 sec (22.0-30.0); Prothrombin Time 13.2 sec (10.0-12.5)
--- NOTE | 2024-04-10 07:51 | XR ---
EXAMINATION TYPE: XR chest 1V portable DATE OF EXAM: 04/10/2024 COMPARISON: 07/27/2022 INDICATION: Altered mental status TECHNIQUE: Single frontal view of the chest is obtained. FINDINGS: The heart size is enlarged. The pulmonary vasculature is somewhat prominent. No suspicious focal infiltrate evident. IMPRESSION: 1. Cardiomegaly. 2. Some early volume overload could be considered. [facility], Workstation: [facility], 04/10/2024 7:49 AM
[2024-04-10 09:19] LABS: Appearance,Urine Clear (Clear); Bilirubin,Urine Negative (Negative); Blood,Urine Large (Negative); Calcium Oxalate Crystals,Urine Rare /hpf; Color,Urine Yellow; Glucose,Urine (UA) Negative (Negative); Ketones,Urine 1+ (Negative); Leukocyte Esterase,Urine Negative (Negative); Mucus,Urine Many /hpf; Nitrite,Urine Negative (Negative); Protein,Urine 2+ (Negative); RBC,Urine 106 /hpf (0-5); Specific Gravity,Urine 1.024 (1.001-1.035); Squamous Epithelial Cell,Urine <1 /hpf (0-4); Urobilinogen,Urine <2.0 mg/dL (<2.0); WBC,Urine 6 /hpf (0-5)
[2024-04-10 09:20] LABS: Amphetamine Screen,Urine Not Detected (NotDetected); Barbiturate Screen,Urine Not Detected (NotDetected); Benzodiazepines Screen,Urine Not Detected (NotDetected); Cocaine Screen,Urine Not Detected (NotDetected); Methadone Screen, Urine Not Detected (NotDetected); Opiate Screen,Urine Not Detected (NotDetected); Oxycodone Screen, Urine Not Detected (NotDetected); Phencyclidine Screen,Urine Not Detected (NotDetected); Tricyclic Antidepressant,Urine Not Detected (NotDetected); Urn Cannabinoid Scrn Not Detected (NotDetected)
--- NOTE | 2024-04-10 10:13 | CT ---
EXAMINATION TYPE: CT brain wo con DATE OF EXAM: 04/10/2024 COMPARISON: 07/28/2022 INDICATION: AMS DLP: 1201.4 mGycm, Automated exposure control for dose reduction was used. CONTRAST: None CT of the brain is performed utilizing 3 mm thick sections through the posterior fossa and 3 mm thick sections through the remaining calvarium. Study is performed within 24 hours of arrival to the hosp ital. No abnormal hyperdensity is present to suggest an acute intracranial hemorrhage. No mass lesion is evident. No acute infarcts are evident. Ventricles and sulci are appropriate for the patient age. Paranasal sinuses and mastoid air cells within the [id number] are clear. IMPRESSION: 1. No acute intracranial process. Follow up MRI can be performed as clinically indicated. [facility], Workstation: [facility], 04/10/2024 10:11 AM
[2024-04-10] MEDS ORDERED: NALOXONE 0.4 MG/ML 1 ML VIAL IV PRN (10:53)
[2024-04-10] MEDS ORDERED: ACETAMINOPHEN TAB 325 MG TAB PO PRN (11:00)
[2024-04-10] MEDS ORDERED: ONDANSETRON 4 MG/2 ML VIAL IVP PRN (11:00)
[2024-04-10] MEDS: SODIUM CHLORIDE 0.9% 1,000 ML IV SCH (11:25)
[2024-04-10] MEDS ORDERED: DEXTROSE 50% SYRINGE 50 ML IVP PRN ×2 (12:25)
--- NOTE | 2024-04-10 12:52 | HP ---
HISTORY AND PHYSICAL CHIEF COMPLAINT: Change in mental status. HISTORY OF PRESENT ILLNESS: This is a 74-year-old gentleman with a past medical history of multiple medical problems including Lewy body dementia, being followed in the [facility], was admitted with change in mental status. The patient had fever and cough and vomiting also. The patient had mucopurulent sputum. There is no history of any fever, rigors, or chills at this time. PAST MEDICAL HISTORY: Lewy body dementia. The rest of the history and rest of the chart is also reviewed. History of CHF. HOME MEDICATIONS: Reviewed include Xarelto. The dose and rest of medications noted. ALLERGIES: Xanax, rest of allergies noted. FAMILY HISTORY: Could not be taken because of change in mental status. SOCIAL HISTORY: Could not be taken because of change in mental status. REVIEW OF SYSTEMS: Could not be taken because of change in mental status PHYSICAL EXAMINATION: VITAL SIGNS: Pulse is 74, blood pressure 156/82, respirations 20. HEENT: Conjunctivae normal. CARDIOVASCULAR: S1, S2. RESPIRATIONS: Breath sounds diminished at the bases. A few scattered rhonchi and crackles.. ABDOMEN: Soft, nontender. LEGS: No edema. NERVOUS SYSTEM: Diffusely weak. LABORATORY DATA: Reviewed. ASSESSMENT: 1. Change in mental status, possibly metabolic encephalopathy. 2. Fever, vomiting, possible acute bronchitis. 3. Lewy body dementia. RECOMMENDATIONS: Recommend to continue current medications, continue symptomatic treatment. Otherwise, antibiotic. COVID is negative. Monitor fluid electrolyte balance closely. ProCal cultures, bronchodilators. Resume the home medications once they are confirmed. Prognosis guarded. Further recommendations to follow. MMODL / IJN: [id number] /
[2024-04-10] MEDS: FUROSEMIDE 10 MG/ML 4 ML VIAL IV SCH (12:56)
[2024-04-10 12:58] LABS: Glucose,Whole Blood 137 mg/dL (70-110)
[2024-04-10] MEDS: methylPREDNISolone SOD SUCCI 40 MG/ML 1 ML VIAL IV SCH (13:11)
[2024-04-10] MEDS: INSULIN ASPART (NovoLOG) 100 UNIT/ML VIAL SQ SCH (13:15)
[2024-04-10] MEDS: PANTOPRAZOLE 40 MG/10 ML VIAL IVP SCH (13:27)
--- NOTE | 2024-04-10 13:43 | XR ---
EXAMINATION TYPE: XR chest 1V portable DATE OF EXAM: 04/10/2024 COMPARISON: 04/10/2024 INDICATION: Respiratory distress TECHNIQUE: Single frontal view of the chest is obtained. FINDINGS: The heart size is normal. The pulmonary vasculature is normal. The lungs are clear. IMPRESSION: 1. No acute pulmonary process. [facility], Workstation: [facility], 04/10/2024 1:40 PM
--- NOTE | 2024-04-10 14:31 | P.CNPUL ---
History of Present Illness Consult date: 04/10/24 Requesting physician: Ratna Gomez Reason for consult: dyspnea, hypoxemia, abnormal CXR/CT Chief complaint: Altered mental status, cough and congestion History of present illness: This is a pleasant 74-year-old male patient with a known history of Lewy body dementia, congestive heart failure, hyperlipidemia essential tremors, resides at [facility] on the [facility] for the past 2 years. He was brought in from there early this morning to the emergency department with altered mental status. He was also having fever, shaking and vomiting. CT scan of the brain revealed no acute intracranial process. Chest x-ray showed cardiomegaly and some early volume overload. Count 12.0. Hemoglobin 13.5. Platelets 144. Sodium 140. Potassium 3.2. Bicarb 26. BUN 24. Creatinine 0.81. Glucose 177. Viral screen was negative. Today after lunch she developed a coughing episode and worsening shortness of breath and hypoxemia. We are consulted for the same. Follow-up chest x-ray reveals no acute process. The patient does have some scattered rhonchi and wheezing over the right lung. He is maintaining O2 saturations in the 90s on 4 L/min per nasal cannula. Review of Systems REVIEW OF SYSTEMS: CONSTITUTIONAL: Altered mental status. Denies any recent significant weight loss or weight gain. EYES: Denies change in vision. EARS, NOSE, MOUTH, THROAT: Denies headaches, denies sore throat. CARDIOVASCULAR: Denies chest pain, palpitations or syncopal episodes. RESPIRATORY: Positive for shortness of breath, cough, congestion no hemoptysis. GASTROINTESTINAL: Denies change in appetite, denies abdominal pain GENITOURINARY: Denies hematuria, denies infections. MUSKULOSKELETAL: Denies pain, denies swelling. INTEGUMENTARY: Denies rash, denies eczema. NEUROLOGICAL: Denies recent memory loss, no recent seizure activity. PSYCHIATRIC: Denies anxiety, denies depression. HEMATOLOGIC/LYMPHATIC: Denies anemia, denies enlarged lymph nodes. Past Medical History Past Medical History: Heart Failure, Dementia, Hyperlipidemia Additional Past Medical History / Comment(s): ? SEIZURE 2015. using a cane History of Any Multi-Drug Resistant Organisms: None Reported Past Surgical History: Joint Replacement, Orthopedic Surgery Additional Past Surgical History / Comment(s): total R knee arthroplasty. Rt FOOT SURGERY, Rt carpal tunnel repair Past Anesthesia/Blood Transfusion Reactions: No Reported Reaction Past Psychological History: No Psychological Hx Reported Smoking Status: Never smoker Past Alcohol Use History: None Reported Past Drug Use History: None Reported - Past Family History Father Family Medical History: Cancer Mother Family Medical History: Cancer, Deep Vein Thrombosis (DVT) Additional Family Medical History / Comment(s): bone Medications and Allergies Home Medications Medication Instructions Recorded Confirmed Type Aspirin EC [Ecotrin Low Dose] 81 mg PO DAILY 08/07/15 04/10/24 History Atorvastatin [Lipitor] 20 mg PO HS 08/07/15 04/10/24 History Multivitamins, Thera [Multivitamin 1 tab PO DAILY 08/07/15 04/10/24 History (formulary)] Omeprazole [PriLOSEC] 20 mg PO HS 08/07/15 04/10/24 History Rivaroxaban [Xarelto] 20 mg PO HS 05/01/22 04/10/24 History Potassium Chloride [Klor-Con M10] 10 meq PO DAILY #30 tab 06/12/22 04/10/24 Rx Furosemide [Lasix] 40 mg PO Q2D 07/28/22 04/10/24 History Furosemide [Lasix] 60 mg PO Q2D 07/28/22 04/10/24 History Metoprolol Succinate [Metoprolol 12.5 mg PO DAILY 07/28/22 04/10/24 History Succinate ER] Cholecalciferol [Vitamin D3 (25 50 mcg PO DAILY 04/10/24 04/10/24 History Mcg = 1000 Iu)] Donepezil 23 mg PO HS 04/10/24 04/10/24 History Doxazosin [Cardura] 2 mg PO HS 04/10/24 04/10/24 History Sertraline [Zoloft] 50 mg PO HS 04/10/24 04/10/24 History Allergies Allergy/AdvReac Type Severity Reaction Status Date / Time alprazolam [From Xanax] Allergy Unknown Unknown Verified 04/10/24 11:37 cyclobenzaprine HCl Allergy Unknown Unknown Verified 04/10/24 11:37 [From Flexeril] memantine HCl [From Namenda] Allergy Unknown Unknown Verified 04/10/24 11:37 promethazine HCl Allergy Unknown Unknown Verified 04/10/24 11:37 [From Phenergan] quetiapine fumarate Allergy Unknown Unknown Verified 04/10/24 11:37 [From Seroquel] Physical Exam Vitals: Vital Signs Temp Pulse Pulse Resp BP BP Pulse Ox 04/10/24 12:37 98.7 F 102 H 19 172/52 97 04/10/24 11:29 98.9 F 74 20 157/80 98 04/10/24 10:12 52 L 15 146/58 95 04/10/24 09:03 83 18 156/77 97 04/10/24 06:21 99.4 F 79 18 95 Intake and Output 04/09/24 04/10/24 04/10/24 22:59 06:59 14:59 Output Total 600 Balance -600 Output: Urine 600 Other: Weight 104.78 kg GENERAL EXAM: Alert, cooperative 74-year-old male, on 4 L nasal cannula, tremorous, fairly comfortable in no apparent distress. HEAD: Normocephalic. EYES: Normal reaction of pupils, equal size. NOSE: Clear with pink turbinates. THROAT: No erythema or exudates. NECK: No masses, no JVD. CHEST: No chest wall deformity. LUNGS: Equal air entry with few scattered rhonchi, wheeze over the right lung. CVS: S1 and S2 normal with no audible murmur, regular rhythm. ABDOMEN: No hepatosplenomegaly, normal bowel sounds, no guarding or rigidity. SPINE: No scoliosis or deformity SKIN: No rashes CENTRAL NERVOUS SYSTEM: No focal deficits, tone is normal in all 4 extremities. EXTREMITIES: There is no peripheral edema. No clubbing, no cyanosis. Peripheral pulses are intact. Results - Laboratory Findings CBC and BMP: 04/10/24 06:46 04/10/24 06:46 PT/INR, D-dimer PT 13.2 sec (10.0-12.5) H 04/10/24 06:46 INR 1.2 (<1.2) H 04/10/24 06:46 Abnormal lab findings: Abnormal Labs 04/10/24 04/10/24 04/10/24 06:27 06:46 06:46 WBC 12.0 H RBC 4.03 L Plt Count 144 L Neutrophils # 9.0 H PT 13.2 H INR 1.2 H Potassium BUN Glucose POC Glucose (mg/dL) 158 H Total Protein Urine Protein Urine Ketones Urine Blood Urine RBC Urine WBC Calcium Oxalate Crystal Urine Mucus 10/05/24 10/05/24 10/05/24 06:46 09:01 12:47 WBC RBC Plt Count Neutrophils # PT INR Potassium 3.2 L BUN 24 H Glucose 177 H POC Glucose (mg/dL) 137 H Total Protein 6.1 L Urine Protein 2+ H Urine Ketones 1+ H Urine Blood Large H Urine RBC 106 H Urine WBC 6 H Calcium Oxalate Crystal Rare H Urine Mucus Many H - Diagnostic Findings Chest x-ray: image reviewed Assessment and Plan Assessment: Acute hypoxemic respiratory failure secondary to suspected aspiration pneumonia and some mild fluid volume overload Altered mental status of unclear etiology, recovered Lewy body dementia History of congestive heart failure Hypertension Hyperlipidemia Gastroesophageal reflux disease Plan: The patient was seen and evaluated Chest x-rays, labs and medications reviewed Suspect possible aspiration Suspect some mild fluid volume overload Discontinue ceftriaxone Initiate Zosyn Check a procalcitonin Add DuoNeb inhalations, Pulmicort and Perforomist inhalations Continue IV Solu-Medrol Continue diuretics Anticoagulated with Xarelto Speech therapy consult for swallow evaluation Titrate the FiO2 as tolerated We will continue to follow and make further recommendations based on his clinical status I have personally seen and examined the patient, performed the documentation and the assessment and plan as written. Number of minutes spent on the visit: 20.
[2024-04-10] MEDS: IPRATROPIUM-ALBUTEROL 3 ML NEB INHALATION STA (15:16)
[2024-04-10] MEDS: FORMOTEROL FUMARATE 20 MCG/2 ML NEBU INHALATION SCH (15:17)
[2024-04-10] MEDS: BUDESONIDE 1 MG/2 ML NEBU INHALATION SCH (15:17)
[2024-04-10] MEDS: IPRATROPIUM-ALBUTEROL 3 ML NEB INHALATION SCH (15:17)
[2024-04-10] MEDS: PIPERACILLIN-TAZOBACTAM 3.375 GM in SODIUM CHLORIDE 0.9% 100 ML IVPB SCH (16:15)
[2024-04-10 17:09] LABS: Glucose,Whole Blood 144 mg/dL (70-110)
[2024-04-10] MEDS ORDERED: SYMBICORT 160-4.5 MCG INHALER INHALATION SCH (20:00)
[2024-04-10 20:15] LABS: Glucose,Whole Blood 151 mg/dL (70-110)
[2024-04-10] MEDS: ATORVASTATIN 20 MG TAB PO SCH (20:37)
[2024-04-10] MEDS: DONEPEZIL 10 MG TAB PO SCH (20:37)
[2024-04-10] MEDS: SERTRALINE 50 MG TAB PO SCH (20:37)
[2024-04-10] MEDS: RIVAROXABAN 20 MG TAB PO SCH (20:37)
[2024-04-10] MEDS: DOXAZOSIN 2 MG TAB PO SCH (20:37)
[2024-04-11 07:23] LABS: Glucose,Whole Blood 153 mg/dL (70-110)
[2024-04-11] MEDS: MULTIVITAMINS, THERA 1 EACH TAB PO SCH (08:59)
[2024-04-11] MEDS: METOPROLOL SUCCINATE (ER) 25 MG TAB.ER.24H PO SCH (09:00)
[2024-04-11] MEDS: FUROSEMIDE 40 MG TAB PO SCH (09:00)
[2024-04-11] MEDS: ASPIRIN 81 MG PO SCH (09:01)
[2024-04-11] MEDS: CHOLECALCIFEROL 25 MCG (1000 IU) TABLET PO SCH (09:01)
[2024-04-11] MEDS: POTASSIUM CHLORIDE ER 10 MEQ TAB.ER.PRT PO SCH (09:01)
[2024-04-11 09:16] LABS: Basophils # (A) 0.02 X 10*3/uL (0.00-0.10); Basophils % (A) 0.3 %; Eosinophils # (A) 0 X 10*3/uL (0.04-0.35); Eosinophils % (A) 0 %; HCT 36.9 % (39.6-50.0); HGB 11.9 g/dL (13.0-17.0); Lymphocytes # (A) 0.43 X 10*3/uL (0.90-5.00); Lymphocytes % (A) 5.7 %; MCH 32.5 pg (27.0-32.0); MCHC 32.2 g/dL (32.0-37.0); MCV 100.8 FL (80.0-97.0); Mean Platelet Volume 10.6 FL (9.5-12.2); Monocytes # (A) 0.09 X 10*3/uL (0.20-1.00); Monocytes % (A) 1.2 %; NRBC Per 100 WBC 0 X 10*3/uL (0.00-0.01); Neutrophils # (A) 6.95 X 10*3/uL (1.80-7.70); Neutrophils % (A) 92.5 %; Platelet Count 129 X 10*3/uL (140-440); RBC 3.66 X 10*6/uL (4.40-5.60); RDW 13.3 % (11.5-14.5); WBC 7.51 X 10*3/uL (4.50-10.00)
[2024-04-11 10:16] LABS: ALT 14 U/L (10-49); AST 19 U/L (14-35); Albumin 3.6 g/dL (3.8-4.9); Albumin/Globulin Ratio 1.71 Ratio (1.60-3.17); Alkaline Phosphatase 109 U/L (41-126); BUN/Creat Ratio 25.18 Ratio (12.00-20.00); Blood Urea Nitrogen 27.7 mg/dL (9.0-27.0); Calcium 8.5 mg/dL (8.7-10.3); Carbon Dioxide 27.2 mmol/L (21.6-31.8); Chloride 106 mmol/L (96-109); Globulin 2.1 g/dL (1.6-3.3); Glucose 171 mg/dL (70-110); Potassium 3.5 mmol/L (3.5-5.5); Sodium 143 mmol/L (135-145); Total Bilirubin 0.6 mg/dL (0.3-1.2); Total Protein 5.7 g/dL (6.2-8.2)
[2024-04-11 12:26] LABS: Glucose,Whole Blood 181 mg/dL (70-110)
--- NOTE | 2024-04-11 13:00 | P.PN ---
Subjective Progress Note Date: 04/11/24 This is a pleasant 74-year-old male patient with a known history of Lewy body dementia, congestive heart failure, hyperlipidemia essential tremors, resides at [facility] on the [facility] for the past 2 years. He was brought in from there early this morning to the emergency department with altered mental status. He was also having fever, shaking and vomiting. CT scan of the brain revealed no acute intracranial process. Chest x-ray showed cardiomegaly and some early volume overload. Count 12.0. Hemoglobin 13.5. Platelets 144. Sodium 140. Potassium 3.2. Bicarb 26. BUN 24. Creatinine 0.81. Glucose 177. Viral screen was negative. Today after lunch she developed a coughing episode and worsening shortness of breath and hypoxemia. We are consulted for the same. Follow-up chest x-ray reveals no acute process. The patient does have some scattered rhonchi and wheezing over the right lung. He is maintaining O2 saturations in the 90s on 4 L/min per nasal cannula. The patient is seen today April 11, 2024 in follow-up on the regular medical floor. He is currently awake and alert in no acute distress. Sitting up in bed. Maintaining good O2 saturations in the 90s on 2 L/min per nasal cannula. White count 7.5. Hemoglobin 11.9. Platelets 129. Sodium 143. Potassium 3.5. Bicarb 27. BUN 28. Creatinine 1.1. Glucose 171. He is continued on bronchodilators, steroids. Remains on antibiotics in the form of Zosyn. Anticoagulated with Xarelto. Continued on oral diuretics. Lung sounds much improved today compared to yesterday. Objective - Vital Signs Vital signs: Vital Signs Temp 98.2 F 04/11/24 07:56 Pulse 80 04/11/24 11:23 Resp 17 04/11/24 07:56 BP 141/67 04/11/24 07:56 Pulse Ox 97 04/11/24 07:56 FiO2 Intake & Output 04/10/24 04/11/24 04/11/24 18:59 06:59 18:59 Intake Total 600 Output Total 1400 350 Balance -1400 250 Weight 104.78 kg Intake: Intake, IV Titration 600 Amount Piperacillin-Tazobactam 3 100 .375 gm In Sodium Chloride 0.9% 100 ml @ 25 mls/hr IVPB Q8HR [facility] Rx# :[id number] Sodium Chloride 0.9% 1, 500 000 ml @ 75 mls/hr IV . [id number] [facility] Rx#:[id number] Output: Urine 1400 350 Other: Voiding Method External Catheter - Exam GENERAL EXAM: Alert, pleasant 74-year-old male, on 2 L nasal cannula, sitting up in bed, comfortable in no apparent distress. HEAD: Normocephalic. EYES: Normal reaction of pupils, equal size. NOSE: Clear with pink turbinates. THROAT: No erythema or exudates. NECK: No masses, no JVD. CHEST: No chest wall deformity. LUNGS: Equal air entry with few scattered rhonchi. CVS: S1 and S2 normal with no audible murmur, regular rhythm. ABDOMEN: No hepatosplenomegaly, normal bowel sounds, no guarding or rigidity. SPINE: No scoliosis or deformity SKIN: No rashes CENTRAL NERVOUS SYSTEM: No focal deficits, tone is normal in all 4 extremities. EXTREMITIES: There is no peripheral edema. No clubbing, no cyanosis. Peripheral pulses are intact. - Labs CBC & Chem 7: 04/11/24 04:14 04/11/24 04:14 Labs: Abnormal Lab Results - Last 24 Hours (Table) 04/10/24 04/10/24 04/10/24 Range/Units 12:47 17:07 20:13 RBC (4.40-5.60) X 10*6/uL Hgb (13.0-17.0) g/dL Hct (39.6-50.0) % MCV (80.0-97.0) FL MCH (27.0-32.0) pg Plt Count (140-440) X 10*3/uL Lymphocytes # (0.90-5.00) X 10*3/uL Monocytes # (0.20-1.00) X 10*3/uL Eosinophils # (0.04-0.35) X 10*3/uL BUN (9.0-27.0) mg/dL BUN/Creatinine Ratio (12.00-20.00) Ratio Glucose (70-110) mg/dL POC Glucose (mg/dL) 137 H 144 H 151 H (70-110) mg/dL Hemoglobin A1c (<=6.0) % Calcium (8.7-10.3) mg/dL Total Protein (6.2-8.2) g/dL Albumin (3.8-4.9) g/dL 04/11/24 04/11/24 04/11/24 Range/Units 04:14 04:14 04:14 RBC 3.66 L (4.40-5.60) X 10*6/uL Hgb 11.9 L (13.0-17.0) g/dL Hct 36.9 L (39.6-50.0) % MCV 100.8 H (80.0-97.0) FL MCH 32.5 H (27.0-32.0) pg Plt Count 129 L (140-440) X 10*3/uL Lymphocytes # 0.43 L (0.90-5.00) X 10*3/uL Monocytes # 0.09 L (0.20-1.00) X 10*3/uL Eosinophils # 0 L (0.04-0.35) X 10*3/uL BUN 27.7 H (9.0-27.0) mg/dL BUN/Creatinine Ratio 25.18 H (12.00-20.00) Ratio Glucose 171 H (70-110) mg/dL POC Glucose (mg/dL) (70-110) mg/dL Hemoglobin A1c 6.1 H (<=6.0) % Calcium 8.5 L (8.7-10.3) mg/dL Total Protein 5.7 L (6.2-8.2) g/dL Albumin 3.6 L (3.8-4.9) g/dL 04/11/24 04/11/24 Range/Units 07:20 12:20 RBC (4.40-5.60) X 10*6/uL Hgb (13.0-17.0) g/dL Hct (39.6-50.0) % MCV (80.0-97.0) FL MCH (27.0-32.0) pg Plt Count (140-440) X 10*3/uL Lymphocytes # (0.90-5.00) X 10*3/uL Monocytes # (0.20-1.00) X 10*3/uL Eosinophils # (0.04-0.35) X 10*3/uL BUN (9.0-27.0) mg/dL BUN/Creatinine Ratio (12.00-20.00) Ratio Glucose (70-110) mg/dL POC Glucose (mg/dL) 153 H 181 H (70-110) mg/dL Hemoglobin A1c (<=6.0) % Calcium (8.7-10.3) mg/dL Total Protein (6.2-8.2) g/dL Albumin (3.8-4.9) g/dL Assessment and Plan Assessment: Acute hypoxemic respiratory failure secondary to suspected aspiration pneumonia and some mild fluid volume overload. Remains on antibiotics and diuretics Altered mental status of unclear etiology, recovered Lewy body dementia History of congestive heart failure Hypertension Hyperlipidemia Gastroesophageal reflux disease Plan: The patient was seen and evaluated Labs and medications reviewed Continue Zosyn Check a procalcitonin Continue bronchodilators, steroids Continue diuretics Speech therapy consult for swallow evaluation Titrate the FiO2 as tolerated We will continue to follow I have personally seen and examined the patient, performed the documentation and the assessment and plan as written. Number of minutes spent on the visit: 10.
[2024-04-11 17:11] LABS: Glucose,Whole Blood 149 mg/dL (70-110)
[2024-04-11 20:20] LABS: Glucose,Whole Blood 154 mg/dL (70-110)
--- NOTE | 2024-04-12 00:11 | P.CNNES ---
History of Present Illness Consult date: 04/11/24 Requesting physician: Malik Broussard Reason for Consult: AMS History of Present Illness: Patient is a 74-year-old right-handed male came to the hospital by ambulance yesterday at 6:17 AM for altered mental status. Patient says that he has been having coughing and vomiting, could not tell her how long although says "2 months, I guess". He is good otherwise. Denies any memory issues. Denies any numbness or tingling any headache, dizziness or fall. As per EMS flowsheet, when they arrived, patient was found to be pale, diaphoretic and hot to touch. Staff has noticed that patient has developed a cough yesterday and tested negative for influenza and COVID. Chest x-ray was negative. During transfer to the stretcher, patient began to tremor with erratic breathing and brief episode of unresponsiveness. Patient was taken and loaded into ambulance. Patient had an episode of vomiting. Patient's blood glucose was 160. Blood pressure was 207/92, pulse rate 100 respiration 24 saturation 90%, temperature 101.2 axillary. Vital signs on arrival blood pressure 156/77, pulse is 79 temperature 99.4. Blood test shows WBC 12.0 hemoglobin 13.5, platelets are 144. INR 1.2. Sodium 130 potassium 3.2, BUN 24 creatinine 0.81. Hepatic panel is normal. Troponin negative. UA negative. Urine drug screen negative. Influenza, RSV and coronavirus PCR negative. MCV elevated 100.8. EKG showed sinus rhythm. Chest x-ray revealed cardiomegaly. Some early volume overload could be considered. CT head showed no acute intracranial process. I personally reviewed CT head, agree with the findings. On my review there is slight prominence of the ventricles as compared to the amount of cortical atrophy. Repeat chest x-ray showed no acute process. Patient has been seen by pulmonary medicine, and susp ected aspiration pneumonia and some mild fluid overload. Patient has history of CHF. Patient was started on Zosyn (ceftriaxone discontinued) Solu-Medrol also started. Patient had a previous EEG on 07/29/2022, which was abnormal due to minimal background slowing. No epileptiform activity was seen. Patient has been seen by neurology team in July 2022 for acute visual and auditory hallucinations with repeated brief body jerks/myoclonic jerks. Suspected encephalopathy. Patient has possible normal pressure hydrocephalus. Patient has history of atrial fibrillation/flutter, on Xarelto. History of DVT. Patient was diagnosed with NPH. However patient's sister Jesus did not recommend neurosurgical intervention due to reasons mentioned in my note from 07/31/2022. Review of Systems All pertinent positives and negatives as mentioned in HPI. Otherwise negative. Past Medical History Past Medical History: Heart Failure, Dementia, Hyperlipidemia Additional Past Medical History / Comment(s): ? SEIZURE 2014. using a cane History of Any Multi-Drug Resistant Organisms: None Reported Past Surgical History: Joint Replacement, Orthopedic Surgery Additional Past Surgical History / Comment(s): total R knee arthroplasty. Rt FOOT SURGERY, Rt carpal tunnel repair Past Anesthesia/Blood Transfusion Reactions: No Reported Reaction Past Psychological History: No Psychological Hx Reported Smoking Status: Never smoker Past Alcohol Use History: None Reported Past Drug Use History: None Reported - Past Family History Father Family Medical History: Cancer Mother Family Medical History: Cancer, Deep Vein Thrombosis (DVT) Additional Family Medical History / Comment(s): bone Medications and Allergies Home Medications Medication Instructions Recorded Confirmed Type Aspirin EC [Ecotrin Low Dose] 81 mg PO DAILY 08/07/15 04/10/24 History Atorvastatin [Lipitor] 20 mg PO HS 08/07/15 04/10/24 History Multivitamins, Thera [Multivitamin 1 tab PO DAILY 08/07/15 04/10/24 History (formulary)] Omeprazole [PriLOSEC] 20 mg PO HS 08/07/15 04/10/24 History Rivaroxaban [Xarelto] 20 mg PO HS 05/01/22 04/10/24 History Potassium Chloride [Klor-Con M10] 10 meq PO DAILY #30 tab 06/12/22 04/10/24 Rx Furosemide [Lasix] 40 mg PO Q2D 07/28/22 04/10/24 History Furosemide [Lasix] 60 mg PO Q2D 07/28/22 04/10/24 History Metoprolol Succinate [Metoprolol 12.5 mg PO DAILY 07/28/22 04/10/24 History Succinate ER] Cholecalciferol [Vitamin D3 (25 50 mcg PO DAILY 04/10/24 04/10/24 History Mcg = 1000 Iu)] Donepezil 23 mg PO HS 04/10/24 04/10/24 History Doxazosin [Cardura] 2 mg PO HS 04/10/24 04/10/24 History Sertraline [Zoloft] 50 mg PO HS 04/10/24 04/10/24 History Allergies Allergy/AdvReac Type Severity Reaction Status Date / Time alprazolam [From Xanax] Allergy Unknown Unknown Verified 04/10/24 11:37 cyclobenzaprine HCl Allergy Unknown Unknown Verified 04/10/24 11:37 [From Flexeril] memantine HCl [From Namenda] Allergy Unknown Unknown Verified 04/10/24 11:37 promethazine HCl Allergy Unknown Unknown Verified 04/10/24 11:37 [From Phenergan] quetiapine fumarate Allergy Unknown Unknown Verified 04/10/24 11:37 [From Seroquel] Physical Examination - Vital Signs Vital Signs: Vital Signs Temp Pulse Pulse Resp BP BP Pulse Ox 04/11/24 07:57 72 04/11/24 07:56 98.2 F 80 17 141/67 97 04/11/24 07:47 72 04/11/24 07:46 72 04/11/24 07:29 72 04/11/24 02:00 97.8 F 72 14 142/65 95 04/10/24 19:32 98.7 F 61 14 133/68 96 04/10/24 19:23 84 04/10/24 19:14 78 04/10/24 19:13 78 04/10/24 19:06 76 04/10/24 18:01 76 145/67 98 04/10/24 15:29 72 04/10/24 15:17 76 04/10/24 14:00 99 F 75 19 160/79 96 04/10/24 12:40 24 04/10/24 12:37 98.7 F 102 H 19 172/52 97 04/10/24 11:29 98.9 F 74 20 157/80 98 Intake and Output 04/10/24 04/11/24 04/11/24 22:59 06:59 14:59 Intake Total 600 Output Total 600 350 Balance -600 250 Intake: Intake, IV Titration 600 Amount Piperacillin-Tazobactam 3 100 .375 gm In Sodium Chloride 0.9% 100 ml @ 25 mls/hr IVPB Q8HR [facility] Rx# :[id number] Sodium Chloride 0.9% 1, 500 000 ml @ 75 mls/hr IV . [id number] [facility] Rx#:[id number] Output: Urine 600 350 Other: Voiding Method External Catheter Patient is an elderly male, very pleasant, in no acute distress. Patient is alert awake oriented to time place and person. Patient knows it is April 2024 and that he is in [facility] in [facility] and name of the current president Mr. Petty and that it is a fall season. Speech and language functions are normal. Patient can name and repeat very well. No aphasia or dysarthria. Attention, concentration and fund of knowledge is adequate. On cranial nerve examination, pupils are equal, round and reacting to light, visual miller are full on confrontation, with no neglect on double simultaneous stimulation. Extraocular muscles are intact with no nystagmus. Face is symmetric, tongue protrudes to the midline. Palatal elevation and sensation normal, hearing and shoulder shrug normal, facial sensation normal. On muscle strength testing, there is no pronator drift and the strength is normal in arms and legs distally and proximally. Patient has a very prominent bilateral hammertoes. Patient has mild to moderate coarse tremors of outstretched hands. Patient is having some myoclonic jerks of the shoulders while he is laying in the bed. Deep tendon reflexes are symmetric 2 at the biceps, 2 brachioradialis, 1 at the knees, plantars downgoing bilaterally. Sensory to touch is equal with no neglect on double simultaneous stimulation. Cerebellar function showed no ataxia for [id number] testing, although patient is slightly tremulous. No ataxia for [id number] testing on either side. Tone and bulk of muscles normal. Gait deferred.. On general examination, there is no carotid bruit or murmur, S1-S2 audible. Chest is clear on consultation. Abdomen is soft nontender. No organomegaly, bowel sounds present. Peripheral pulses are present. No peripheral edema. Results - Laboratory Findings CBC and BMP: 04/11/24 04:14 04/11/24 04:14 Abnormal Lab Findings: Abnormal Labs 04/10/24 04/10/24 04/10/24 06:27 06:46 06:46 WBC 12.0 H RBC 4.03 L Hgb Hct MCV MCH Plt Count 144 L Neutrophils # 9.0 H Lymphocytes # Monocytes # Eosinophils # PT 13.2 H INR 1.2 H Potassium BUN BUN/Creatinine Ratio Glucose POC Glucose (mg/dL) 158 H Hemoglobin A1c Calcium Total Protein Albumin Urine Protein Urine Ketones Urine Blood Urine RBC Urine WBC Calcium Oxalate Crystal Urine Mucus 04/10/24 04/10/24 04/10/24 06:46 09:01 12:47 WBC RBC Hgb Hct MCV MCH Plt Count Neutrophils # Lymphocytes # Monocytes # Eosinophils # PT INR Potassium 3.2 L BUN 24 H BUN/Creatinine Ratio Glucose 177 H POC Glucose (mg/dL) 137 H Hemoglobin A1c Calcium Total Protein 6.1 L Albumin Urine Protein 2+ H Urine Ketones 1+ H Urine Blood Large H Urine RBC 106 H Urine WBC 6 H Calcium Oxalate Crystal Rare H Urine Mucus Many H 04/10/24 04/10/24 04/11/24 17:07 20:13 04:14 WBC RBC Hgb Hct MCV MCH Plt Count Neutrophils # Lymphocytes # Monocytes # Eosinophils # PT INR Potassium BUN BUN/Creatinine Ratio Glucose POC Glucose (mg/dL) 144 H 151 H Hemoglobin A1c 6.1 H Calcium Total Protein Albumin Urine Protein Urine Ketones Urine Blood Urine RBC Urine WBC Calcium Oxalate Crystal Urine Mucus 04/11/24 04/11/24 04/11/24 04:14 04:14 07:20 WBC RBC 3.66 L Hgb 11.9 L Hct 36.9 L MCV 100.8 H MCH 32.5 H Plt Count 129 L Neutrophils # Lymphocytes # 0.43 L Monocytes # 0.09 L Eosinophils # 0 L PT INR Potassium BUN 27.7 H BUN/Creatinine Ratio 25.18 H Glucose 171 H POC Glucose (mg/dL) 153 H Hemoglobin A1c Calcium 8.5 L Total Protein 5.7 L Albumin 3.6 L Urine Protein Urine Ketones Urine Blood Urine RBC Urine WBC Calcium Oxalate Crystal Urine Mucus Assessment and Plan Assessment: * Altered mental status, likely due to metabolic encephalopathy. * Possible aspiration pneumonia * History of CHF, with mild fluid volume overload * History of atrial flutter, on Xarelto * Normal pressure hydrocephalus * Hyperlipidemia * Hypertension * Possible dementia. Plan: * Treatment of aspiration pneumonia as per pulmonary medicine. Patient currently on Zosyn. * Patient also on Solu-Medrol 40 mg IV every 6 hours, which can make delirium as well. * Patient has history of normal pressure hydrocephalus. Patient's sister, who is a caregiver, has declined neurosurgical evaluations in the past. She wants patient to be comfortable. * Continue Xarelto for history of atrial flutter/DVT and CHF. * PT, OT. * B12 thyroid and 16, folate 25.8 on 07/28/2022. No need to repeat. TSH normal 2.37. * Neurologically, no other workup indicated. Dr. Lior Bajwa starting neurology service from the morning. Please reconsult neurology if any other concerns. * Thank you for the consult.
--- NOTE | 2024-04-12 03:45 | PN ---
PROGRESS NOTE DATE OF SERVICE: 04/11/2024 HISTORY: This 74-year-old gentleman admitted with change in mental status and possibly metabolic encephalopathy, had possible acute bronchitis. The patient was started on bronchodilators and antibiotics. Speech pathology is being consulted for possible swallow evaluation to rule out aspiration. Dr. duran is following the patient closely. PAST MEDICAL HISTORY: Could not be taken as the patient is mildly confused. CURRENT MEDICATIONS: Reviewed. PHYSICAL EXAMINATION: VITAL SIGNS: Pulse is 94, blood pressure ntd, respirations 17. CHEST few scattered rhonchi. ABDOMEN: Soft. LEGS: No edema. NERVOUS SYSTEM: Diffusely weak. LABORATORY DATA: Reviewed. ASSESSMENT: 1. Change in mental status, acute metabolic encephalopathy. 2. Fever, vomiting, possible acute bronchitis, rule out aspiration pneumonia. 3. Rule out aspiration. 4. Lewy body dementia. 5. Multiple complex medical issues. RECOMMENDATIONS: To continue current management and treatment, otherwise continue the antibiotics bronchodilators. Speech pathology evaluation. Guarded prognosis. Further recommendations to follow. MMODL / IJN: [id number] / KAYCE
[2024-04-12 07:18] LABS: Glucose,Whole Blood 144 mg/dL (70-110)
[2024-04-12 08:45] LABS: Basophils # (A) 0 X 10*3/uL (0.00-0.10); Basophils % (A) 0 %; Eosinophils # (A) 0 X 10*3/uL (0.04-0.35); Eosinophils % (A) 0 %; HCT 37.8 % (39.6-50.0); HGB 11.9 g/dL (13.0-17.0); Lymphocytes # (A) 0.44 X 10*3/uL (0.90-5.00); Lymphocytes % (A) 4.3 %; MCHC 31.5 g/dL (32.0-37.0); MCV 98.4 FL (80.0-97.0); Mean Platelet Volume 10.2 FL (9.5-12.2); Monocytes # (A) 0.31 X 10*3/uL (0.20-1.00); NRBC Per 100 WBC 0 X 10*3/uL (0.00-0.01); Neutrophils # (A) 9.47 X 10*3/uL (1.80-7.70); Neutrophils % (A) 92.2 %; Platelet Count 152 X 10*3/uL (140-440); RBC 3.84 X 10*6/uL (4.40-5.60); RDW 13.8 % (11.5-14.5); WBC 10.27 X 10*3/uL (4.50-10.00)
[2024-04-12 08:56] LABS: BUN/Creat Ratio 36.82 Ratio (12.00-20.00); Blood Urea Nitrogen 40.5 mg/dL (9.0-27.0); Calcium 8.6 mg/dL (8.7-10.3); Carbon Dioxide 27.5 mmol/L (21.6-31.8); Chloride 109 mmol/L (96-109); Glucose 173 mg/dL (70-110); Potassium 3.7 mmol/L (3.5-5.5); Sodium 147 mmol/L (135-145)
--- NOTE | 2024-04-12 10:25 | XR ---
EXAMINATION TYPE: XR chest 1V portable DATE OF EXAM: 04/12/2024 HISTORY: Shortness of breath. COMPARISON: 04/10/2024 TECHNIQUE: Single view of the chest is submitted. FINDINGS: Demonstrated are scattered senescent parenchymal change. Right medial basilar density noted which could reflect atelectasis or infiltrate. Opacity of other et iology not excluded. Continued follow-up is advised. The heart is stable. Hilar and mediastinal structures are within normal limits. Degenerative changes are seen of the dorsal spine. IMPRESSION: 1. Right medial basilar density noted which could reflect atelectasis or infiltrate. Opacity of othe r etiology not excluded. Continued follow-up is advised. [facility], , 04/12/2024 10:23 AM
[2024-04-12 12:08] LABS: Glucose,Whole Blood 214 mg/dL (70-110)
--- NOTE | 2024-04-12 12:46 | P.PN ---
Subjective Progress Note Date: 04/12/24 This is a pleasant 74-year-old male patient with a known history of Lewy body dementia, congestive heart failure, hyperlipidemia essential tremors, resides at [facility] on the [facility] for the past 2 years. He was brought in from there early this morning to the emergency department with altered mental status. He was also having fever, shaking and vomiting. CT scan of the brain revealed no acute intracranial process. Chest x-ray showed cardiomegaly and some early volume overload. Count 12.0. Hemoglobin 13.5. Platelets 144. Sodium 140. Potassium 3.2. Bicarb 26. BUN 24. Creatinine 0.81. Glucose 177. Viral screen was negative. Today after lunch she developed a coughing episode and worsening shortness of breath and hypoxemia. We are consulted for the same. Follow-up chest x-ray reveals no acute process. The patient does have some scattered rhonchi and wheezing over the right lung. He is maintaining O2 saturations in the 90s on 4 L/min per nasal cannula. The patient is seen today April 11, 2024 in follow-up on the regular medical floor. He is currently awake and alert in no acute distress. Sitting up in bed. Maintaining good O2 saturations in the 90s on 2 L/min per nasal cannula. White count 7.5. Hemoglobin 11.9. Platelets 129. Sodium 143. Potassium 3.5. Bicarb 27. BUN 28. Creatinine 1.1. Glucose 171. He is continued on bronchodilators, steroids. Remains on antibiotics in the form of Zosyn. Anticoagulated with Xarelto. Continued on oral diuretics. Lung sounds much improved today compared to yesterday. The patient is seen today April 12, 2024 in follow-up on the regular medical floor. He is currently sitting up in bed. Awake and alert in no acute distress. He is maintaining good O2 saturations in the 90s on 2 L/min per nasal cannula. He has been afebrile. Hemodynamically stable. Follow-up chest x-ray continues to show a right medial basilar density most likely atelectasis. Count 10.2. Hemoglobin 11.9. Platelets 152. Sodium 147. Potassium 3.7. Bicarb 28. BUN 40. Creatinine 1.1. Glucose 173. Procalcitonin was negative at 0.06. Zosyn to be discontinued. He is anticoagulated with Xarelto. He remains on D uoNeb inhalations, Pulmicort and Perforomist inhalation, Solu-Medrol. Less bronchospastic and wheezing today. He passed his swallow evaluation and was recommended regular texture diet and thin liquids. Objective - Vital Signs Vital signs: Vital Signs Temp 97.7 F 04/12/24 07:14 Pulse 60 04/12/24 11:17 Resp 16 04/12/24 07:14 BP 160/59 04/12/24 07:14 Pulse Ox 95 04/12/24 07:14 FiO2 Intake & Output 04/11/24 04/12/24 04/12/24 18:59 06:59 18:59 Intake Total 240 Output Total 700 275 Balance -700 -35 Intake: Intake, IV Titration 240 Amount Piperacillin-Tazobactam 3 100 .375 gm In Sodium Chloride 0.9% 100 ml @ 25 mls/hr IVPB Q8HR [facility] Rx# :[id number] Sodium Chloride 0.9% 1, 140 000 ml @ 75 mls/hr IV . [id number] [facility] Rx#:[id number] Output: Urine 700 275 Other: Voiding Method External Catheter - Exam GENERAL EXAM: Alert, 74-year-old male, on 2 L nasal cannula, comfortable in no apparent distress. HEAD: Normocephalic. EYES: Normal reaction of pupils, equal size. NOSE: Clear with pink turbinates. THROAT: No erythema or exudates. NECK: No masses, no JVD. CHEST: No chest wall deformity. LUNGS: Equal air entry with few scattered rhonchi. CVS: S1 and S2 normal with no audible murmur, regular rhythm. ABDOMEN: No hepatosplenomegaly, normal bowel sounds, no guarding or rigidity. SPINE: No scoliosis or deformity SKIN: No rashes CENTRAL NERVOUS SYSTEM: No focal deficits, tone is normal in all 4 extremities. EXTREMITIES: There is no peripheral edema. No clubbing, no cyanosis. Peripheral pulses are intact. - Labs CBC & Chem 7: 04/12/24 05:41 04/12/24 05:41 Labs: Abnormal Lab Results - Last 24 Hours (Table) 04/10/24 04/11/24 04/11/24 Range/Units 06:46 17:05 20:16 WBC (4.50-10.00) X 10*3/uL RBC (4.40-5.60) X 10*6/uL Hgb (13.0-17.0) g/dL Hct (39.6-50.0) % MCV (80.0-97.0) FL MCHC (32.0-37.0) g/dL Immature Gran # (0.00-0.04) X 10*3/uL Neutrophils # (1.80-7.70) X 10*3/uL Lymphocytes # (0.90-5.00) X 10*3/uL Eosinophils # (0.04-0.35) X 10*3/uL Sodium (135-145) mmol/L BUN (9.0-27.0) mg/dL BUN/Creatinine Ratio (12.00-20.00) Ratio Glucose (70-110) mg/dL POC Glucose (mg/dL) 149 H 154 H (70-110) mg/dL Calcium (8.7-10.3) mg/dL NT-Pro-B Natriuret Pep 777 H (0-125) pg/mL 04/12/24 04/12/24 04/12/24 Range/Units 05:41 05:41 07:16 WBC 10.27 H (4.50-10.00) X 10*3/uL RBC 3.84 L (4.40-5.60) X 10*6/uL Hgb 11.9 L (13.0-17.0) g/dL Hct 37.8 L (39.6-50.0) % MCV 98.4 H (80.0-97.0) FL MCHC 31.5 L (32.0-37.0) g/dL Immature Gran # 0.05 H (0.00-0.04) X 10*3/uL Neutrophils # 9.47 H (1.80-7.70) X 10*3/uL Lymphocytes # 0.44 L (0.90-5.00) X 10*3/uL Eosinophils # 0 L (0.04-0.35) X 10*3/uL Sodium 147 H (135-145) mmol/L BUN 40.5 H (9.0-27.0) mg/dL BUN/Creatinine Ratio 36.82 H (12.00-20.00) Ratio Glucose 173 H (70-110) mg/dL POC Glucose (mg/dL) 144 H (70-110) mg/dL Calcium 8.6 L (8.7-10.3) mg/dL NT-Pro-B Natriuret Pep (0-125) pg/mL 04/12/24 Range/Units 12:07 WBC (4.50-10.00) X 10*3/uL RBC (4.40-5.60) X 10*6/uL Hgb (13.0-17.0) g/dL Hct (39.6-50.0) % MCV (80.0-97.0) FL MCHC (32.0-37.0) g/dL Immature Gran # (0.00-0.04) X 10*3/uL Neutrophils # (1.80-7.70) X 10*3/uL Lymphocytes # (0.90-5.00) X 10*3/uL Eosinophils # (0.04-0.35) X 10*3/uL Sodium (135-145) mmol/L BUN (9.0-27.0) mg/dL BUN/Creatinine Ratio (12.00-20.00) Ratio Glucose (70-110) mg/dL POC Glucose (mg/dL) 214 H (70-110) mg/dL Calcium (8.7-10.3) mg/dL NT-Pro-B Natriuret Pep (0-125) pg/mL Assessment and Plan Assessment: Acute hypoxemic respiratory failure secondary to suspected aspiration and some mild fluid volume overload. Procalcitonin negative. Passed his swallow evaluation Altered mental status of unclear etiology, recovered Lewy body dementia History of congestive heart failure Hypertension Hyperlipidemia Gastroesophageal reflux disease Plan: The patient was seen and evaluated Labs and medications reviewed Procalcitonin negative, Zosyn discontinued He passed his swallow evaluation, resume diet Continue bronchodilators, steroids Continue diuretics Titrate the FiO2 as tolerated Plan is to return to [facility] at discharge This patient was seen independently by the pulmonary nurse practitioner addressing pulmonary issues I have personally seen and examined the patient, performed the documentation and the assessment and plan as written. Number of minutes spent on the visit: 24.
[2024-04-12 17:11] LABS: Glucose,Whole Blood 154 mg/dL (70-110)
[2024-04-12 19:59] LABS: Glucose,Whole Blood 215 mg/dL (70-110)
[2024-04-12] MEDS: methylPREDNISolone SOD SUCCI 40 MG/ML 1 ML VIAL IV SCH (20:27)
--- NOTE | 2024-04-13 01:41 | PN ---
PROGRESS NOTE DATE OF SERVICE: 04/12/2024 SUBJECTIVE: This is a 74-year-old gentleman who was admitted with change in mental status, acute metabolic encephalopathy, also had bronchitis and aspiration pneumonia is also suspected. Most recent chest x-ray done today showed significant improvement. OBJECTIVE: VITAL SIGNS: Pulse is 78, blood pressure 149/60, respirations 16. CHEST: A few scattered rhonchi and crackles. ABDOMEN: Soft. NERVOUS SYSTEM: Nonfocal. LABORATORY DATA: Reviewed. ASSESSMENT: 1. Change in mental status, acute metabolic encephalopathy. 2. Fever, vomiting, possible acute aspiration pneumonia. 3. Lewy body dementia. 4. Multiple complex medical issues. RECOMMENDATIONS: Recommend to continue current management and current symptomatic treatment. Continue with antibiotics and taper the steroids and bronchodilators. Further recommendations to follow. MMODL / IJN: [id number] /
[2024-04-13 07:39] LABS: Glucose,Whole Blood 148 mg/dL (70-110)
[2024-04-13] MEDS: predniSONE 10 MG TAB PO SCH (09:42)
[2024-04-13] MEDS: IPRATROPIUM-ALBUTEROL 3 ML NEB INHALATION PRN (11:25)
[2024-04-13 12:12] LABS: Glucose,Whole Blood 126 mg/dL (70-110)
--- NOTE | 2024-04-13 13:12 | P.PN ---
Subjective Progress Note Date: 04/13/24 This is a pleasant 74-year-old male patient with a known history of Lewy body dementia, congestive heart failure, hyperlipidemia essential tremors, resides at [facility] on the [facility] for the past 2 years. He was brought in from there early this morning to the emergency department with altered mental status. He was also having fever, shaking and vomiting. CT scan of the brain revealed no acute intracranial process. Chest x-ray showed cardiomegaly and some early volume overload. Count 12.0. Hemoglobin 13.5. Platelets 144. Sodium 140. Potassium 3.2. Bicarb 26. BUN 24. Creatinine 0.81. Glucose 177. Viral screen was negative. Today after lunch she developed a coughing episode and worsening shortness of breath and hypoxemia. We are consulted for the same. Follow-up chest x-ray reveals no acute process. The patient does have some scattered rhonchi and wheezing over the right lung. He is maintaining O2 saturations in the 90s on 4 L/min per nasal cannula. The patient is seen today April 11, 2024 in follow-up on the regular medical floor. He is currently awake and alert in no acute distress. Sitting up in bed. Maintaining good O2 saturations in the 90s on 2 L/min per nasal cannula. White count 7.5. Hemoglobin 11.9. Platelets 129. Sodium 143. Potassium 3.5. Bicarb 27. BUN 28. Creatinine 1.1. Glucose 171. He is continued on bronchodilators, steroids. Remains on antibiotics in the form of Zosyn. Anticoagulated with Xarelto. Continued on oral diuretics. Lung sounds much improved today compared to yesterday. The patient is seen today April 12, 2024 in follow-up on the regular medical floor. He is currently sitting up in bed. Awake and alert in no acute distress. He is maintaining good O2 saturations in the 90s on 2 L/min per nasal cannula. He has been afebrile. Hemodynamically stable. Follow-up chest x-ray continues to show a right medial basilar density most likely atelectasis. Count 10.2. Hemoglobin 11.9. Platelets 152. Sodium 147. Potassium 3.7. Bicarb 28. BUN 40. Creatinine 1.1. Glucose 173. Procalcitonin was negative at 0.06. Zosyn to be discontinued. He is anticoagulated with Xarelto. He remains on D uoNeb inhalations, Pulmicort and Perforomist inhalation, Solu-Medrol. Less bronchospastic and wheezing today. He passed his swallow evaluation and was recommended regular texture diet and thin liquids. The patient is seen today April 13, 2024 in follow-up on the regular medical floor. He is currently up in a chair at the bedside. Awake and alert in no acute distress. He is maintaining good O2 saturations in the 90s on room air. He remains on DuoNeb and elations, Symbicort, prednisone taper. Remains on oral diuretics. Intake coagulated with Xarelto. Blood cultures revealed no growth. Glucose 126. Objective - Vital Signs Vital signs: Vital Signs Temp 97.9 F 04/13/24 08:00 Pulse 64 04/13/24 11:36 Resp 19 04/13/24 08:00 BP 150/66 04/13/24 08:00 Pulse Ox 94 L 04/13/24 08:17 FiO2 Intake & Output 04/12/24 04/13/24 04/13/24 18:59 06:59 18:59 Intake Total 2180 Output Total 1203 Balance 977 Intake: Intake, IV Titration 100 Amount Piperacillin-Tazobactam 3 100 .375 gm In Sodium Chloride 0.9% 100 ml @ 25 mls/hr IVPB Q8HR [facility] Rx# :[id number] Oral 2080 Output: Urine 1200 Stool 3 Other: Voiding Method External Catheter External Catheter External Catheter # Voids 350 # Bowel Movements 1 - Exam GENERAL EXAM: Alert, pleasant 74-year-old male, up in a chair, on room air, comfortable in no apparent distress. HEAD: Normocephalic. EYES: Normal reaction of pupils, equal size. NOSE: Clear with pink turbinates. THROAT: No erythema or exudates. NECK: No masses, no JVD. CHEST: No chest wall deformity. LUNGS: Equal air entry with few scattered rhonchi. CVS: S1 and S2 normal with no audible murmur, regular rhythm. ABDOMEN: No hepatosplenomegaly, normal bowel sounds, no guarding or rigidity. SPINE: No scoliosis or deformity SKIN: No rashes CENTRAL NERVOUS SYSTEM: No focal deficits, tone is normal in all 4 extremities. EXTREMITIES: There is no peripheral edema. No clubbing, no cyanosis. Peripheral pulses are intact. - Labs CBC & Chem 7: 04/12/24 05:41 04/12/24 05:41 Labs: Abnormal Lab Results - Last 24 Hours (Table) 04/12/24 04/12/24 04/13/24 Range/Units 17:10 19:52 07:33 POC Glucose (mg/dL) 154 H 215 H 148 H (70-110) mg/dL 04/13/24 Range/Units 11:58 POC Glucose (mg/dL) 126 H (70-110) mg/dL Microbiology - Last 24 Hours (Table) 04/10/24 11:00 Blood Culture - Preliminary Blood Assessment and Plan Assessment: Acute hypoxemic respiratory failure secondary to suspected aspiration and some mild fluid volume overload. Recovered and on room air Altered mental status of unclear etiology, recovered Lewy body dementia History of congestive heart failure Hypertension Hyperlipidemia Gastroesophageal reflux disease Plan: The patient was seen and evaluated Labs and medications reviewed Continue bronchodilators, prednisone taper Stable and on room air Tolerating a dysphagia level 3 chopped diet Cleared to return to [facility] This patient was seen independently by the pulmonary nurse practitioner addressing pulmonary issues I have personally seen and examined the patient, performed the documentation and the assessment and plan as written. Number of minutes spent on the visit: 22.
[2024-04-13 17:23] LABS: Glucose,Whole Blood 151 mg/dL (70-110)
[2024-04-13] MEDS: SYMBICORT 160-4.5 MCG INHALER INHALATION SCH (18:41)
[2024-04-13 20:11] LABS: Glucose,Whole Blood 149 mg/dL (70-110)
[2024-04-14 07:30] LABS: Glucose,Whole Blood 84 mg/dL (70-110)
--- NOTE | 2024-04-14 09:41 | P.PN ---
Subjective Progress Note Date: 04/14/24 This is a pleasant 74-year-old male who follows with Dr. Villagran in the outpatient setting who was hospitalized with change in mental status, acute metabolic encephalopathy also with concerns of bronchitis and possible aspiration pneumonia. Pulmonary is following and patient is maintained on DuoNeb treat ments was evaluated by speech with no overt signs of aspiration noted. Patient is improving and will continue current regimen with possible discharge planning in the next 24 hours. Patient is afebrile with no reports of chest pain or shortness of breath. No reported nausea or vomiting noted. Review of systems: Constitutional: No reports of fatigue, fever, or chills Cardiovascular: No reports of chest pain or palpitations Respiratory: No reports of shortness of breath or cough GI: No reports of nausea, no reports of vomiting, no diarrhea : No reports of dysuria or retention Neurovascular: No reports of generalized weakness All medications have been reviewed PHYSICAL EXAMINATION: GENERAL: The patient is alert and oriented x2-3, baseline, well developed, elderly appearing, obese HEENT: Pupils are round and equally reacting to light. EOMI. no scleral icterus. No conjunctival pallor. Normocephalic, atraumatic. No pharyngeal erythema. No thyromegaly. CARDIOVASCULAR: S1 and S2 muffled PULMONARY: diminished breath sounds bilaterally with no faint expiratory wheezing and coarse rhonchi with bronchial congestion noted. ABDOMEN: soft. Nontender on exam. obese. non-distended, normoactive bowel sounds. No palpable organomegaly. MUSCULOSKELETAL: No joint swelling or deformity. EXTREMITIES: No cyanosis, clubbing, or pedal edema. NEUROLOGICAL: Gross neurological examination did not reveal any focal deficits. Diffuse weakness SKIN: No rashes. Assessment: Change in mental status, acute metabolic encephalopathy, improved and back to baseline Fever/vomiting with concerns of possible acute aspiration pneumonia Acute hypoxic respiratory failure with concerns of suspected aspiration, recovered and currently on room air Lewy body dementia History of congestive heart failure with preserved EF, not in exacerbation Hypertension history Hyperlipidemia history GERD Obesity with a BMI 36.2 GI prophylaxis DVT prophylaxis No code Plan: Recommend to continue with current medications and management with pulmonary following. Patient is maintained on DuoNeb treatments along with prednisone and will continue a taper and discharge Patient initially was maintained on oxygen although has improved and currently on room air with no reports of shortness of breath Continue dysphagia diet with aspiration precautions and supervision with meals Plan will be for return to [facility] on discharge Likely discharge planning in next 24 hours Due to multiple complex medical issues, overall prognosis is guarded The impression and plan of care has been dictated by Lala Koo, nurse practitioner as directed. Dr. Jason MD I have performed a history and examination and MDM of this patient, discussed the same with the dictator, and agree with the dictator's assessment and plan as written ,documented as a scribe. Based on total visit time, I have performed more than 50% of the visit. Any additional findings or plans will be noted. Objective - Vital Signs Vital signs: Vital Signs Temp 97.7 F 04/14/24 07:31 Pulse 56 L 04/14/24 07:31 Resp 17 04/14/24 07:31 BP 159/69 04/14/24 07:31 Pulse Ox 96 04/14/24 08:24 FiO2 Intake & Output 04/13/24 04/14/24 04/14/24 18:59 06:59 18:59 Intake Total 1800 Output Total 1000 450 Balance 800 -450 Intake: Oral 1800 Output: Urine 1000 450 Other: Voiding Method External Catheter # Bowel Movements 1 1 - Labs CBC & Chem 7: 04/12/24 05:41 04/12/24 05:41 Labs: Abnormal Lab Results - Last 24 Hours (Table) 04/13/24 04/13/24 04/13/24 Range/Units 11:58 17:21 20:10 POC Glucose (mg/dL) 126 H 151 H 149 H (70-110) mg/dL Microbiology - Last 24 Hours (Table) 04/10/24 11:00 Blood Culture - Preliminary Blood
--- NOTE | 2024-04-14 11:46 | P.PN ---
Subjective Progress Note Date: 04/14/24 This is a pleasant 74-year-old male patient with a known history of Lewy body dementia, congestive heart failure, hyperlipidemia essential tremors, resides at [facility] on the [facility] for the past 2 years. He was brought in from there early this morning to the emergency department with altered mental status. He was also having fever, shaking and vomiting. CT scan of the brain revealed no acute intracranial process. Chest x-ray showed cardiomegaly and some early volume overload. Count 12.0. Hemoglobin 13.5. Platelets 144. Sodium 140. Potassium 3.2. Bicarb 26. BUN 24. Creatinine 0.81. Glucose 177. Viral screen was negative. Today after lunch she developed a coughing episode and worsening shortness of breath and hypoxemia. We are consulted for the same. Follow-up chest x-ray reveals no acute process. The patient does have some scattered rhonchi and wheezing over the right lung. He is maintaining O2 saturations in the 90s on 4 L/min per nasal cannula. The patient is seen today April 11, 2024 in follow-up on the regular medical floor. He is currently awake and alert in no acute distress. Sitting up in bed. Maintaining good O2 saturations in the 90s on 2 L/min per nasal cannula. White count 7.5. Hemoglobin 11.9. Platelets 129. Sodium 143. Potassium 3.5. Bicarb 27. BUN 28. Creatinine 1.1. Glucose 171. He is continued on bronchodilators, steroids. Remains on antibiotics in the form of Zosyn. Anticoagulated with Xarelto. Continued on oral diuretics. Lung sounds much improved today compared to yesterday. The patient is seen today April 12, 2024 in follow-up on the regular medical floor. He is currently sitting up in bed. Awake and alert in no acute distress. He is maintaining good O2 saturations in the 90s on 2 L/min per nasal cannula. He has been afebrile. Hemodynamically stable. Follow-up chest x-ray continues to show a right medial basilar density most likely atelectasis. Count 10.2. Hemoglobin 11.9. Platelets 152. Sodium 147. Potassium 3.7. Bicarb 28. BUN 40. Creatinine 1.1. Glucose 173. Procalcitonin was negative at 0.06. Zosyn to be discontinued. He is anticoagulated with Xarelto. He remains on D uoNeb inhalations, Pulmicort and Perforomist inhalation, Solu-Medrol. Less bronchospastic and wheezing today. He passed his swallow evaluation and was recommended regular texture diet and thin liquids. The patient is seen today April 13, 2024 in follow-up on the regular medical floor. He is currently up in a chair at the bedside. Awake and alert in no acute distress. He is maintaining good O2 saturations in the 90s on room air. He remains on DuoNeb and elations, Symbicort, prednisone taper. Remains on oral diuretics. Intake coagulated with Xarelto. Blood cultures revealed no growth. Glucose 126. The patient is seen today April 14, 2024 in follow-up on the regular medical floor. He is awake and alert in no acute distress. Sitting up in a chair. Denies any worsening shortness of breath, cough or congestion. Tolerating his diet. Maintaining good O2 saturations in the 90s on room air. Glucose 84. He is continued on Symbicort, DuoNeb and elations, prednisone. Anticoagulated with Xarelto. Objective - Vital Signs Vital signs: Vital Signs Temp 97.7 F 04/14/24 07:31 Pulse 56 L 04/14/24 07:31 Resp 17 04/14/24 07:31 BP 159/69 04/14/24 07:31 Pulse Ox 96 04/14/24 08:24 FiO2 Intake & Output 04/13/24 04/14/24 04/14/24 18:59 06:59 18:59 Intake Total 1800 Output Total 1000 450 Balance 800 -450 Intake: Oral 1800 Output: Urine 1000 450 Other: Voiding Method External Catheter # Bowel Movements 1 1 1 - Exam GENERAL EXAM: Alert, 74-year-old male, on room air, comfortable in no apparent distress. HEAD: Normocephalic. EYES: Normal reaction of pupils, equal size. NOSE: Clear with pink turbinates. THROAT: No erythema or exudates. NECK: No masses, no JVD. CHEST: No chest wall deformity. LUNGS: Equal air entry with few scattered rhonchi. CVS: S1 and S2 normal with no audible murmur, regular rhythm. ABDOMEN: No hepatosplenomegaly, normal bowel sounds, no guarding or rigidity. SPINE: No scoliosis or deformity SKIN: No rashes CENTRAL NERVOUS SYSTEM: No focal deficits, tone is normal in all 4 extremities. EXTREMITIES: There is no peripheral edema. No clubbing, no cyanosis. Peripheral pulses are intact. - Labs CBC & Chem 7: 04/12/24 05:41 04/12/24 05:41 Labs: Abnormal Lab Results - Last 24 Hours (Table) 04/13/24 04/13/24 04/13/24 Range/Units 11:58 17:21 20:10 POC Glucose (mg/dL) 126 H 151 H 149 H (70-110) mg/dL Microbiology - Last 24 Hours (Table) 04/10/24 11:00 Blood Culture - Preliminary Blood Assessment and Plan Assessment: Acute hypoxemic respiratory failure secondary to suspected aspiration and some mild fluid volume overload. Recovered and on room air Altered mental status of unclear etiology, recovered Lewy body dementia History of congestive heart failure Hypertension Hyperlipidemia Gastroesophageal reflux disease Plan: The patient was seen and evaluated Medications reviewed Continue bronchodilators, prednisone taper Stable and on room air Tolerating a dysphagia level 3 chopped diet Cleared to return to [facility] This patient was seen independently by the pulmonary nurse practitioner ad dressing pulmonary issues I have personally seen and examined the patient, performed the documentation and the assessment and plan as written. Number of minutes spent on the visit: 23.
[2024-04-14 12:30] LABS: Glucose,Whole Blood 119 mg/dL (70-110)
[2024-04-14 12:50] VITALS: BP 166/78; PULSE 64; RESP 18; TEMP 98.3
--- NOTE | 2024-04-14 12:51 | P.DS ---
Providers Date of admission: 04/10/24 10:47 Expected date of discharge: 04/14/24 Attending physician: Ratna Gomez Consults: 04/10/24 11:00 Consult Physician Urgent Consulting Provider: Jamar Lucas Consult Reason/Comments: AMS Do you want consulting provider notified?: Yes 04/10/24 13:24 Consult Physician Routine Consulting Provider: Nicholas Bruno Consult Reason/Comments: copd?? Do you want consulting provider notified?: Yes Primary care physician: Hunter Villagran Hospital Course: Final diagnosis Change in mental status, acute metabolic encephalopathy, improved and back to baseline Fever/vomiting with concerns of possible acute aspiration pneumonia Acute hypoxic respiratory failure with concerns of suspected aspiration, recovered and currently on room air Lewey body dementia COPD, acute exacerbation History of congestive heart failure with preserved EF, not in exacerbation Hypertension history Hyperlipidemia history GERD Obesity with a BMI 36.2 GI prophylaxis DVT prophylaxis No code Discharge disposition Patient is being discharged in a stable condition with guarded prognosis to [facility]. Patient will follow-up with Dr. Villagran in the outpatient s etting upon discharge. Patient is to continue with oral Augmentin for 3 days on discharge along with a prednisone taper. Recommend outpatient follow-up with pulmonary as scheduled. Total time taken is greater than 35 minutes. Hospital course This is a 74-year-old male who was recently admitted with altered mentation and concerns for possible aspiration as patient did have a fever along with acute hypoxic respiratory failure. Patient being followed by pulmonary and also evaluated by speech recommending dysphagia chopped diet and aspiration precautions with head of the bed elevated 30 to 45 degrees at all times along with supervision with meals. Patient was maintained on IV steroids along with DuoNeb treatments and will transition to a prednisone taper and continue on DuoNeb treatments. Patient showing clinical improvement and will be discharged to [facility] and recommend outpatient follow-up with pulmonary. Please refer to other consultation notes for further HPI. Currently no reports of chest pain, shortness of breath, or palpitations. Patient is afebrile. No reports of nausea or vomiting and patient is tolerating diet. Patient will be discharged to [facility] today. Guarded prognosis and high risk for readmission given patient's significant comorbidities. Physical exam: Gen: This is a 74-year-old male who is awake, alert and oriented x 1-2, baseline, well-developed, elderly appearing, obese HEENT: Head is atraumatic, normocephalic. Pupils equal, round. Sclerae is anicteric. NECK: Supple. No JVD. No lymphadenopathy. No thyromegaly. LUNGS: Diminished breath sounds bilaterally with a few scattered expiratory wheezes and coarse rhonchi. No intercostal retractions. HEART: S1, S2 are muffled ABDOMEN: Soft. Obese, bowel sounds are present. No masses. No tenderness. EXTREMITIES: No pedal edema. No calf tenderness. NEUROLOGICAL: Patient is awake, alert and oriented x1-2. Cranial nerves 2 through 12 are grossly intact. Please refer to medication reconciliation sheet for a list of medications. The impression and plan of care has been dictated by Lala Koo, Nurse Practitioner as directed. Dr. Jason MD I have performed a history and examination and MDM of this patient, discussed the same with the dictator, and agree with the dictator's assessment and plan as written ,documented as a scribe. Based on total visit time, I have performed more than 50% of the visit. Patient Condition at Discharge: Fair Plan - Discharge Summary Discharge Rx Participant: No New Discharge Prescriptions: New Amoxic-Pot Clav 875-125Mg [Augmentin 875-125] 1 tab PO Q12HR 3 Days #6 tab Acetaminophen Tab [Tylenol] 650 mg PO Q6HR PRN tab PRN Reason: Mild Pain Or Fever > 100.5 Folic Acid 1 mg PO DAILY #30 tablet Thiamine [Vitamin B-1] 100 mg PO DAILY #30 tablet Ipratropium-Albuterol Nebulize [Duoneb 0.5 mg-3 mg/3 ml Soln] 3 ml INHALATION RT-QID PRN each PRN Reason: Shortness Of Breath Or Wheezing Furosemide [Lasix] 40 mg PO DAILY tab predniSONE See Taper PO DIRECTED #30 tab Budesonide-Formot 160-4.5 Mcg [Symbicort 160-4.5 Mcg Inhaler] 2 puff INHALATION RT-BID each Continue Aspirin EC [Ecotrin Low Dose] 81 mg PO DAILY Omeprazole [PriLOSEC] 20 mg PO HS Atorvastatin [Lipitor] 20 mg PO HS Multivitamins, Thera [Multivitamin (formulary)] 1 tab PO DAILY Rivaroxaban [Xarelto] 20 mg PO HS Potassium Chloride [Klor-Con M10] 10 meq PO DAILY #30 tab Sertraline [Zoloft] 50 mg PO HS Doxazosin [Cardura] 2 mg PO HS Metoprolol Succinate [Metoprolol Succinate ER] 12.5 mg PO DAILY Cholecalciferol [Vitamin D3 (25 Mcg = 1000 Iu)] 50 mcg PO DAILY Donepezil 23 mg PO HS Discontinued Furosemide [Lasix] 40 mg PO Q2D Furosemide [Lasix] 60 mg PO Q2D Discharge Medication List Aspirin EC [Ecotrin Low Dose] 81 mg PO DAILY 08/07/15 [History] Atorvastatin [Lipitor] 20 mg PO HS 08/07/15 [History] Multivitamins, Thera [Multivitamin (formulary)] 1 tab PO DAILY 08/07/15 [History] Omeprazole [PriLOSEC] 20 mg PO HS 08/07/15 [History] Rivaroxaban [Xarelto] 20 mg PO HS 05/01/22 [History] Potassium Chloride [Klor-Con M10] 10 meq PO DAILY #30 tab 06/12/22 [Rx] Metoprolol Succinate [Metoprolol Succinate ER] 12.5 mg PO DAILY 07/28/22 [History] Cholecalciferol [Vitamin D3 (25 Mcg = 1000 Iu)] 50 mcg PO DAILY 04/10/24 [History] Donepezil 23 mg PO HS 04/10/24 [History] Doxazosin [Cardura] 2 mg PO HS 04/10/24 [History] Sertraline [Zoloft] 50 mg PO HS 04/10/24 [History] Acetaminophen Tab [Tylenol] 650 mg PO Q6HR PRN tab 04/14/24 [Rx] Amoxic-Pot Clav 875-125Mg [Augmentin 875-125] 1 tab PO Q12HR 3 Days #6 tab 04/14/24 [Rx] Budesonide-Formot 160-4.5 Mcg [Symbicort 160-4.5 Mcg Inhaler] 2 puff INHALATION RT-BID each 04/14/24 [Rx] Folic Acid 1 mg PO DAILY #30 tablet 04/14/24 [Rx] Furosemide [Lasix] 40 mg PO DAILY tab 04/14/24 [Rx] Ipratropium-Albuterol Nebulize [Duoneb 0.5 mg-3 mg/3 ml Soln] 3 ml INHALATION RT-QID PRN each 04/14/24 [Rx] Thiamine [Vitamin B-1] 100 mg PO DAILY #30 tablet 04/14/24 [Rx] predniSONE See Taper PO DIRECTED #30 tab 04/14/24 [Rx] Follow up Appointment(s)/Referral(s): Tawnya Orlando MD [STAFF PHYSICIAN] - 1-2 days Activity/Diet/Wound Care/Special Instructions: Patient is returning to [facility] on the [place] Activity as tolerated Continue DuoNeb treatments Continue dysphagia 3 chopped heart healthy diet with one-to-one supervision and aspiration precautions Follow-up primary care provider on discharge Continue antibiotics for 3 days on discharge along with a prednisone taper Discharge Disposition: TRANSFER TO SNF/ECF
== END 2024-04-14 14:50 | DRG 177 ==
LOC: EC 06:17 → 5NMEDONC 10:47
PROVIDERS: ADMIT Hospitalist; ATTEND Hospitalist
DX: J69.0 Pneumonitis due to inhalation of food and vomit (principal); G93.41 Metabolic encephalopathy; J96.01 Acute respiratory failure with hypoxia; J98.11 Atelectasis; G91.2 (Idiopathic) normal pressure hydrocephalus; F02.82 Dementia in other diseases classified elsewhere, unspecified severity, with psychotic disturbance; I50.32 Chronic diastolic (congestive) heart failure; J44.1 Chronic obstructive pulmonary disease with (acute) exacerbation; G31.83 Neurocognitive disorder with Lewy bodies; I48.91 Unspecified atrial fibrillation; Z68.36 Body mass index [BMI] 36.0-36.9, adult; I11.0 Hypertensive heart disease with heart failure; J40 Bronchitis, not specified as acute or chronic; E78.5 Hyperlipidemia, unspecified; K21.9 Gastro-esophageal reflux disease without esophagitis; E66.9 Obesity, unspecified; G25.0 Essential tremor; Z79.01 Long term (current) use of anticoagulants; Z79.52 Long term (current) use of systemic steroids; Z79.82 Long term (current) use of aspirin; Z79.899 Other long term (current) drug therapy; Z86.718 Personal history of other venous thrombosis and embolism; Z96.651 Presence of right artificial knee joint; Z88.8 Allergy status to other drugs, medicaments and biological substances
CPT/HCPCS: 36415; 70450; 71045; 80048; 80053; 80306; 81001; 82140; 83036; 83880; 84145; 84484; 85025; 85610; 85730; 87040; 87636; 93005; 94640; 94760; 96361; 96365; 96375; 99285

== ENCOUNTER 2024-09-06 10:43 | Emergency (ER) | payer MEDICARE, OTHER ==
[2024-09-06 10:56] VITALS: RESP 18
--- NOTE | 2024-09-06 11:22 | ED ---
Nausea/Vomiting/Diarrhea HPI - General Chief complaint: Nausea/Vomiting/Diarrhea Stated complaint: vomiting Time Seen by Provider: 09/06/24 11:18 Source: family, EMS, RN notes reviewed Mode of arrival: EMS Limitations: no limitations - History of Present Illness Initial comments: 74-year-old male sent from [facility] for nausea/vomiting/diarrhea since this morning. Reports symptoms came on suddenly after breakfast this morning. Denies abdominal pain. Patient has history of dementia however family is at bedside who confirmed that patient is at his baseline and believes he has the stomach flu. Family reports patient had what she believes to be an episode of vasovagal syncope while in the shower prior to arrival. States he was sitting in a chair in the water when staff witnessed his eyes rolled back, and then he came to. Denies fall or head injury. He does take Eliquis and low-dose aspirin for history of atrial flutter. Denies heart failure. Denies history of abdominal surgeries. - Related Data Home Medications Medication Instructions Recorded Confirmed Aspirin EC [Ecotrin Low Dose] 81 mg PO DAILY 08/07/15 04/10/24 Atorvastatin [Lipitor] 20 mg PO HS 08/07/15 04/10/24 Multivitamins, Thera [Multivitamin 1 tab PO DAILY 08/07/15 04/10/24 (formulary)] Omeprazole [PriLOSEC] 20 mg PO HS 08/07/15 04/10/24 Rivaroxaban [Xarelto] 20 mg PO HS 05/01/22 04/10/24 Metoprolol Succinate [Metoprolol 12.5 mg PO DAILY 07/28/22 04/10/24 Succinate ER] Cholecalciferol [Vitamin D3 (25 50 mcg PO DAILY 04/10/24 04/10/24 Mcg = 1000 Iu)] Donepezil 23 mg PO HS 04/10/24 04/10/24 Doxazosin [Cardura] 2 mg PO HS 04/10/24 04/10/24 Sertraline [Zoloft] 50 mg PO HS 04/10/24 04/10/24 Previous Rx's Medication Instructions Recorded Potassium Chloride [Klor-Con M10] 10 meq PO DAILY #30 tab 06/12/22 Acetaminophen Tab [Tylenol] 650 mg PO Q6HR PRN tab 04/14/24 Amoxic-Pot Clav 875-125Mg 1 tab PO Q12HR 3 Days #6 tab 04/14/24 [Augmentin 875-125] Budesonide-Formot 160-4.5 Mcg 2 puff INHALATION RT-BID each 04/14/24 [Symbicort 160-4.5 Mcg Inhaler] Folic Acid 1 mg PO DAILY #30 tablet 04/14/24 Furosemide [Lasix] 40 mg PO DAILY tab 04/14/24 Ipratropium-Albuterol Nebulize 3 ml INHALATION RT-QID PRN each 04/14/24 [Duoneb 0.5 mg-3 mg/3 ml Soln] Thiamine [Vitamin B-1] 100 mg PO DAILY #30 tablet 04/14/24 predniSONE See Taper PO DIRECTED #30 tab 04/14/24 Ondansetron Odt [Zofran Odt] 4 mg PO Q8HR PRN #10 tab 09/06/24 Allergies Allergy/AdvReac Type Severity Reaction Status Date / Time alprazolam [From Xanax] Allergy Unknown Unknown Verified 04/10/24 11:37 cyclobenzaprine HCl Allergy Unknown Unknown Verified 04/10/24 11:37 [From Flexeril] memantine HCl [From Namenda] Allergy Unknown Unknown Verified 04/10/24 11:37 promethazine HCl Allergy Unknown Unknown Verified 04/10/24 11:37 [From Phenergan] quetiapine fumarate Allergy Unknown Unknown Verified 04/10/24 11:37 [From Seroquel] Review of Systems ROS Statement: Those systems with pertinent positive or pertinent negative responses have been documented in the HPI. ROS Other: All systems not noted in ROS Statement are negative. Past Medical History Past Medical History: Heart Failure, Dementia, Hyperlipidemia Additional Past Medical History / Comment(s): ? SEIZURE 2015. using a cane History of Any Multi-Drug Resistant Organisms: None Reported Past Surgical History: Joint Replacement, Orthopedic Surgery Additional Past Surgical History / Comment(s): total R knee arthroplasty. Rt FOOT SURGERY, Rt carpal tunnel repair Past Anesthesia/Blood Transfusion Reactions: No Reported Reaction Past Psychological History: No Psychological Hx Reported Smoking Status: Never smoker Past Alcohol Use History: None Reported Past Drug Use History: None Reported - Past Family History Father Family Medical History: Cancer Mother Family Medical History: Cancer, Deep Vein Thrombosis (DVT) Additional Family Medical History / Comment(s): bone General Exam Limitations: no limitations General appearance: alert, in no apparent distress, other Head exam: Present: atraumatic, normocephalic, normal inspection Eye exam: Present: normal appearance, PERRL, EOMI. Absent: scleral icterus, conjunctival injection, periorbital swelling Respiratory exam: Present: normal lung sounds bilaterally. Absent: respiratory distress, wheezes, rales, rhonchi, stridor Cardiovascular Exam: Present: regular rate, normal rhythm, normal heart sounds. Absent: systolic murmur, diastolic murmur, rubs, gallop, clicks GI/Abdominal exam: Present: soft, normal bowel sounds. Absent: distended, tenderness, guarding, rebound, rigid Neurological exam: Present: alert Psychiatric exam: Present: normal affect, normal mood Skin exam: Present: warm, dry, intact, normal color. Absent: rash Course Vital Signs 09/06/24 09/06/24 10:53 12:33 Temperature 98 F 97.9 F Pulse Rate 87 88 Respiratory 18 18 Rate Blood Pressure 153/61 166/82 O2 Sat by Pulse 97 96 Oximetry Medical Decision Making - Medical Decision Making Was pt. sent in by a medical professional or institution (, PA, ENTER[employer]ISE [employer]URE ARCHITECT, urgent care, hospital, or long term...) When possible be specific @ -No Did you speak to anyone other than the patient for history (EMS, parent, family, police, friend...)? What history was obtained from this source @ -Family provided most of history Did you review nursing and triage notes (agree or disagree)? Why? @ -I reviewed and agree with nursing and triage notes Were old charts reviewed (outside hosp., previous admission, EMS record, old EKG, old radiological studies, urgent care reports/EKG's, long term records)? Report findings @ -No old charts were reviewed Differential Diagnosis (chest pain, altered mental status, abdominal pain women, abdominal pain men, vaginal bleeding, weakness, fever, dyspnea, syncope, headache, dizziness, GI bleed, back pain, seizure, CVA, palpatations, mental health, musculoskeletal)? @ -Differential Abdominal Pain Women: Appendicitis, Cholecystitis, diverticulosis, ischemic bowel, pancreatitis, hepatitis, UTI, gastroenteritis, AAA, incarcerated hernia, bowel obstruction, constipation, inflammatory bowel, hepatitis, peptic ulcer disease, splenic infarction, perforated viscus, vulvitis, ovarian torsion, PID, kidney stone, placenta abruption, this is not meant to be an all-inclusive list EKG interpreted by me (3pts min.). @ -As above X-rays interpreted by me (1pt min.). @ -None done CT interpreted by me (1pt min.). @ -None done U/S interpreted by me (1pt. min.). @ -None done What testing was considered but not performed or refused? (CT, X-rays, U/S, labs)? Why? @ -CT considered however abdomen soft nonsurgical What meds were considered but not given or refused? Why? @ -None Did you discuss the management of the patient with other professionals (professionals i.e. , PA, ENTER[employer]ISE IN[employer] ARCHITECT, lab, RT, psych nurse, social scientist, technician preventative medicine, teacher, juvenile justice officer, shoe caser)? Give summary @ -No Was smoking cessation discussed for >3mins.? @ -No Was critical care preformed (if so, how long)? @ -No Were there social determinants of health that impacted care today? How? (Homel essness, low income, unemployed, alcoholism, drug addiction, transportation, low edu. Level, literacy, decrease access to med. care, nursing home, rehab)? @ -No Was there de-escalation of care discussed even if they declined (Discuss DNR or withdrawal of care, Hospice)? DNR status @ -No What co-morbidities impacted this encounter? (DM, HTN, Smoking, COPD, CAD, Cancer, CVA, ARF, Chemo, Hep., AIDS, mental health diagnosis, sleep apnea, morbid obesity)? @ -None Was patient admitted / discharged? Hospital course, mention meds given and route, prescriptions, significant lab abnormalities, going to OR and other pertinent info. @ -Discharge. 74-year-old male with nausea/vomiting/diarrhea x 1 day. Abdomen is soft and nonsurgical. Vital signs are within acceptable limits. Patient is provided with IV fluids and Zofran. Lab work remarkable for mild leukocytosis of 2.1, hemoglobin 2.3 comparable to baseline, hypokalemia 3.3, BUN 33 comparable to baseline. Discussed diagnosis of viral gastroenteritis with patient and family. Patient was provided with dose of IV potassium. Patient was provided with starter pack of Zofran as well as an outpatient prescription of Zofran for nausea. Appropriate return precautions and supportive care discussed. Case was discussed with the ED attending Dr. Rey. Undiagnosed new problem with uncertain prognosis? @ -No Drug Therapy requiring intensive monitoring for toxicity (Heparin, Nitro, Insulin, Cardizem)? @ -No Were any procedures done? @ -No Diagnosis/symptom? @ -Viral gastroenteritis Acute, or Chronic, or Acute on Chronic? @ -Acute Uncomplicated (without systemic symptoms) or Complicated (systemic symptoms)? @ -Complicated Side effects of treatment? @ -No Exacerbation, Progression, or Severe Exacerbation? @ -No Poses a threat to life or bodily function? How? (Chest pain, [place], [place], pneumonia, PE, COPD, DKA, ARF, appy, cholecystitis, CVA, Diverticulitis, Homicidal, Suicidal, threat to staff... and all critical care pts) @ -Not at this time - Lab Data Result diagrams: 09/06/24 11:28 09/06/24 11:28 Lab Results 09/06/24 09/06/24 09/06/24 Range/Units 11:28 11:28 11:28 WBC 6.1 (3.8-10.6) k/uL RBC 3.94 L (4.30-5.90) m/uL Hgb 12.3 L (13.0-17.5) gm/dL Hct 39.9 (39.0-53.0) % MCV 101.2 H (80.0-100.0) fL MCH 31.1 (25.0-35.0) pg MCHC 30.7 L (31.0-37.0) g/dL RDW 13.4 (11.5-15.5) % Plt Count 106 L (150-450) k/uL MPV 7.4 Neutrophils % 86 % Lymphocytes % 7 % Monocytes % 6 % Eosinophils % 1 % Basophils % 0 % Neutrophils # 5.2 (1.3-7.7) k/uL Lymphocytes # 0.4 L (1.0-4.8) k/uL Monocytes # 0.4 (0-1.0) k/uL Eosinophils # 0.0 (0-0.7) k/uL Basophils # 0.0 (0-0.2) k/uL Hypochromasia Slight Macrocytosis Slight Sodium 141 (137-145) mmol/L Potassium 3.3 L (3.5-5.1) mmol/L Chloride 107 (98-107) mmol/L Carbon Dioxide 26 (22-30) mmol/L Anion Gap 8 mmol/L BUN 33 H (9-20) mg/dL Creatinine 0.87 (0.66-1.25) mg/dL Est GFR (CKD-EPI)AfAm >90 (>60 ml/min/1.73 sqM) Est GFR (CKD-EPI)NonAf 85 (>60 ml/min/1.73 sqM) Glucose 153 H (74-99) mg/dL Plasma Lactic Acid Mina 2.1 H* (0.7-2.0) mmol/L Calcium 8.5 (8.4-10.2) mg/dL Total Bilirubin 1.1 (0.2-1.3) mg/dL AST 21 (17-59) U/L ALT 19 (4-49) U/L Alkaline Phosphatase 102 (38-126) U/L Total Protein 6.0 L (6.3-8.2) g/dL Albumin 3.8 (3.5-5.0) g/dL Lipase 47 (23-300) U/L Influenza Type A (PCR) (Not Detectd) Influenza Type B (PCR) (Not Detectd) RSV (PCR) (Not Detectd) SARS-CoV-2 (PCR) (Not Detectd) 09/06/24 Range/Units 11:28 WBC (3.8-10.6) k/uL RBC (4.30-5.90) m/uL Hgb (13.0-17.5) gm/dL Hct (39.0-53.0) % MCV (80.0-100.0) fL MCH (25.0-35.0) pg MCHC (31.0-37.0) g/dL RDW (11.5-15.5) % Plt Count (150-450) k/uL MPV Neutrophils % % Lymphocytes % % Monocytes % % Eosinophils % % Basophils % % Neutrophils # (1.3-7.7) k/uL Lymphocytes # (1.0-4.8) k/uL Monocytes # (0-1.0) k/uL Eosinophils # (0-0.7) k/uL Basophils # (0-0.2) k/uL Hypochromasia Macrocytosis Sodium (137-145) mmol/L Potassium (3.5-5.1) mmol/L Chloride (98-107) mmol/L Carbon Dioxide (22-30) mmol/L Anion Gap mmol/L BUN (9-20) mg/dL Creatinine (0.66-1.25) mg/dL Est GFR (CKD-EPI)AfAm (>60 ml/min/1.73 sqM) Est GFR (CKD-EPI)NonAf (>60 ml/min/1.73 sqM) Glucose (74-99) mg/dL Plasma Lactic Acid Mina (0.7-2.0) mmol/L Calcium (8.4-10.2) mg/dL Total Bilirubin (0.2-1.3) mg/dL AST (17-59) U/L ALT (4-49) U/L Alkaline Phosphatase (38-126) U/L Total Protein (6.3-8.2) g/dL Albumin (3.5-5.0) g/dL Lipase (23-300) U/L Influenza Type A (PCR) Not Detected (Not Detectd) Influenza Type B (PCR) Not Detected (Not Detectd) RSV (PCR) Not Detected (Not Detectd) SARS-CoV-2 (PCR) Not Detected (Not Detectd) - EKG Data -: EKG Interpreted by Me EKG Comments: EKG reveals atrial flutter with 3 1 ratio. Ventricular rate 78 bpm, NH interval not calculated, QRS duration 118, QT/QTc 379/412 Disposition Clinical Impression: Viral gastroenteritis Disposition: HOME SELF-CARE Condition: Stable Instructions (If sedation given, give patient instructions): Gastroenteritis (ED) Additional Instructions: Take Zofran as needed for nausea. Please return to the Emergency Department if symptoms worsen or any other concerns. Prescriptions: Ondansetron Odt [Zofran Odt] 4 mg PO Q8HR PRN #10 tab PRN Reason: Nausea Is patient prescribed a controlled substance at d/c from ED?: No Referrals: Hunter Villagran MD [Primary Care Provider] - 1-2 days Time of Disposition: 12:56
[2024-09-06] MEDS: SODIUM CHLORIDE 0.9% 1,000 ML IV STA (11:26)
[2024-09-06] MEDS: ONDANSETRON 4 MG/2 ML VIAL IVP STA (11:27)
[2024-09-06 11:50] LABS: Basophils % (A) 0 %; Eosinophils % (A) 1 %; HCT 39.9 % (39.0-53.0); HGB 12.3 gm/dL (13.0-17.5); Hypochromasia Slight; Lymphocytes # (A) 0.4 k/uL (1.0-4.8); Lymphocytes % (A) 7 %; MCH 31.1 pg (25.0-35.0); MCHC 30.7 g/dL (31.0-37.0); MCV 101.2 fL (80.0-100.0); Macrocytosis Slight; Mean Platelet Volume 7.4; Monocytes # (A) 0.4 k/uL (0-1.0); Monocytes % (A) 6 %; Neutrophils # (A) 5.2 k/uL (1.3-7.7); Neutrophils % (A) 86 %; Platelet Count 106 k/uL (150-450); RBC 3.94 m/uL (4.30-5.90); RDW 13.4 % (11.5-15.5); WBC 6.1 k/uL (3.8-10.6)
[2024-09-06 12:07] LABS: ALT 19 U/L (4-49); AST 21 U/L (17-59); African American GFR (CKD) >90 (>60 ml/min/1.73 sqM); Albumin 3.8 g/dL (3.5-5.0); Alkaline Phosphatase 102 U/L (38-126); Anion Gap 8 mmol/L; Blood Urea Nitrogen 33 mg/dL (9-20); Calcium 8.5 mg/dL (8.4-10.2); Carbon Dioxide 26 mmol/L (22-30); Chloride 107 mmol/L (98-107); Glucose 153 mg/dL (74-99); Lipase 47 U/L (23-300); Non-African American GFR(CKD) 85 (>60 ml/min/1.73 sqM); Potassium 3.3 mmol/L (3.5-5.1); Sodium 141 mmol/L (137-145); Total Bilirubin 1.1 mg/dL (0.2-1.3)
[2024-09-06 12:13] LABS: Influenza A Not Detected (Not Detectd); Influenza B Not Detected (Not Detectd); RSV Not Detected (Not Detectd)
[2024-09-06] MEDS: POTASSIUM CHLORIDE ER 20 MEQ TAB.ER PO STA (12:54)
[2024-09-06] MEDS: ONDANSETRON 4 MG ODT STARTER PACK 2 TAB BTL PO STA (13:00)
[2024-09-06] MEDS: POTASSIUM CHLORIDE 20 MEQ in WATER FOR INJECTION 1 100ML.BAG IVPB STA (13:24)
[2024-09-06 15:39] VITALS: BP 164/71; PULSE 67; TEMP 98.6
== END 2024-09-06 15:49 | disposition home or self-care (01) ==
LOC: EC 10:43
DX: A08.4 Viral intestinal infection, unspecified (principal); I48.92 Unspecified atrial flutter
CPT/HCPCS: 36415; 93005; 80053; 83605; 83690; 85025; 87636; 99284; 96365; 96366; 96375; 96361; J3480; J2405; S0119